=== PATIENT | male | born 1955 | race Caucasian/White ===

== ENCOUNTER → 2017-11-20 08:33 | Outpatient (CLI) | payer OTHER, SELFPAY ==
[2017-11-20 09:10] LABS: Absolute Lymphocyte Count 2.01 X10^3/ul (0.83-4.51); Absolute Neutrophil Count 4.9 X10^3/uL (2.0-7.7); Basophil# 0.02 X10^3/uL; Basophil% 0.3 % (0-1); Eosinophil# 0.19 X10^3/uL; Eosinophils% 2.5 % (0-5); Hematocrit 44.2 % (40-54); Hemoglobin 15.2 g/dl (13.0-16.5); Lymphocyte # 2.01 X10^3/ul (4.0); Lymphocyte % 26.2 % (19-41); Mean Corp Hgb Conc 34.4 g/gl (32-36); Mean Corpuscular Hgb 30.6 pg (27.0-32.0); Mean Corpuscular Volume 89.1 fL (80-94); Mean Platelet Vol. 9.8 fl (6.2-12.0); Monocyte# 0.56 X10^3/uL; Monocyte% 7.3 % (0-10); Neutrophil # 4.86 X10^3/uL (2.7-7.7); Neutrophil % 63.4 % (47-70); POSITIVE COUNT NO; POSITIVE DIFFERENTIAL NO; POSITIVE MORPHOLOGY NO; Platelet Count 179 K/mm3 (150-450); RBC Distribution Width CV 13.6 % (11.6-14.6); RBC Distribution Width SD 43.9 fl (35.1-43.9); Red Blood Count 4.96 M/mm3 (4.6-6.2); White Blood Count 7.7 K/mm3 (4.4-11.0)
[2017-11-20 09:25] LABS: ALB/GLOB Ratio 0.9 RATIO (0.9-2.4); AST(SGOT) 16 U/L (15-37); Alanine Aminotransfer ALT/SGPT 29 U/L (16-61); Albumin, Serum 3.5 g/dL (3.2-5.0); Alkaline Phosphatase 74 U/L (45-117); Anion Gap 8 (5-15); BUN 13 mg/dL (7-18); BUN/Creat Ratio 12.9 RATIO (10-20); Calcium,Total 8.5 mg/dL (8.5-10.1); Chloride 107 mmol/L (98-107); Creatinine, Serum 1.01 mg/dL (0.70-1.30); EST Glomerular Filtration Rate 80 mL/min (>60); Est Glom Filt Rate - Afr Amer 96 mL/min (>60); Globulin 3.8 g/dL (2.2-4.2); Glucose 99 mg/dL (74-106); Potassium 4.1 mmol/L (3.5-5.1); Protein, Total 7.3 g/dL (6.4-8.2); Sodium Level 141 mmol/L (136-145)
== END ==
PROVIDERS: Family Provider Family Medicine; PCP Family Medicine; Visit Provider Internal Medicine Rheumatology
DX: M06.4 Inflammatory polyarthropathy (principal); R76.8 Other specified abnormal immunological findings in serum; K21.0 Gastro-esophageal reflux disease with esophagitis; R51 Headache; G47.33 Obstructive sleep apnea (adult) (pediatric); E78.5 Hyperlipidemia, unspecified
CPT/HCPCS: 36415; 80053; 85025

== ENCOUNTER → 2017-11-22 08:49 | Outpatient (CLI) | payer OTHER, SELFPAY ==
--- NOTE | 2017-11-22 08:53 | RAD_ITS ---
STUDY: X-RAY CHEST REASON FOR EXAM: Male, 62 years old. Left shoulder pain following inhalation of cleaning agents. TECHNIQUE: PA and lateral views of the chest. COMPARISON: Comparison is made with prior study dated September 06, 2014. FINDINGS: Hyperinflation. No acute abnormality is seen. Scattered calcified granulomas. There is no demonstrated pleural abnormality. Normal size heart. There are calcified mediastinal lymph nodes. Normal visualized pulmonary arteries. Normal visualized aortic arch and descending thoracic aorta. Normal visualized thoracic spine. Normal visualized ribs, clavicles, and shoulders. There is no demonstrated abnormality of the visualized soft tissue structures of the upper abdomen. RAD/Chest PA and Lateral IMPRESSION: Hyperinflation. Electronically Signed: Taj Dhillon MD at 14:21 EST Tel [phone], Service support ,
== END ==
PROVIDERS: Family Provider Family Medicine; PCP Family Medicine; Visit Provider Family Medicine
DX: T59.891A Toxic effect of other specified gases, fumes and vapors, accidental (unintentional), initial encounter (principal)
CPT/HCPCS: 71046

== ENCOUNTER 2018-01-01 18:43 | Emergency (ER) | payer OTHER, SELFPAY ==
[2018-01-01 18:44] VITALS: BP 147/80; PULSE 73; RESP 18; TEMP 36.9; O2SAT 96; BMI 28.6
--- NOTE | 2018-01-01 19:14 | ED.DCSUM_ITS ---
- ER Visit Summary Date of Service: 01/01/18 Chief Complaint: Left eye redness History of Present Illness: The patient is a 62 M presenting with left eye redness. He states this is been ongoing since yesterday. He said a foreign body sensation in his left eye. He states when he moves his eye he can feel something moving under his eyelid. No visual changes. He wears glasses, no contacts. No trauma or chemical exposure. Denies fever or other complaints. Physical Examination: Vitals are stable. Patient is afebrile. Alert no acute distress. HEENT exam PERRL, EOMI, left conjunctivae injected. Neck is supple. Lungs are clear and equal bilaterally. Heart is regular rate and rhythm. Extremities are unremarkable. Skin is warm and dry. No focal neurologic deficit. Remainder of exam is unremarkable. Emergency Department Course and Treatment: Tetracaine was instilled into the left eye. Left eyelid was everted. There is no foreign body visualized. He has improvement of his symptoms after tetracaine was instilled. Visual acuity 20/30 OD, 20/30 OS, 20/30 OU. Intraocular pressure readings in the 20s. Corneal ulcer is seen at 11:00 with small amount of dye uptake. He is given Cipro ophthalmic drops. Discussed with Dr. Mejia. Patient will follow-up in the office. He has an appointment scheduled already on Wednesday for a routine eye visit. He is advised to return to the ED if he has any worsening vision or complaints. Disposition: Discharge home Impression: Left corneal ulcer This note was generated with [employer] dictation software. It may contain incorrect words, spelling, and punctuation that were not noted in review of the chart prior to signing ED Disposition - Plan for ED Patient: Chief Complaint: Eye Problem Referrals: Barron Kelley MD [Primary Care Provider] -
--- NOTE | 2018-01-01 20:20 | ED.DEP ---
ED Disposition - Plan for ED Patient: Chief Complaint: Eye Problem Instructions: ED Ulcer Cornea Referrals: Barron Kelley MD [Primary Care Provider] - Chad Ogden MD [STAFF PHYSICIAN] -
[2018-01-01] MEDS: Tetracaine 0.5% Ophthalmic Bottle 1 DRP LEFT EYE (20:37)
[2018-01-01] MEDS: Ciprofloxacin 0.3% 2.5ml Bottle 1 DRP LEFT EYE (20:37)
[2018-01-01 20:38] VITALS: RESP 18
== END 2018-01-01 20:38 | disposition home or self-care (01) ==
LOC: ED 19:09
PROVIDERS: Emergency Provider Emergency Medicine; Family Provider Family Medicine; PCP Family Medicine
DX: H16.002 Unspecified corneal ulcer, left eye (principal)
CPT/HCPCS: 99283

== ENCOUNTER → 2018-05-16 07:37 | Outpatient (CLI) | payer OTHER, SELFPAY ==
[2018-05-16 10:13] LABS: Absolute Lymphocyte Count 1.67 X10^3/ul (0.83-4.51); Absolute Neutrophil Count 3.7 X10^3/uL (2.0-7.7); Basophil# 0.01 X10^3/uL; Basophil% 0.2 % (0-1); Eosinophil# 0.13 X10^3/uL; Eosinophils% 2.2 % (0-5); Hematocrit 45.9 % (40-54); Hemoglobin 15.9 g/dl (13.0-16.5); Lymphocyte # 1.67 X10^3/ul (4.0); Lymphocyte % 27.7 % (19-41); Mean Corp Hgb Conc 34.6 g/gl (32-36); Mean Corpuscular Hgb 30.8 pg (27.0-32.0); Mean Platelet Vol. 10.6 fl (6.2-12.0); Monocyte# 0.53 X10^3/uL; Monocyte% 8.8 % (0-10); Neutrophil # 3.68 X10^3/uL (2.7-7.7); Neutrophil % 61.1 % (47-70); Platelet Count 174 K/mm3 (150-450); RBC Distribution Width CV 13.5 % (11.6-14.6); RBC Distribution Width SD 43.7 fl (35.1-43.9); Red Blood Count 5.16 M/mm3 (4.6-6.2)
[2018-05-16 10:20] LABS: POSITIVE COUNT NO; POSITIVE DIFFERENTIAL NO; POSITIVE MORPHOLOGY NO
[2018-05-16 10:44] LABS: AST(SGOT) 19 U/L (15-37); Alanine Aminotransfer ALT/SGPT 34 U/L (16-61); Albumin, Serum 3.8 g/dL (3.2-5.0); Alkaline Phosphatase 69 U/L (45-117); Anion Gap 9 (5-15); BUN 17 mg/dL (7-18); BUN/Creat Ratio 17.3 RATIO (10-20); Calcium,Total 8.9 mg/dL (8.5-10.1); Chloride 105 mmol/L (98-107); Creatinine, Serum 0.98 mg/dL (0.70-1.30); EST Glomerular Filtration Rate 82 mL/min (>60); Est Glom Filt Rate - Afr Amer 99 mL/min (>60); Globulin 3.7 g/dL (2.2-4.2); Glucose 99 mg/dL (74-106); Potassium 4.3 mmol/L (3.5-5.1); Protein, Total 7.5 g/dL (6.4-8.2); Sodium Level 142 mmol/L (136-145)
== END ==
PROVIDERS: Family Provider Family Medicine; PCP Family Medicine; Visit Provider Internal Medicine Rheumatology
DX: M06.4 Inflammatory polyarthropathy (principal); R76.8 Other specified abnormal immunological findings in serum; K21.0 Gastro-esophageal reflux disease with esophagitis; R51 Headache; G47.33 Obstructive sleep apnea (adult) (pediatric); E78.5 Hyperlipidemia, unspecified
CPT/HCPCS: 36415; 80053; 85025

== ENCOUNTER 2018-07-01 19:21 | Observation (INO) | payer OTHER, SELFPAY ==
[2018-07-01] VITALS (8 sets, daily range): BP systolic 109–184; BP diastolic 72–105; PULSE 61–83; RESP 14–17; TEMP 36.8; O2SAT 96–98; BMI 31.0; BMI 30.7
--- NOTE | 2018-07-01 19:22 | EKG12_ITS ---
Test Reason : CHEST PAIN Blood Pressure : / mmHG Vent. Rate : 079 BPM Atrial Rate : 079 BPM P-R Int : 186 ms QRS Dur : 096 ms QT Int : 376 ms P-R-T Axes : 039 -21 003 degrees QTc Int : 431 ms Normal sinus rhythm with sinus arrhythmia Normal ECG Confirmed by LOUIS QUINONES, ANABEL ([id number]), senior editor JIMENA MOHAMUD ([id number]) on 07/04/2018 3:22:39 PM Referred By: BRIAN Confirmed By:ANABEL MYERS MD
--- NOTE | 2018-07-01 19:35 | EKG12_ITS ---
Test Reason : REPEAT CP Blood Pressure : / mmHG Vent. Rate : 076 BPM Atrial Rate : 076 BPM P-R Int : 188 ms QRS Dur : 096 ms QT Int : 384 ms P-R-T Axes : 039 -11 -04 degrees QTc Int : 432 ms Normal sinus rhythm Normal ECG Confirmed by ANABEL MYERS MD ([id number]), editor index JIMENA MOHAMUD ([id number]) on 07/04/2018 3:18:02 PM Referred By: BRIAN Confirmed By:ANABEL MYERS MD
--- NOTE | 2018-07-01 19:46 | RAD_ITS ---
STUDY: X-RAY CHEST REASON FOR EXAM: Male, 62 years old. Chest pain. Hypertension. TECHNIQUE: Single AP portable view of the chest. COMPARISON: November 22, 2017. FINDINGS: Telemetry wires overlie the chest. The lungs are clear and mildly hyperexpanded. There is no demonstrated pleural abnormality. Normal size heart. Normal mediastinum and bruce. Normal visualized pulmonary arteries. Normal visualized aortic arch and descending thoracic aorta. Normal visualized thoracic spine. Normal visualized ribs, clavicles, and shoulders. There is no demonstrated abnormality of the visualized soft tissue structures of the upper abdomen. RAD/Chest 1 View (Portable) IMPRESSION: No acute cardiopulmonary disease or major interval change. Electronically Signed: Hodo Del Valle DO at 19:55 EDT Tel [phone], Service support ,
[2018-07-01] MEDS: Aspirin 81 MG TAB.CHEW 324 MG PO (19:51)
[2018-07-01 20:25] LABS: Absolute Lymphocyte Count 2.98 X10^3/ul (0.83-4.51); Absolute Neutrophil Count 4.1 X10^3/uL (2.0-7.7); Basophil# 0.02 X10^3/uL; Basophil% 0.3 % (0-1); Eosinophil# 0.05 X10^3/uL; Eosinophils% 0.7 % (0-5); Hematocrit 45.8 % (40-54); Hemoglobin 15.9 g/dl (13.0-16.5); Lymphocyte # 2.98 X10^3/ul (4.0); Lymphocyte % 38.9 % (19-41); Mean Corp Hgb Conc 34.7 g/gl (32-36); Mean Corpuscular Hgb 30.5 pg (27.0-32.0); Mean Corpuscular Volume 87.9 fL (80-94); Mean Platelet Vol. 10.7 fl (6.2-12.0); Monocyte# 0.55 X10^3/uL; Monocyte% 7.2 % (0-10); Neutrophil # 4.06 X10^3/uL (2.7-7.7); Neutrophil % 52.8 % (47-70); Platelet Count 177 K/mm3 (150-450); RBC Distribution Width CV 13.1 % (11.6-14.6); RBC Distribution Width SD 41.9 fl (35.1-43.9); Red Blood Count 5.21 M/mm3 (4.6-6.2); White Blood Count 7.7 K/mm3 (4.4-11.0)
[2018-07-01 20:26] LABS: POSITIVE COUNT NO; POSITIVE DIFFERENTIAL NO; POSITIVE MORPHOLOGY NO
[2018-07-01 20:37] LABS: Anion Gap 9 (5-15); BUN 15 mg/dL (7-18); BUN/Creat Ratio 15.1 RATIO (10-20); Chloride 103 mmol/L (98-107); EST Glomerular Filtration Rate 81 mL/min (>60); Est Glom Filt Rate - Afr Amer 98 mL/min (>60); Glucose 113 mg/dL (74-106); Potassium 3.9 mmol/L (3.5-5.1); Sodium Level 137 mmol/L (136-145)
--- NOTE | 2018-07-01 21:05 | HP.PCM_ITS ---
History of Present Illness The patient is a 62 year old M [] Past Medical History Allergies Sulfa (Sulfonamide Antibiotics) Adverse Reaction (Verified 11/11/16 13:05) Nausea Home Medications: Ambulatory Orders Medication Instructions Recorded Aspirin E.C. [Ecotrin] 81 mg PO DAILY@0800 11/11/16 Clonazepam [Klonopin] 0.5 mg PO BID 11/11/16 Hydroxychloroquine [Plaquenil] 200 mg PO BIDCM 11/11/16 Lovastatin [Mevacor] 40 mg PO DAILY 11/11/16 Multivitamin [Multiple Vitamins] 1 each PO DAILY 11/11/16 [place]-3S/Dha/Epa/Fish Oil/D3 [Fish 1 each PO DAILY 11/11/16 Oil + D3 Softgel] Omeprazole [Prilosec] 40 mg PO DAILY 11/11/16 Smoking Status: Former smoker - Physical Exam Vital Signs Temp Pulse Resp BP Pulse Ox 98.3 F 83 17 109/83 H 98 07/01/18 19:23 07/01/18 20:30 07/01/18 19:23 07/01/18 20:30 07/01/18 19:23 Oxygen Delivery Method Room Air Weight: 92.5 kg Body Mass Index (BMI) 31.0 Laboratory Tests Past 24 Hrs 07/01/18 07/01/18 19:26 19:26 WBC 7.7 RBC 5.21 Hgb 15.9 Hct 45.8 MCV 87.9 MCH 30.5 MCHC 34.7 RDW 13.1 RDW Differential 41.9 Plt Count 177 MPV 10.7 Immature Gran % (Auto) 0.100 Neut % (Auto) 52.8 Lymph % (Auto) 38.9 [place] % (Auto) 7.2 Eos % (Auto) 0.7 Baso % (Auto) 0.3 Absolute Neuts (auto) 4.1 Absolute Lymphs (auto) 2.98 Total Counted Not Reportable Sodium 137 Potassium 3.9 Chloride 103 Carbon Dioxide 25.0 Anion Gap 9 BUN 15 Creatinine 1.00 Estim Creat Clear Calc 74.10 Est GFR (MDRD) Af Amer 98 Est GFR (MDRD) Non-Af 81 BUN/Creatinine Ratio 15.1 Glucose 113 H Calcium 9.0 Troponin I < 0.015 Assessment/Plan All Active Problems Colitis (Acute) Rectal bleeding (Acute)
--- NOTE | 2018-07-01 21:07 | ED.DCSUM_ITS ---
- ER Visit Summary Date of Service: 07/01/18 Chief Complaint: Left sided chest pain History of Present Illness: The patient is a 62 M no prior cardiac history. History of hypertension and prior inoperable brain aneurysms. Eczema 11 years ago patient had a negative cardiac catheterization. He states about an hour prior to arrival he developed left-sided chest pressure. Denies nausea, diaphoresis or shortness of breath. No recent exertional symptoms. No leg pain or swelling. No history of DVT or PE. No hemoptysis. No recent travel, surgery or hospitalization. Patient states the pain is 4 out of 5. He describes it as a pressure. No significant radiation. Physical Examination: Well-appearing older male. Vital signs are stable his initial blood pressure is elevated 184/105. Pulse ox is 90% on room air no signs of hypoxia. H EENT exam unremarkable. Neck nontender no lymphadenopathy. Lungs clear to auscultation bilaterally. Heart regular rhythm no murmur rate about 75. Chest wall nontender. Abdomen soft nontender. He is moving all 4 extremities. They are neurovascularly intact. Calves are nontender without edema or cords. Radial pulses are equal and symmetrical. Back nontender. Neurologic exam normal no focal motor deficits. Test Results: First EKG shows sinus rhythm rate is 79 with anemia. Second EKG was performed and he had worsening chest pain again sinus rhythm rate is 76 with cardiac ischemia nor MA. CBC normal. Chemistries normal. Troponin normal. Chest x-ray normal cardiac silhouette and mediastinum. Read both by myself and the radiologist. Emergency Department Course and Treatment: Patient treated with p.o. aspirin. Sublingual nitroglycerin resolved his chest pain totally. He and I and his discussed all his test results. Treatment Plan: I have spoken to the hospitalist who is down in the ER to admit the patient. Disposition: Observation for chest pain of uncertain etiology. Impression: Chest pain of uncertain etiology History of hypertension This note was generated with [employer] dictation software. It may contain incorrect words, spelling, and punctuation that were not noted in review of the chart prior to signing ED Disposition - Plan for ED Patient: Chief Complaint: Chest Pain Referrals: Barron Kelley MD [Primary Care Provider] -
--- NOTE | 2018-07-01 21:41 | PCM.HP.STD ---
Problem List (1) Chest pain Status: Acute (2) HTN (hypertension) Status: Chronic (3) Brain aneurysm Status: Chronic History of Present Illness Date of Admission: 07/01/18 Chief Complaint: chest pain The patient is a 62 year old M with a significant history of hypertension, brain aneurysm who presents with progressively worsening episodic chest pain has began about 1 hour prior to presentation at emergency department. His pain was originally 5-6 on a scale of 1-10. At emergency department his pain increased to 7. Patient was given 3 tablets of nitroglycerin 5 minutes apart and he brought his pain to at school. Initially his blood pressure was severely elevated about with a nitroglycerin and his blood pressure decreased. His chest pain is located at the left side of his chest. He describes his pain predominantly as a pressure and with a little sharpness to it. About 11 years ago patient had an unremarkable evaluation for chest pain with stress test and a cardiac cath. He has strong family history of heart disease in both his maternal and his paternal lines. Past Medical History Past Medical History (Chronic Problems): Chronic Problems HTN (hypertension) (Chronic) Brain aneurysm (Chronic) Allergies Sulfa (Sulfonamide Antibiotics) Adverse Reaction (Verified 11/11/16 13:05) Nausea Home Medications: Ambulatory Orders Medication Instructions Recorded Aspirin E.C. [Ecotrin] 81 mg PO QHS 11/11/16 Clonazepam [Klonopin] 0.5 mg PO 1700 11/11/16 Hydroxychloroquine [Plaquenil] 200 mg PO BIDCM 11/11/16 Lovastatin [Mevacor] 40 mg PO QHS 11/11/16 Multivitamin [Multiple Vitamins] 1 each PO DAILY 11/11/16 [place]-3S/Dha/Epa/Fish Oil/D3 [Fish 1 each PO DAILY 11/11/16 Oil + D3 Softgel] Omeprazole [Prilosec] 40 mg PO DAILY 11/11/16 Clonazepam [Klonopin] 1 mg PO QHS 07/01/18 Vitamin D PO DAILY 07/01/18 Surgical History: no surgical history Lives: Spouse/ Significant Other Tobacco Use: Chew - licks some some type of tobacco Alcohol: Rare - *Family History Paternal History Items: No pertinent history Maternal History Items: No pertinent history Review of Systems Constitutional: Denies: Chills, Fever, Weight Change HEENT: Denies: Head Aches, Sinus Congestion, Sinus Drainage Cardiovascular: Reports: Chest Pain Respiratory: Denies: Cough, Shortness of breath at rest, Sputum production Gastrointestinal: Denies: Abdominal Pain, Nausea, Vomiting Genitourinary: Denies: Dysuria Musculoskeletal: Denies: Joint Pain, Joint Tenderness Skin: Denies: Rash, Wounds Neurological: Denies: Numbness, Tingling, Focal weakness Psychiatric: Denies: Anxiety, Depression, Homicidal Ideations, Suicidal Ideations Hematologic/ Lymphatic: Denies: Easy Bruising, Easy Bleeding VTE Information - Inpt Only VTE Present on Admission: No VTE Mechan Device Prophylaxis: None VTE Pharm Prophylaxis ordered?: Yes Patient Problems: Active and Suspected Problems Chest pain (Acute) - Physical Exam General: Alert, Oriented x3, Cooperative HEENT: Atraumatic, PERRLA, EOMI, Normocephalic Neck: Supple, No JVD, Negative Carotid Bruits Lungs: Clear to auscultation, Normal air movement Cardiovascular: Regular rate, No murmurs Abdomen: Bowel Sounds Present, Soft, Non Tender Extremities: No edema, Capillary Refill Less than 3 Seconds Skin: No rashes, No breakdown Musculoskeletal: No Tenderness to Palpation of Joints or Extremities Neurological: Cranial nerves II-XII grossly intact Psych/Mental Status: Normal Affect, Appropriate Vital Signs Temp Pulse Resp BP Pulse Ox 98.3 F 73 16 125/72 H 96 07/01/18 19:23 07/01/18 21:30 07/01/18 21:30 07/01/18 21:30 07/01/18 21:30 Assessment/Plan All Active Problems Chest pain (Acute) Colitis (Resolved) Rectal bleeding (Resolved) The patient is a 62 year old M with a significant history of hypertension, brain aneurysm who presents with progressively worsening episodic chest pain and a strong family history of heart disease in both his maternal and his paternal lines. Chest pain Admit to a monitored bed on PCU CXR independently reviewed was unremarkable EKG independently reveiwed showed sinus rhythm ASA 81 mg p.o. daily SL NTG 0.4 mg prn as needed for chest pain Lipitor 80 mg daily Fasting lipids CBC and BMP in a.m. Serial cardiac enzymes Stat EKG as needed for chest pain Treadmill stress test with nuclear imaging in the AM if the cardiac enzymes are negative Hypertension Uncontrolled at the time of admission Patient reports that the last 6 months he was started on some low-dose blood pressure medication. Hydralazine as needed ordered. Tobacco abuse Use some form of tobacco that he likes Counseled Inpatient consult smoking cessation. Anxiety Clonazepam continued. Obstructive sleep apnea CPAP ordered Rheumatoid arthritis Plaquenil continued. DVT prophylaxis Subcutaneous Lovenox ordered. Code Visit OBSV E&M: 71312 Initial observation care L3
--- NOTE | 2018-07-01 22:11 | EKG12_ITS ---
Test Reason : ADM EKG Blood Pressure : / mmHG Vent. Rate : 057 BPM Atrial Rate : 057 BPM P-R Int : 192 ms QRS Dur : 092 ms QT Int : 414 ms P-R-T Axes : 027 -15 -01 degrees QTc Int : 402 ms Sinus bradycardia Otherwise normal ECG When compared with ECG of 10-SEP-2010 12:06, No significant change was found Confirmed by LOUIS QUINONES, ANABEL ([id number]), film or videotape editor JIMENA MOHAMUD ([id number]) on 07/06/2018 3:31:18 PM Referred By: ARSALAN Confirmed By:ANABEL MYERS MD
[2018-07-01] MEDS: Atorvastatin Calcium 80 MG Tablet PO (22:50)
[2018-07-01] MEDS: clonazePAM 1 MG Tablet PO (22:52)
[2018-07-02] VITALS (7 sets, daily range): BP systolic 113–162; BP diastolic 65–86; PULSE 52–85; RESP 16–18; TEMP 36.9–37.4; O2SAT 92–94
--- NOTE | 2018-07-02 05:55 | EKG12_ITS ---
Test Reason : AM EKG Blood Pressure : / mmHG Vent. Rate : 058 BPM Atrial Rate : 058 BPM P-R Int : 182 ms QRS Dur : 098 ms QT Int : 442 ms P-R-T Axes : 044 -19 -12 degrees QTc Int : 433 ms Sinus bradycardia Otherwise normal ECG When compared with ECG of 01-JUL-2018 22:47, MANUAL COMPARISON REQUIRED, DATA IS UNCONFIRMED Confirmed by LOUIS QUINONES, ANABEL ([id number]), loan expeditor JIMENA MOHAMUD ([id number]) on 07/06/2018 3:29:49 PM Referred By: DR ZAPATA Confirmed By:ANABEL MYERS MD
[2018-07-02] MEDS: Aspirin E.C. 81 MG Tablet PO (06:31)
[2018-07-02 06:38] LABS: Absolute Lymphocyte Count 2.16 X10^3/ul (0.83-4.51); Absolute Neutrophil Count 3.8 X10^3/uL (2.0-7.7); Basophil# 0.02 X10^3/uL; Basophil% 0.3 % (0-1); Eosinophil# 0.11 X10^3/uL; Eosinophils% 1.6 % (0-5); Hematocrit 43.5 % (40-54); Hemoglobin 15.2 g/dl (13.0-16.5); Lymphocyte # 2.16 X10^3/ul (4.0); Lymphocyte % 32.1 % (19-41); Mean Corp Hgb Conc 34.9 g/gl (32-36); Mean Corpuscular Hgb 30.8 pg (27.0-32.0); Mean Corpuscular Volume 88.2 fL (80-94); Mean Platelet Vol. 10.1 fl (6.2-12.0); Monocyte# 0.61 X10^3/uL; Monocyte% 9.1 % (0-10); Neutrophil # 3.82 X10^3/uL (2.7-7.7); Neutrophil % 56.8 % (47-70); Platelet Count 164 K/mm3 (150-450); RBC Distribution Width CV 13.4 % (11.6-14.6); RBC Distribution Width SD 42.8 fl (35.1-43.9); Red Blood Count 4.93 M/mm3 (4.6-6.2); White Blood Count 6.7 K/mm3 (4.4-11.0)
[2018-07-02 06:44] LABS: International Normalized Ratio 1.1; Prothrombin Time (Protime)PT. 13.8 SECONDS (11.7-14.9)
[2018-07-02 06:47] LABS: POSITIVE COUNT NO; POSITIVE DIFFERENTIAL NO; POSITIVE MORPHOLOGY NO
[2018-07-02 07:08] LABS: BUN 15 mg/dL (7-18); EST Glomerular Filtration Rate 91 mL/min (>60); Glucose 96 mg/dL (74-106)
[2018-07-02 07:09] LABS: Anion Gap 11 (5-15); BUN/Creat Ratio 16.7 RATIO (10-20); Calcium,Total 8.5 mg/dL (8.5-10.1); Chloride 104 mmol/L (98-107); Cholesterol 156 mg/dL (200); Est Glom Filt Rate - Afr Amer 110 mL/min (>60); High Density Lipoprotein 48 mg/dL; Potassium 3.8 mmol/L (3.5-5.1); Sodium Level 140 mmol/L (136-145); Triglycerides 114 mg/dL; Very Low Density Lipoprotein 23 mg/dL (5-40)
[2018-07-02] MEDS: Pantoprazole Sodium 40 MG Tablet PO (10:11)
[2018-07-02] MEDS: Hydroxychloroquine 200 MG Tablet PO (10:11)
--- NOTE | 2018-07-02 11:32 | PCM.DC ---
- Discharge Diagnoses Current Active Problems: Current Active and Chronic Problems Chest pain Uncontrolled Hypertension Brain aneurysm (Chronic) Chronic Chew Tobacco use Rheumatoid Arthritis Anxiety HILARY Obesity You will use the following diet at home:: Cardiac Your food should be the consistency of: Regular Your liquids should be the consistency of: Regular/Thin Discharge Activity: Return to Normal Activity May resume sexual activity in: No Restrictions Weight Bearing Status: Weight bearing as tolerated Call your doctor if you observe: Fever of 101 or Higher, Inability to urinate, Inability to have a bowel movement, Shortness of breath, Dizziness, Fainting spells, Chest pain, Uncontrolled pain Instructions: ED Chest Pain NonCardiac, ED Chest Pain Atypical Unkn Cause, Taking ANNE Inhibitors, Controlling High Blood Pressure, Low-Salt Choices, Eating Heart-Healthy Food: Using the DASH Plan, Planning to Quit Smoking Additional Instructions: Please follow-up with your primary care physician as instructed to obtain repeat BP assessments and to have repeat basic metabolic panel in 1-2 weeks given usage of lisinopril. This regimen may need to be increased depending on your response. Please monitor your blood pressure and bring these results to your primary care follow-up. Allergies/Adverse Reactions: Allergies Sulfa (Sulfonamide Antibiotics) Adverse Reaction (Verified 11/11/16 13:05) Nausea Medications to take at Discharge Aspirin E.C. [Ecotrin] 81 mg PO QHS 11/11/16 Clonazepam [Klonopin] 0.5 mg PO 1700 11/11/16 Hydroxychloroquine [Plaquenil] 200 mg PO BIDCM 11/11/16 Lovastatin [Mevacor] 40 mg PO QHS 11/11/16 Multivitamin [Multiple Vitamins] 1 each PO DAILY 11/11/16 [place]-3S/Dha/Epa/Fish Oil/D3 [Fish Oil-Vit D3 Softgel] 1 each PO DAILY 11/11/16 Omeprazole [Prilosec] 40 mg PO DAILY 11/11/16 Clonazepam [Klonopin] 1 mg PO QHS 07/01/18 Vitamin D PO DAILY 07/01/18 Primary Care Physician: Barron Kelley MD [Primary Care Provider] - Please follow up with your Primary Care Physician in: Follow-up within 3-5 days. Test Results: Test results from this visit will be discussed in further detail at your follow-up appointment, if applicable. Proposed Discharge Date: 07/02/18
--- NOTE | 2018-07-02 11:37 | DCINST_ITS ---
- Discharge Diagnoses Current Active Problems: Current Active and Chronic Problems Chest pain Uncontrolled Hypertension Brain aneurysm (Chronic) Chronic Chew Tobacco use Rheumatoid Arthritis Anxiety HILARY Obesity You will use the following diet at home:: Cardiac Your food should be the consistency of: Regular Your liquids should be the consistency of: Regular/Thin Discharge Activity: Return to Normal Activity May resume sexual activity in: No Restrictions Weight Bearing Status: Weight bearing as tolerated Call your doctor if you observe: Fever of 101 or Higher, Inability to urinate, Inability to have a bowel movement, Shortness of breath, Dizziness, Fainting spells, Chest pain, Uncontrolled pain Instructions: ED Chest Pain NonCardiac, ED Chest Pain Atypical Unkn Cause, Taking ANNE Inhibitors, Controlling High Blood Pressure, Low-Salt Choices, Eating Heart-Healthy Food: Using the DASH Plan, Planning to Quit Smoking Additional Instructions: Please follow-up with your primary care physician as instructed to obtain repeat BP assessments and to have repeat basic metabolic panel in 1-2 weeks given usage of lisinopril. This regimen may need to be increased depending on your response. Please monitor your blood pressure and bring these results to your primary care follow-up. Allergies/Adverse Reactions: Allergies Sulfa (Sulfonamide Antibiotics) Adverse Reaction (Verified 11/11/16 13:05) Nausea Medications to take at Discharge Aspirin E.C. [Ecotrin] 81 mg PO QHS 11/11/16 Clonazepam [Klonopin] 0.5 mg PO 1700 11/11/16 Hydroxychloroquine [Plaquenil] 200 mg PO BIDCM 11/11/16 Lovastatin [Mevacor] 40 mg PO QHS 11/11/16 Multivitamin [Multiple Vitamins] 1 each PO DAILY 11/11/16 [place]-3S/Dha/Epa/Fish Oil/D3 [Fish Oil-Vit D3 Softgel] 1 each PO DAILY 11/11/16 Omeprazole [Prilosec] 40 mg PO DAILY 11/11/16 Clonazepam [Klonopin] 1 mg PO QHS 07/01/18 Vitamin D PO DAILY 07/01/18 Primary Care Physician: Barron Kelley MD [Primary Care Provider] - Please follow up with your Primary Care Physician in: Follow-up within 3-5 days. Test Results: Test results from this visit will be discussed in further detail at your follow- up appointment, if applicable. Proposed Discharge Date: 07/02/18
--- NOTE | 2018-07-02 12:29 | STRESSREP ---
Stress Test Report Exercise myocardial perfusion stress test. 62-year-old male with a history of chest pain. Stress protocol: Resting EKG demonstrates normal sinus rhythm with a rate of 61 beats minute normal intervals and noted resting blood pressure is 158/80 mmHg. The patient exercised according to regular James protocol for total duration of 8 minutes and 39 seconds. The maximum heart rate attained was 144 bpm which was 91% of maximum predicted heart rate. Patient completed 2 minutes and 40 seconds to stage III of the James protocol. At rest there were no ST or T-wave changes noted suggest ischemia peak exercise upsloping ST changes only were noted with no meet the criteria for ischemia no clinical angina was noted the resting blood pressure is 158/80 with a peak blood pressure of 206/80 mmHg. Myocardial perfusion protocol. 13.6 mCi of technetium 99m sestamibi was injected at rest. The patient exercised according to regular James protocol for 8 minutes and 40 seconds attaining 91% of maximum predicted heart rate and a workload of 10.1 metabolic equivalents. At peak exercise 41.0 mCi of technetium 99m sestamibi was injected stress images were obtained stress and rest images were reconstructed and compared in the short axis vertical long horizontal long axis. Gated images were also obtained Perfusion SPECT analysis: Review of the stress images demonstrate normal uptake of tracer noted in all areas of the myocardium. The resting images similarly demonstrate normal uptake of tracer noted in all areas of the myocardium. No reversibility is noted suggest ischemia. Gated SPECT analysis: The gated ejection fraction is noted to be 74%. Conclusion: Normal exercise myocardial perfusion stress test at a high workload. Preserved ejection fraction.
[2018-07-02] MEDS: Acetaminophen 325 MG Tablet 650 MG PO (12:45)
--- NOTE | 2018-07-02 16:12 | PCM.DC.SUM ---
Discharge Date and Diagnosis Date of Admission: 07/01/18 Date of Discharge: 07/02/18 - Primary Discharge Diagnosis Chest pain, Unclear specific etiology Uncontrolled Hypertension Chronic Brain aneurysm Chronic Chew Tobacco use Rheumatoid Arthritis Anxiety HILARY Obesity - Secondary Discharge Diagnosis Chronic Problems HTN (hypertension) (Chronic) Brain aneurysm (Chronic) Hospital Course and Treatment Operations: None Procedures: EKG, Stress test Summary of Care Provided: The patient is a 62 y/o M w/ PMHx: Stable chronic brain aneursym, Hypertension recently started on unclear low dose regimen, Obesity, Chew Tobacco use who presented to the [facility] ED on 07/01/18 with complaint of the onset of chest pain. In the ED work-up included EKG sinus rhythm without evidence of acute ischemia, CXR without acute process, unremarkable CBC and chemistry, cardiac enzyme set x 1 normal. The patient was admitted to PCU, maintained on cardiac telemetry, serial cardiac enzymes were obtained as well as serial EKGs which remained unremarkable. Patient underwent AM stress testing which was noted to be negative for inducible ischemia. FLP was obtained during admission and noted to be note marked appearing. Upon discharge given patient cannot recall his newly started blood pressure medication he was given prescription for low-dose lisinopril which had been initiated during admission as well. Encouraged avoidance of nicotine to tobacco. Additionally per patient admission with noted ongoing anxiety despite Klonopin usage which had been also used for other neurological nighttime issues per his neurologist recommended consideration of low-dose sertraline to assist with symptom improvement with titration as needed to achieve symptom control. Patient was discharged to home in stable condition with recommendation for follow-up with primary care physician within 3-5 days. Discharge Activity: Return to Normal Activity May resume sexual activity in: No Restrictions Weight Bearing Status: Weight bearing as tolerated Call your doctor if you observe: Fever of 101 or Higher, Inability to urinate, Inability to have a bowel movement, Shortness of breath, Dizziness, Fainting spells, Chest pain, Uncontrolled pain Home Medications: Medications to take at Discharge Aspirin E.C. [Ecotrin] 81 mg PO QHS 11/11/16 Clonazepam [Klonopin] 0.5 mg PO 1700 11/11/16 Hydroxychloroquine [Plaquenil] 200 mg PO BIDCM 11/11/16 Lovastatin [Mevacor] 40 mg PO QHS 11/11/16 Multivitamin [Multiple Vitamins] 1 each PO DAILY 11/11/16 [place]-3S/Dha/Epa/Fish Oil/D3 [Fish Oil-Vit D3 Softgel] 1 each PO DAILY 11/11/16 Omeprazole [Prilosec] 40 mg PO DAILY 11/11/16 Clonazepam [Klonopin] 1 mg PO QHS 07/01/18 Vitamin D PO DAILY 07/01/18 Lisinopril [Prinivil] 10 mg PO DAILY #30 tab 07/02/18 Following Prescrptions Were Given to Patient: Lisinopril [Prinivil] 10 mg PO DAILY #30 tab Primary Care Physician: Barron Kelley MD [Primary Care Provider] - Please follow up with your Primary Care Physician in: Follow-up within 3-5 days. Patient Instructions: Taking ANNE Inhibitors, Controlling High Blood Pressure, Low-Salt Choices, Eating Heart-Healthy Food: Using the DASH Plan, Planning to Quit Smoking, ED Chest Pain NonCardiac, ED Chest Pain Atypical Unkn Cause Disposition: Home Minutes spent on discharge:: 20 Patient Condition:: Fair Medical Necessity - Tobacco Use Smoking Status: Former smoker Tobacco Use: Chew - licks some some type of tobacco Meaningful Use Info Meaningful Use Diagnoses (Choose all that apply): None applicable Code Visit OBSV E&M: 75418 Observation care discharge
--- NOTE | 2018-07-02 16:16 | DS.PCM_ITS ---
Discharge Date and Diagnosis Date of Admission: 07/01/18 Date of Discharge: 07/02/18 - Primary Discharge Diagnosis Chest pain, Unclear specific etiology Uncontrolled Hypertension Chronic Brain aneurysm Chronic Chew Tobacco use Rheumatoid Arthritis Anxiety HILARY Obesity - Secondary Discharge Diagnosis Chronic Problems HTN (hypertension) (Chronic) Brain aneurysm (Chronic) Hospital Course and Treatment Operations: None Procedures: EKG, Stress test Summary of Care Provided: The patient is a 62 y/o M w/ PMHx: Stable chronic brain aneursym, Hypertension recently started on unclear low dose regimen, Obesity, Chew Tobacco use who presented to the [facility] ED on 07/01/18 with complaint of the onset of chest pain. In the ED work-up included EKG sinus rhythm without evidence of acute ischemia, CXR without acute process, unremarkable CBC and chemistry, cardiac enzyme set x 1 normal. The patient was admitted to PCU, maintained on cardiac telemetry, serial cardiac enzymes were obtained as well as serial EKGs which remained unremarkable. Patient underwent AM stress testing which was noted to be negative for inducible ischemia. FLP was obtained during admission and noted to be note marked appearing. Upon discharge given patient cannot recall his newly started blood pressure medication he was given prescription for low-dose lisinopril which had been initiated during admission as well. Encouraged avoidance of nicotine to tobacco. Additionally per patient admission with noted ongoing anxiety despite Klonopin usage which had been also used for other neurological nighttime issues per his neurologist recommended consideration of low-dose sertraline to assist with symptom improvement with titration as needed to achieve symptom control. Patient was discharged to home in stable condition with recommendation for follow-up with primary care physician within 3-5 days. Discharge Activity: Return to Normal Activity May resume sexual activity in: No Restrictions Weight Bearing Status: Weight bearing as tolerated Call your doctor if you observe: Fever of 101 or Higher, Inability to urinate, Inability to have a bowel movement, Shortness of breath, Dizziness, Fainting spells, Chest pain, Uncontrolled pain Home Medications: Medications to take at Discharge Aspirin E.C. [Ecotrin] 81 mg PO QHS 11/11/16 Clonazepam [Klonopin] 0.5 mg PO 1700 11/11/16 Hydroxychloroquine [Plaquenil] 200 mg PO BIDCM 11/11/16 Lovastatin [Mevacor] 40 mg PO QHS 11/11/16 Multivitamin [Multiple Vitamins] 1 each PO DAILY 11/11/16 [place]-3S/Dha/Epa/Fish Oil/D3 [Fish Oil-Vit D3 Softgel] 1 each PO DAILY 11/11/16 Omeprazole [Prilosec] 40 mg PO DAILY 11/11/16 Clonazepam [Klonopin] 1 mg PO QHS 07/01/18 Vitamin D PO DAILY 07/01/18 Lisinopril [Prinivil] 10 mg PO DAILY #30 tab 07/02/18 Following Prescrptions Were Given to Patient: Lisinopril [Prinivil] 10 mg PO DAILY #30 tab Primary Care Physician: Barron Kelley MD [Primary Care Provider] - Please follow up with your Primary Care Physician in: Follow-up within 3-5 days. Patient Instructions: Taking ANNE Inhibitors, Controlling High Blood Pressure, Low-Salt Choices, Eating Heart-Healthy Food: Using the DASH Plan, Planning to Quit Smoking, ED Chest Pain NonCardiac, ED Chest Pain Atypical Unkn Cause Disposition: Home Minutes spent on discharge:: 20 Patient Condition:: Fair Medical Necessity - Tobacco Use Smoking Status: Former smoker Tobacco Use: Chew - licks some some type of tobacco Meaningful Use Info Meaningful Use Diagnoses (Choose all that apply): None applicable Code Visit OBSV E&M: 49517 Observation care discharge
== END 2018-07-02 11:39 | disposition home or self-care (01) ==
LOC: ED 19:54 → PCU 21:20
PROVIDERS: Admitting Provider Hospitalist; Emergency Provider Emergency Medicine; Family Provider Family Medicine; PCP Family Medicine; Visit Provider Family Medicine
DX: R07.89 Other chest pain (principal); I10 Essential (primary) hypertension; Z79.899 Other long term (current) drug therapy; Z79.82 Long term (current) use of aspirin; I67.1 Cerebral aneurysm, nonruptured; F17.220 Nicotine dependence, chewing tobacco, uncomplicated; M06.9 Rheumatoid arthritis, unspecified; G47.33 Obstructive sleep apnea (adult) (pediatric); F41.9 Anxiety disorder, unspecified; E66.9 Obesity, unspecified; Z68.30 Body mass index [BMI] 30.0-30.9, adult; Z71.3 Dietary counseling and surveillance
CPT/HCPCS: 36415; 71045; 78452; 80048; 80061; 84484; 85025; 85610; 85730; 93005; 93017; 99218; 99283; A9500; A4216; G0378

== ENCOUNTER 2018-07-04 11:45 | Emergency (ER) | payer OTHER, SELFPAY ==
[2018-07-04 11:46] VITALS: BP 192/94; PULSE 68; RESP 15; TEMP 36.8; O2SAT 96; BMI 31.2
[2018-07-04] MEDS: LORazepam 2 MG/ML Syringe 0.5 MG IV (12:17)
[2018-07-04] MEDS: Lisinopril 10 MG Tablet PO (12:21)
[2018-07-04 12:46] VITALS: BP 159/105; PULSE 89; RESP 18; O2SAT 98
[2018-07-04 13:38] VITALS: BP 156/84; PULSE 63; RESP 22; O2SAT 97
--- NOTE | 2018-07-04 14:17 | ED.VISSUMM ---
- ER Visit Summary Date of Service: 07/04/18 Chief Complaint: Chest pain, elevated blood pressure History of Present Illness: The patient is a 62 M who was recently admitted to the hospital for chest pain. He was discharged with prescription for lisinopril 10 mg. He is also taking Klonopin 1.5 mg at bedtime. He has been on Klonopin since 2010. He states he has not taken any Klonopin in the past week because he cannot get his medication refilled. He denies headache, visual, ocular auditory symptoms. Denies trouble with speech or swallowing. He denies paresthesia, anesthesia or motor weakness. He denies dyspnea, dyspnea on exertion, orthopnea or PND. He denies hiatal hernia, reflux, hemoptysis, hematemesis, melena hematochezia. He denies leg pain, swelling or discoloration. Physical Examination: Blood pressure is elevated 192/94. He appears no distress. Head is atraumatic normocephalic. Pupils are equal round reactive. Extraocular muscles are intact. TMs are pearly white with landmarks noted. Nares patent with no drainage. Posterior pharynx without erythema or exudate. Uvula is midline. There is no dysphonia or dysphasia. Trachea is midline. There is no stridor with auscultation of the neck. Heart is regular without murmur, gallop or rub. S1 and S2 are normal. Lungs are clear to auscultation with good movement of air bilaterally. Patient is alert and oriented ?3. Motor is 5 over 5. Sensory is intact. DTRs are symmetric with no clonus or Babinski sign. Cranial 2 through 12 are intact. Cerebellar testing is normal. Test Results: None Emergency Department Course and Treatment: Patient was treated with 10 mg lisinopril and 0.5 mg of Ativan. Repeat blood pressure at 1246 159/105. Repeat blood pressure at 1338 156/84. Treatment Plan: Prescription for lisinopril 20 mg and prescription for Klonopin Disposition: Discharged home in stable and improved condition Impression: 1. Chest pain secondary to hypertension 2. Hypertension, accelerated 3. Benzodiazepine dependency now I understand why people are getting aerosols and This note was generated with Red Guruation software. It may contain incorrect words, spelling, and punctuation that were not noted in review of the chart prior to signing ED Disposition - Plan for ED Patient: Disposition: Home or Assisted Living Chief Complaint: Chest Pain Instructions: ED Hypertension Conf Out Of Control Prescriptions: Clonazepam [Klonopin] 0.5 mg PO QHS #30 tablet Clonazepam [Klonopin] 1 mg PO QHS #30 tablet Lisinopril 20 mg PO DAILY #30 tab Referrals: Barron Kelley MD [Primary Care Provider] - 1 Week
[2018-07-04 14:29] VITALS: BP 156/102; PULSE 67; RESP 18; O2SAT 96
== END 2018-07-04 14:54 | disposition home or self-care (01) ==
PROVIDERS: Emergency Provider Emergency Medicine; Family Provider Family Medicine; PCP Family Medicine
DX: I10 Essential (primary) hypertension (principal); F13.20 Sedative, hypnotic or anxiolytic dependence, uncomplicated; E66.9 Obesity, unspecified
CPT/HCPCS: 99285; A4216

== ENCOUNTER → 2018-09-23 16:16 | Outpatient (CLI) | payer OTHER, SELFPAY ==
--- NOTE | 2018-09-23 16:19 | RAD_ITS ---
STUDY: X-RAY CHEST REASON FOR EXAM: Male, 62 years old. Atypical chest pain TECHNIQUE: PA and lateral views of the chest. COMPARISON: Prior study of 07/01/2018 FINDINGS: The lungs are clear and expanded. There is no demonstrated pleural abnormality. Normal size heart. There are calcified right mediastinal nodes. Normal visualized pulmonary arteries. Normal visualized aortic arch and descending thoracic aorta. Normal visualized thoracic spine. Normal visualized ribs, clavicles, and shoulders. There is no demonstrated abnormality of the visualized soft tissue structures of the upper abdomen. RAD/Chest PA and Lateral IMPRESSION: Calcified right mediastinal nodes. No acute cardiopulmonary disease process is seen. Chest findings are stable in the interval. Electronically Signed: Raul Betancourt MD at 16:39 EST , Service support ,
== END ==
PROVIDERS: Family Provider Family Medicine; PCP Family Medicine; Referring Provider Family Medicine; Visit Provider Family Medicine
DX: R07.89 Other chest pain (principal)
CPT/HCPCS: 71046

== ENCOUNTER 2018-10-12 09:33 | Emergency (ER) | payer OTHER, SELFPAY ==
[2018-10-12 09:34] VITALS: BP 133/85; PULSE 75; RESP 18; TEMP 36.4; O2SAT 97; BMI 31.1
[2018-10-12 10:38] LABS: Squamous Epithelial Cells - UA 0 SEEN /hpf (0-5)
[2018-10-12 10:41] LABS: Color, Urine Yellow (Yellow); Glucose, Dipstick Normal (Normal); Ketone-Dipstick 5 mg/dl (Negative); Leukocyte Esterase-Dipstick 25 /ul (Negative); Nitrite-Dipstick Negative (Negative); Occult Blood-Urine 50 /ul (Negative); Protein-Dipstick 30 mg/dl (Negative); Specific Gravity, Urine 1.025 (1.002-1.030); Urine Bilirubin Dipstick Negative (Negative); Urine Clarity Clear (Clear); Urine Urobilinogen Normal (Normal)
[2018-10-12 10:53] LABS: Red Blood Cells-Urine 0-5 SEEN /hpf (0-5); White Blood Cells 5-10 SEEN /hpf (0-5)
[2018-10-12 10:54] LABS: Bacteria RARE /hpf (None Seen); Mucous, Urine 2+ /hpf (<or=2+)
--- NOTE | 2018-10-12 11:15 | ED.DCSUM_ITS ---
- ER Visit Summary Date of Service: 10/12/18 Chief Complaint: [Urinary frequency and dysuria] History of Present Illness: The patient is a 63 M [presents with symptoms that started last evening. Patient feels like he cannot completely empty his bladder. Patient complains of pain in his rectum when he sits. Patient has a history years ago of prostatitis. Patient also with history of hypertension, high cholesterol, and GERD. Patient denies any fever. He denies any abdominal pain. He denies any testicle pain.] Physical Examination: [HEENT-PERRLA, EOMI. Cranial nerves II through XII grossly intact. TMs clear. Mucous membranes moist. No adenopathy. Cardiovascular-regular rate and rhythm without murmur or ectopy Lungs-clear to auscultation, chest wall stable without crepitus or subcu emphysema Abdomen-normoactive bowel sounds, soft, nontender, no rebound or rigidity, no peritoneal signs. Rectal exam-patient does have tenderness over the prostate which seems slightly enlarged however it does not feel boggy. Palpating the prostate does reproduce patient's pain. Extremities-intact ?4, normal range of motion, normal pulses, atraumatic] Test Results: [Urinalysis obtained showed 25 leukocyte esterase, negative nitrites, 5-10 WBCs, 0-5 RBCs, rare bacteria.] Urine culture was sent Emergency Department Course and Treatment: [Patient was given ciprofloxacin 500 mg p.o.] Treatment Plan: [Patient will be started on Cipro and [place] for pain. Patient will be given referral to urology.] Disposition: [Discharged home stable condition] Impression: [Prostatitis] This note was generated with [employer] dictation software. It may contain incorrect words, spelling, and punctuation that were not noted in review of the chart prior to signing ED Disposition - Plan for ED Patient: Chief Complaint: Complaint Referrals: Barron Kelley MD [Primary Care Provider] -
--- NOTE | 2018-10-12 11:15 | ED.DEP ---
ED Disposition - Plan for ED Patient: Chief Complaint: Complaint Instructions: ED Prostatitis Prescriptions: Hydrocodone Bitart/Apap 5-325 [[place] 5MG-325MG] 1 tab PO Q4H PRN PRN 2 Days #10 tab PRN Reason: Pain Ciprofloxacin [Cipro] 500 mg PO BID #20 tab Referrals: Barron Kelley MD [Primary Care Provider] - Jimmie Mattson MD [STAFF PHYSICIAN] - 5-7 Days
[2018-10-12] MEDS: Ciprofloxacin 250 MG Tablet 500 MG PO (11:38)
[2018-10-12 11:39] VITALS: BP 142/82; PULSE 63; PULSE 64; RESP 16; O2SAT 97
== END 2018-10-12 11:41 | disposition home or self-care (01) ==
PROVIDERS: Emergency Provider Emergency Medicine; Family Provider Family Medicine; PCP Family Medicine
DX: N41.9 Inflammatory disease of prostate, unspecified (principal); I10 Essential (primary) hypertension; K21.9 Gastro-esophageal reflux disease without esophagitis; E78.00 Pure hypercholesterolemia, unspecified
CPT/HCPCS: 81001; 87077; 87086; 87088; 87186; 99283

== ENCOUNTER 2018-10-13 04:27 | Emergency (ER) | payer OTHER, SELFPAY ==
[2018-10-12 09:34] VITALS: BMI 31.1
[2018-10-13 04:29] VITALS: BP 134/86; PULSE 82; RESP 16; TEMP 36.8; O2SAT 96; BMI 32.2
--- NOTE | 2018-10-13 05:01 | ED.DEP ---
ED Disposition - Plan for ED Patient: Chief Complaint: Complaint Instructions: ED Retention Urinary Male Referrals: Barron Kelley MD [Primary Care Provider] -
--- NOTE | 2018-10-13 06:19 | ED.DCSUM_ITS ---
- ER Visit Summary Date of Service: 10/13/18 Chief Complaint: Urinary retention History of Present Illness: The patient is a 63 M who presents with urinary retention. He was seen yesterday for rectal pain and was diagnosed with prostatitis and/or UTI. He was discharged with Cipro and [place]. He states that he has not been able to void and when he was voiding was only voiding small amounts of about 40 cc. He complains of ongoing rectal pain and suprapubic pain. No fevers. No vomiting. No diarrhea. Physical Examination: Afebrile vitals unremarkable Patient appears uncomfortable Heart regular rate and rhythm Lungs clear Abdomen soft he does have some suprapubic abdominal tenderness Alert Test Results: Not indicated Emergency Department Course and Treatment: Rodriges was placed and he had 850 cc of light yellow urine out. He continued complaint of bladder spasms and pain was given a B and O suppository. He was advised to follow-up with urology. He understands to return for new or worsening symptoms. He was discharged with a leg bag. Treatment Plan: [] Disposition: Discharge Impression: Urinary retention This note was generated with Secure-24 dictation software. It may contain incorrect words, spelling, and punctuation that were not noted in review of the chart prior to signing ED Disposition - Plan for ED Patient: Chief Complaint: Complaint Instructions: ED Retention Urinary Male Referrals: Barron Kelley MD [Primary Care Provider] -
[2018-10-13 07:22] VITALS: BP 127/66; PULSE 72; RESP 15; O2SAT 98
== END 2018-10-13 07:24 | disposition home or self-care (01) ==
PROVIDERS: Emergency Provider Emergency Medicine; Family Provider Family Medicine; PCP Family Medicine
DX: R33.9 Retention of urine, unspecified (principal); R10.9 Unspecified abdominal pain; I10 Essential (primary) hypertension; E78.00 Pure hypercholesterolemia, unspecified
CPT/HCPCS: 99282

== ENCOUNTER → 2018-10-21 07:16 | Outpatient (CLI) | payer OTHER, SELFPAY ==
[2018-10-13 04:29] VITALS: BMI 32.2
--- NOTE | 2018-10-21 07:28 | MRI_ITS ---
STUDY: MRA OF THE HEAD WITHOUT CONTRAST REASON FOR EXAM: Male, 63 years old. Cerebral aneurysm recheck. TECHNIQUE: 3-D [id number] (TOF) imaging was performed with MIPs. The study was performed unenhanced. COMPARISON: MRA of the head 12/18/2016. FINDINGS: Normal bilateral petrous carotid arteries. Normal right cavernous carotid artery with a normal supraclinoid bifurcation. Normal left cavernous carotid artery with a normal supraclinoid bifurcation. Normal right A1 segment of the anterior cerebral artery. Normal left A1 segment of the anterior cerebral artery. Normal intact anterior communicating artery (ACOM). Normal bilateral A2 segments of the anterior cerebral arteries. Normal right M1 and M2 segments of the middle cerebral arteries, with a normal M1 bifurcation. Normal left M1 and M2 segments of the middle cerebral arteries, with a normal M1 bifurcation. Prominent infundibulum of the right posterior communicating artery (PCOM) rather than aneurysm in the lateral wall of the right supraclinoid internal carotid artery. This measures approximately 2 mm long with a 2.5 mm wide neck. Saccular aneurysm is doubtful. No visible left posterior communicating artery (PCOM). Normal bilateral vertebral arteries. Normal basilar artery with a normal basilar bifurcation. The visualized bilateral superior cerebellar (SCA) arteries are normal. Normal bilateral P1, P2 and visualized P3 segments of the posterior cerebral arteries. There is no demonstrated aneurysm of the tetlin of [place]. There is no major vessel occlusion or hemodynamically significant stenosis. There is no demonstrated abnormality of the visualized brain. OPINION: 1. The previously described 2 to 3 mm outpouching in the lateral wall of the right supraclinoid internal carotid artery is normal Infundibulum of the right posterior communicating artery rather than saccular aneurysm. Conventional cerebral arteriogram will help confirm if desired. 2. Normal infundibulum of the left ophthalmic artery. 3. No definite MRA evidence of intracranial aneurysm, saccular or fusiform type. 4. No interval change when compared to 12/18/2016. Electronically Signed: Xavier Williamson MD at 16:26 EST , Service support , MRI/MRA Head ONLY without Contrast
== END ==
PROVIDERS: Family Provider Family Medicine; PCP Family Medicine; Referring Provider Internal Medicine Hematology & Oncology; Visit Provider Internal Medicine Hematology & Oncology
DX: I67.1 Cerebral aneurysm, nonruptured (principal)
CPT/HCPCS: 70544

== ENCOUNTER → 2018-11-14 08:52 | Outpatient (CLI) | payer OTHER, SELFPAY | PROVIDERS: Family Provider Family Medicine; PCP Family Medicine; Referring Provider Nurse Practitioner Adult Health; Visit Provider Nurse Practitioner Adult Health | DX: N52.9 Male erectile dysfunction, unspecified (principal); R68.82 Decreased libido | CPT/HCPCS: 36415; 84403 ==

== ENCOUNTER → 2019-01-20 20:00 | Outpatient (CLI) | payer OTHER, SELFPAY | PROVIDERS: Family Provider Family Medicine; PCP Family Medicine | DX: F51.8 Other sleep disorders not due to a substance or known physiological condition (principal); G47.61 Periodic limb movement disorder | CPT/HCPCS: 95811 ==

== ENCOUNTER → 2019-02-10 15:04 | Outpatient (CLI) | payer OTHER, SELFPAY ==
[2019-02-10 17:54] LABS: Hematocrit 45.1 % (40-54); Hemoglobin 15.5 g/dl (13.0-16.5); Mean Corp Hgb Conc 34.4 g/gl (32-36); Mean Corpuscular Hgb 29.8 pg (27.0-32.0); Mean Corpuscular Volume 86.7 fL (80-94); Mean Platelet Vol. 10.3 fl (6.2-12.0); Platelet Count 205 K/mm3 (150-450); RBC Distribution Width CV 14.3 % (11.6-14.6); RBC Distribution Width SD 45.2 fl (35.1-43.9); White Blood Count 7.5 K/mm3 (4.4-11.0)
[2019-02-10 18:04] LABS: Scan Indicated on CBC? Y/N NO
[2019-02-10 18:19] LABS: Erythrocyte Sedimentation Rate 21 mm/hr (0-20)
== END ==
PROVIDERS: Family Provider Family Medicine; PCP Family Medicine; Referring Provider Internal Medicine Gastroenterology; Visit Provider Internal Medicine Gastroenterology
DX: K52.9 Noninfective gastroenteritis and colitis, unspecified (principal)
CPT/HCPCS: 36415; 85027; 85652; 86140

== ENCOUNTER → 2019-02-14 15:15 | Outpatient (CLI) | payer OTHER, SELFPAY ==
--- NOTE | 2019-02-14 08:18 | COLBX_PTH ---
PATIENT: LOREE CHARLES LOC: [facility] U#:[id number] AGE/SX: 69/M ROOM: RE02/14/[address]: Dr. Jamey Fisher MD : 1955 BED: DIS: SPEC #: [id number] RECD: 02/14/19 15:02 STATUS: ELIANA TRANG #: [id number] JONA: 02/14/19 08:[address]: Jamey Fisher DEPT: SURGICAL PATHOLOGY RECD BY: Zach Ruiz ENTERED: 02/16/19 11:09 SP TYPE: COLON BX OTHR DR: Dr. Barron Kelley MD [facility] Tissues: A - Right colon B - Left colon Procedures: Surgery Specimen Level IV HEADER OPERATION: Colonoscopy with biopsy PRE-OP DIAGNOSIS: History of ulcerative colitis TISSUE SUBMITTED: A - Biopsy right colon, rule out ulcerative colitis, B - Biopsy left colon, rule out ulcerative colitis MICROSCOPIC DIAGNOSIS A. Right colon, biopsy: Fragments of colonic mucosa, no pathologic diagnosis. B. Left colon, sigmoid, biopsy: Focal chronic active colitis. Negative for dysplasia. See microscopic description and comment. KHUSHBU:nakul 02/17/19 COMMENT B. Correlation with clinical, endoscopic findings and appropriate follow up are necessary. Please make reference to previous specimen ([id number]) colon at splenic flexure and distal descending colon, biopsies with diagnosis of acute colitis. MICROSCOPIC DESCRIPTION Slides are reviewed. B. Specimen shows fragments of colonic mucosa. One of the fragments show acute and chronic inflammatory cell infiltrates in the lamina propria, minimal granular distortion and cryptitis. Crypt abscess and granulomas are not seen. No evidence of dysplasia. GROSS DESCRIPTION A - Received in fixative is one container labeled with the patient's name and designated biopsy right colon. The specimen consists of several pink fragments of soft tissue measuring in aggregate 0.5 x 0.4 x 0.1 cm. The specimen is totally submitted in one cassette. B - Received in fixative is one container labeled with the patient's name and designated biopsy of left colon sigmoid. The specimen consists of multiple pink fragments of soft tissue that in aggregate measure 0.4 x 0.3 x 0.2 cm. The specimen is totally submitted in one cassette. / CE:nakul 02/16/19 TC:2 CPT: 77132 x2
== END ==
PROVIDERS: Family Provider Family Medicine; PCP Family Medicine; Referring Provider Internal Medicine Gastroenterology; Visit Provider Internal Medicine Gastroenterology
DX: Z87.19 Personal history of other diseases of the digestive system (principal)
CPT/HCPCS: 88305

== ENCOUNTER → 2019-05-05 15:58 | Outpatient (CLI) | payer OTHER, SELFPAY ==
--- NOTE | 2019-05-05 16:13 | MRI_ITS ---
HISTORY: Chronic headaches COMPARISON: 03/08/2015 TECHNIQUE: Multisequence multiplanar MR imaging of the brain per department protocol without intravenous gadolinium. # of images including paperwork: 296 FINDINGS: BRAIN: Diffusion-weighted imaging shows no acute infarct. No remote parenchymal infarct. No parenchymal hemorrhage, infarct, intra-axial mass, mass effect, or midline shift. No abnormal extra-axial fluid collections. VENTRICLES: Ventricles are normal in size and configuration. No hydrocephalus. PARANASAL SINUSES: Visualized paranasal sinuses are clear. MASTOIDS: Mastoid air cells are clear. ORBITS: Orbits are unremarkable. MRI/Brain without Contrast IMPRESSION: 1. No acute infarct or acute intracranial disease. 2. Negative noncontrast MR examination of brain. Stable exam. at 1925 Reported and signed by: Ian Toledo MD Electronically Signed: Ian Toledo MD at 19:24 EDT Tel , Service support ,
--- NOTE | 2019-05-05 16:14 | MRI_ITS ---
HISTORY: Cerebral aneurysm, follow-up COMPARISON: 10/21/2018, 12/18/2016, 12/20/2015, and 03/08/2015 TECHNIQUE: MR angiography of the brain was performed per department protocol without IV gadolinium. # of images incl. paperwork: 197 FINDINGS: Again seen is a 2-3 mm focal outpouching of the posterior margin of the right supraclinoid ICA likely representing small aneurysm as reported on prior exams. No flow signal of the right PCOM is seen to categorize this as an infundibulum. Again seen is a left ophthalmic artery through to mm saccular aneurysm versus infundibulum, unchanged. Remainder of bilateral cavernous and supraclinoid ICAs are otherwise unremarkable. Proximal branches of bilateral anterior and middle cerebral arteries have a normal appearance. Flow signal is seen within the anterior communicating artery. Basilar artery is normal in caliber without focal stenosis or basilar tip aneurysm. Bilateral posterior cerebral arteries are identified emanating from the basilar tip and are within normal limits within the visualized portions. Non-visualized right PCOM. Non-visualized left PCOM.The vertebrobasilar junction is intact. No acute branch occlusion, high-grade stenosis, or arteriovenous malformation. MRI/MRA Head ONLY without Contrast IMPRESSION: 1. 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 No flow signal of rightPCOM to suggest infundibulum. 2. Stable 2 mm aneurysm versus infundibulum of the left ophthalmic artery, also unchanged dating back to February 2015. 3. Consider further evaluation with CT angiography of the brain for better characterization of these abnormalities as deemed clinically warranted. 4. Remainder of this MRA brain is otherwise within normal limits. at 1915 Reported and signed by: Ian Toledo MD Electronically Signed: Ian Toledo MD at 19:14 EDT Tel , Service support ,
== END ==
PROVIDERS: Family Provider Family Medicine; PCP Family Medicine
DX: H02.402 Unspecified ptosis of left eyelid (principal)
CPT/HCPCS: 70544; 70551

== ENCOUNTER 2019-06-08 10:34 | Emergency (ER) | payer OTHER, SELFPAY ==
[2019-06-08 10:36] VITALS: BP 145/79; PULSE 95; RESP 18; TEMP 36.3; O2SAT 98; BMI 31.6
[2019-06-08 10:57] VITALS: BP 146/95; PULSE 90; RESP 18; O2SAT 97
--- NOTE | 2019-06-08 11:06 | RAD_ITS ---
STUDY: X-RAY CHEST REASON FOR EXAM: Male, 63 years old. Chest pain. High blood pressure. TECHNIQUE: PA and lateral views of the chest. COMPARISON: September 23, 2018. FINDINGS: Cardiac silhouette unremarkable. Pulmonary vascularity unremarkable. Aorta minimally calcified. No focal patchy airspace opacities. No pleural effusions. Calcified mediastinal lymph nodes. Mild hyperexpansion/COPD. Upper abdomen unremarkable. Osseous structures slightly demineralized. No pneumothorax. Degenerative changes at the shoulders and spine. RAD/Chest PA and Lateral IMPRESSION: No acute cardiopulmonary findings Electronically Signed: Marlon Graff DO at 12:02 EDT Tel , Service support ,
--- NOTE | 2019-06-08 11:06 | EKG12_ITS ---
Test Reason : DYSRHYTHMIA Blood Pressure : / mmHG Vent. Rate : 081 BPM Atrial Rate : 081 BPM P-R Int : 172 ms QRS Dur : 096 ms QT Int : 368 ms P-R-T Axes : 038 002 009 degrees QTc Int : 427 ms Normal sinus rhythm with sinus arrhythmia Normal ECG Confirmed by GABRIEL QUINONES, KATERINA ([id number]), subeditor GRETTA HARGROVE ([id number]) on 06/12/2019 11:22:55 A M Referred By: XUAN Confirmed By:LYNDON RIOS MD
--- NOTE | 2019-06-08 11:17 | ED.DCSUM_ITS ---
- ER Visit Summary Date of Service: 06/08/19 Chief Complaint: Headache and elevated blood pressure History of Present Illness: The patient is a 63 M who presents with headache that has been waxing and waning over the past 4 days. Patient states his blood pressure has also been up and down over the last 4 days. Patient describes his headache as a pressure. Patient states his headache is diffuse around his head. Patient was seen in 2 other emergency departments this week for similar symptoms. Patient states after the first ER visit he was told to increase his lisinopril to 20 mg twice a day. Patient was seen at [facility] 2 days ago and had a CT of his head with and without contrast because he has a history of cerebral aneurysms. CT scan were normal. There is no bleeding or change in his aneurysms. Patient still has intermittent symptoms. Patient states he has some back pain and neck pain. Patient admits to some nausea but denies any vomiting. Patient states his nausea comes on when his blood pressure is elevated. Patient admits to some pain in his chest when his blood pressure is elevated. Physical Examination: Vital signs are stable. Patient is afebrile. Patient is in no acute distress. Oral mucosa is pink and moist. Neck is supple. Trachea is midline. There is no JVD noted. Heart was regular rate and rhythm. Lungs are clear and equal bilateral. Abdomen is soft. Bowel sounds are normal. There is no tenderness. There is no guarding noted. Skin is warm dry. Cranial nerves II through XII are intact. There are no focal motor or sensory deficits noted. Test Results: EKG showed normal sinus rhythm with a rate of 81. There are no acute ST or T wave changes. PA and lateral chest x-ray was obtained. There is no acute cardiopulmonary process. CBC, basic metabolic profile, troponin, and urinalysis were obtained and were all normal. Emergency Department Course and Treatment: Patient was feeling somewhat better on reevaluation. Patient's blood pressure was slightly increased to 155/90. I discussed the patient's results with him. He will follow-up with his doctor tomorrow as scheduled. Patient was given a short prescription for Klonopin sinc e he has been on that in the past. Patient was instructed to return if worse in any way. Patient understood and was agreeable with the plan. All questions were answered. Disposition: Discharge home Impression: Hypertension This note was generated with Dragon dictation software. It may contain incorrect words, spelling, and punctuation that were not noted in review of the chart prior to signing ED Disposition - Plan for ED Patient: Disposition: Home or Assisted Living Diagnosis: HTN (hypertension) Instructions: HYPERTENSION, Established Prescriptions: Clonazepam 0.5 mg PO BID PRN PRN 3 Days #6 tab PRN Reason: Anxiety Prescription Printed Referrals: Barron Kelley MD [Primary Care Provider] - Keep Celeste appointment
[2019-06-08 11:40] LABS: Bacteria 0 SEEN /hpf (None Seen); Mucous, Urine 0 SEEN /hpf (<or=2+); Red Blood Cells-Urine 0 SEEN /hpf (0-5); White Blood Cells 0 SEEN /hpf (0-5)
[2019-06-08 11:44] LABS: Absolute Lymphocyte Count 1.56 X10^3/uL (0.83-4.51); Basophil# 0.02 X10^3/uL; Basophil% 0.3 % (0-1); Eosinophil# 0.07 X10^3/uL; Eosinophils% 1.1 % (0-5); Hematocrit 44.8 % (40-54); Hemoglobin 15.2 g/dL (13.0-16.5); Lymphocyte # 1.56 X10^3/ul (4.0); Lymphocyte % 25.3 % (19-41); Mean Corp Hgb Conc 33.9 g/dL (32-36); Mean Corpuscular Hgb 30.2 pg (27.0-32.0); Mean Corpuscular Volume 88.9 fL (80-94); Mean Platelet Vol. 9.8 fl (6.2-12.0); Monocyte# 0.49 X10^3/uL; Monocyte% 7.9 % (0-10); NRBC Flagged by Analyzer 0 % (0-5); Neutrophil # 4.01 X10^3/uL (2.7-7.7); Neutrophil % 65.1 % (47-70); Platelet Count 223 K/mm3 (150-450); RBC Distribution Width CV 14.3 % (11.6-14.6); RBC Distribution Width SD 45.8 fl (35.1-43.9); Red Blood Count 5.04 M/mm3 (4.6-6.2); White Blood Count 6.2 K/mm3 (4.4-11.0)
[2019-06-08 11:49] LABS: Color, Urine Yellow (Yellow); Glucose, Dipstick Normal (Normal); Ketone-Dipstick Negative (Negative); Leukocyte Esterase-Dipstick Negative /ul (Negative); Nitrite-Dipstick Negative (Negative); Occult Blood-Urine Negative /ul (Negative); Protein-Dipstick Negative (Negative); Urine Bilirubin Dipstick Negative (Negative); Urine Clarity Sl. Cloudy (Clear); Urine Urobilinogen Normal (Normal)
[2019-06-08 12:00] LABS: Squamous Epithelial Cells - UA 0-5 SEEN /hpf (0-5)
[2019-06-08 12:04] LABS: Anion Gap 7 (5-15); BUN 19 mg/dL (7-18); BUN/Creat Ratio 17.8 RATIO (10-20); Calcium,Total 8.8 mg/dL (8.5-10.1); Chloride 110 mmol/L (98-107); Creatinine, Serum 1.07 mg/dL (0.70-1.30); EST Glomerular Filtration Rate 74 mL/min (>60); Est Glom Filt Rate - Afr Amer 90 mL/min (>60); Estimated Creatinine Clearance 70.66 ml/min; Glucose 93 mg/dL (74-106); Potassium 4.6 mmol/L (3.5-5.1); Sodium Level 141 mmol/L (136-145)
[2019-06-08 12:57] VITALS: BP 141/96; PULSE 71; RESP 16; O2SAT 98
== END 2019-06-08 13:09 | disposition home or self-care (01) ==
PROVIDERS: Emergency Provider Emergency Medicine; Family Provider Family Medicine; PCP Family Medicine
DX: I10 Essential (primary) hypertension (principal); E78.00 Pure hypercholesterolemia, unspecified; K21.9 Gastro-esophageal reflux disease without esophagitis
CPT/HCPCS: 71046; 80048; 81001; 84484; 85025; 93005; 99284

== ENCOUNTER 2019-07-10 13:02 | Observation (INO) | payer OTHER, SELFPAY ==
[2019-07-10] VITALS (8 sets, daily range): BP systolic 150–163; BP diastolic 81–97; PULSE 56–67; RESP 16–18; TEMP 36.6–36.9; O2SAT 96–98; BMI 31.6; BMI 32.0; BMI 32.1
--- NOTE | 2019-07-10 13:07 | RAD_ITS ---
STUDY: X-RAY CHEST REASON FOR EXAM: Male, 63 years old. Chest pain. TECHNIQUE: Single AP portable view of the chest. COMPARISON: June 08, 2019. FINDINGS: Cardiac silhouette unremarkable. Pulmonary vascularity unremarkable. Aorta unremarkable. No focal patchy airspace opacities. No pleural effusions. Mild atelectasis/scar. COPD. Calcified mediastinal lymph nodes. Upper abdomen unremarkable. Osseous structures intact. No pneumothorax. Degenerative changes of the shoulders and spine. RAD/Chest 1 View (Portable) IMPRESSION: No acute cardiopulmonary findings Electronically Signed: Marlon Graff DO at 13:40 EDT Tel , Service support ,
--- NOTE | 2019-07-10 13:07 | EKG12_ITS ---
Test Reason : CP Blood Pressure : / mmHG Vent. Rate : 062 BPM Atrial Rate : 062 BPM P-R Int : 186 ms QRS Dur : 094 ms QT Int : 394 ms P-R-T Axes : 021 -03 011 degrees QTc Int : 399 ms Normal sinus rhythm Normal ECG Confirmed by MAHAD QUINONES, ROCHELLE ([id number]), features editor GRETTA HARGROVE ([id number]) on 07/12/2019 10:44:49 AM Referred By: LAZ/DEB Confirmed By:ROCHELLE TOBIN MD
[2019-07-10 13:27] LABS: Absolute Lymphocyte Count 2.03 X10^3/uL (0.83-4.51); Absolute Neutrophil Count 4.1 X10^3/uL (2.0-7.7); Basophil# 0.02 X10^3/uL; Basophil% 0.3 % (0-1); Eosinophil# 0.07 X10^3/uL; Hematocrit 43.6 % (40-54); Hemoglobin 14.8 g/dL (13.0-16.5); Lymphocyte # 2.03 X10^3/ul (4.0); Lymphocyte % 29.9 % (19-41); Mean Corp Hgb Conc 33.9 g/dL (32-36); Mean Corpuscular Hgb 29.8 pg (27.0-32.0); Mean Corpuscular Volume 87.7 fL (80-94); Mean Platelet Vol. 9.7 fl (6.2-12.0); Monocyte# 0.54 X10^3/uL; NRBC Flagged by Analyzer 0 % (0-5); Neutrophil % 60.5 % (47-70); Platelet Count 200 K/mm3 (150-450); RBC Distribution Width CV 13.7 % (11.6-14.6); RBC Distribution Width SD 43.7 fl (35.1-43.9); Red Blood Count 4.97 M/mm3 (4.6-6.2); White Blood Count 6.8 K/mm3 (4.4-11.0)
[2019-07-10 13:45] LABS: Anion Gap 5 (5-15); BUN 15 mg/dL (7-18); BUN/Creat Ratio 15.2 RATIO (10-20); Chloride 108 mmol/L (98-107); Creatinine, Serum 0.99 mg/dL (0.70-1.30); EST Glomerular Filtration Rate 81 mL/min (>60); Est Glom Filt Rate - Afr Amer 98 mL/min (>60); Estimated Creatinine Clearance 76.37 ml/min; Glucose 105 mg/dL (74-106); Potassium 4.2 mmol/L (3.5-5.1); Sodium Level 138 mmol/L (136-145)
--- NOTE | 2019-07-10 14:11 | ED.VISSUMM ---
- ER Visit Summary Date of Service: 07/10/19 Chief Complaint: Chest pain History of Present Illness: The patient is a 63 M presenting with chest pain. Started around 10 AM this morning. He states the pain resolved and then returned around 12:25 PM. He has pain in his left chest with no radiation. He denies shortness of breath or nausea. He travels frequently. He denies leg pain or leg cramping. Denies other PE/DVT risk factors. He has a history of hypertension and hypercholesterolemia. He is a previous smoker. Physical Examination: Vitals are stable. Patient is afebrile. Alert no acute distress. HEENT exam is unremarkable. Neck is supple. Lungs are clear and equal bilaterally. Heart is regular rate and rhythm. Abdomen is soft nontender nondistended. Extremities are unremarkable. Skin is warm and dry. No focal neurologic deficit. Remainder of exam is unremarkable. Emergency Department Course and Treatment: EKG is sinus rhythm rate of 62 with no acute ischemic changes. Patient was given aspirin on arrival. He was given morphine, Zofran IV. He has no hypoxia or tachycardia. Chest x-ray shows no acute process. CBC, chemistries unremarkable. Troponin is negative. Will discuss with the hospitalist for observation. Disposition: Observation Impression: Chest pain This note was generated with [employer] dictation software. It may contain incorrect words, spelling, and punctuation that were not noted in review of the chart prior to signing ED Disposition - Plan for ED Patient: Referrals: Barron Kelley MD [Primary Care Provider] -
[2019-07-10] MEDS: Morphine 4 MG/ML Syringe IV (14:35)
[2019-07-10] MEDS: Ondansetron 4 MG/2 ML Vial IV (14:35)
--- NOTE | 2019-07-10 14:35 | NURSING ---
DR CURTIS ABBASI [facility]
[2019-07-10] MEDS: Aspirin 325 MG Tablet PO (14:36)
--- NOTE | 2019-07-10 15:17 | HP.PCM_ITS ---
Problem List (1) Restless leg syndrome Status: Chronic (2) Obstructive sleep apnea Status: Chronic Comment: On CPAP. (3) Chest pain Status: Acute (4) HTN (hypertension) Status: Chronic (5) Brain aneurysm Status: Chronic History of Present Illness Date of Admission: 07/10/19 Chief Complaint: Chest pain. The patient is a 63 year old M with past medical history as mentioned above presented to the emergency room because of chest pain. His symptoms started thi s morning around 10:30 AM when he was driving, left-sided chest pain, described as ache, 7 out of 10 in severity, nonradiating, associated with headache, numbness and tingling of the whole face, eased up after few minutes and when he returned back home, pain started to get worse and he decided to come to the ER. He mentioned that he does have a history of hypertension and he was instructed to take propranolol as needed for high blood pressure. This morning he found that his blood pressure was elevated and he took a dose of propranolol. He checked his blood pressure later and it was 191/98 and he continued to have chest pain. He was started on lisinopril few months ago for hypertension and he was instructed to go to 20 mg p.o. twice a day instead of once a day and he mentioned that he got dizzy and lightheaded that the and he went back to 20 mg p.o. daily of lisinopril. In the emergency department, his blood pressure was slightly elevated, other vital signs were stable. Routine blood work was unremarkable. EKG revealed normal sinus rhythm, normal nontender, normal QRS, normal QTC, no acute ischemic changes. Troponin was negative. Chest x-ray showed no acute findings. He is being admitted for chest pain for evaluation and also for uncontrolled hypertension. Past Medical History Past Medical History (Chronic Problems): Chronic Problems Migraine headache (Chronic) Restless leg syndrome (Chronic) Obstructive sleep apnea (Chronic) On CPAP. HTN (hypertension) (Chronic) Brain aneurysm (Chronic) Allergies Sulfa (Sulfonamide Antibiotics) Adverse Reaction (Verified 07/10/19 13:03) Nausea Home Medications: Ambulatory Orders Medication Instructions Recorded Lovastatin [Mevacor] 40 mg PO QHS 11/11/16 Multivitamin [Multiple Vitamins] 1 each PO DAILY 11/11/16 Omeprazole [Prilosec] 40 mg PO DAILY 11/11/16 Lisinopril 20 mg PO DAILY 10/12/18 Melatonin 5 mg PO QHS 07/10/19 Ropinirole HCl [Requip] 1.5 mg PO QHS 07/10/19 Tamsulosin HCl 0.8 mg PO QHS 07/10/19 Topiramate 75 mg PO DAILY 07/10/19 Surgical History: no surgical history Psychiatric History: No pertinent psych hx Lives: Spouse/ Significant Other Smoking Status: Never smoker Tobacco Use: Chew Alcohol: Rare Drugs: None - *Family History Paternal History Items: Stroke Maternal History Items: Heart Disease - CABG. Review of Systems Constitutional: Denies: Anorexia, Chills, Fever, Weakness Eyes: Denies: Blurred vision, Double vision, Drainage, Redness HEENT: Reports: Head Aches. Denies: Difficulty Hearing, Eye Pain, Nasal Congestion, Sore Throat Cardiovascular: Reports: Chest Pain, Chest Tightness. Denies: Edema, Heaviness, Light Headedness, Orthopnea, Paroxysmal Noc. Dyspnea, Syncope Respiratory: Denies: Cough, Pleuritic Pain, Shortness of Breath, Sputum production, Wheezing Gastrointestinal: Denies: Abdominal Pain, Constipation, Diarrhea, Nausea, Melena, Vomiting Genitourinary: Denies: Dysuria, Frequency, Hematuria Musculoskeletal: Denies: Arm Pain, Back Pain, Foot Pain Skin: Denies: Dryness, Rash Neurological: Reports: Numbness, Tingling. Denies: Balance problems, Double vision, Change in Speech, Slurred speech, Confusion, Headaches, Incoordination Psychiatric: Denies: Anxiety, Depression Endocrine: Denies: Change in Body Habitus, Polydipsia, Polyuria VTE Information - Inpt Only VTE Present on Admission: No VTE Mechan Device Prophylaxis: None VTE Pharm Prophylaxis ordered?: Yes - Physical Exam General: Alert, Oriented x3, Cooperative, No apparent distress HEENT: Atraumatic, PERRLA, EOMI, Normocephalic Oral: Moist Mucosa, No Gingival or Mucosal Lesions/ Ulcerations Neck: Supple, No JVD, Negative Carotid Bruits, Trachea Midline, Thyroid Normal Size and Texture Lungs: Clear to auscultation, Normal air movement, No rhonchi, No wheeze, No rales Cardiovascular: Regular rate, Regular Rhythm, Normal S1, Normal S2, No murmurs Abdomen: Bowel Sounds Present, Soft, Non Tender, Non-Distended, No Hepato- splenomegaly Extremities: No clubbing, No cyanosis, No edema Skin: No rashes, No breakdown Lymphatic: No Cervical, Supraclavicular, or Inguinal Adenopathy Neurological: Cranial nerves II-XII grossly intact, Motor Exam 5/5 strength throughout Psych/Mental Status: Normal Affect, Appropriate, Alert and oriented to time, place, person, mood and affect Vital Signs Temp Pulse Resp BP Pulse Ox 98.4 F 56 L 16 151/97 H 98 07/10/19 13:03 07/10/19 14:41 07/10/19 14:41 07/10/19 14:41 07/10/19 13:32 Oxygen Delivery Method Room Air Weight: 214 lb Body Mass Index (BMI) 31.6 Laboratory Tests Past 24 Hrs 07/10/19 07/10/19 13:15 13:15 WBC 6.8 RBC 4.97 Hgb 14.8 Hct 43.6 MCV 87.7 MCH 29.8 MCHC 33.9 RDW Std Deviation 43.7 RDW Coeff of Rosa 13.7 Plt Count 200 MPV 9.7 Immature Gran % (Auto) 0.300 Neut % (Auto) 60.5 Lymph % (Auto) 29.9 [place] % (Auto) 8.0 Eos % (Auto) 1.0 Baso % (Auto) 0.3 Absolute Neuts (auto) 4.1 Absolute Lymphs (auto) 2.03 Nucleated RBC % 0 Sodium 138 Potassium 4.2 Chloride 108 H Carbon Dioxide 25.0 Anion Gap 5 BUN 15 Creatinine 0.99 Estim Creat Clear Calc 76.37 Est GFR (MDRD) Af Amer 98 Est GFR (MDRD) Non-Af 81 BUN/Creatinine Ratio 15.2 Glucose 105 Calcium 9.0 Troponin I < 0.015 Clinical Impression(s) from Imaging Studies Chest X-Ray 07/10/19 13:07 IMPRESSION: No acute cardiopulmonary findings Electronically Signed: Marlon Graff DO at 13:40 EDT Tel , Service support , Assessment/Plan All Active Problems Chest pain (Acute) This is a 63 years old male patient presented to the emergency room because of chest pain and he is being admitted for evaluation as well as for uncontrolled hypertension. #1 chest pain: It is atypical, initial EKG and troponin were negative. Chest x- ray showed no acute findings. Patient had stress test back on June, and that was normal. His risk factors are age, hypertension and hyperlipidemia. No family history of premature CAD. Plan: Admit to PCU for observation, cardiac monitoring, serial cardiac enzymes, repeat EKG tomorrow morning, nuclear stress test tomorrow morning if cardiac enzymes are negative, 2D echocardiogram for difficult to control hypertension, sublingual nitro is not PRN, IV fluids, start aspirin. #2 uncontrolled hypertension: Blood pressure has been fluctuating significantly according to the patient. He has been on lisinopril and propranolol as needed according to the patient. Recently, blood pressure was high and he was instructed to take lisinopril 20 mg p.o. twice a day and his blood pressure became low and he was dizzy. While I am in the room, blood pressure keeps fluctuating anywhere between 160s 170 systolic. He does have history of small brain aneurysm. Plan: Change lisinopril to 20 mg p.o. twice daily, IV hydralazine PRN, 2D echocardiogram, may need to add another antihypertensive medications if blood pressure remains high. 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 He has been followed up with Dr. Bender, the neurologist as outpatient. He had CTA of the head on May, at [facility] and the size of the aneurysm were stable according to the patient. He denied any alarming symptoms such as persistent headache, vision change or focal weakness. #5 obstructive sleep apnea: Continue CPAP at night. #6 restless leg syndrome: Stable, continue ropinirole. #7 migraine headache: Stable, continue to vomit. #8 DVT prophylaxis: Subcu Lovenox. This note was generated with [employer] dictation software. It may contain incorrect words, spelling, and punctuation that were not noted in checking the note before signing. Code Visit OBSV E&M: 70956 Initial observation care L3
[2019-07-10] MEDS: 0.9% Normal Saline 1,000 ML 75 ML IV (15:30)
--- NOTE | 2019-07-10 15:32 | ECHOD_ITS ---
Reason For Study: CHEST PAIN, uncontrolled HTN. Procedure This was a 2D Doppler, Color Flow transthoracic echocardiogram. The study was technically difficult. Exam performed in department. Left Ventricle Normal LV size. Left ventricular systolic function is normal. The estimated ejection fraction is 65 %. Diastolic function is indeterminate. No regional wall motion abnormalities noted. Right Ventricle Normal RV size. Normal systolic function. Atria Normal left atrium. Normal right atrium. No doppler evidence for ASD. Mitral Valve There is no mitral annular calcification. Normal mitral valve. Trivial mitral valve insufficiency. Tricuspid Valve Normal tricuspid valve. Trivial tricuspid valve insufficiency. Right ventricular systolic pressure estimated to be 30 mmHg. Aortic Valve Trisinus/trileaflet aortic valve. Mild focal aortic valve thickening. Pulmonic Valve The pulmonic valve is not well visualized. Trivial pulmonic valve insufficiency. Great Vessels Normal sized aortic root. Pericardium/Pleural No pericardial effusion. MMode/2D Measurements & Calculations LVIDd: 5.1 cm IVSd: 0.94 cm Ao root diam: 3.4 cm LVIDs: 3.5 cm LVPWd: 1.0 cm RVDd: 4.3 cm FS: 32.2 % LAV(MOD-bp): 48.1 ml LA A4 area: 17.5 cm2 LA dimension(2D): 4.4 cm LAV(MOD-bp) Indexed: 22.5 ml/m2 LAV(MOD-sp2): 46.9 ml LAV(MOD-sp4): 50.3 ml RA A4 area: 14.4 cm2 Time Measurements MV dec time: 0.19 sec Doppler Measurements & Calculations MV E max anselmo: 97.8 cm/sec Lat Peak E' Anselmo: 11.9 cm/sec Med Peak E' Anselmo: 6.3 cm/sec MV A max anselmo: 75.2 cm/sec E/E' lat: 8.2 E/E' med: 15.6 MV E/A: 1.3 Ao V2 max: 125.5 cm/sec LV V1 max: 113.6 cm/sec PA V2 max: 93.9 cm/sec Ao max P.3 mmHg LV V1 max P.2 mmHg TR max anselmo: 261.4 cm/sec TR max P.3 mmHg Interpretation Summary The study was technically difficult. Left ventricular systolic function is normal. The estimated ejection fraction is 65 %. Trivial mitral valve insufficiency. Trivial tricuspid valve insufficiency. Mild focal aortic valve thickening. Trivial pulmonic valve insufficiency. Right ventricular systolic pressure estimated to be 30 mmHg. Diastolic function is indeterminate. Ordering Physician: Sonido Shepard Referring Physician: Barron Kelley Performed By: Grace Claudio RDCS, RVT
--- NOTE | 2019-07-10 16:52 | EKG12_ITS ---
Test Reason : CP ADMISSION Blood Pressure : / mmHG Vent. Rate : 055 BPM Atrial Rate : 055 BPM P-R Int : 188 ms QRS Dur : 104 ms QT Int : 428 ms P-R-T Axes : 022 018 004 degrees QTc Int : 409 ms Sinus bradycardia Otherwise normal ECG When compared with ECG of 08-JUN-2019 11:19, No significant change was found Confirmed by GABRIEL QUINONES, KATERINA ([id number]), associate editor GRETTA HARGROVE ([id number]) on 07/14/2019 10:34:35 A M Referred By: ERASMO Confirmed By:LYNDON RIOS MD
[2019-07-10] MEDS: Atorvastatin Calcium 10 MG Tablet PO (22:18)
[2019-07-10] MEDS: Lisinopril 20 MG Tablet PO (22:18)
[2019-07-10] MEDS: Pramipexole Di-HCl 0.25 MG Tablet 0.75 MG PO (22:19)
[2019-07-10] MEDS: MELATONIN 10 MG TABLET 5 MG PO (22:20)
[2019-07-10] MEDS: Tamsulosin HCl 0.4 MG Capsule 0.8 MG PO (22:20)
[2019-07-11 03:00] VITALS: PULSE 63
[2019-07-11 03:30] VITALS: BP 92/51; PULSE 67; RESP 18; TEMP 36.9; O2SAT 100
--- NOTE | 2019-07-11 05:55 | EKG12_ITS ---
Test Reason : AM EKG Blood Pressure : / mmHG Vent. Rate : 058 BPM Atrial Rate : 058 BPM P-R Int : 190 ms QRS Dur : 096 ms QT Int : 424 ms P-R-T Axes : 024 007 023 degrees QTc Int : 416 ms Sinus bradycardia Otherwise normal ECG When compared with ECG of 10-JUL-2019 15:38, MANUAL COMPARISON REQUIRED, DATA IS UNCONFIRMED Confirmed by GABRIEL QUINONES, KATERINA ([id number]), purchase request editor GRETTA HARGROVE ([id number]) on 07/14/2019 10:35:38 A M Referred By: CURTIS Confirmed By:LYNDON RIOS MD
--- NOTE | 2019-07-11 07:18 | PCM.PROGNOTE ---
Subjective: The patient is a 63-year-old male with a past medical history of restless leg syndrome, HILARY, migraine cephalgia, obesity, hypertension and a brain aneurysm resented to the emergency department at [facility] on 07/10/2019 complaining of chest pain. The chest pain started while he was driving and it was located in the left chest and described as aching. Did not radiate. It was associated with a headache and numbness and tingling of his entire face. He takes as needed propanolol for high blood pressure. He was also prescribed Lisinopril 20 mg BID but, he only takes it once a day. Vital signs at presentation to the emergency room were temperature 98.4, pulse rate 67, blood pressure 151/97, respiratory rate 17 and he was 96% saturated on room air. CBC and BMP were unremarkable. Troponin was less than 0.015. Chest x-ray showed no pleural effusions, pulmonary vascular congestion or infiltrates. EKG showed normal sinus rhythm with no ST elevation and no suspicious ST or T wave changes. He was admitted to a monitored bed on PCU for chest pain and uncontrolled hypertension. He has been scheduled for a treadmill nuclear stress test on 07/11/2019. Blood pressure overnight has ranged from 92/51 at 3:30 AM to 163/91. Serial troponins are all normal. - Physical Exam Vital Signs Temp Pulse Resp BP Pulse Ox 98.5 F 67 18 92/51 L 100 07/11/19 03:30 07/11/19 03:30 07/11/19 03:30 07/11/19 03:30 07/11/19 03:30 Oxygen Delivery Method CPAP Weight: 217 lb 1.6 oz Body Mass Index (BMI) 32.0 Intake and Output for Last 24 Hours 07/09/19 07/10/19 07/11/19 23:59 23:59 23:59 Intake Total 240 / 600 1360 / 1360 Balance 240 / 600 1360 / 1360 Laboratory Tests Past 24 Hrs 07/10/19 07/10/19 07/10/19 13:15 13:15 16:23 WBC 6.8 RBC 4.97 Hgb 14.8 Hct 43.6 MCV 87.7 MCH 29.8 MCHC 33.9 RDW Std Deviation 43.7 RDW Coeff of Rosa 13.7 Plt Count 200 MPV 9.7 Immature Gran % (Auto) 0.300 Neut % (Auto) 60.5 Lymph % (Auto) 29.9 [place] % (Auto) 8.0 Eos % (Auto) 1.0 Baso % (Auto) 0.3 Absolute Neuts (auto) 4.1 Absolute Lymphs (auto) 2.03 Nucleated RBC % 0 Sodium 138 Potassium 4.2 Chloride 108 H Carbon Dioxide 25.0 Anion Gap 5 BUN 15 Creatinine 0.99 Estim Creat Clear Calc 76.37 Est GFR (MDRD) Af Amer 98 Est GFR (MDRD) Non-Af 81 BUN/Creatinine Ratio 15.2 Glucose 105 Calcium 9.0 Troponin I < 0.015 < 0.015 07/10/19 19:22 WBC RBC Hgb Hct MCV MCH MCHC RDW Std Deviation RDW Coeff of Rosa Plt Count MPV Immature Gran % (Auto) Neut % (Auto) Lymph % (Auto) [place] % (Auto) Eos % (Auto) Baso % (Auto) Absolute Neuts (auto) Absolute Lymphs (auto) Nucleated RBC % Sodium Potassium Chloride Carbon Dioxide Anion Gap BUN Creatinine Estim Creat Clear Calc Est GFR (MDRD) Af Amer Est GFR (MDRD) Non-Af BUN/Creatinine Ratio Glucose Calcium Troponin I < 0.015 Medical Necessity - Tobacco Use Smoking Status: Former smoker Tobacco Use: Chew Assessment/Plan All Active Problems Chest pain (Acute)
[2019-07-11 09:20] VITALS: BP 135/83; PULSE 61; RESP 16; TEMP 36.6; O2SAT 96
--- NOTE | 2019-07-11 09:25 | STRESSREP ---
Stress Test Report Date: 07-11-19 Procedure: Exercise tolerance test/imaging study Indications: Chest pain Consent: Per the patient Procedure: The patient exercised on a James protocol for 6 minutes and 37 seconds completing Stage II and 37 seconds of Stage III achieving a peak heart rate of 134 bpm (85 % predicted maximal heart rate) with a peak blood pressure 184/80 mmHg and a peak MET capacity of 7 METs. The baseline ECG demonstrated sinus bradycardia. The peak exercise ECG demonstrated somatic/motion artifact with no obvious ECG changes. There were no cardiac dysrhythmias pretest, during exercise, or recovery. The functional capacity was considered decreased. There was no complaint of chest discomfort during exercise or recovery. The examination was discontinued secondary to leg discomfort. Impression: 1. Technically adequate (percent predicted maximal heart rate greater than 85%) exercise tolerance test 2. Peak exercise ECG with somatic/motion artifact with no obvious ECG changes 3. There were no cardiac dysrhythmias pretest, during exercise, or recovery 4. Nuclear images pending Myocardial perfusion imaging study: Technique: The patient was injected with 14.3 mCi of technetium 99m Cardiolite and subsequently rest SPECT Cardiolite nuclear imaging was obtained in the horizontal long, vertical long, and short axis views. The patient exercised on a James protocol for 6 minutes and 37 seconds completing Stage II and 37 seconds of Stage III achieving a peak heart rate of 134 bpm (85 % predicted maximal heart rate) with a peak blood pressure 184/80 mmHg and a peak MET capacity of 7 METs. The patient was injected with 44.6 mCi of technetium 99m Cardiolite and subsequently stress SPECT Cardiolite nuclear imaging was obtained in the horizontal long, vertical long, and short axis views. A gated Cardiolite study at peak stress was obtained. Interpretation: Rest and stress SPECT Cardiolite nuclear imaging status post realignment, normalization, and attenuation correction, demonstrates the appearance of relative uniform tracer uptake and myocardial perfusion appearing within normal limits. There is end systolic thickening and brightening. The gated Cardiolite study demonstrates myocardial thickening and inward wall motion. The reported LVEF is 68 %. Impression: 1. Rest and stress SPECT Cardiolite nuclear imaging demonstrate relative uniform tracer uptake and myocardial perfusion appearing within normal limits. 2. The gated Cardiolite study reports an LVEF of 68 %. This note was generated with [employer] software. It may contain incorrect words, spelling, and punctuation that were not noted in checking the note before signing.
[2019-07-11] MEDS: Lisinopril 20 MG Tablet PO (09:30)
[2019-07-11] MEDS: Pantoprazole Sodium 40 MG Tablet PO (09:30)
[2019-07-11 09:36] VITALS: PULSE 69
[2019-07-11 10:35] LABS: Cholesterol 145 mg/dL (200); High Density Lipoprotein 44 mg/dL; Triglycerides 113 mg/dL; Very Low Density Lipoprotein 23 mg/dL (5-40)
--- NOTE | 2019-07-11 11:02 | PCM.DC ---
- Discharge Diagnoses Current Active Problems: Current Active and Chronic Problems Migraine headache (Chronic) Restless leg syndrome (Chronic) Obstructive sleep apnea (Chronic) On CPAP. You will use the following diet at home:: Other - Resume previous diet Your food should be the consistency of: Regular Your liquids should be the consistency of: Regular/Thin Discharge Activity: Return to Normal Activity Return to work on:: 07/12/19 May resume sexual activity in: No Restrictions Call your doctor if you observe: Fever of 101 or Higher, Dizziness, Fainting spells, Swelling in the ankles, Increased palpitations (irregular heartbeat) Instructions: Your Body's Response to Anxiety, Treating Anxiety Disorders with Therapy, Treating Anxiety Disorders with Medication Additional Instructions: I think that the headaches, racing heart, nausea and chest pain are due to unrelieved anxiety and sleep deprivation. Your problems all seemed to start when the Klonopin was discontinued. I talked with Dr. Burger and I am giving you a prescription for Klonopin 0.5mg #7 tabs. He will follow up with you within the next week. It is a low dose and it works. I also think that seeing a psychologist or a psychotherapist is a good idea so that you can gain some insight into what is making you anxious. The stress test was negative. The ECHO was normal. You had no abnormal rhythms on the heart monitor. Your cholesterol is good. Your heart is fine. The BP increases when you get anxious and in order to control the BP we need to treat the anxiety. Pending Tests on Discharge: none Allergies/Adverse Reactions: Allergies Sulfa (Sulfonamide Antibiotics) Adverse Reaction (Verified 07/10/19 13:03) Nausea Medications to take at Discharge Lovastatin [Mevacor] 40 mg PO QHS 11/11/16 Multivitamin [Multiple Vitamins] 1 each PO DAILY 11/11/16 Omeprazole [Prilosec] 40 mg PO DAILY 11/11/16 Lisinopril 20 mg PO DAILY 10/12/18 Melatonin 5 mg PO QHS 07/10/19 Ropinirole HCl [Requip] 1.5 mg PO QHS 07/10/19 Tamsulosin HCl 0.8 mg PO QHS 07/10/19 Topiramate 75 mg PO DAILY 07/10/19 Clonazepam [Klonopin] 0.5 mg PO QHS 7 Days #7 tab 07/11/19 The following prescriptions were given: Clonazepam [Klonopin] 0.5 mg PO QHS 7 Days #7 tab Transmission Status: Sent to [facility] Primary Care Physician: Barron Kelley MD [Primary Care Provider] - Test Results: Test results from this visit will be discussed in further detail at your follow-up appointment, if applicable. Please Follow Up With: Barron Burger MD When: the end of this week Proposed Discharge Date: 07/11/19
--- NOTE | 2019-07-11 11:10 | PCM.DC.SUM ---
Discharge Date and Diagnosis Date of Admission: 07/10/19 Date of Discharge: 07/11/19 - Primary Discharge Diagnosis Chest pain generalized anxiety with panic attacks - Secondary Discharge Diagnosis Chronic Problems Generalized anxiety disorder with panic attacks (Chronic) Migraine headache (Chronic) Restless leg syndrome (Chronic) Obstructive sleep apnea (Chronic) On CPAP. HTN (hypertension) (Chronic) Brain aneurysm (Chronic) BPH Obesity Hospital Course and Treatment Imaging Results: 07/11/19 05:55 Nuclear Stress Test - Treadmil [NM] Routine Clinical Impression(s) from Imaging Studies Chest X-Ray 07/10/19 13:07 IMPRESSION: No acute cardiopulmonary findings Electronically Signed: Marlon Graff DO at 13:40 EDT Tel , Service support , Laboratory Results - last 24 hr 07/11/19 09:30 Triglycerides 113 Cholesterol 145 LDL Cholesterol 78 VLDL Cholesterol 23 HDL Cholesterol 44 Impression: 1. Rest and stress SPECT Cardiolite nuclear imaging demonstrate relative uniform tracer uptake and myocardial perfusion appearing within normal limits. 2. The gated Cardiolite study reports an LVEF of 68 %. Interpretation Summary The study was technically difficult. Left ventricular systolic function is normal. The estimated ejection fraction is 65 %. Trivial mitral valve insufficiency. Trivial tricuspid valve insufficiency. Mild focal aortic valve thickening. Trivial pulmonic valve insufficiency. Right ventricular systolic pressure estimated to be 30 mmHg. Diastolic function is indeterminate. none Operations: None Procedures: 2-D Echocardiogram, Stress test Summary of Care Provided: The patient is a 63-year-old male with a past medical history of restless leg syndrome, HILARY, migraine cephalgia, obesity, hypertension and a brain aneurysm who presented to the emergency department at [facility] on 07/10/2019 complaining of chest pain. The chest pain started while he was driving and it was located in the left chest and described as aching. It did not radiate. It was associated with a headache and numbness and tingling of his entire face. He has had multiple episodes of this in the past few weeks and seems to have them most often when driving. When the sx occur he stops and takes his BP which is always high. He has had multiple ED visits....different hospitals. He is prescribed as needed Propanolol for high blood pressure, but has not been taking this recently. He was also prescribed Lisinopril 20 mg BID but, he only takes it once a day because he had 1 BP of 100/60 and he though this was too low. Vital signs at presentation to the emergency room were temperature 98.4, pulse rate 67, blood pressure 151/97, respiratory rate 17 and he was 96% saturated on room air. CBC and BMP were unremarkable. Troponin was less than 0.015. Chest x-ray showed no pleural effusions, pulmonary vascular congestion or infiltrates. EKG showed normal sinus rhythm with no ST elevation and no suspicious ST or T wave changes. He was admitted to a monitored bed on PCU for chest pain and uncontrolled hypertension. A treadmill nuclear stress test was done on 07/11/2019 and was negative for ischemia. The gated nuclear ejection fraction was 68%. He underwent an echocardiogram that showed normal left ventricular systolic function with an estimated EF of 65%. There was no significant valvular heart disease and the right ventricular systolic pressure was estimated at 30. Review of telemetry showed normal sinus rhythm with no ectopy. Lipid panel revealed an LDL of 78 and an HDL of 44 with triglycerides of 113. I had a long discussion with this gentleman prior to [place]. He told me that he has been having trouble sleeping wince he was taken off Klonopin which he had taken every night for 5 years. Since stopping Klonopin he has developed restless leg, episodic headaches, dizziness, chest pain and elevated BP's necessitating multiple visits to the ED for high BP and chest pain. Work ups have all been negative. He was given a RX for Klonopin in the ED at [facility] for 0.5 mg tabs of Klonopin on 06/08/19 and told to follow up with his PCP. He felt fine while taking the Klonopin. He initially told me that he was prescribed 2 different doses of Klonopin. 0.[address] Barron Kelley and 1 [address] nightly from Dr. Mariusz Bender. He stated he was taking 0.5 mg nightly. He is very anxious when talking to me but denies feeling anxious. He has had no psychotherapy. Psychotherapy was recommended by Dr. Bender. He has not followed up with this. I discussed the case with his new primary care physician, Dr. Barron Burger and he agreed to a prescription for Klonopin 0.5 mg nightly, number 7 tablets given. When I went back to tell the patient that he was being discharged on Klonopin 0.5 mg he told me that 1 mg works better and at one point he was taking 1.5 mg. His story seems to change the deeper you delve into his history. He is going to follow-up with Dr. Barron Burger within the next week. Strongly recommended follow-up with a psychotherapist to learn how to control his anxiety. PHYSICAL EXAM: GENERAL: alert, oriented X 3, Cooperative, NAD ORAL: moist mucosa, no mucosal lesions NECK: No JVD, supple, trachea midline LUNGS: CTA, symmetric chest expansion HEART: RRR, Normal S1 and S2, no rub, no gallop ABDOMEN: soft, NT, ND, BS present, no guarding with palpation EXTREMITIES: no edema, no cyanosis, no calf tenderness SKIN: No rashes, no breakdown NEUROLOGIC: no focal neurologic deficits PSYCH: appropriate, normal affect, pleasant This note was generated with [employer] dictation software. It may contain incorrect words, spelling, and punctuation that were not noted in checking the note before signing. - Physical Exam Vital Signs Temp Pulse Resp BP Pulse Ox 97.8 F 69 16 135/83 H 96 07/11/19 09:20 07/11/19 09:36 07/11/19 09:20 07/11/19 09:20 07/11/19 09:20 Oxygen Delivery Method Room Air Weight: 217 lb 1.6 oz Body Mass Index (BMI) 32.0 Intake and Output for Last 24 Hours 07/09/19 07/10/19 07/11/19 23:59 23:59 23:59 Intake Total 240 / 600 1360 / 1360 Balance 240 / 600 1360 / 1360 Laboratory Tests Past 24 Hrs 07/10/19 07/10/19 07/10/19 13:15 13:15 16:23 WBC 6.8 RBC 4.97 Hgb 14.8 Hct 43.6 MCV 87.7 MCH 29.8 MCHC 33.9 RDW Std Deviation 43.7 RDW Coeff of Rosa 13.7 Plt Count 200 MPV 9.7 Immature Gran % (Auto) 0.300 Neut % (Auto) 60.5 Lymph % (Auto) 29.9 [place] % (Auto) 8.0 Eos % (Auto) 1.0 Baso % (Auto) 0.3 Absolute Neuts (auto) 4.1 Absolute Lymphs (auto) 2.03 Nucleated RBC % 0 Sodium 138 Potassium 4.2 Chloride 108 H Carbon Dioxide 25.0 Anion Gap 5 BUN 15 Creatinine 0.99 Estim Creat Clear Calc 76.37 Est GFR (MDRD) Af Amer 98 Est GFR (MDRD) Non-Af 81 BUN/Creatinine Ratio 15.2 Glucose 105 Calcium 9.0 Troponin I < 0.015 < 0.015 Triglycerides Cholesterol LDL Cholesterol VLDL Cholesterol HDL Cholesterol 07/10/19 07/11/19 19:22 09:30 WBC RBC Hgb Hct MCV MCH MCHC RDW Std Deviation RDW Coeff of Rosa Plt Count MPV Immature Gran % (Auto) Neut % (Auto) Lymph % (Auto) [place] % (Auto) Eos % (Auto) Baso % (Auto) Absolute Neuts (auto) Absolute Lymphs (auto) Nucleated RBC % Sodium Potassium Chloride Carbon Dioxide Anion Gap BUN Creatinine Estim Creat Clear Calc Est GFR (MDRD) Af Amer Est GFR (MDRD) Non-Af BUN/Creatinine Ratio Glucose Calcium Troponin I < 0.015 Triglycerides 113 Cholesterol 145 LDL Cholesterol 78 VLDL Cholesterol 23 HDL Cholesterol 44 Discharge Activity: Return to Normal Activity Return to work on:: 07/12/19 May resume sexual activity in: No Restrictions Call your doctor if you observe: Fever of 101 or Higher, Dizziness, Fainting spells, Swelling in the ankles, Increased palpitations (irregular heartbeat) Home Medications: Medications to take at Discharge Lovastatin [Mevacor] 40 mg PO QHS 11/11/16 Multivitamin [Multiple Vitamins] 1 each PO DAILY 11/11/16 Omeprazole [Prilosec] 40 mg PO DAILY 11/11/16 Lisinopril 20 mg PO DAILY 10/12/18 Melatonin 5 mg PO QHS 07/10/19 Ropinirole HCl [Requip] 1.5 mg PO QHS 07/10/19 Tamsulosin HCl 0.8 mg PO QHS 07/10/19 Topiramate 75 mg PO DAILY 07/10/19 Clonazepam [Klonopin] 0.5 mg PO QHS 7 Days #7 tab 07/11/19 Following Prescrptions Were Given to Patient: Clonazepam [Klonopin] 0.5 mg PO QHS 7 Days #7 tab Transmission Status: Received by [facility] Primary Care Physician: Barron Kelley MD [Primary Care Provider] - Please Follow Up With: Barron Burger MD When: the end of this week Patient Instructions: Your Body's Response to Anxiety, Treating Anxiety Disorders with Therapy, Treating Anxiety Disorders with Medication Minutes spent on discharge:: 40 Patient Condition:: Good Medical Necessity - Tobacco Use Smoking Status: Former smoker Tobacco Use: Chew Meaningful Use Info Meaningful Use Diagnoses (Choose all that apply): None applicable Code Visit Inpatient E&M: 19654 Disch Hosp
[2019-07-11 11:30] VITALS: O2SAT 95
== END 2019-07-11 11:09 | disposition home or self-care (01) ==
LOC: ED 14:11 → PCU 14:44
PROVIDERS: Admitting Provider Hospitalist; Emergency Provider Emergency Medicine; Family Provider Family Medicine; PCP Family Medicine; Visit Provider Internal Medicine
DX: R07.89 Other chest pain (principal); G25.81 Restless legs syndrome; G47.33 Obstructive sleep apnea (adult) (pediatric); E66.9 Obesity, unspecified; G43.909 Migraine, unspecified, not intractable, without status migrainosus; E78.5 Hyperlipidemia, unspecified; N40.0 Benign prostatic hyperplasia without lower urinary tract symptoms; I08.1 Rheumatic disorders of both mitral and tricuspid valves; I10 Essential (primary) hypertension; Z87.891 Personal history of nicotine dependence; Z68.32 Body mass index [BMI] 32.0-32.9, adult; Z71.3 Dietary counseling and surveillance; Z79.899 Other long term (current) drug therapy
CPT/HCPCS: 36415; 71045; 78452; 80048; 80061; 84484; 85025; 93005; 93017; 93306; 96361; 96374; 96375; 99218; 99285; A9500; J7030; A4216; G0378; J2405

== ENCOUNTER → 2019-10-19 17:59 | Outpatient (CLI) | payer OTHER, SELFPAY ==
[2019-07-10 15:30] VITALS: BMI 32.0
== END ==
PROVIDERS: Family Provider Family Medicine; PCP Family Medicine; Referring Provider Family Medicine; Visit Provider Family Medicine
DX: J02.9 Acute pharyngitis, unspecified (principal)
CPT/HCPCS: 87070

== ENCOUNTER → 2019-10-20 07:13 | Outpatient (CLI) | payer OTHER, SELFPAY ==
[2019-07-10 15:30] VITALS: BMI 32.0
[2019-10-20 10:12] LABS: Cholesterol 152 mg/dL (200); High Density Lipoprotein 42 mg/dL; Triglycerides 130 mg/dL; Very Low Density Lipoprotein 26 mg/dL (5-40)
== END ==
PROVIDERS: Family Provider Family Medicine; PCP Family Medicine; Referring Provider Family Medicine; Visit Provider Family Medicine
DX: E78.00 Pure hypercholesterolemia, unspecified (principal)
CPT/HCPCS: 36415; 80061

== ENCOUNTER → 2020-01-01 08:41 | Outpatient (CLI) | payer OTHER, SELFPAY ==
[2019-07-10 15:30] VITALS: BMI 32.0
== END ==
PROVIDERS: Nurse Practitioner Adult Health; PCP Family Medicine
DX: Z12.5 Encounter for screening for malignant neoplasm of prostate (principal)
CPT/HCPCS: 36415; 84153; G0103

== ENCOUNTER → 2020-02-12 07:55 | Outpatient (CLI) | payer OTHER, SELFPAY ==
[2019-07-10 15:30] VITALS: BMI 32.0
--- NOTE | 2020-02-12 08:28 | MRI_ITS ---
STUDY: MRA OF THE HEAD WITHOUT CONTRAST REASON FOR EXAM: Male, 64 years old. intracerebral aneurysm -- recheck , no new symptoms TECHNIQUE: 3-D lksf-sv-lrwisb (TOF) imaging was performed with MIPs. The study was performed unenhanced. COMPARISON: 05/05/2019 FINDINGS: Normal bilateral petrous carotid arteries. Normal right cavernous carotid artery with a normal supraclinoid bifurcation. Nonvisualization of the previously described 2 mm aneurysm the posterior margin of the right supraclinoid internal carotid artery. Normal left cavernous carotid artery with a normal supraclinoid bifurcation. There is no change in the 2 mm round area of signal of the medial aspect of the origin of the left ophthalmic artery which may represent a tiny aneurysm. Normal right A1 segments of the anterior cerebral artery. Normal left A1 segments of the anterior cerebral artery. Normal intact anterior communicating artery (ACOM). Normal bilateral A2 segments of the anterior cerebral arteries. Normal right M1 and M2 segments of the middle cerebral arteries, with a normal M1 bifurcation. Normal left M1 and M2 segments of the middle cerebral arteries, with a normal M1 bifurcation. Normal right posterior communicating artery (PCOM). Normal left posterior communicating artery (PCOM). There is a small atretic right vertebral artery with a dominant left vertebral artery. Normal basilar artery with a normal basilar bifurcation. The visualized bilateral superior cerebellar (SCA) arteries are normal. Normal bilateral P1, P2 and visualized P3 segments of the posterior cerebral arteries. There is no demonstrated aneurysm of the [place] of [place]. There is no major vessel occlusion or hemodynamically significant stenosis. There is no demonstrated abnormality of the visualized brain. MRI/MRA Head ONLY without Contrast IMPRESSION: 1. Nonvisualization of the previously described 2 mm aneurysm the posterior margin of the supraclinoid right internal carotid artery. Diminutive right posterior communicating artery is noted. 2. No change in the suspected 2 mm aneurysm of the medial wall of the proximal left ophthalmic artery. 3. Dominant left vertebral artery. Otherwise normal MRA of the head. Electronically Signed: Raji Gee MD at 10:35 EDT Tel , Service support ,
--- NOTE | 2020-02-12 12:37 | PFTCOMP_ITS ---
COMPLETE PULMONARY FUNCTION TEST INTERPRETATION Brief HPI: Patient is a 64 year old male, currently under the care of Dr. Burger, who presents to [facility] for complete pulmonary function tests secondary to diagnosis of dyspnea. Respiratory therapist reports good effort and reproducible results. Interpretation: Forced expiration spirometry shows no large airways obstructive ventilatory defect with an FEV1 of 95% predicted. There is no significant bronchodilator response by strict ATS criteria. Spirograms are of good quality and plateau normally. The respiratory flow volume loop shows a normal pattern. Lung volumes by body plethysmography show an elevated total lung capacity at 7.68 L, 121% predicted. All other lung volumes are increased symmetrically. Diffusion capacity by carbon monoxide is normal at 106% predicted. The airway resistance is normal. No previous pulmonary function tests were available for review. Impression: These pulmonary function tests are grossly within normal limits except for some mild hyperinflation, which may be a physiologic variant.
== END ==
PROVIDERS: PCP Family Medicine; Referring Provider Family Medicine; Visit Provider Family Medicine
DX: I67.1 Cerebral aneurysm, nonruptured (principal); R06.02 Shortness of breath
CPT/HCPCS: 70544; 94060; 94726; 94729

== ENCOUNTER → 2020-07-26 08:13 | Outpatient (CLI) | payer OTHER, SELFPAY ==
[2019-07-10 15:30] VITALS: BMI 32.0
[2020-07-26 09:28] LABS: Anion Gap 2 (5-15); BUN 17 mg/dL (7-18); Chloride 110 mmol/L (98-107); Cholesterol 149 mg/dL (200); Creatinine, Serum 1.06 mg/dL (0.70-1.30); EST Glomerular Filtration Rate 75 mL/min (>60); Est Glom Filt Rate - Afr Amer 90 mL/min (>60); Glucose 99 mg/dL (74-106); High Density Lipoprotein 49 mg/dL; Potassium 4.2 mmol/L (3.5-5.1); Sodium Level 139 mmol/L (136-145); Triglycerides 112 mg/dL; Very Low Density Lipoprotein 22 mg/dL (5-40)
== END ==
PROVIDERS: PCP Family Medicine; Referring Provider Family Medicine; Visit Provider Family Medicine
DX: I10 Essential (primary) hypertension (principal)
CPT/HCPCS: 36415; 80048; 80061

== ENCOUNTER → 2020-08-26 16:14 | Outpatient (CLI) | payer OTHER, SELFPAY ==
[2019-07-10 15:30] VITALS: BMI 32.0
--- NOTE | 2020-08-26 16:22 | MRI_ITS ---
STUDY: MRA OF THE HEAD WITHOUT CONTRAST REASON FOR EXAM: Male, 64 years old. intracranial aneurysm -- recheck, chronic wilde''s with known aneurysm TECHNIQUE: 3-D xzzo-bi-silika (TOF) imaging was performed with MIPs. The study was performed unenhanced. COMPARISON: 02/12/2020 FINDINGS: Normal bilateral petrous carotid arteries. Normal right cavernous carotid artery with a normal supraclinoid bifurcation. Normal left cavernous carotid artery with a normal supraclinoid bifurcation. Normal right A1 segments of the anterior cerebral artery. Normal left A1 segments of the anterior cerebral artery. Normal intact anterior communicating artery (ACOM). Normal bilateral A2 segments of the anterior cerebral arteries. Stable 2 mm aneurysm arising from the proximal aspect of the left ophthalmic artery, best seen on image 56 of series 2. Normal right M1 and M2 segments of the middle cerebral arteries, with a normal M1 bifurcation. Normal left M1 and M2 segments of the middle cerebral arteries, with a normal M1 bifurcation. There is non-visualization of the right posterior communicating artery (PCOM). There is non-visualization of the left posterior communicating artery (PCOM). Normal bilateral vertebral arteries. Normal basilar artery with a normal basilar bifurcation. The visualized bilateral superior cerebellar (SCA) arteries are normal. Normal bilateral P1, P2 and visualized P3 segments of the posterior cerebral arteries. There is no demonstrated aneurysm of the [place] of [place]. There is no major vessel occlusion or hemodynamically significant stenosis. There is no demonstrated abnormality of the visualized brain. MRI/MRA Head ONLY without Contrast IMPRESSION: Stable 2 mm aneurysm arising from the proximal aspect of the left ophthalmic artery. Electronically Signed: Mariusz Costello MD at 21:56 EST Tel , Service support ,
== END ==
PROVIDERS: PCP Family Medicine; Referring Provider Family Medicine; Visit Provider Family Medicine
DX: I67.1 Cerebral aneurysm, nonruptured (principal)
CPT/HCPCS: 70544

== ENCOUNTER → 2020-12-19 08:30 | Outpatient (CLI) | payer OTHER, SELFPAY ==
[2019-07-10 15:30] VITALS: BMI 32.0
[2020-12-19 10:19] LABS: ALB/GLOB Ratio 0.9 RATIO (0.9-2.4); AST(SGOT) 17 U/L (15-37); Alanine Aminotransfer ALT/SGPT 30 U/L (16-61); Albumin, Serum 3.5 g/dL (3.2-5.0); Alkaline Phosphatase 76 U/L (45-117); Anion Gap 7 (5-15); BUN 16 mg/dL (7-18); BUN/Creat Ratio 17.8 RATIO (10-20); Calcium,Total 8.7 mg/dL (8.5-10.1); Chloride 108 mmol/L (98-107); Cholesterol 151 mg/dL (200); EST Glomerular Filtration Rate 90 mL/min (>60); Est Glom Filt Rate - Afr Amer 109 mL/min (>60); Globulin 3.9 g/dL (2.2-4.2); Glucose 86 mg/dL (74-106); High Density Lipoprotein 49 mg/dL; Potassium 3.9 mmol/L (3.5-5.1); Protein, Total 7.4 g/dL (6.4-8.2); Sodium Level 137 mmol/L (136-145); Triglycerides 88 mg/dL; Very Low Density Lipoprotein 18 mg/dL (5-40)
== END ==
PROVIDERS: PCP Family Medicine; Referring Provider Family Medicine; Visit Provider Family Medicine
DX: I10 Essential (primary) hypertension (principal)
CPT/HCPCS: 36415; 80053; 80061

== ENCOUNTER → 2021-02-10 06:38 | Outpatient (CLI) | payer OTHER, SELFPAY ==
[2019-07-10 15:30] VITALS: BMI 32.0
--- NOTE | 2021-02-10 06:43 | MRI_ITS ---
STUDY: MRA NECK WITH AND WITHOUT CONTRAST REASON FOR EXAM: Male, 65 years old. INTRACEREBRAL ANEURYSM TECHNIQUE: 3-D wzvl-gb-ogddvm (TOF) imaging was performed in an 1.5 T MRI scanner. IV DOTAREM 20CC was administered for the contrast enhanced images. COMPARISON: 03/08/2015 FINDINGS: RIGHT CAROTID ARTERIES: Antegrade flow within the right common carotid artery (CCA). Antegrade flow within the right carotid bulb. Antegrade flow within the right internal carotid (ICA) artery. Antegrade flow within the visualized cervical portion of the right internal carotid artery. There is a stable 2 mm outpouching at the proximal aspect of the left ophthalmic artery. LEFT CAROTID ARTERIES: Antegrade flow within the left common carotid artery (CCA). Antegrade flow within the left common carotid bulb. Antegrade flow within the origin of the left internal carotid (ICA) artery. Antegrade flow within the visualized cervical portion of the left internal carotid artery. VERTEBRAL ARTERIES: Antegrade flow within the bilateral vertebral artery. MRI/MRA Neck WITH and W/O Contrast IMPRESSION: No demonstrated occlusion or significant stenosis. 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 Electronically Signed: Sawyer Felix MD at 15:58 EDT Tel , Service support ,
--- NOTE | 2021-02-10 06:43 | MRI_ITS ---
STUDY: MRI BRAIN WITH AND WITHOUT CONTRAST REASON FOR EXAM: Male, 65 years old. INTRACEREBRAL ANEURYSM TECHNIQUE: Standardized multiplanar fat and water weighted pulse sequences were obtained. IV Yes YES was administered for the contrast portion of the examination. COMPARISON: None. FINDINGS: Normal size of the ventricles and extra-axial spaces for the patient''s age. Normal white matter tracts of the supratentorial brain. Normal bilateral basal ganglia. Normal thalami. There is no extra-axial fluid accumulation. Normal venous enhancement. There is no enhancing intra-axial or extra-axial abnormality. Normal sella turcica, pituitary gland, infundibular stalk, optic chiasm and hypothalamus. Normal tectal plate and pineal gland. Normal midbrain, eddy and medulla. Normal cerebellum. Normal basal cisterns. MRI/Brain W/WO Contrast IMPRESSION: Unremarkable unenhanced and enhanced MRI of the brain. Electronically Signed: Sawyer Felix MD at 15:56 EDT Tel , Service support ,
[2021-02-10 07:00] LABS: EGFR FINGERSTICK > 60.0000 mL/min (>60)
== END ==
PROVIDERS: PCP Family Medicine; Referring Provider Family Medicine; Visit Provider Family Medicine
DX: I67.1 Cerebral aneurysm, nonruptured (principal)
CPT/HCPCS: 70549; 70553; A9575

== ENCOUNTER 2021-05-05 18:29 | Emergency (ER) | payer OTHER, SELFPAY ==
[2019-07-10 15:30] VITALS: BMI 32.0
[2021-05-05 18:30] VITALS: BP 162/83; PULSE 61; RESP 18; TEMP 36.5; O2SAT 95; BMI 31.4
--- NOTE | 2021-05-05 18:33 | RAD_ITS ---
STUDY: X-RAY - LEFT HAND REASON FOR EXAM: Male, 65 years old. left 2nd finger injury TECHNIQUE: 3 view(s) of the hand. COMPARISON: None. FINDINGS: Normal radiocarpal articulation. Normal distal radioulnar joint. Normal visualized carpal bones. Normal carpal articulations Normal carpometacarpal articulation of the thumb. Normal second through fifth carpometacarpal joints. Normal metacarpi. Normal metacarpophalangeal joint of the thumb. Normal interphalangeal joint of the thumb. Normal proximal and distal phalanges of the thumb. Normal metacarpophalangeal joints of the second through fifth fingers. Normal proximal and distal interphalangeal joints of the second through fifth fingers. Normal phalanges of the second through fifth fingers. Laceration of the tip of the distal index finger. No radiopaque foreign bodies in the soft tissues. RAD/Hand Min 3 Views IMPRESSION: Laceration of the distal index finger without associated fracture Electronically Signed: Graeme Cuello MD at 19:43 EDT , Service support ,
[2021-05-05] MEDS: Lidocaine 1% (20 ml mdv) 20 ML Vial INFILT (19:57)
[2021-05-05] MEDS: Diphth,Pertuss(Acell),Tet Vac 0.5 ML Vial IM (20:04)
--- NOTE | 2021-05-05 21:59 | EDS_ITS ---
HPI History of Present Illness Chief Complaint: Wound Informant: patient Occured/Mechanism Comment: Patient left index finger due to table saw Onset/Context/Timing Onset: Hours Maximum Severity: Moderate Worsened by: Injury Relieved by: Nothing Associated Symptoms Associated Symptoms: Negative for Parasthesia, Weakness and Loss of Funtion Narrative Narrative: Patient is a byfyq-tfze-ueqtvykm male who has past history of hypertension. He has no antibiotic allergies. He is not on any immunosuppressive meds. [place] paresthesia, anesthesia motor weakness. He is able to move his finger. He has no other complaints. He is not on an anticoagulant. Tetanus is unknown. Tetanus Immunization: Unknown Prior similar symptoms: No Recent Illness/Hospitalization: No [facility], [facility] Medical History Anxiety Hypertension Tremor Home Medications Lovastatin [Mevacor] 40 mg PO QHS 11/11/16 [History Last Taken 07/09/19] Omeprazole [Prilosec] 40 mg PO DAILY 11/11/16 [History Last Taken 07/10/19] multivitamin [Multiple Vitamins] 1 ea PO DAILY 11/11/16 [History Last Taken 07/10/19] lisinopril 20 mg PO DAILY 10/12/18 [History Last Taken 07/10/19] melatonin 5 mg PO QHS 07/10/19 [History Last Taken 07/09/19] ropinirole 1.5 mg PO QHS 07/10/19 [History Last Taken 07/09/19] tamsulosin 0.8 mg PO QHS 07/10/19 [History Last Taken 07/09/19] hydrocodone-acetaminophen 1 tab PO Q6H PRN PRN 3 Days #10 tablet 05/05/21 [Rx Last Taken Unknown] Allergy/AdvReac Type Severity Reaction Status Date / Time Sulfa (Sulfonamide AdvReac Nausea Verified 05/05/21 18:30 Antibiotics) Social History (Updated 05/05/21 @ 22:[address] Ziggy Medel MD) household members: spouse Smoking Status: Former smoker alcohol intake: current alcohol intake frequency: holidays/special occasions only substance use type: does not use ROS ROS ED Constitutional Constitutional ED: Denies chills, subjective or sweats Musculoskeletal Musculoskeletal: Denies back pain or neck pain Integumentary Reports other Details: Amputation distal ulnar side of left index finger without involvement of the nailbed ; Denies abscess, Abrasions or rash Neurologic Neurologic: Denies headache(s) Psychiatric Psychiatric: Denies anxiety or suicidal thoughts Hematologic/Lymphatic Hematologic/Lymphatic: Denies easy bleeding or easy bruising Allergic/Immunologic Allergic/Immunologic ED: Denies mouth swelling, tongue swelling or urticaria EXAM Physical Exam Const Vital Signs: 05/05/21 18:30 Temperature 97.7 F L Temperature Source Temporal Pulse Rate 61 Respiratory Rate 18 Blood Pressure 162/83 H Blood Pressure Mean 109 Pulse Ox 95 Positive well nourished, well developed and obese General Appearance ED: well developed Nutritional Appearance: obese HEENT normocephalic Eyes PERRL and EOMs intact bilaterally Resp normal respiratory effort Cardio regular rate and regular rhythm Extremity full ROM; Negative for normal to inspection Extremity Narrative: The extensor Insight tendon is intact. The flexor digitorum superficialis and flexor digitorum profundus are intact. There is amputation of the distal ulnar side of the left index finger. There is no subungual hematoma noted. There is no injury to the nailbed. Sensation is normal. Capillary refill is normal. Median, radial and ulnar function intact. Neuro oriented x3, CN's II-XII intact bilaterally and no sensory deficits noted Sensorium / Orientation: alert Motor Exam: strength 5/5 throughout Psych mental status grossly normal Skin Lesions: No no lesions Rashes: no rashes Trauma: Negative for no lacerations or abrasions MDM MDM MDM Narrative Medical decision making narrative: Tray was obtained per protocol. X-ray of the soft tissue loss with no evidence of injury to the distal phalanx. The distal phalanx is not exposed. Procedure note: Patient had a digital nerve block using 1% lidocaine. A total of 3 cc was instilled. Once appropriate anesthesia was achieved. The devitalized tissue was debrided. There is no active bleeding. Dressing was applied. He was given appropriate home-going instructions. Radiography Diagnostic Testing: Radiology Impression Hand X-Ray 05/05/21 18:33 IMPRESSION: Laceration of the distal index finger without associated fracture Electronically Signed: Graeme Cuello MD at 19:43 EDT , Service support , Discharge Plan Triage Chief Complaint: Wound ED Provider: Ziggy Medel Dx/Rx/DC Orders Clinical Impression: Fingertip amputation Prescriptions: New hydrocodone-acetaminophen [hydrocodone-acetaminophen] 1 TABLET tablet 1 tab PO Q6H PRN PRN (Reason: Pain) 3 Days Qty: 10 RF: 0 No Action multivitamin [Multiple Vitamins] 1 EACH tablet 1 ea PO DAILY RF: 0 Lovastatin [Mevacor] 40 MG tablet 40 mg PO QHS RF: 0 Omeprazole [Prilosec] 40 MG capsule 40 mg PO DAILY RF: 0 lisinopril 20 MG tablet 20 mg PO DAILY RF: 0 ropinirole 1 MG tablet 1.5 mg PO QHS RF: 0 tamsulosin 0.4 MG capsule 0.8 mg PO QHS RF: 0 melatonin 5 MG tablet 5 mg PO QHS RF: 0 Primary Care Provider: Barron Burger Referrals: Barron Burger MD [Primary Care Provider] - 2 Days for wound check Disposition Disposition: Home, Self Care
== END 2021-05-05 22:55 | disposition home or self-care (01) ==
PROVIDERS: Emergency Provider Emergency Medicine; PCP Family Medicine
DX: S68.111A Complete traumatic metacarpophalangeal amputation of left index finger, initial encounter (principal); W31.2XXA Contact with powered woodworking and forming machines, initial encounter; Y93.9 Activity, unspecified; Y92.89 Other specified places as the place of occurrence of the external cause; Y99.8 Other external cause status; Z23 Encounter for immunization; E66.9 Obesity, unspecified; Z87.891 Personal history of nicotine dependence; I10 Essential (primary) hypertension; F41.9 Anxiety disorder, unspecified
CPT/HCPCS: 73130; 90715; 99283

== ENCOUNTER → 2021-06-09 15:55 | Outpatient (CLI) | payer OTHER, SELFPAY ==
--- NOTE | 2021-06-09 13:30 | PAPI_PTH ---
PATIENT: LOREE CHARLES LOC: [facility] U#:[id number] AGE/SX: 69/M ROOM: RE06/09/[address]: Dr. Marlon Hendrickson MD : 1955 BED: DIS: SPEC #: [id number] RECD: 06/09/21 14:59 STATUS: ELIANA COSTELLO #: [id number] JONA: 06/09/21 13:[address]: Marlon Hendrickson DEPT: SURGICAL PATHOLOGY RECD BY: Angelita Pedroza ENTERED: 06/10/21 07:53 SP TYPE: PAPILLOMA OTHR DR: Dr. Barron Burger MD Tissues: PAPILLOMA (except papilloma of bladder - [id number]) Procedures: Surgery Specimen Level IV HEADER OPERATION: Excision PRE-OP DIAGNOSIS: Oral papilloma TISSUE SUBMITTED: Oral papilloma MICROSCOPIC DIAGNOSIS Oral papilloma, excision: Squamous papilloma. KHUSHBU:nakul 06/11/2021 MICROSCOPIC DESCRIPTION Slides are reviewed. GROSS DESCRIPTION Received in fixative is one container labeled with the patient's name and designated papilloma. The specimen consists of a piece of nava-white mucosal tissue measuring 0.5 x 0.5 x 0.3 cm. The entire specimen is submitted in one cassette. / SJ:rg 06/10/21 TC:1 CPT: 48004
== END ==
PROVIDERS: PCP Family Medicine; Referring Provider Otolaryngology; Visit Provider Otolaryngology
DX: D10.30 Benign neoplasm of unspecified part of mouth (principal)
CPT/HCPCS: 88305

== ENCOUNTER → 2021-06-12 11:09 | Outpatient (CLI) | payer OTHER, SELFPAY ==
[2021-06-12 11:54] LABS: PSA,Total - Annual Screen 1.75 ng/mL (0.00-4.00)
== END ==
PROVIDERS: PCP Family Medicine; Referring Provider Nurse Practitioner Adult Health; Visit Provider Nurse Practitioner Adult Health
DX: Z12.5 Encounter for screening for malignant neoplasm of prostate (principal)
CPT/HCPCS: 36415; 84153; G0103

== ENCOUNTER → 2021-06-19 11:02 | Outpatient (CLI) | payer OTHER, SELFPAY ==
[2021-06-19 11:34] LABS: Hematocrit 47.3 % (40-54); Hemoglobin 15.6 g/dL (13.0-16.5); Mean Platelet Vol. 9.4 fl (6.2-12.0); Platelet Count 201 K/mm3 (150-450); RBC Distribution Width CV 13.9 % (11.6-14.6); RBC Distribution Width SD 46.6 fl (35.1-43.9)
[2021-06-19 11:52] LABS: ALB/GLOB Ratio 0.9 RATIO (0.9-2.4); AST(SGOT) 18 U/L (15-37); Alanine Aminotransfer ALT/SGPT 33 U/L (16-61); Albumin, Serum 3.7 g/dL (3.2-5.0); Alkaline Phosphatase 80 U/L (45-117); Anion Gap 1 (5-15); BUN 12 mg/dL (7-18); BUN/Creat Ratio 13.2 RATIO (10-20); Calcium,Total 9.1 mg/dL (8.5-10.1); Chloride 104 mmol/L (98-107); Creatinine, Serum 0.91 mg/dL (0.70-1.30); EST Glomerular Filtration Rate 89 mL/min (>60); Est Glom Filt Rate - Afr Amer 107 mL/min (>60); Globulin 4.3 g/dL (2.2-4.2); Glucose 81 mg/dL (74-106); Potassium 4.6 mmol/L (3.5-5.1); Sodium Level 138 mmol/L (136-145)
== END ==
PROVIDERS: PCP Family Medicine; Visit Provider Urology
DX: Z01.812 Encounter for preprocedural laboratory examination (principal)
CPT/HCPCS: 36415; 80053; 85027

== ENCOUNTER → 2021-06-25 10:33 | Outpatient (CLI) | payer OTHER, SELFPAY ==
--- NOTE | 2021-06-25 10:38 | EKG12_ITS ---
Test Reason : PRE OP Blood Pressure : / mmHG Vent. Rate : 062 BPM Atrial Rate : 062 BPM P-R Int : 190 ms QRS Dur : 094 ms QT Int : 412 ms P-R-T Axes : 042 010 030 degrees QTc Int : 418 ms Normal sinus rhythm Normal ECG Confirmed by MAHAD QUINONES, ROCHELLE ([id number]), telegraph editor GRETTA HARGROVE ([id number]) on 06/26/2021 9:05:31 AM Referred By: Jimmie Mattson Confirmed By:ROCHELLE TOBIN MD
== END ==
PROVIDERS: PCP Family Medicine; Referring Provider Urology; Visit Provider Urology
DX: Z01.810 Encounter for preprocedural cardiovascular examination (principal); I10 Essential (primary) hypertension
CPT/HCPCS: 93005

== ENCOUNTER → 2021-06-30 06:45 | Outpatient (CLI) | payer OTHER, SELFPAY ==
--- NOTE | 2021-06-30 06:48 | CT_ITS ---
STUDY: CT ABDOMEN AND PELVIS WITH CONTRAST REASON FOR EXAM: Male, [address] DUARTE RADIATION DOSAGE (If Supplied By Facility): CTDIvol = ( 17.80 ) mGy, DLP = ( 1140.82 ) mGycm TECHNIQUE: Transaxial images were obtained from the dome of the diaphragm to the symphysis pubis with oral contrast. Oral and amp; IV Readi-CAT and amp; 100mL Isovue-300 was administered. Sagittal and coronal images were reconstructed. Individualized dose optimization techniques were used for this CT. COMPARISON: None. FINDINGS: The visualized lung bases are unremarkable. The visualized portions of the heart are within normal limits. Normal liver. Normal gallbladder and extrahepatic biliary system. Normal spleen. Normal pancreas. Normal bilateral adrenal glands. Normal right kidney. Normal left kidney. There is a small hiatal hernia. Normal small intestine. Enteric contrast reaches the ascending colon. There are multiple colonic diverticula consistent with diverticulosis. The appendix is visualized and appears normal. Normal abdominal aorta. Normal inferior vena cava. Normal retroperitoneum. Normal urinary bladder. Normal visualized prostate gland. Normal abdominal wall. Normal osseous structures. CT/Abdomen/Pelvis WITH Contrast IMPRESSION: Sigmoid diverticulosis without finding to suggest diverticulitis. No finding to suggest chronic ulcerative colitis. No acute abnormal finding in the abdomen or pelvis. Electronically Signed: Jerald Aburto MD at 7:58 EDT Tel , Service support ,
== END ==
PROVIDERS: PCP Family Medicine; Referring Provider Family Medicine; Visit Provider Family Medicine
DX: K92.1 Melena (principal)
CPT/HCPCS: 74177; Q9967

== ENCOUNTER → 2021-07-04 16:50 | Outpatient (CLI) | payer OTHER, SELFPAY ==
--- NOTE | 2021-07-04 08:00 | PROS_PTH ---
PATIENT: LOREE CHARLES LOC: [facility] U#:[id number] AGE/SX: 69/M ROOM: RE07/04/[address]: Dr. Jimmie Mattson MD : 1955 BED: DIS: SPEC #: [id number] RECD: 07/04/21 14:58 STATUS: ELIANA COSTELLO #: [id number] JONA: 07/04/21 08:[address]: Jimmie Mattson DEPT: SURGICAL PATHOLOGY RECD BY: Olman Toledo ENTERED: 07/05/21 16:42 SP TYPE: TURP VIKI DR: Dr. Barron Burger MD [facility] Tissues: Prostate, NOS Procedures: Surgery Specimen Level IV HEADER OPERATION: Transurethral resection of prostate PRE-OP DIAGNOSIS: BPH TISSUE SUBMITTED: Prostate chips MICROSCOPIC DIAGNOSIS Prostate chips, TUR: Benign prostatic hyperplasia, glandular and stromal type. Focal mild chronic inflammation. SJ:nakul 07/08/2021 MICROSCOPIC DESCRIPTION Slides are reviewed. GROSS DESCRIPTION Received is one container labeled with the patient's name and designated prostate chips. The specimen consists of multiple irregular fragments of pink-nava, rubbery, soft tissue that in aggregate weigh 3.4 gm and measure in aggregate 6 x 3 x 0.2 cm. The entire specimen is submitted in three cassettes. / AM:nakul 07/07/21 TC:5 CPT: 54469
== END ==
PROVIDERS: PCP Family Medicine; Visit Provider Urology
DX: N40.1 Benign prostatic hyperplasia with lower urinary tract symptoms (principal); N41.9 Inflammatory disease of prostate, unspecified
CPT/HCPCS: 88305

== ENCOUNTER 2021-10-03 14:13 | Emergency (ER) | payer OTHER, MEDICARE, SELFPAY ==
[2021-10-03] VITALS (11 sets, daily range): BP systolic 124–191; BP diastolic 72–101; PULSE 64–97; RESP 15–19; TEMP 36.6–36.7; O2SAT 94–99; BMI 27.6
[2021-10-03 14:26] LABS: Bedside Glucose 112 mg/dL (70-110)
--- NOTE | 2021-10-03 14:33 | CT_ITS ---
STUDY: CTA HEAD AND NECK WITH CONTRAST REASON FOR EXAM: Male, 66 years old. Mental status change RADIATION DOSAGE (If Supplied By Facility): CTDIvol = ( 27.97 ) mGy, DLP = ( 1574.21 ) mGycm TECHNIQUE: CT angiography was performed with a multi-detector CT scanner. Data acquisition was obtained from the skull base through the vertex following intravenous administration of IV 100mL Isovue-370. MIP images were reconstructed from the axial data set. Post-processing of the angiographic images was performed, with multiplanar reformation and 3D reconstruction. Individualized dose optimization techniques were used for this CT. COMPARISON: No relevant priors. FINDINGS: Normal bilateral petrous carotid arteries. Normal right cavernous carotid artery with a normal supraclinoid bifurcation. Normal left cavernous carotid artery with a normal supraclinoid bifurcation. Normal right A1 segments of the anterior cerebral artery. Normal left A1 segments of the anterior cerebral artery. Normal intact anterior communicating artery (ACOM). Normal bilateral A2 segments of the anterior cerebral arteries. Normal right M1 and M2 segments of the middle cerebral arteries, with a normal M1 bifurcation. Normal left M1 and M2 segments of the middle cerebral arteries, with a normal M1 bifurcation. Normal right posterior communicating artery (PCOM). Normal left posterior communicating artery (PCOM). Normal bilateral vertebral arteries. Normal basilar artery with a normal basilar bifurcation. The visualized bilateral superior cerebellar (SCA) arteries are normal. Normal bilateral P1, P2 and visualized P3 segments of the posterior cerebral arteries. There is no demonstrated aneurysm of the [place]. Mild degree of cerebral atrophy. AORTIC ARCH: Normal visualized aortic arch. Normal origins of the brachiocephalic, left common carotid, and left subclavian arteries. RIGHT CAROTID ARTERIES: Normal right common carotid artery (CCA). Normal right common carotid bulb. Normal origin of the right internal carotid (ICA) artery without a hemodynamically significant stenosis. Normal visualized cervical portion of the right internal carotid artery. Normal origin of the right external carotid artery (ECA). LEFT CAROTID ARTERIES: Normal left common carotid artery (CCA). Normal left common carotid bulb. Normal origin of the left internal carotid (ICA) artery without a hemodynamically significant stenosis. Normal visualized cervical portion of the left internal carotid artery. Normal origin of the left external carotid artery (ECA). VERTEBRAL ARTERIES: There is enhancement within the bilateral vertebral arteries with a small right vertebral artery, and a dominant left vertebral artery. CT/CTA Head AND Neck W/ Contrast IMPRESSION: Normal CTA Head and neck with contrast. Electronically Signed: Taj Dhillon MD at 15:35 EST , Service support ,
--- NOTE | 2021-10-03 14:34 | EKG12_ITS ---
Test Reason : HR Blood Pressure : / mmHG Vent. Rate : 067 BPM Atrial Rate : 067 BPM P-R Int : 178 ms QRS Dur : 100 ms QT Int : 420 ms P-R-T Axes : 026 -03 016 degrees QTc Int : 443 ms Normal sinus rhythm Normal ECG Confirmed by MAHAD QUINONES, ROCHELLE ([id number]), marketing editor GRTETA HARGROVE ([id number]) on 10/06/2021 10:48:48 AM Referred By: RU Confirmed By:ROCHELLE TOBIN MD
--- NOTE | 2021-10-03 14:36 | EX.ED.DYSGE1 ---
HPI History of Present Illness Chief Complaint: Neuro S/Sx Detail of Chief Complaint: Confusion and mental status change since last evening Informant: patient and spouse/S.O. Narrative Narrative: Patient presents to the emergency department with his for increased confusion since last night. states that he was last well last evening around 2100 hrs. They were driving and he became confused and disoriented even though he is lived in [place] he could not figure out how to get places and the was concerned he might get into an accident. Since he retired this summer he has had episodes of insomnia intermittently where he will not sleep for 48 hours because he gets so focused on performing certain tasks. Patient drinks about 1 alcoholic drink per day but typically not to excess. Patient also uses medical marijuana. He is not had any falls or head injuries. Patient has known history of small brain aneurysms that have not required any type of intervention. He denies any headache currently. states that he is now unable to finish thoughts and has flight of ideas. Prior similar symptoms: No PFSH PFSH Medical History Anxiety Hypertension Tremor Home Medications Lovastatin [Mevacor] 40 mg PO QHS 11/11/16 [History Last Taken 07/09/19] Omeprazole [Prilosec] 40 mg PO DAILY 11/11/16 [History Last Taken 07/10/19] multivitamin [Multiple Vitamins] 1 ea PO DAILY 11/11/16 [History Last Taken 07/10/19] lisinopril 20 mg PO DAILY 10/12/18 [History Last Taken 07/10/19] melatonin 5 mg PO QHS 07/10/19 [History Last Taken 07/09/19] ropinirole 1.5 mg PO QHS 07/10/19 [History Last Taken 07/09/19] tamsulosin 0.8 mg PO QHS 07/10/19 [History Last Taken 07/09/19] hydrocodone-acetaminophen 1 tab PO Q6H PRN PRN 3 Days #10 tablet 05/05/21 [Rx Last Taken Unknown] Allergy/AdvReac Type Severity Reaction Status Date / Time Sulfa (Sulfonamide AdvReac Nausea Verified 10/03/21 14:20 Antibiotics) Social History (Updated 05/05/21 @ 22:[address] Ziggy Medel MD) household members: spouse Smoking Status: Former smoker alcohol intake: current alcohol intake frequency: holidays/special occasions only substance use type: does not use ROS ROS ED ROS Narrative Confusion Constitutional Constitutional ED: Reports systems reviewed and no addt'l complaints, except as documented; Denies body ache(s), change in weight or chills Eyes Eyes: Denies acute decrease in peripheral vision, change in vision, double vision or loss of vision ENT ENT ED: Reports none; Denies ear pain, lip swelling, loss taste/smell, neck pain, otalgia or sore throat Cardiovascular Cardiovascular: Reports none; Denies abdominal pain, chest pain with activity, leg edema, lightheadedness, palpitations, rapid heart rate or syncope Respiratory/Chest Respiratory/Chest: Reports none; Denies change in mental status, dry cough, dyspnea, hemoptysis, shortness of breath at rest or shortness of breath with exertion Gastrointestinal Gastrointestinal: Reports none; Denies abdominal pain, change in stool character, diarrhea, hematemesis, hematochezia, melena, rectal bleeding or vomiting Genitourinary Genitourinary ED: Reports none; Denies abdominal discomfort, anuria, dysuria, genital pain or polyuria Musculoskeletal Musculoskeletal: Reports none; Denies arthralgias, back pain, difficulty walking, extremity pain, muscle weakness or myalgias Integumentary Reports none; Denies abscess or rash Neurologic Neurologic: Reports none and other Details: Confusion and disjointed thinking ; Denies abnormal gait, confusion, focal weakness, frequent falls, headache(s), loss of vision, numbness, paresthesias, radicular pain, vertigo or weakness Psychiatric Psychiatric: Reports systems reviewed and no addt'l complaints, except as documented and none; Denies behavioral changes, confusion, difficulty concentrating, hallucinations, suicidal ideation, tactile hallucinations or visual hallucinations Endocrine Endocrinology: Denies none, cold intolerance, excessive sweating, fatigue or heat intolerance Hematologic/Lymphatic Hematologic/Lymphatic: Reports none; Denies anemia, easy bleeding or easy bruising Allergic/Immunologic Allergic/Immunologic ED: Denies as per HPI, none, lip swelling, mouth swelling, throat swelling, tongue swelling or hives EXAM Physical Exam Const Vital Signs: 10/03/21 14:16 10/03/21 14:21 10/03/21 15:14 Temperature 98.1 F Temperature Source Temporal Pulse Rate 90 87 72 Respiratory Rate 16 16 15 Blood Pressure 191/101 H 191/101 H 169/89 H Blood Pressure Mean 131 131 115 Pulse Ox 98 97 99 Oxygen Delivery Method Room Air Room Air Room Air Positive well nourished and well developed General Appearance ED: well developed and NAD HEENT Reports TM's clear and moist mucous membranes normocephalic and atraumatic; Negative for trauma or tenderness Tympanic Membrane ED: Yes TM's clear Eyes PERRL and EOMs intact bilaterally General Eye ED: Negative for pale conjunctiva or scleral icterus Neck no lymphadenopathy, supple and no JVD General: Negative for tenderness Chest Wall inspection of chest normal and palpation of chest normal Chest: Negative for tenderness Resp normal respiratory effort and clear to auscultation bilaterally Effort and Inspection: Negative for respiratory distress or pain with movement Auscultation: Negative for rhonchi, wheezes or diminished lung sounds Cardio regular rate, regular rhythm, S1 normal heart sound, S2 normal heart sound and no murmurs Peripheral Pulses: pulses 2+ throughout GI normal to inspection, nondistended, normoactive bowel sounds, soft to palpation, non-tender, non-distended and no masses Back/Spine no CVA tenderness and no thoracic nor lumbar tenderness Extremity normal to inspection General Extremety ED: Negative for edema General Extremity: Negative for edema Neuro oriented x3, CN's II-XII intact bilaterally, no sensory deficits noted and gait normal Neuro Narrative: No focal neurologic deficits. Patient does have some loss of fluency of speech and some mild expressive aphasia. Sensorium / Orientation: awake, alert, oriented to person, oriented to place and oriented to time Motor Exam: strength 5/5 throughout and strength abnormal Psych mental status grossly normal Skin no rashes or lesions noted and no wounds MDM MDM MDM Narrative Medical decision making narrative: IV line established. Patient placed on a director of cardiac cath lab. Lab work-up and alcohol were unremarkable. CTA of the brain was normal. This point etiology of patient's confusion and mental status changes unclear. Case will be discussed with hospitalist evaluate for admission. In the differential would be stroke versus medication related versus insomnia or psychosis. Lab Data Attestation: I reviewed the patient's lab results. Labs: Laboratory Results - last 24 hr 10/03/21 10/03/21 10/03/21 14:19 14:20 14:20 WBC 8.1 RBC 4.97 Hgb 15.3 Hct 45.4 MCV 91.3 MCH 30.8 MCHC 33.7 RDW Std Deviation 46.7 H RDW Coeff of Rosa 13.8 Plt Count 203 MPV 9.0 Immature Gran % (Auto) 0.400 Neut % (Auto) 51.5 Lymph % (Auto) 39.3 [place] % (Auto) 7.7 Eos % (Auto) 0.7 Baso % (Auto) 0.4 Absolute Neuts (auto) 4.2 Absolute Lymphs (auto) 3.20 Nucleated RBC % 0 Sodium 136 Potassium 3.7 Chloride 101 Carbon Dioxide 30.0 Anion Gap 5 BUN 12 Creatinine 0.90 Estim Creat Clear Calc 88.62 Est GFR (MDRD) Af Amer 108 Est GFR (MDRD) Non-Af 89 BUN/Creatinine Ratio 13.3 Glucose 117 H Calcium 9.3 Total Bilirubin 0.60 AST 19 ALT 34 Alkaline Phosphatase 89 Troponin I High Sens 4 Total Protein 8.1 Albumin 3.7 Globulin 4.4 H Albumin/Globulin Ratio 0.8 L Ethyl Alcohol POC Glucose 112 H 10/03/21 14:20 WBC RBC Hgb Hct MCV MCH MCHC RDW Std Deviation RDW Coeff of Rosa Plt Count MPV Immature Gran % (Auto) Neut % (Auto) Lymph % (Auto) [place] % (Auto) Eos % (Auto) Baso % (Auto) Absolute Neuts (auto) Absolute Lymphs (auto) Nucleated RBC % Sodium Potassium Chloride Carbon Dioxide Anion Gap BUN Creatinine Estim Creat Clear Calc Est GFR (MDRD) Af Amer Est GFR (MDRD) Non-Af BUN/Creatinine Ratio Glucose Calcium Total Bilirubin AST ALT Alkaline Phosphatase Troponin I High Sens Total Protein Albumin Globulin Albumin/Globulin Ratio Ethyl Alcohol < 3.0 POC Glucose Radiography Diagnostic Testing: Clinical Impression(s) from Imaging Studies Head/Neck CTA 10/03/21 14:33 IMPRESSION: Normal CTA Head and neck with contrast. Electronically Signed: Taj Dhillon MD at 15:35 EST , Service support , EKG Initial EKG: Attestation: I personally reviewed and interpreted this EKG as follows: Comments: Sinus rhythm with a ventricular rate of 67 bpm with no acute ST segment changes Discharge Plan Dx/Rx/DC Orders Clinical Impression: Acute alteration in mental status, Acute confusion, Expressive aphasia Disposition Disposition: Acute Care Hospital [facility]
[2021-10-03 14:46] LABS: Absolute Neutrophil Count 4.2 X10^3/uL (2.0-7.7); Basophil# 0.03 X10^3/uL; Basophil% 0.4 % (0-1); Eosinophil# 0.06 X10^3/uL; Eosinophils% 0.7 % (0-5); Hematocrit 45.4 % (40-54); Hemoglobin 15.3 g/dL (13.0-16.5); Lymphocyte % 39.3 % (19-41); Mean Corp Hgb Conc 33.7 g/dL (32-36); Mean Corpuscular Hgb 30.8 pg (27.0-32.0); Mean Corpuscular Volume 91.3 fL (80-94); Monocyte# 0.63 X10^3/uL; Monocyte% 7.7 % (0-10); NRBC Flagged by Analyzer 0 % (0-5); Neutrophil # 4.19 X10^3/uL (2.7-7.7); Neutrophil % 51.5 % (47-70); Platelet Count 203 K/mm3 (150-450); RBC Distribution Width CV 13.8 % (11.6-14.6); RBC Distribution Width SD 46.7 fl (35.1-43.9); Red Blood Count 4.97 M/mm3 (4.6-6.2); White Blood Count 8.1 K/mm3 (4.4-11.0)
[2021-10-03 15:00] LABS: ALB/GLOB Ratio 0.8 RATIO (0.9-2.4); AST(SGOT) 19 U/L (15-37); Alanine Aminotransfer ALT/SGPT 34 U/L (16-61); Albumin, Serum 3.7 g/dL (3.2-5.0); Alkaline Phosphatase 89 U/L (45-117); Anion Gap 5 (5-15); BUN 12 mg/dL (7-18); BUN/Creat Ratio 13.3 RATIO (10-20); Calcium,Total 9.3 mg/dL (8.5-10.1); Chloride 101 mmol/L (98-107); EST Glomerular Filtration Rate 89 mL/min (>60); Est Glom Filt Rate - Afr Amer 108 mL/min (>60); Estimated Creatinine Clearance 88.62 ml/min; Globulin 4.4 g/dL (2.2-4.2); Glucose 117 mg/dL (74-106); Potassium 3.7 mmol/L (3.5-5.1); Protein, Total 8.1 g/dL (6.4-8.2); Sodium Level 136 mmol/L (136-145); Troponin-I HS 4 pg/mL (3.0-78.0)
[2021-10-03 15:06] LABS: Alcohol, Blood (Medical)-Serum < 3.0 mg/dL
[2021-10-03 16:53] LABS: Amphetamine Urine VISTA NEGATIVE (<1000 ng/mL); Barbiturate Urine VISTA NEGATIVE (< 200 ng/mL); Benzodiazepine Urine VISTA NEGATIVE (< 200 ng/mL); Cocaine Urine VISTA NEGATIVE (< 300 ng/mL); Ecstacy Urine VISTA NEGATIVE (< 500 ng/mL); Methadone Urine VISTA NEGATIVE (< 300 ng/mL); PCP Urine VISTA NEGATIVE (< 25 ng/mL); THC Urine VISTA POSITIVE (< 50 ng/mL); Vista UDS pH Range 6
--- NOTE | 2021-10-03 17:07 | PCM.HOSP.N ---
Hospitalist Note ER physician Dr. Irizarry called me for admission for altered mental status. Patient was seen and examined w separately with TAMIKO Tam Patient was a started on medical marijuana by pain management Dr. Shaffer in July 2021. Patient had few occasions when he could not sleep for 24 hours but this time he is awake for 48 hours, confused disoriented, disorganized thoughts, repetitive speech, agitation, restless, echolalia like 123,123, and disorganized behavior. There is no focal weakness or change in sensory system. In appropriate clinical situation,his symptoms and signs are more consistent with psychosis mostly due to medical marijuana. Discussed with the ER physician Dr. Cabrera and advised psych eval. His examination does not point pattern of his stroke. EKG is normal sinus rhythm, QTC 443 ms CTA reported normal Clinical Impression(s) from Imaging Studies Head/Neck CTA 10/03/21 14:33 IMPRESSION: Normal CTA Head and neck with contrast.
[2021-10-03 17:44] LABS: Magnesium 2.2 mg/dL (1.6-2.6); Troponin-I HS 3 pg/mL (3.0-78.0)
--- NOTE | 2021-10-03 18:34 | CM.ED ---
SOCIAL WORK ASSESSMENT Referral Source: Dr. Starr Reason for Consult: Mental Health Evaluation Chief Compliant: Patient presented with altered mental status. Work up was completed. Patient started on medical marijuana by pain management Dr. Shaffer in July 2021. Patient unable to sleep off and on and will be up for 24-48 hours. Patient reports ?afraid to go to sleep.? Patient having ?brain farts?, disorganized thoughts, flight of ideas, repetitive speech, agitation, resistlessness. Patient requiring hospitalization for stabilization. Marital/Social History: Living Situation: Home with and son Support/Resources: Family History: None Education and Employment History: 12th grade, retired in February 2021. Mental Health Treatment/History: Anxiety, not treated. Triggers/Stressors: ?None? Coping Skills: ?None? Abuse Issues: Denies history of emotional, physical, or sexual abuse. Substance Abuse History: alcohol, patient recently prescribed medical marijuana. states patient drinks ?1 drink a night.? Risk to Self/Others: Suicidal- Patient denies suicidal ideation. Homicidal- When asked about homicidal ideation patient states, ?Yes? then began laughing. Violence- None reported Mental Status Exam: Orientation- A&Ox3 Memory: impaired Appearance/General Behavior: disheveled Mood/Affect: bizarre Communication Pattern: rapid and repetitive speech Thought Process: flight of ideas, disorganized thoughts General Intellectual Functioning: Average Judgement: poor Insight: poor Assessment: Met with patient and patient?s in room. states patient with bizarre behaviors off/on since started on medical marijuana. reports patient drinks 1 alcoholic drink a night. Attempted to ask patient questions. Patient manic, disorganized thoughts, and repetitive speech. states patient has not slept in over 24 hours and is ?afraid to go to sleep.? Work up has been completed. Collaboration with Dr. Starr, plan for inpatient psych. This worker to facilitate placement. Plan: Referral to inpatient psych Orestes Thompson HEAVY MOBILE EQUIPMENT REPAIRER, AFTER SCHOOL PROGRAM ASSISTANT
[2021-10-03] MEDS: Ziprasidone IM 20 MG/ML VIAL 10 MG IM (18:47)
--- NOTE | 2021-10-03 18:48 | CM.ED ---
Patient has been [facility]. Referral faxed and called to [facility]. Pending review at this time. Orestes Thompson, EXTERIOR WORK HELPER, PHARMACEUTICAL OPERATOR
--- NOTE | 2021-10-03 19:23 | CM.ED ---
SOCIAL WORK Patient declined at [facility]. Orestes Thompson, EMERGENCY MEDICAL DISPATCHER, LIFE SCIENCE TECHNICIAN
[2021-10-03] MEDS: Pramipexole Di-HCl 0.25 MG Tablet PO (19:38)
--- NOTE | 2021-10-03 19:49 | CM.ED ---
Referral called and faxed to [facility]. Pending review at this time. Orestes Thompson, TEXTBOOK ASSOCIATE, HEAT TREATING OPERATOR
--- NOTE | 2021-10-03 20:30 | CM.ED ---
SOCIAL WORK Patient accepted to [facility] by Dr. Sierra. Nurse to call report to [phone]. Screen Door Maker to set up transport. Staff updated. updated and provided with contact information for Mikki Ellerta. Orestes Thompson, GORE CUTTER, WOOD LAST MAKER
--- NOTE | 2021-10-03 22:33 | ED.RN ---
PHYSICIANS CALLED AND SAID THEY HAD TO PULL THE CREW FOR A CRITICAL CALL THEY WILL BE ANOTHER 90 MINUTES
[2021-10-04] VITALS: RESP 15; O2SAT 99
[2021-10-04 01:00] VITALS: RESP 14
[2021-10-04 02:00] VITALS: BP 156/90; PULSE 89; RESP 15; O2SAT 99
== END 2021-10-04 02:38 ==
LOC: ED 16:04 → PCU 16:46 → ED 20:39
PROVIDERS: Internal Medicine; Emergency Provider Emergency Medicine
DX: R41.82 Altered mental status, unspecified (principal); R47.01 Aphasia; F41.9 Anxiety disorder, unspecified; F12.90 Cannabis use, unspecified, uncomplicated; I10 Essential (primary) hypertension; Z87.891 Personal history of nicotine dependence
CPT/HCPCS: 70496; 70498; 80053; 80307; 82077; 82962; 83735; 84484; 85025; 87426; 93005; 96360; 96361; 96372; 99285; J7030; Q9967; A4216; J3486

== ENCOUNTER 2022-01-28 09:57 | Outpatient (CLI) | payer OTHER, SELFPAY ==
[2022-01-28 12:30] LABS: Erythrocyte Sedimentation Rate 19 mm/hr (0-20)
[2022-01-28 12:33] LABS: Hematocrit 45.1 % (40-54); Hemoglobin 15.5 g/dL (13.0-16.5); Mean Corp Hgb Conc 34.4 g/dL (32-36); Mean Corpuscular Hgb 31.5 pg (27.0-32.0); Mean Corpuscular Volume 91.7 fL (80-94); Platelet Count 185 K/mm3 (150-450); RBC Distribution Width CV 13.8 % (11.6-14.6); RBC Distribution Width SD 46.6 fl (35.1-43.9); Red Blood Count 4.92 M/mm3 (4.6-6.2); White Blood Count 8.9 K/mm3 (4.4-11.0)
[2022-01-28 12:57] LABS: ALB/GLOB Ratio 0.8 RATIO (0.9-2.4); AST(SGOT) 13 U/L (15-37); Alanine Aminotransfer ALT/SGPT 28 U/L (16-61); Albumin, Serum 3.3 g/dL (3.2-5.0); Alkaline Phosphatase 53 U/L (45-117); Anion Gap 6 (5-15); BUN 17 mg/dL (7-18); BUN/Creat Ratio 18.7 RATIO (10-20); CRP < 2.90 mg/L (0.0-3.0); Calcium,Total 8.9 mg/dL (8.5-10.1); Chloride 105 mmol/L (98-107); Cholesterol 177 mg/dL (200); Creatinine, Serum 0.91 mg/dL (0.70-1.30); EST Glomerular Filtration Rate 89 mL/min (>60); Est Glom Filt Rate - Afr Amer 107 mL/min (>60); Globulin 3.9 g/dL (2.2-4.2); Glucose 101 mg/dL (74-106); High Density Lipoprotein 70 mg/dL; Potassium 3.7 mmol/L (3.5-5.1); Protein, Total 7.2 g/dL (6.4-8.2); Sodium Level 138 mmol/L (136-145); Triglycerides 92 mg/dL; Very Low Density Lipoprotein 18 mg/dL (5-40)
== END 2022-01-28 23:59 | disposition home or self-care (01) ==
LOC: MTLAB 10:00
PROVIDERS: PCP Family Medicine; Referring Provider Internal Medicine Gastroenterology; Visit Provider Internal Medicine Gastroenterology
DX: K51.90 Ulcerative colitis, unspecified, without complications (principal)
CPT/HCPCS: 36415; 80053; 80061; 85027; 85652; 86140

== ENCOUNTER → 2022-02-26 | Outpatient (CLI) | payer OTHER, SELFPAY ==
--- NOTE | 2022-02-26 08:04 | MRI_ITS ---
STUDY: MRA NECK WITH AND WITHOUT CONTRAST REASON FOR EXAM: Male, 66 years old. Aneurysm follow up TECHNIQUE: 3-D [id number] (TOF) imaging was performed in an 1.5 T MRI scanner. 19ml iv Dotarem was administered for the contrast enhanced images. COMPARISON: MRA of the neck dated FEBRUARY 10, 2021. 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 This is unchanged from the prior studies. No new or additional aneurysms are present. RIGHT CAROTID ARTERIES: Normal right common carotid artery (CCA). Normal right common carotid bulb. Normal origin of the right internal carotid (ICA) artery without a hemodynamically significant stenosis. Normal visualized cervical portion of the right internal carotid artery. Normal origin of the right external carotid artery (ECA). LEFT CAROTID ARTERIES: Normal left common carotid artery (CCA). Normal left common carotid bulb. Normal origin of the left internal carotid (ICA) artery without a hemodynamically significant stenosis. Normal visualized cervical portion of the left internal carotid artery. Normal origin of the left external carotid artery (ECA). VERTEBRAL ARTERIES: Normal antegrade flow within the bilateral vertebral artery without a hemodynamically significant stenosis. MRI/MRA Neck WITH and W/O Contrast IMPRESSION: 1. 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 This is unchanged from the prior studies. No new or additional aneurysms are present. 2. Normal bilateral cervical carotid and vertebral arteries. Electronically Signed: Zane Carrington MD at 15:20 EDT ,
== END | disposition home or self-care (01) ==
LOC: MRI 07:54
PROVIDERS: PCP Family Medicine; Referring Provider Family Medicine; Visit Provider Family Medicine
DX: I67.1 Cerebral aneurysm, nonruptured (principal)
CPT/HCPCS: 70549; A9575

== ENCOUNTER 2022-04-26 23:01 | Emergency (ER) | payer OTHER, SELFPAY ==
[2022-04-26 23:03] VITALS: BP 190/113; PULSE 74; RESP 16; TEMP 35.6; O2SAT 98; BMI 31.8
--- NOTE | 2022-04-26 23:22 | RAD_ITS ---
STUDY: X-RAY CHEST REASON FOR EXAM: Male, 66 years old. chest pain TECHNIQUE: Single AP portable view of the chest. COMPARISON: 07/10/2019 FINDINGS: The lungs are clear and expanded. There is no demonstrated pleural abnormality. Normal size heart. Normal mediastinum and bruce. Normal visualized pulmonary arteries. Normal visualized aortic arch and descending thoracic aorta. Normal visualized thoracic spine. Normal visualized ribs, clavicles, and shoulders. There is no demonstrated abnormality of the visualized soft tissue structures of the upper abdomen. RAD/Chest 1 View (Portable) IMPRESSION: Normal x-ray examination of the chest. Electronically Signed: Mariano Simons DO at 23:40 EDT ,
--- NOTE | 2022-04-26 23:22 | EKG12_ITS ---
Test Reason : cp Blood Pressure : / mmHG Vent. Rate : 073 BPM Atrial Rate : 073 BPM P-R Int : 190 ms QRS Dur : 098 ms QT Int : 404 ms P-R-T Axes : 040 -32 -04 degrees QTc Int : 445 ms Normal sinus rhythm Left axis deviation Abnormal ECG Confirmed by LOUIS QUINONES, ANABEL ([id number]), dictionary editor GRETTA HARGROVE ([id number]) on 04/28/2022 8:41:16 AM Referred By: Tl Confirmed By:ANABEL MYERS MD
--- NOTE | 2022-04-26 23:23 | EX.ED.DYSGE1 ---
HPI History of Present Illness Chief Complaint: Hypertension Informant: patient and spouse/S.O. Narrative Narrative: Presents for evaluation not feeling well elevated blood pressure at home and noted mild left-sided chest pressure. States when he is not feeling well due to blood pressure. He checked his systolic 190/105. He only takes lisinopril 10 mg currently. Typically systolic pressure around 145. Intermittent head pressure. None currently. Vague chest pain earlier subsiding. No cough. No vomiting or diarrhea. Currently on medical marijuana for history of restless leg syndrome failing medications. He states he noted symptoms this past Wednesday did not check his blood pressure however did take Clonazepam which helped his symptoms. Denies cough. Denies any decongestants use or any new medications. Prior similar symptoms: Yes PFSH PFSH Medical History Anxiety CPAP (continuous positive airway pressure) dependence Former smoker GERD (gastroesophageal reflux disease) Hypertension Tremor Home Medications Lovastatin [Mevacor] 40 mg PO QHS CHOLESTEROL 11/11/16 [History Last Taken 07/09/19] Omeprazole [Prilosec] 40 mg PO DAILY STOMACH ACID 11/11/16 [History Last Taken 07/10/19] multivitamin (Multiple Vitamins) 1 ea PO DAILY vitamin 11/11/16 [History Last Taken 07/10/19] lisinopril 20 mg tablet 20 mg PO DAILY blood pressure 10/12/18 [History Last Taken 07/10/19] melatonin 5 mg tablet 5 mg PO QHS sleep 07/10/19 [History Last Taken 07/09/19] ropinirole 1 mg tablet 1.5 mg PO QHS restless legs 07/10/19 [History Last Taken 07/09/19] tamsulosin 0.4 mg capsule 0.8 mg PO QHS prostate 07/10/19 [History Last Taken 07/09/19] hydrocodone-acetaminophen 5-325mg 5mg-325mg 1 tab PO Q6H PRN PRN Pain 3 days #10 TABLETS 05/05/21 [Rx Last Taken Unknown] psyllium 1 packet PO DAILY 10/03/21 [History Last Taken Unknown] Allergy/AdvReac Type Severity Reaction Status Date / Time Sulfa (Sulfonamide AdvReac Nausea Verified 10/03/21 14:20 Antibiotics) Surgical History H/O transurethral resection of prostate Social History household members: spouse Smoking Status: Former smoker alcohol intake: current alcohol intake frequency: holidays/special occasions only substance use type: does not use ROS ROS ED Constitutional Constitutional ED: Denies chills, fever(s) or sweats Eyes Eyes: Denies change in vision ENT ENT ED: Denies dysphagia or sore throat Cardiovascular Cardiovascular: Reports chest pain; Denies leg edema, palpitations or racing heartbeat Respiratory/Chest Respiratory/Chest: Denies cough, dyspnea or dyspnea on exertion Gastrointestinal Gastrointestinal: Denies abdominal pain, diarrhea, nausea or vomiting Genitourinary Genitourinary ED: Denies dysuria, hematuria or urinary frequency Musculoskeletal Musculoskeletal: Denies back pain, extremity pain or neck pain Integumentary Denies rash or wounds Neurologic Neurologic: Denies headache(s), paresthesias or weakness EXAM Physical Exam Const Vital Signs: 04/26/22 23:03 04/26/22 23:07 04/26/22 23:35 Temperature 96.0 F L Temperature Source Temporal Pulse Rate 74 70 Respiratory Rate 16 18 Respiratory Pattern Normal Blood Pressure 190/113 H 164/92 H Blood Pressure Mean 138 116 Pulse Ox 98 96 Oxygen Delivery Method Room Air Room Air 04/26/22 23:35 04/27/22 00:07 04/27/22 00:58 Temperature Temperature Source Pulse Rate Respiratory Rate Respiratory Pattern Blood Pressure 180/97 H 143/81 H Blood Pressure Mean 124 101 Pulse Ox 96 Oxygen Delivery Method Room Air Positive well nourished and well developed General Appearance ED: well developed and NAD HEENT Reports moist mucous membranes normocephalic and atraumatic Eyes PERRL, EOMs intact bilaterally and conjunctivae normal General Eye ED: Yes normal appearance of both eyes Neck no lymphadenopathy and supple General: Negative for tenderness Chest Wall Chest: Negative for tenderness Resp normal respiratory effort and normal air movement Effort and Inspection: symmetric chest movement; Negative for respiratory distress Cardio regular rate, regular rhythm and no murmurs Peripheral Pulses: pulses 2+ throughout GI normal to inspection, nondistended, normoactive bowel sounds and non-tender Palpation: Negative for guarding or rebound tenderness present Back/Spine no CVA tenderness and no thoracic nor lumbar tenderness Extremity normal to inspection General Extremety ED: Negative for edema or tenderness General Extremity: Negative for edema Neuro oriented x3 and no sensory deficits noted Sensorium / Orientation: awake and alert Skin no rashes or lesions noted and no wounds MDM MDM MDM Narrative Medical decision making narrative: Patient elevated blood pressure with chest pains. Cardiac work-up negative troponin x2. Heart score is a 3. Monitoring blood pressure decreased without any intervention back to his baseline levels. Symptom-free on reevaluation. 1 view chest x-ray reviewed by myself and read by radiology shows no acute process. Patient will follow-up with his PCP with return precautions. All questions were answered. Lab Data Attestation: I reviewed the patient's lab results. Labs: Laboratory Results - last 24 hr 04/26/22 04/26/22 04/27/22 23:30 23:30 01:35 WBC 6.2 RBC 4.82 Hgb 15.1 Hct 44.1 MCV 91.5 MCH 31.3 MCHC 34.2 RDW Std Deviation 43.0 RDW Coeff of Rosa 12.8 Plt Count 225 MPV 10.0 Immature Gran % (Auto) 0.300 Neut % (Auto) 52.6 Lymph % (Auto) 36.8 Vance % (Auto) 8.4 Eos % (Auto) 1.4 Baso % (Auto) 0.5 Absolute Neuts (auto) 3.3 Absolute Lymphs (auto) 2.29 Nucleated RBC % 0 Sodium 138 Potassium 3.7 Chloride 106 Carbon Dioxide 27.0 Anion Gap 5 BUN 12 Creatinine 0.91 Estim Creat Clear Calc 79.85 Est GFR (MDRD) Af Amer 107 Est GFR (MDRD) Non-Af 88 BUN/Creatinine Ratio 13.1 Glucose 143 H Calcium 8.6 Troponin I High Sens 4 4 Radiography Diagnostic Testing: Clinical Impression(s) from Imaging Studies Chest X-Ray 04/26/22 23:22 IMPRESSION: Normal x-ray examination of the chest. Electronically Signed: Mariano Simons DO at 23:40 EDT , EKG Initial EKG: Attestation: I personally reviewed and interpreted this EKG as follows: Comments: Sinus rate of 73, no ST or T wave changes. Discharge Plan Triage Chief Complaint: Hypertension ED Provider: Francisco Armstrong Dx/Rx/DC Orders Clinical Impression: Chest pain, HTN (hypertension) Instructions: ED Chest Pain, Uncertain Cause, ED High Blood Pressure Hypertension Prescriptions: No Action multivitamin [Multiple Vitamins] 1 EACH tablet 1 ea PO DAILY Lovastatin [Mevacor] 40 MG tablet 40 mg PO QHS Omeprazole [Prilosec] 40 MG capsule 40 mg PO DAILY lisinopril 20 MG tablet 20 mg PO DAILY ropinirole 1 MG tablet 1.5 mg PO QHS tamsulosin 0.4 MG capsule 0.8 mg PO QHS Label Comments: TAKE 1 CAPSULE BY MOUTH EVERY NIGHT AT BEDTIME melatonin 5 MG tablet 5 mg PO QHS hydrocodone-acetaminophen [hydrocodone-acetaminophen] 1 TABLET tablet 1 tab PO Q6H PRN PRN (Reason: Pain) 3 Days Qty: 10 0RF Metamucil Packet 1 packet PO DAILY Primary Care Provider: Dorita Morocho Referrals: Dorita Morocho MD [Primary Care Provider] - 3-5 Days Activity Restrictions/Additional Instructions: Cardiac work-up negative. Blood pressure improved without treatment. Follow-up with your doctor for reevaluation and further testing with your chest pain symptoms. Disposition Disposition: Home, Self Care
[2022-04-26] MEDS: Aspirin 81 MG TAB.CHEW 324 MG PO (23:33)
[2022-04-26 23:35] VITALS: BP 164/92; PULSE 70; RESP 18; O2SAT 96
[2022-04-27] LABS: Absolute Lymphocyte Count 2.29 X10^3/uL (0.83-4.51); Absolute Neutrophil Count 3.3 X10^3/uL (2.0-7.7); Basophil# 0.03 X10^3/uL; Basophil% 0.5 % (0-1); Eosinophil# 0.09 X10^3/uL; Eosinophils% 1.4 % (0-5); Hematocrit 44.1 % (40-54); Hemoglobin 15.1 g/dL (13.0-16.5); Lymphocyte # 2.29 X10^3/ul (0.83-4.51); Lymphocyte % 36.8 % (19-41); Mean Corp Hgb Conc 34.2 g/dL (32-36); Mean Corpuscular Hgb 31.3 pg (27.0-32.0); Mean Corpuscular Volume 91.5 fL (80-94); Monocyte# 0.52 X10^3/uL; Monocyte% 8.4 % (0-10); NRBC Flagged by Analyzer 0 % (0-5); Neutrophil # 3.27 X10^3/uL (2.7-7.7); Neutrophil % 52.6 % (47-70); Platelet Count 225 K/mm3 (150-450); RBC Distribution Width CV 12.8 % (11.6-14.6); Red Blood Count 4.82 M/mm3 (4.6-6.2); White Blood Count 6.2 K/mm3 (4.4-11.0)
[2022-04-27 00:03] LABS: Anion Gap 5 (5-15); BUN 12 mg/dL (7-18); BUN/Creat Ratio 13.1 RATIO (10-20); Calcium,Total 8.6 mg/dL (8.5-10.1); Chloride 106 mmol/L (98-107); Creatinine, Serum 0.91 mg/dL (0.70-1.30); EST Glomerular Filtration Rate 88 mL/min (>60); Est Glom Filt Rate - Afr Amer 107 mL/min (>60); Estimated Creatinine Clearance 79.85 ml/min; Glucose 143 mg/dL (74-106); Potassium 3.7 mmol/L (3.5-5.1); Sodium Level 138 mmol/L (136-145); Troponin-I HS (w/2H Reflex) 4 pg/mL (3.0-78.0)
[2022-04-27 00:07] VITALS: BP 180/97
[2022-04-27 00:58] VITALS: BP 143/81
[2022-04-27 01:39] LABS: Reflex Troponin-HS? (from REC) Y
[2022-04-27 01:59] LABS: Troponin-I HS 4 pg/mL (3.0-78.0)
== END 2022-04-27 02:22 | disposition home or self-care (01) ==
PROVIDERS: Emergency Provider Emergency Medicine; PCP Family Medicine; Visit Provider Emergency Medicine
DX: R07.9 Chest pain, unspecified (principal); I10 Essential (primary) hypertension; K21.9 Gastro-esophageal reflux disease without esophagitis; G25.81 Restless legs syndrome; F41.9 Anxiety disorder, unspecified; Z79.899 Other long term (current) drug therapy; Z87.891 Personal history of nicotine dependence
CPT/HCPCS: 71045; 80048; 84484; 85025; 93005; 99284; A4216

== ENCOUNTER 2022-05-10 20:21 | Observation (INO) | payer OTHER, MEDICARE, SELFPAY ==
[2022-05-10 20:22] VITALS: BP 168/86; PULSE 104; RESP 15; TEMP 37.1; O2SAT 98; BMI 31.9
--- NOTE | 2022-05-10 20:52 | EKG12_ITS ---
Test Reason : confusion Blood Pressure : / mmHG Vent. Rate : 094 BPM Atrial Rate : 094 BPM P-R Int : 188 ms QRS Dur : 090 ms QT Int : 362 ms P-R-T Axes : 030 -32 004 degrees QTc Int : 452 ms Normal sinus rhythm Left axis deviation Abnormal ECG Confirmed by MAHAD QUINONES, ROCHELLE ([id number]), business editor GRETTA HARGROVE ([id number]) on 05/12/2022 11:31:10 AM Referred By: Confirmed By:ROCHELLE TOBIN MD
--- NOTE | 2022-05-10 20:52 | CT_ITS ---
EXAM: CT HEAD WITHOUT INTRAVENOUS CONTRAST CLINICAL INDICATION: Neuro deficit, acute, stroke suspected TECHNIQUE: Multiple axial images were obtained of the head without intravenous contrast. This CT exam was performed using one or more of the following dose reduction techniques: automated exposure control, adjustment of the mA and/or kV according to patient size, and/or use of iterative reconstruction technique. This report was created using [employer] report generation technology. COMPARISON: Previous CT of 10/03/2021. FINDINGS: BRAIN AND EXTRA-AXIAL SPACES: Minimal age-related atrophy. No intra- or extra-axial hemorrhage. No evidence of acute infarct. No intracranial mass or mass effect. There is preservation of the vidal/white matter interface. Posterior fossa structures are unremarkable. Ventricles are appropriate for age. No hydrocephalus. Basal cisterns are patent. Aspects score of 10. BONES/JOINTS: Unremarkable. No discrete lytic or blastic abnormalities. SINUSES: Incidental retention cyst in the right sphenoid sinus. No paranasal sinus air-fluid levels. MASTOID AIR CELLS: Unremarkable. Clear. ORBITS: Visualized globes, extraocular muscles, optic nerves and retrobulbar fat appear unremarkable. OTHER FINDINGS: Dosage: Total DLP: 1765.57 mGy-cm. Middle cerebral arteries are not hyperdense. Atherosclerotic calcification noted within the cavernous carotid arteries. CT/STROKE Brain/Head without Cont IMPRESSION: No acute findings in the head/brain. No significant interval change. Nonstandard communication protocol initiated and completed. N.B. : The above Results were Read Back by Wilner Maciel MD to Gab Sheth MD, and understanding confirmed on 05/10/2022 22:07:49 (ET). Electronically Signed: Wilner Maciel MD at 22:09 EDT ,
--- NOTE | 2022-05-10 20:52 | CT_ITS ---
STUDY: CTA HEAD AND NECK WITH CONTRAST REASON FOR EXAM: Male, 66 years old. Neuro deficit, acute, stroke suspected RADIATION DOSAGE (If Supplied By Facility): CTDIvol = ( 20.04 ) mGy, DLP = ( 868.22 ) mGycm TECHNIQUE: CT angiography was performed with a multi-detector CT scanner. Data acquisition was obtained from the skull base through the vertex following intravenous administration of ISOVUE 370-100ml. MIP images were reconstructed from the axial data set. Post-processing of the angiographic images was performed, with multiplanar reformation and 3D reconstruction. Individualized dose optimization techniques were used for this CT. COMPARISON: CTA head and neck of 10/03/2021. Preceding cranial CT of this date. FINDINGS: Normal bilateral petrous carotid arteries. Minimal nonstenotic calcified plaque noted within the right supracavernous carotid artery. Normal left cavernous carotid artery with a normal supraclinoid bifurcation. Normal right A1 segments of the anterior cerebral artery. Normal left A1 segments of the anterior cerebral artery. Normal bilateral A2 segments of the anterior cerebral arteries. Normal right M1 and M2 segments of the middle cerebral arteries, with a normal M1 bifurcation. Normal left M1 and M2 segments of the middle cerebral arteries, with a normal M1 bifurcation. No evidence of filling defect/thrombus. Anterior and posterior communicating arteries are not visualized. Dominant left vertebral artery. Normal basilar artery with a normal basilar bifurcation. The visualized bilateral superior cerebellar (SCA) arteries are normal. Normal bilateral P1, P2 and visualized P3 segments of the posterior cerebral arteries. There is no demonstrated aneurysm of the [place]. There is no demonstrated abnormality of the visualized brain. Visualized dural venous sinuses enhance normally. AORTIC ARCH: Normal visualized aortic arch. No intimal flap. Normal origins of the brachiocephalic, left common carotid, and left subclavian arteries. RIGHT CAROTID ARTERIES: Normal right common carotid artery (CCA). Normal right common carotid bulb. Normal origin of the right internal carotid (ICA) artery without a hemodynamically significant stenosis. Normal visualized cervical portion of the right internal carotid artery. Normal origin of the right external carotid artery (ECA). LEFT CAROTID ARTERIES: Normal left common carotid artery (CCA). Normal left common carotid bulb. Normal origin of the left internal carotid (ICA) artery without a hemodynamically significant stenosis. Minimal nonstenotic calcified noted within the proximal left ICA, unchanged. Normal origin of the left external carotid artery (ECA). VERTEBRAL ARTERIES: Dominant left vertebral artery. Calcified plaque within the first segment causes less than 50% stenosis and is unchanged. Minimal nonstenotic calcified plaque noted within the fourth segment of the left vertebral artery. No vertebral artery dissection. OTHER: The visualized upper lungs are clear. A 10 mm nodule previously seen within the right thyroid lobe on the prior study has decreased in size and now measures 8 mm, and requires no follow-up. CT/STROKE CTA Head AND Neck W/Con IMPRESSION: No hemodynamically significant stenosis or dissection identified within the carotid or vertebral arteries. No aneurysm, intraluminal thrombus or hemodynamically significant stenosis of the intracranial vessels. Nonstandard communication protocol initiated and completed. N.B. : The above Results were Read Back by Wilner Maciel MD to Gab Sheth MD, and understanding confirmed on 05/10/2022 22:21:41 (ET). Electronically Signed: Wilner Maciel MD at 22:27 EDT ,
--- NOTE | 2022-05-10 20:53 | EDS_ITS ---
HPI History of Present Illness Chief Complaint: Confusion Informant: patient, spouse/S.O. and family Onset/Context/Timing Onset: Today Timing: Continuous Quality and Location: Positive for - (trouble remembering facts/dates) Current Severity: Gone Maximum Severity: Moderate Associated Symptoms Associated Symptoms: Negative for Headache, Nausea, Vomiting or Chest Pain Narrative Narrative: Family brings this patient in because he was disoriented earlier, having trouble remembering things. Patient states he can remember things fine now. They were asking questions because he seemed off, and he was answering them wrong. He states now that he has been redirected he knows the answers to those questions and he has no symptoms. He states today off-and-on he has felt a little off but he cannot describe it further. About 3 weeks ago his blood pressure was elevated, he followed up with his doctor and for the past 4 days he has increased his lisinopril dose which is the only medication he is on for blood pressure. He has never had this happen before. Family states during this trouble with his memory today, he did not have any trouble speaking and did not seem to be word finding. Son states he was answering long-term memory questions okay it was more short-term memory. Patient denies having any physical symptoms, vision changes, tingling or weakness, or headache at all today other than above feeling funny. He states his doctor told him to check his blood pressure twice a day, so we did that this evening and it was in the high 160s which he is concerned about. He does not take any antiplatelet or anticoagulant medications for any reason. He and family are unable to pinpoint a last known well; he states that this morning he took his granddaughter to [place] and seemed fine then, but none of the times are known because it was not known that he was having memory issues until they started asking him questions. [facility] Medical History Anxiety CPAP (continuous positive airway pressure) dependence Former smoker GERD (gastroesophageal reflux disease) Hypertension Tremor Home Medications Lovastatin [Mevacor] 40 mg PO QHS CHOLESTEROL 11/11/16 [History Last Taken 07/09/19] Omeprazole [Prilosec] 40 mg PO DAILY STOMACH ACID 11/11/16 [History Last Taken 07/10/19] multivitamin (Multiple Vitamins tablet) 1 ea PO DAILY vitamin 11/11/16 [History Last Taken 07/10/19] lisinopril 20 mg tablet 20 mg PO DAILY blood pressure 10/12/18 [History Last Taken 07/10/19] melatonin 5 mg tablet 5 mg PO QHS sleep 07/10/19 [History Last Taken 07/09/19] Allergy/AdvReac Type Severity Reaction Status Date / Time Sulfa (Sulfonamide AdvReac Nausea Verified 05/10/22 20:22 Antibiotics) Surgical History H/O transurethral resection of prostate Social History household members: spouse Smoking Status: Former smoker alcohol intake: current alcohol intake frequency: holidays/special occasions only substance use type: does not use ROS ROS ED Constitutional Constitutional ED: Denies chills or fever(s) Eyes Eyes: Denies change in vision or diplopia ENT ENT ED: Denies rhinorrhea or sore throat Cardiovascular Cardiovascular: Denies chest pain or palpitations Respiratory/Chest Respiratory/Chest: Denies cough or dyspnea Gastrointestinal Gastrointestinal: Denies abdominal pain, diarrhea, nausea or vomiting Genitourinary Genitourinary ED: Denies dysuria or hematuria Musculoskeletal Musculoskeletal: Denies back pain or neck pain Integumentary Denies abscess or rash Neurologic Neurologic: Denies headache(s), paresthesias or weakness Psychiatric Psychiatric: Denies anxiety or suicidal thoughts EXAM Physical Exam Const Vital Signs: 05/10/22 20:22 05/10/22 20:52 Temperature 98.7 F Temperature Source Temporal Pulse Rate 104 H Respiratory Rate 15 Blood Pressure 168/86 H Blood Pressure Mean 113 Pulse Ox 98 Oxygen Delivery Method Room Air Room Air Positive well nourished and well developed General Appearance ED: well developed and NAD HEENT Reports moist mucous membranes normocephalic and atraumatic Eyes PERRL and EOMs intact bilaterally Neck full ROM and supple Resp normal respiratory effort and clear to auscultation bilaterally Cardio regular rate, regular rhythm and no murmurs GI non-tender and non-distended Auscultation: normoactive bowel sounds Palpation: soft Back/Spine no CVA tenderness General Back: other FROM Extremity normal to inspection General Extremety ED: Negative for edema, pulses abnormal or tenderness General Extremity: Negative for edema or pulses abnormal Neuro oriented x3, CN's II-XII intact bilaterally and no sensory deficits noted Sensorium / Orientation: awake and alert Motor Exam: strength 5/5 throughout Skin no rashes or lesions noted and no wounds STROKE Vital Signs/Narrative: Vital Signs Temp Pulse Resp BP Pulse Ox O2 Del Method 05/10/22 20:52 Room Air 05/10/22 20:22 98.7 F 104 H 15 168/86 H 98 Room Air NIHSS Initial: 1a Level of Consciousness: 0 1b LOC Questions (Score 2 if aphasic/stupor): 0 1c LOC Commands (Only score 1st attempt): 0 2 Best Gaze (If aphasic, use reflexive mvmts.): 0 3 Visual: 0 4 Facial Palsy: 0 5 Motor Arm Right (UN = amputation/fusion): 0 5 Motor Arm Left: 0 6 Motor Leg Right: 0 6 Motor Leg Left: 0 7 Limb ataxia (Only + if out of proportion): 0 8 Sensory (Aphasia/stupor=0 or 1, coma=2): 0 9 Best Language: 0 10 Dysarthria (mute, coma=2, intubated=UN): 0 11 Extinction and Inattention (only scored if +): 0 Total Score: 0 MDM MDM MDM Narrative Medical decision making narrative: Other than feeling a little anxious patient was asymptomatic during his ED stay. His labs are unremarkable, EKG normal, chest x-ray 1 view on my interpretation normal, and CT Noncon, CTA head and neck were both negative/unremarkable. Patient states after this that he had an MRA that showed 2 small aneurysms, radiology did not note this on the CTA. He does not have symptoms of a subarachnoid hemorrhage so I do not think he needs an LP right now. My concern is that his memory symptoms may have actually been transient aphasia. His blood pressure was very elevated, with observation here in the ED, it has come down to the 140s. His ABCD 2 score is 4, I think it would be reasonable to be conservative and admit him to observation for an MRI and further treatment/observation. ABCD? Score for TIA from [email or web address] on 05/10/2022 All calculations should be rechecked by clinician prior to use RESULT SUMMARY: 4 points Per the validation study, 4-5 points: Moderate Risk 2-Day Stroke Risk: 4.1% 7-Day Stroke Risk: 5.9% 90-Day Stroke Risk: 9.8% INPUTS: Age >=60 years ?> 1 = Yes BP >=140/90 mmHg ?> 1 = Yes Clinical features of the TIA ?> 0 = Other symptoms Duration of symptoms ?> 2 = >=60 minutes History of diabetes ?> 0 = No Lab Data Attestation: I reviewed the patient's lab results. Labs: Laboratory Results - last 24 hr 05/10/22 05/10/22 05/10/22 21:10 21:10 21:10 WBC 6.3 RBC 4.71 Hgb 14.5 Hct 43.0 MCV 91.3 MCH 30.8 MCHC 33.7 RDW Std Deviation 43.1 RDW Coeff of Rosa 13.0 Plt Count 174 MPV 9.4 Immature Gran % (Auto) 0.200 Neut % (Auto) 59.0 Lymph % (Auto) 31.6 Saline % (Auto) 8.3 Eos % (Auto) 0.6 Baso % (Auto) 0.3 Absolute Neuts (auto) 3.7 Absolute Lymphs (auto) 1.98 Nucleated RBC % 0 PT 13.2 INR 1.0 APTT 27.8 Sodium 142 Potassium 3.8 Chloride 108 H Carbon Dioxide 25.0 Anion Gap 9 BUN 16 Creatinine 0.97 Estim Creat Clear Calc 74.91 Est GFR (MDRD) Af Amer 99 Est GFR (MDRD) Non-Af 82 BUN/Creatinine Ratio 16.5 Glucose 109 H Calcium 8.6 Troponin I High Sens 3 Radiography Diagnostic Testing: Clinical Impression(s) from Imaging Studies Brain CT 05/10/22 20:52 IMPRESSION: No acute findings in the head/brain. No significant interval change. Nonstandard communication protocol initiated and completed. N.B. : The above Results were Read Back by Wilner Maciel MD to Gab Sheth MD, and understanding confirmed on 05/10/2022 22:07:49 (ET). Electronically Signed: Wilner Maciel MD at 22:09 EDT , ADDENDUM: 05/10/22 2216 IMPRESSION: No acute findings in the head/brain. No significant interval change. Nonstandard communication protocol initiated and completed. N.B. : The above Results were Read Back by Wilner Maciel MD to Gab Sheth MD, and understanding confirmed on 05/10/2022 22:07:49 (ET). Electronically Signed: Wilner Maciel MD at 22:09 EDT , Head/Neck CTA 05/10/22 20:52 IMPRESSION: No hemodynamically significant stenosis or dissection identified within the carotid or vertebral arteries. No aneurysm, intraluminal thrombus or hemodynamically significant stenosis of the intracranial vessels. Nonstandard communication protocol initiated and completed. N.B. : The above Results were Read Back by Wilner Maciel MD to Gab Sheth MD, and understanding confirmed on 05/10/2022 22:21:41 (ET). Electronically Signed: Wilner Maciel MD at 22:27 EDT , ADDENDUM: 05/10/22 2234 IMPRESSION: No hemodynamically significant stenosis or dissection identified within the carotid or vertebral arteries. No aneurysm, intraluminal thrombus or hemodynamically significant stenosis of the intracranial vessels. Nonstandard communication protocol initiated and completed. N.B. : The above Results were Read Back by Wilner Maciel MD to Gab Sheth MD, and understanding confirmed on 05/10/2022 22:21:41 (ET). Electronically Signed: Wilner Maciel MD at 22:27 EDT , Chest X-Ray 05/10/22 21:53 IMPRESSION: No significant interval change. No acute cardio-pulmonary disease process identified. Electronically Signed: Wilner Maciel MD at 22:29 EDT , Rhythm Strip Rhythm Strip: Sinus Rhythm Rate: 70 Ectopy: None EKG Initial EKG: Attestation: I personally reviewed and interpreted this EKG as follows: Interpretation: Sinus Rhythm and No Acute Injury Pattern Stroke Documentation Questions Stroke Team Activated: No (resolved sx, NIHSS 0) Discharge Plan Triage Chief Complaint: Confusion ED Provider: Gab Sheth Dx/Rx/DC Orders Clinical Impression: Brain TIA, Accelerated hypertension Prescriptions: No Action multivitamin [Multiple Vitamins] 1 EACH tablet 1 ea PO DAILY Lovastatin [Mevacor] 40 MG tablet 40 mg PO QHS Omeprazole [Prilosec] 40 MG capsule 40 mg PO DAILY lisinopril 20 MG tablet 20 mg PO DAILY melatonin 5 MG tablet 5 mg PO QHS Primary Care Provider: Dorita Morocho Referrals: Dorita Morocho MD [Primary Care Provider] - Disposition Disposition: Acute Care Hospital [facility]
[2022-05-10 21:22] LABS: Absolute Lymphocyte Count 1.98 X10^3/uL (0.83-4.51); Absolute Neutrophil Count 3.7 X10^3/uL (2.0-7.7); Basophil# 0.02 X10^3/uL; Basophil% 0.3 % (0-1); Eosinophil# 0.04 X10^3/uL; Eosinophils% 0.6 % (0-5); Hemoglobin 14.5 g/dL (13.0-16.5); Lymphocyte # 1.98 X10^3/ul (0.83-4.51); Lymphocyte % 31.6 % (19-41); Mean Corp Hgb Conc 33.7 g/dL (32-36); Mean Corpuscular Hgb 30.8 pg (27.0-32.0); Mean Corpuscular Volume 91.3 fL (80-94); Mean Platelet Vol. 9.4 fl (6.2-12.0); Monocyte# 0.52 X10^3/uL; Monocyte% 8.3 % (0-10); NRBC Flagged by Analyzer 0 % (0-5); Neutrophil # 3.69 X10^3/uL (2.7-7.7); Platelet Count 174 K/mm3 (150-450); RBC Distribution Width SD 43.1 fl (35.1-43.9); Red Blood Count 4.71 M/mm3 (4.6-6.2); White Blood Count 6.3 K/mm3 (4.4-11.0)
[2022-05-10 21:32] LABS: Partial Thromboplast Time 27.8 Seconds (24.1-36.2); Prothrombin Time (Protime)PT. 13.2 SECONDS (11.7-14.9)
[2022-05-10 21:39] LABS: Anion Gap 9 (5-15); BUN 16 mg/dL (7-18); BUN/Creat Ratio 16.5 RATIO (10-20); Calcium,Total 8.6 mg/dL (8.5-10.1); Chloride 108 mmol/L (98-107); Creatinine, Serum 0.97 mg/dL (0.70-1.30); EST Glomerular Filtration Rate 82 mL/min (>60); Est Glom Filt Rate - Afr Amer 99 mL/min (>60); Estimated Creatinine Clearance 74.91 ml/min; Glucose 109 mg/dL (74-106); Potassium 3.8 mmol/L (3.5-5.1); Sodium Level 142 mmol/L (136-145); Troponin-I HS 3 pg/mL (3.0-78.0)
--- NOTE | 2022-05-10 21:53 | RAD_ITS ---
STUDY: X-RAY CHEST REASON FOR EXAM: Male, 66 years old. Neuro deficit, acute, stroke suspected TECHNIQUE: Single AP portable upright view of the chest. 9:51 PM. COMPARISON: Recent chest radiographs of 04/26/2022 and 07/10/2019.. FINDINGS: The lungs are clear and expanded. There is no demonstrated pleural abnormality. Borderline enlarged heart. Calcified mediastinal lymph nodes again noted. No hilar enlargement. Normal visualized pulmonary arteries. Stable mild-moderate elongation of the thoracic aorta. No acute osseous abnormality. Findings of calcific tendinitis/bursitis of the right shoulder again noted. There is no demonstrated abnormality of the visualized soft tissue structures of the upper abdomen. RAD/Chest 1 View IMPRESSION: No significant interval change. No acute cardio-pulmonary disease process identified. Electronically Signed: Wilner Maciel MD at 22:29 EDT ,
[2022-05-10 22:22] VITALS: BP 131/85; PULSE 89; RESP 21; O2SAT 93
--- NOTE | 2022-05-10 23:00 | HP.PCM.HOS_ITS ---
HPI - General General Date of Admission: 05/10/22 Date of Service: 05/10/22 Chief Complaint: Disorientation HPI Narrative LOREE CHARLES, is a 66 M with a significant history of hypertension; tobacco abuse; hyperlipidemia on statin; anxiety disorder; obstructive sleep apnea on CPAP who presents to the emergency department with disorientation on the same day of presentation. He described his disorientation as short term memory loss. Also patient report that per his he was not acting right. His symptoms lasted for about 30 minutes to 1 hour. He had taken double short of [place] before his symptoms started but that is his usual daily habit. He reports being fatigue. Also reported that while at the emergency department he is anxious. He denies any focal weakness or speech changes. He denies any sensation changes. Of note for the past 3 weeks patient blood pressure has been elevated above usual. Four days prior to presentation his lisinopril was increased from 10 mg to 20 mg daily. His PCP, Dr. Soliz, has ordered an outpatient stress test for May 19, 2022. Because his initial blood pressure at emergency department was elevated Emergency Department doctor was concerned that maybe patient had a TIA and made recommendation for patient to stay at the hospital. Of note patient's blood pressure improved by itself without any further interventions. [facility] Medical History Anxiety CPAP (continuous positive airway pressure) dependence Former smoker GERD (gastroesophageal reflux disease) Hypertension Tremor Home Medications Lovastatin [Mevacor] 40 mg PO QHS CHOLESTEROL 11/11/16 [History Last Taken 07/09/19] Omeprazole [Prilosec] 40 mg PO DAILY STOMACH ACID 11/11/16 [History Last Taken 07/10/19] multivitamin (Multiple Vitamins tablet) 1 ea PO DAILY vitamin 11/11/16 [History Last Taken 07/10/19] lisinopril 20 mg tablet 20 mg PO DAILY blood pressure 10/12/18 [History Last Taken 07/10/19] melatonin 5 mg tablet 5 mg PO QHS sleep 07/10/19 [History Last Taken 07/09/19] Allergy/AdvReac Type Severity Reaction Status Date / Time Sulfa (Sulfonamide AdvReac Nausea Verified 05/10/22 20:22 Antibiotics) Family History Other CVA (cerebral vascular accident) Diabetes Heart disease Surgical History H/O transurethral resection of prostate Social History household members: spouse Smoking Status: Former smoker Electronic Cigarette Use: with nicotine alcohol intake: current alcohol intake frequency: holidays/special occasions only substance use type: does not use ROS ROS Narrative Pertinent positives and pertinent negatives as noted in HPI. All other systems were reviewed and are negative. Vital Signs Vital Signs Vital Signs: 05/10/22 20:22 05/10/22 20:52 Temperature 98.7 F Temperature Source Temporal Pulse Rate 104 H Respiratory Rate 15 Blood Pressure 168/86 H Blood Pressure Mean 113 Pulse Ox 98 Oxygen Delivery Method Room Air Room Air Weight Weight: 98.2 kg Body Mass Index (BMI) 31.9 Physical Exam Narrative Physical exam: General: Well-nourished, well-developed. Head: Normocephalic, atraumatic, no tenderness Eyes: Vision is grossly intact. EOMI ENT, no trauma, moist mucous membranes, no rhinorrhea Neck: Nontender, full range of motion, no spinal tenderness, deformities, step- off CVS: Regular rate and rhythm. S1-S2 present. No murmur, gallop or rub. Respiratory : clear to auscultation bilaterally, chest wall nontender, no wheezi ng Abdomen: Soft, nontender, nondistended, normal bowel sounds, no masses : Deferred Back: Nontender, no CVA tenderness, no midline spinal tenderness, deformities, step-offs Extremities: Nontender full range of motion, no trauma Skin: Normal color, no trauma, abrasions Neuro: Alert, oriented, cranial nerves II through XII grossly intact. Deep tendon reflexes not hyperreflexia at elbow and knee. Strength 5 out of 5 throughout. No sensation changes. No dysmetria from [id number] test or s hin to heel test. Psychiatry: Anxious. Results Medical Records Data Attestation: I reviewed the patient's medical records Lab / Micro Data Attestation: I reviewed the patient's lab results. Result Diagrams: 05/10/22 21:10 05/10/22 21:10 Labs: Laboratory Results - last 24 hr 05/10/22 21:10: WBC 6.3, RBC 4.71, Hgb 14.5, Hct 43.0, MCV 91.3, MCH 30.8, MCHC 33.7, RDW Std Deviation 43.1, RDW Coeff of Rosa 13.0, Plt Count 174, MPV 9.4, Immature Gran % (Auto) 0.200, Neut % (Auto) 59.0, Lymph % (Auto) 31.6, Gray % (Auto) 8.3, Eos % (Auto) 0.6, Baso % (Auto) 0.3, Absolute Neuts (auto) 3.7, Absolute Lymphs (auto) 1.98, Nucleated RBC % 0 05/10/22 21:10: PT 13.2, INR 1.0, APTT 27.8 05/10/22 21:10: Sodium 142, Potassium 3.8, Chloride 108 H, Carbon Dioxide 25.0, Anion Gap 9, BUN 16, Creatinine 0.97, Estim Creat Clear Calc 74.91, Est GFR (MDRD) Af Amer 99, Est GFR (MDRD) Non-Af 82, BUN/Creatinine Ratio 16.5, Glucose 109 H, Calcium 8.6, Troponin I High Sens 3 Rhythm Strip Rhythm Strip: Sinus Rhythm Rate: 70 Ectopy: None Radiology Impression Brain CT 05/10/22 20:52 IMPRESSION: No acute findings in the head/brain. No significant interval change. Nonstandard communication protocol initiated and completed. N.B. : The above Results were Read Back by Wilner Maciel MD to Gab Sheth MD, and understanding confirmed on 05/10/2022 22:07:49 (ET). Electronically Signed: Wilner Maciel MD at 22:09 EDT , ADDENDUM: 05/10/222215 IMPRESSION: No acute findings in the head/brain. No significant interval change. Nonstandard communication protocol initiated and completed. N.B. : The above Results were Read Back by Wilner Maciel MD to Gab Sheth MD, and understanding confirmed on 05/10/2022 22:07:49 (ET). Electronically Signed: Wilner Maciel MD at 22:09 EDT , Head/Neck CTA 05/10/22 20:52 IMPRESSION: No hemodynamically significant stenosis or dissection identified within the carotid or vertebral arteries. No aneurysm, intraluminal thrombus or hemodynamically significant stenosis of the intracranial vessels. Nonstandard communication protocol initiated and completed. N.B. : The above Results were Read Back by Wilner Maciel MD to Gab Sheth MD, and understanding confirmed on 05/10/2022 22:21:41 (ET). Electronically Signed: Wilner Maciel MD at 22:27 EDT , ADDENDUM: 05/10/22 2234 IMPRESSION: No hemodynamically significant stenosis or dissection identified within the carotid or vertebral arteries. No aneurysm, intraluminal thrombus or hemodynamically significant stenosis of the intracranial vessels. Nonstandard communication protocol initiated and completed. N.B. : The above Results were Read Back by Wilner Maciel MD to Gab Sheth MD, and understanding confirmed on 05/10/2022 22:21:41 (ET). Electronically Signed: Wilner Maciel MD at 22:27 EDT , Chest X-Ray 05/10/22 21:53 IMPRESSION: No significant interval change. No acute cardio-pulmonary disease process identified. Electronically Signed: Wilner Maciel MD at 22:29 EDT , Assessment & Plan Assessment/Plan (1) Transient amnesia: PLAN: Plan Transient amnesia Could be secondary to anxiety disorder; TIA or other. Brain CT and head and neck CTA was visualized and independently interpreted. I agree with their interpretation of no acute pathology or hemodynamically significant stenosis. Check lipid panel. Check A1c. Daily aspirin ordered. MRI brain ordered. Observe on telemetry. Permissive hypertension. Blood pressure control. Blood pressure more than 220 ordered today blood pressure less than 110 with. Hydralazine and labetalol. Hold home blood pressure medications. Serial NIH's ordered. Hypertension Blood pressure is not within goal However because of permissive hypertension would hold off home blood pressure medications. Blood pressure control as above. Trend blood pressure and adjust blood pressure medications. DVT prophylaxis: SCDs ordered. Charges/Coding Visit Charges OBSV E&M: 27639 Initial observation care L2
[2022-05-10 23:18] VITALS: BP 131/85; PULSE 86; RESP 20; TEMP 36.9; O2SAT 95
[2022-05-10 23:29] VITALS: PULSE 83; BMI 31.6
[2022-05-10 23:30] VITALS: BP 178/98; PULSE 80; RESP 16; TEMP 36.6; O2SAT 98
[2022-05-11] VITALS (8 sets, daily range): BP systolic 128–136; BP diastolic 73–83; PULSE 61–68; RESP 16–18; TEMP 36.4–36.7; O2SAT 94–96; BMI 31.6
[2022-05-11] MEDS: MELATONIN 10 MG TABLET 5 MG PO (00:37)
[2022-05-11] MEDS: 0.9% Saline Lock 10 ML Syringe IV (02:19)
[2022-05-11 06:53] LABS: Absolute Lymphocyte Count 2.08 X10^3/uL (0.83-4.51); Absolute Neutrophil Count 4.4 X10^3/uL (2.0-7.7); Basophil# 0.02 X10^3/uL; Basophil% 0.3 % (0-1); Eosinophil# 0.08 X10^3/uL; Eosinophils% 1.1 % (0-5); Hematocrit 41.3 % (40-54); Hemoglobin 14.3 g/dL (13.0-16.5); Lymphocyte # 2.08 X10^3/ul (0.83-4.51); Lymphocyte % 28.8 % (19-41); Mean Corp Hgb Conc 34.6 g/dL (32-36); Mean Corpuscular Volume 92.4 fL (80-94); Mean Platelet Vol. 9.8 fl (6.2-12.0); Monocyte# 0.58 X10^3/uL; NRBC Flagged by Analyzer 0 % (0-5); Neutrophil # 4.44 X10^3/uL (2.7-7.7); Neutrophil % 61.4 % (47-70); Platelet Count 168 K/mm3 (150-450); RBC Distribution Width CV 13.2 % (11.6-14.6); RBC Distribution Width SD 44.6 fl (35.1-43.9); Red Blood Count 4.47 M/mm3 (4.6-6.2); White Blood Count 7.2 K/mm3 (4.4-11.0)
[2022-05-11 07:20] LABS: Anion Gap 7 (5-15); BUN 15 mg/dL (7-18); BUN/Creat Ratio 16.6 RATIO (10-20); Calcium,Total 8.6 mg/dL (8.5-10.1); Chloride 106 mmol/L (98-107); Cholesterol 168 mg/dL (200); EST Glomerular Filtration Rate 89 mL/min (>60); Est Glom Filt Rate - Afr Amer 108 mL/min (>60); Estimated Creatinine Clearance 80.74 ml/min; Glucose 101 mg/dL (74-106); High Density Lipoprotein 45 mg/dL; Potassium 4.1 mmol/L (3.5-5.1); Sodium Level 139 mmol/L (136-145); Triglycerides 115 mg/dL; Very Low Density Lipoprotein 23 mg/dL (5-40)
--- NOTE | 2022-05-11 07:22 | NURSING ---
Documentation by La DURON reviewed. This nurse agrees with information as documented
[2022-05-11] MEDS: Aspirin 81 MG TAB.CHEW PO (08:33)
[2022-05-11] MEDS: Pantoprazole Sodium 40 MG Tablet PO (08:33)
[2022-05-11] MEDS: Multivitamins,Therapeutic Tablet 1 TABLET PO (08:33)
--- NOTE | 2022-05-11 08:44 | PCM.PN.HOSP ---
Subjective Subjective Patient is a 66-year-old gentleman who was brought to the emergency department with confusion Objective Data Objective Data Vital Signs: Vital Signs Temp Pulse Resp BP Pulse Ox O2 Del Method 97.8 F 64 16 136/83 H 94 Room Air 05/11/22 07:08 05/11/22 07:08 05/11/22 07:08 05/11/22 07:08 05/11/22 07:08 05/11/22 08:36 Oxygen Delivery Method Room Air Weight: 97 kg Body Mass Index (BMI) 31.6 Intake & Output: Intake and Output for Last 24 Hours 05/09/22 05/10/22 05/11/22 23:59 23:59 23:59 Intake Total 500 / 500 Balance 500 / 500 Lab / Micro Data Result Diagrams: 05/11/22 06:16 05/11/22 06:16 Labs: Laboratory Results - last 24 hr 05/10/22 21:10: WBC 6.3, RBC 4.71, Hgb 14.5, Hct 43.0, MCV 91.3, MCH 30.8, MCHC 33.7, RDW Std Deviation 43.1, RDW Coeff of Rosa 13.0, Plt Count 174, MPV 9.4, Immature Gran % (Auto) 0.200, Neut % (Auto) 59.0, Lymph % (Auto) 31.6, [place] % (Auto) 8.3, Eos % (Auto) 0.6, Baso % (Auto) 0.3, Absolute Neuts (auto) 3.7, Absolute Lymphs (auto) 1.98, Nucleated RBC % 0 05/10/22 21:10: PT 13.2, INR 1.0, APTT 27.8 05/10/22 21:10: Sodium 142, Potassium 3.8, Chloride 108 H, Carbon Dioxide 25.0, Anion Gap 9, BUN 16, Creatinine 0.97, Estim Creat Clear Calc 74.91, Est GFR (MDRD) Af Amer 99, Est GFR (MDRD) Non-Af 82, BUN/Creatinine Ratio 16.5, Glucose 109 H, Calcium 8.6, Troponin I High Sens 3 05/11/22 06:16: WBC 7.2, RBC 4.47 L, Hgb 14.3, Hct 41.3, MCV 92.4, MCH 32.0, MCHC 34.6, RDW Std Deviation 44.6 H, RDW Coeff of Rosa 13.2, Plt Count 168, MPV 9.8, Immature Gran % (Auto) 0.400, Neut % (Auto) 61.4, Lymph % (Auto) 28.8, [place] % (Auto) 8.0, Eos % (Auto) 1.1, Baso % (Auto) 0.3, Absolute Neuts (auto) 4.4, Absolute Lymphs (auto) 2.08, Nucleated RBC % 0 05/11/22 06:16: Sodium 139, Potassium 4.1, Chloride 106, Carbon Dioxide 26.0, Anion Gap 7, BUN 15, Creatinine 0.90, Estim Creat Clear Calc 80.74, Est GFR (MDRD) Af Amer 108, Est GFR (MDRD) Non-Af 89, BUN/Creatinine Ratio 16.6, Glucose 101, Calcium 8.6, Triglycerides 115, Cholesterol 168, LDL Cholesterol 100, VLDL Cholesterol 23, HDL Cholesterol 45 Radiography Diagnostic Testing: Radiology Impression Brain CT 05/10/22 20:52 IMPRESSION: No acute findings in the head/brain. No significant interval change. Nonstandard communication protocol initiated and completed. N.B. : The above Results were Read Back by Wilner Maciel MD to Gab Sheth MD, and understanding confirmed on 05/10/2022 22:07:49 (ET). Electronically Signed: Wilner Maciel MD at 22:09 EDT Reading Location ID and State: [facility] / [place] Tel , Service support , ADDENDUM: 05/10/226 IMPRESSION: No acute findings in the head/brain. No significant interval change. Nonstandard communication protocol initiated and completed. N.B. : The above Results were Read Back by Wilner Maciel MD to Gab Sheth MD, and understanding confirmed on 05/10/2022 22:07:49 (ET). Electronically Signed: Wilner Maciel MD at 22:09 EDT , Head/Neck CTA 05/10/22 20:52 IMPRESSION: No hemodynamically significant stenosis or dissection identified within the carotid or vertebral arteries. No aneurysm, intraluminal thrombus or hemodynamically significant stenosis of the intracranial vessels. Nonstandard communication protocol initiated and completed. N.B. : The above Results were Read Back by Wilner Maciel MD to Gab Sheth MD, and understanding confirmed on 05/10/2022 22:21:41 (ET). Electronically Signed: Wilner Maciel MD at 22:27 EDT , ADDENDUM: 05/10/224 IMPRESSION: No hemodynamically significant stenosis or dissection identified within the carotid or vertebral arteries. No aneurysm, intraluminal thrombus or hemodynamically significant stenosis of the intracranial vessels. Nonstandard communication protocol initiated and completed. N.B. : The above Results were Read Back by Wilner Maciel MD to Gab Sheth MD, and understanding confirmed on 05/10/2022 22:21:41 (ET). Electronically Signed: Wilner Maciel MD at 22:27 EDT , Chest X-Ray 05/10/22 21:53 IMPRESSION: No significant interval change. No acute cardio-pulmonary disease process identified. Electronically Signed: Wilner Maciel MD at 22:29 EDT , Rhythm Strip Rhythm Strip: Sinus Rhythm Rate: 70 Ectopy: None Physical Exam Narrative GENERAL: cooperative HEENT: Atraumatic; EYES; Anicteric, Normal Conjunctiva NECK; supple, normal thyroid, RESPIRATORY: Diminished to auscultation CARDIOVASCULAR: Regular S1 S2, GI: soft, normoactive bowel sounds, : No Renal angle tenderness; EXTREMITIES: No edema, no clubbing, MUSCULOSKELETAL: no muscle wasting NEURO: Awake; no lateralizing signs. SKIN: No Rash PSYCH; Flat affect Assessment & Plan Assessment/Plan (1) Transient amnesia: PLAN: Plan Patient is a 66-year-old gentleman who was brought to the emergency department with confusion 1. Transient global amnesia ? Patient has been admitted to a monitored bed currently undergoing subsequent work-up. MRI of the brain ordered in addition to continuous telemetry monitoring. CTA of the head and neck obtained on admission unremarkable 2. Hypertension - Blood pressure controlled, home medications continued with dose adjustment as needed 3. Dyslipidemia -Patient is on statin therapy, continued at home dose 4. GERD ? On PPI 5. DVT prophylaxis ? Lovenox Charges/Coding Visit Charges OBSV E&M: 20236 Subsequent observation care L2
--- NOTE | 2022-05-11 13:31 | MRI_ITS ---
STUDY: MRI BRAIN WITHOUT CONTRAST REASON FOR EXAM: Male, 66 years old. Transient global amnesia TECHNIQUE: Standardized multiplanar fat and water weighted pulse sequences were obtained. COMPARISON: 02/10/2021 report only FINDINGS: Normal size of the ventricles and extra-axial spaces for the patient''s age. Normal white matter tracts of the supratentorial brain. Normal bilateral basal ganglia. Normal thalami. There is no extra-axial fluid accumulation. Normal flow voids within the major intracranial circulation suggesting patency by spin echo criteria. Normal sella turcica, pituitary gland, infundibular stalk, optic chiasm and hypothalamus. Normal tectal plate and pineal gland. Normal midbrain, eddy and medulla. On diffusion-weighted imaging sequence there are tiny high signal densities noted on the diffusion-weighted imaging sequence in left cerebellar hemisphere however these remain high signal on the ADC images and may represent T2 shine through effect if not artifact as they''re not present on the other imaging sequences. There is no definitive evidence for restricted diffusion. Normal basal cisterns. Normal bilateral temporal bones. Normal bilateral internal auditory canals. No demonstrated orbital abnormality, within the constraints of a routine brain study. Normal visualized paranasal sinuses. Normal calvarium and skull base. Normal visualized soft tissue structures. Normal visualized upper cervical spine. MRI/Brain without Contrast IMPRESSION: No evidence for acute infarct or other significant abnormality Electronically Signed: Graeme Cuello MD at 16:50 EDT ,
--- NOTE | 2022-05-11 15:01 | PCM.DC.SUM ---
Providers Date of Admission: 05/10/22 Primary Care Physician: Dr. Dorita Morocho MD Reason For Visit: TRANSIENT ANTEROGRADE AMNESIA Diagnosis Discharge Diagnosis (1) Transient amnesia: Status: Acute Code(s): R41.3 - Other amnesia Plan Patient is a 66-year-old gentleman who was brought to the emergency department with confusion 1. Transient global amnesia ? Patient has been admitted to a monitored bed currently undergoing subsequent work-up. MRI of the brain ordered in addition to continuous telemetry monitoring. CTA of the head and neck obtained on admission unremarkable - MRI of the brain was negative for CVA. Aspirin added to patients therapy on discharge 2. Hypertension - Blood pressure controlled, home medications continued with dose adjustment as needed 3. Dyslipidemia -Patient is on statin therapy, continued at home dose 4. GERD ? On PPI 5. DVT prophylaxis ? Lovenox Medications at Discharge Home Medications Lovastatin [Mevacor] 40 mg PO QHS CHOLESTEROL 11/11/16 Omeprazole [Prilosec] 20 mg PO DAILY STOMACH ACID 11/11/16 multivitamin (Multiple Vitamins tablet) 1 ea PO DAILY vitamin 11/11/16 lisinopril 20 mg tablet 20 mg PO DAILY blood pressure 10/12/18 melatonin 5 mg tablet 5 mg PO QHS sleep 07/10/19 aspirin 81 mg capsule 81 mg PO DAILY #90 caps 05/11/22 Physical Exam Narrative GENERAL: cooperative HEENT: Atraumatic; EYES; Anicteric, Normal Conjunctiva NECK; supple, normal thyroid, RESPIRATORY: Diminished to auscultation CARDIOVASCULAR: Regular S1 S2, GI: soft, normoactive bowel sounds, : No Renal angle tenderness; EXTREMITIES: No edema, no clubbing, MUSCULOSKELETAL: no muscle wasting NEURO: Awake; no lateralizing signs. SKIN: No Rash PSYCH; Flat affect Weight / BMI Weight Weight: 97 kg Body Mass Index (BMI) 31.6 ABG / Lab / Microbiology Data Result Diagrams: 05/11/22 06:16 05/11/22 06:16 Laboratory: Laboratory Results - last 24 hr 05/10/22 21:10: WBC 6.3, RBC 4.71, Hgb 14.5, Hct 43.0, MCV 91.3, MCH 30.8, MCHC 33.7, RDW Std Deviation 43.1, RDW Coeff of Rosa 13.0, Plt Count 174, MPV 9.4, Immature Gran % (Auto) 0.200, Neut % (Auto) 59.0, Lymph % (Auto) 31.6, [place] % (Auto) 8.3, Eos % (Auto) 0.6, Baso % (Auto) 0.3, Absolute Neuts (auto) 3.7, Absolute Lymphs (auto) 1.98, Nucleated RBC % 0 05/10/22 21:10: PT 13.2, INR 1.0, APTT 27.8 05/10/22 21:10: Sodium 142, Potassium 3.8, Chloride 108 H, Carbon Dioxide 25.0, Anion Gap 9, BUN 16, Creatinine 0.97, Estim Creat Clear Calc 74.91, Est GFR (MDRD) Af Amer 99, Est GFR (MDRD) Non-Af 82, BUN/Creatinine Ratio 16.5, Glucose 109 H, Calcium 8.6, Troponin I High Sens 3 05/11/22 06:16: WBC 7.2, RBC 4.47 L, Hgb 14.3, Hct 41.3, MCV 92.4, MCH 32.0, MCHC 34.6, RDW Std Deviation 44.6 H, RDW Coeff of Rosa 13.2, Plt Count 168, MPV 9.8, Immature Gran % (Auto) 0.400, Neut % (Auto) 61.4, Lymph % (Auto) 28.8, [place] % (Auto) 8.0, Eos % (Auto) 1.1, Baso % (Auto) 0.3, Absolute Neuts (auto) 4.4, Absolute Lymphs (auto) 2.08, Nucleated RBC % 0 05/11/22 06:16: Sodium 139, Potassium 4.1, Chloride 106, Carbon Dioxide 26.0, Anion Gap 7, BUN 15, Creatinine 0.90, Estim Creat Clear Calc 80.74, Est GFR (MDRD) Af Amer 108, Est GFR (MDRD) Non-Af 89, BUN/Creatinine Ratio 16.6, Glucose 101, Calcium 8.6, Triglycerides 115, Cholesterol 168, LDL Cholesterol 100, VLDL Cholesterol 23, HDL Cholesterol 45 Radiography Diagnostic Testing: Radiology Impression Brain CT 05/10/22 20:52 IMPRESSION: No acute findings in the head/brain. No significant interval change. Nonstandard communication protocol initiated and completed. N.B. : The above Results were Read Back by Wilner Maciel MD to Gab Sheth MD, and understanding confirmed on 05/10/2022 22:07:49 (ET). Electronically Signed: Wilner Maciel MD at 22:09 EDT , ADDENDUM: 05/10/22 2216 IMPRESSION: No acute findings in the head/brain. No significant interval change. Nonstandard communication protocol initiated and completed. N.B. : The above Results were Read Back by Wilner Maciel MD to Gab Sheth MD, and understanding confirmed on 05/10/2022 22:07:49 (ET). Electronically Signed: Wilner Maciel MD at 22:09 EDT , Head/Neck CTA 05/10/22 20:52 IMPRESSION: No hemodynamically significant stenosis or dissection identified within the carotid or vertebral arteries. No aneurysm, intraluminal thrombus or hemodynamically significant stenosis of the intracranial vessels. Nonstandard communication protocol initiated and completed. N.B. : The above Results were Read Back by Wilner Maciel MD to Gab Sheth MD, and understanding confirmed on 05/10/2022 22:21:41 (ET). Electronically Signed: Wilner Maciel MD at 22:27 EDT , ADDENDUM: 05/10/22 2234 IMPRESSION: No hemodynamically significant stenosis or dissection identified within the carotid or vertebral arteries. No aneurysm, intraluminal thrombus or hemodynamically significant stenosis of the intracranial vessels. Nonstandard communication protocol initiated and completed. N.B. : The above Results were Read Back by Wilner Maciel MD to Gab Sheth MD, and understanding confirmed on 05/10/2022 22:21:41 (ET). Electronically Signed: Wilner Maciel MD at 22:27 EDT , Chest X-Ray 05/10/22 21:53 IMPRESSION: No significant interval change. No acute cardio-pulmonary disease process identified. Electronically Signed: Wilner Maciel MD at 22:29 EDT , D/C Instructions Discharge Diet: No restrictions Discharge Activity: Return to Normal Activity Call your doctor if you observe: Fever of 101 or Higher, Shortness of breath, Fainting spells and Chest pain Meaningful Use Info Meaningful Use Diagnoses (Choose all that apply): None applicable Discharge Plan Admission Admit Date/Time: 05/10/22 22:54 Attending Provider: Freddie Packer Primary Care Provider: Dorita Morocho Consulting Providers: Wilfredo Lawrence Discharge Orders/Prescriptions Prescriptions: New aspirin 81 mg capsule 81 mg PO DAILY Qty: 90 0RF Continued multivitamin [Multiple Vitamins] 1 EACH tablet 1 ea PO DAILY Lovastatin [Mevacor] 40 MG tablet 40 mg PO QHS Omeprazole [Prilosec] 20 MG capsule 20 mg PO DAILY lisinopril 20 MG tablet 20 mg PO DAILY melatonin 5 MG tablet 5 mg PO QHS Referrals / Follow Up: Dorita Morocho MD [Primary Care Provider] - In 1 Week Disposition Disposition (needs filled in before D/C Order can be placed): Home, Self Care Charges/Coding Visit Charges OBSV E&M: 99776 Observation care discharge
--- NOTE | 2022-05-11 15:33 | CASEMGMT ---
RN CM attempted to complete BARNETT Form at this time. Patient is currently out of room. RN CM will attempt to complete BARNETT at later time.
--- NOTE | 2022-05-11 16:10 | CASEMGMT ---
DOMI CM in to complete BARNETT form with patient. DOMI LEACH explained BARNETT form, patient voiced understanding. Patient signed BARNETT form and filed in chart. Patient provided with copy of signed BARNETT form. Patient had no further questions or concerns at this time.
== END 2022-05-11 17:12 | disposition home or self-care (01) ==
LOC: ED 22:53 → PCU 23:20
PROVIDERS: Admitting Provider Hospitalist; Emergency Provider Emergency Medicine; PCP Family Medicine; Visit Provider Internal Medicine
DX: G45.4 Transient global amnesia (principal); E11.9 Type 2 diabetes mellitus without complications; Z87.891 Personal history of nicotine dependence; I10 Essential (primary) hypertension; E78.5 Hyperlipidemia, unspecified; K21.9 Gastro-esophageal reflux disease without esophagitis; Z79.899 Other long term (current) drug therapy; Z79.82 Long term (current) use of aspirin; R25.1 Tremor, unspecified; R29.700 NIHSS score 0; G47.33 Obstructive sleep apnea (adult) (pediatric)
CPT/HCPCS: 36415; 70450; 70496; 70498; 70551; 71045; 80048; 80061; 84484; 85025; 85610; 85730; 93005; 94762; 96360; 99218; 99285; J7030; Q9967; A4216; G0378

== ENCOUNTER → 2022-05-19 | Outpatient (CLI) | payer OTHER, SELFPAY ==
--- NOTE | 2022-05-19 09:14 | STRESSREP ---
Stress Test Report Date: 05-19-2022 Procedure: Exercise tolerance test/imaging study Indications: Chest pain Consent: Per the patient Procedure: The patient exercised on a James protocol for 5 minutes completing Stage II and 2 minutes of Stage III achieving a peak heart rate of 134 bpm (87% predicted maximal heart rate) with a peak blood pressure 218/80 mmHg and a peak MET capacity of 7 METs. The baseline ECG demonstrated normal sinus rhythm. The peak exercise ECG demonstrated somatic/motion artifact with no obvious ECG changes. There were no cardiac dysrhythmias pretest, during exercise, or recovery. The functional capacity was considered good. There was no complaint of chest discomfort during exercise or recovery. The examination was discontinued secondary to dyspnea and leg fatigue. Impression: 1. Technically adequate (percent predicted maximal heart rate greater than 85%) exercise tolerance test 2. Peak exercise ECG with somatic/motion artifact with no obvious ECG changes 3. There were no cardiac dysrhythmias pretest, during exercise, or recovery 4. Resting blood pressure: Elevated-exercise response: Exaggerated 5. Nuclear images pending Myocardial perfusion imaging study: Technique: The patient was injected with 14.5 mCi of technetium 99m Cardiolite and subsequently rest SPECT Cardiolite nuclear imaging was obtained in the horizontal long, vertical long, and short axis views. The patient exercised on a James protocol for 5 minutes completing Stage II and 2 minutes of Stage III achieving a peak heart rate of 134 bpm (87% predicted maximal heart rate) with a peak blood pressure 218/80 mmHg and a peak MET capacity of 7 METs. The patient was injected with 44.6 mCi of technetium 99m Cardiolite and subsequently stress SPECT Cardiolite nuclear imaging was obtained in the horizontal long, vertical long, and short axis views. A gated Cardiolite study at peak stress was obtained. Interpretation: Rest and stress SPECT Cardiolite nuclear imaging status post realignment, normalization, and attenuation correction, demonstrates relative uniform tracer uptake and myocardial perfusion appearing within normal limits. There is end systolic thickening and brightening. The gated Cardiolite study demonstrates myocardial thickening and inward wall motion. The reported LVEF is 67%. Impression: 1. Rest and stress SPECT Cardiolite nuclear imaging demonstrate relative uniform tracer uptake and myocardial perfusion appearing within normal limits. 2. The gated Cardiolite study reports an LVEF of 67%. This note was generated with [employer] software. It may contain incorrect words, spelling, and punctuation that were not noted in checking the note before signing.
== END | disposition home or self-care (01) ==
LOC: CVS 06:13
PROVIDERS: PCP Family Medicine; Referring Provider Family Medicine; Visit Provider Family Medicine
DX: R07.89 Other chest pain (principal)
CPT/HCPCS: 78452; 93017; A9500; A4216

== ENCOUNTER 2022-05-21 08:35 | Emergency (ER) | payer OTHER, SELFPAY ==
[2022-05-21 08:36] VITALS: BP 180/92; PULSE 61; RESP 14; TEMP 36.2; O2SAT 97; BMI 32.1
--- NOTE | 2022-05-21 09:13 | EKG12_ITS ---
Test Reason : high bloodpressure Blood Pressure : / mmHG Vent. Rate : 060 BPM Atrial Rate : 060 BPM P-R Int : 188 ms QRS Dur : 094 ms QT Int : 416 ms P-R-T Axes : 022 004 -10 degrees QTc Int : 416 ms Normal sinus rhythm Nonspecific T wave abnormality Confirmed by MAHAD QUINONES, ROCHELLE ([id number]), website/blog editor GRETTA HARGROVE ([id number]) on 05/22/2022 10:21:00 AM Referred By: Jermaine Confirmed By:ROCHELLE TOBIN MD
--- NOTE | 2022-05-21 09:19 | EDS_ITS ---
HPI History of Present Illness Chief Complaint: Hypertension Informant: patient and spouse/S.O. Narrative Narrative: Patient presents concerns for elevated blood pressure this morning. He states been having blood pressure issues previously PCP increase his lisinopril to 20 mg. He follow-up yesterday states a beta-sheryl was added once a day. This morning blood pressure read systolic 190s over 102, he states he took his lisinopril and his beta-sheryl. He had transient headache. States has mild left-sided chest pain. He states had a stress test 2 days ago that was normal. He states he is concerned with his known blood pressure treatment and came here. Denies nausea or vomiting. From records admitted little over a week ago for concerns for amnesia for stroke work-up. This was negative. Reported was started on a baby aspirin. Prior similar symptoms: Yes PFSH [facility] Medical History Anxiety CPAP (continuous positive airway pressure) dependence Former smoker GERD (gastroesophageal reflux disease) Hypertension Tremor Home Medications Lovastatin [Mevacor] 40 mg PO QHS CHOLESTEROL 11/11/16 [History Last Taken 07/09/19] Omeprazole [Prilosec] 20 mg PO DAILY STOMACH ACID 11/11/16 [History Last Taken 07/10/19] multivitamin (Multiple Vitamins tablet) 1 ea PO DAILY vitamin 11/11/16 [History Last Taken 07/10/19] lisinopril 20 mg tablet 20 mg PO DAILY blood pressure 10/12/18 [History Last Taken 07/10/19] melatonin 5 mg tablet 5 mg PO QHS sleep 07/10/19 [History Last Taken 07/09/19] aspirin 81 mg capsule 81 mg PO DAILY #90 caps 05/11/22 [Rx Last Taken Unknown] atenolol 50 mg tablet 1 tab PO DAILY 05/21/22 [History Last Taken Unknown] citalopram 20 mg tablet 1 tab PO DAILY 05/21/22 [History Last Taken Unknown] finasteride 5 mg tablet 1 tab PO DAILY 05/21/22 [History Last Taken Unknown] mesalamine 1.2 gram tablet,delayed release 1 tab PO 05/21/22 [History Last Taken Unknown] Allergy/AdvReac Type Severity Reaction Status Date / Time Sulfa (Sulfonamide AdvReac Nausea Verified 05/21/22 08:36 Antibiotics) Family History Other CVA (cerebral vascular accident) Diabetes Heart disease Surgical History H/O transurethral resection of prostate Social History household members: spouse Smoking Status: Former smoker Electronic Cigarette Use: with nicotine alcohol intake: current alcohol intake frequency: holidays/special occasions only substance use type: does not use ROS ROS ED Constitutional Constitutional ED: Denies chills, fever(s) or sweats Eyes Eyes: Denies change in vision ENT ENT ED: Denies dysphagia or sore throat Cardiovascular Cardiovascular: Reports chest pain; Denies leg edema, palpitations or racing heartbeat Respiratory/Chest Respiratory/Chest: Denies cough, dyspnea or dyspnea on exertion Gastrointestinal Gastrointestinal: Denies abdominal pain, diarrhea, nausea or vomiting Genitourinary Genitourinary ED: Denies dysuria, hematuria or urinary frequency Musculoskeletal Musculoskeletal: Denies back pain, extremity pain or neck pain Integumentary Denies rash or wounds Neurologic Neurologic: Reports headache(s); Denies paresthesias or weakness EXAM Physical Exam Const Vital Signs: 05/21/22 08:36 05/21/22 09:00 05/21/22 09:51 Temperature 97.1 F L Temperature Source Temporal Pulse Rate 61 59 L Respiratory Rate 14 18 Respiratory Effort Normal Non-Labored Respiratory Pattern Normal Blood Pressure 180/92 H 137/85 H Blood Pressure Mean 121 102 Pulse Ox 97 97 Oxygen Delivery Method Room Air Room Air 05/21/22 11:18 05/21/22 12:27 Temperature Temperature Source Pulse Rate 61 54 L Respiratory Rate 16 12 Respiratory Effort Respiratory Pattern Blood Pressure 152/89 H 160/91 H Blood Pressure Mean 110 Pulse Ox 98 98 Oxygen Delivery Method Room Air Positive well nourished and well developed General Appearance ED: well developed and NAD HEENT Reports moist mucous membranes normocephalic and atraumatic Eyes PERRL, EOMs intact bilaterally and conjunctivae normal General Eye ED: Yes normal appearance of both eyes Neck no lymphadenopathy and supple Neck Narrative: No meningismus. General: Negative for tenderness Chest Wall Chest: Negative for tenderness Resp normal respiratory effort and normal air movement Effort and Inspection: symmetric chest movement; Negative for respiratory distress Cardio regular rate, regular rhythm and no murmurs Peripheral Pulses: pulses 2+ throughout GI normal to inspection, nondistended, normoactive bowel sounds and non-tender Palpation: Negative for guarding or rebound tenderness present Back/Spine no CVA tenderness and no thoracic nor lumbar tenderness Extremity normal to inspection General Extremety ED: Negative for edema or tenderness General Extremity: Negative for edema Neuro oriented x3, CN's II-XII intact bilaterally and no sensory deficits noted Sensorium / Orientation: awake and alert Skin no rashes or lesions noted and no wounds MDM MDM MDM Narrative Medical decision making narrative: Patient elevated blood pressure presenting with chest pains. He has no focal neurologic deficits. EKG with chronic findings. Recent stress test 2 days ago was normal. Cardiac work-up negative with 2 troponins negative. Chest x-ray 2 views reviewed by myself and read by radiology shows no acute process. Patient was symptom-free on reevaluation. Blood pressure improved without intervention. Discussed with patient monitoring blood pressure continue his current medications by his PCP. He will keep his follow-up as an outpatient. All questions were answered. Lab Data Attestation: I reviewed the patient's lab results. Labs: Laboratory Results - last 24 hr 05/21/22 05/21/22 05/21/22 09:23 09:23 11:50 WBC 6.8 RBC 4.66 Hgb 14.2 Hct 42.3 MCV 90.8 MCH 30.5 MCHC 33.6 RDW Std Deviation 43.4 RDW Coeff of Rosa 13.2 Plt Count 198 MPV 9.5 Immature Gran % (Auto) 0.300 Neut % (Auto) 73.9 H Lymph % (Auto) 19.2 [place] % (Auto) 5.9 Eos % (Auto) 0.4 Baso % (Auto) 0.3 Absolute Neuts (auto) 5.0 Absolute Lymphs (auto) 1.30 Nucleated RBC % 0 Sodium 135 L Potassium 4.7 Chloride 107 Carbon Dioxide 24.0 Anion Gap 4 L BUN 14 Creatinine 0.89 Estim Creat Clear Calc 81.64 Est GFR (MDRD) Af Amer 109 Est GFR (MDRD) Non-Af 90 BUN/Creatinine Ratio 15.7 Glucose 120 H Calcium 8.6 Troponin I High Sens 4 5 Radiography Diagnostic Testing: Clinical Impression(s) from Imaging Studies Chest X-Ray 05/21/22 09:31 IMPRESSION: No acute cardiopulmonary abnormality. No interval change Electronically Signed: Wyatt Hess MD at 10:07 EDT , EKG Initial EKG: Attestation: I personally reviewed and interpreted this EKG as follows: Comments: Sinus rate of 60, no ST changes. There is T wave inversion leads III flattening in aVF similar from May 10, 2022. Prior EKG tracings: available for review Prior: Unchanged Discharge Plan Triage Chief Complaint: Hypertension ED Provider: Francisco Armstrong Dx/Rx/DC Orders Clinical Impression: Chest pain, Obstructive sleep apnea, Elevated blood pressure reading with diagnosis of hypertension Instructions: ED Chest Pain, Uncertain Cause, ED Hypertension, Established Prescriptions: No Action multivitamin [Multiple Vitamins] 1 EACH tablet 1 ea PO DAILY Lovastatin [Mevacor] 40 MG tablet 40 mg PO QHS Omeprazole [Prilosec] 20 MG capsule 20 mg PO DAILY lisinopril 20 MG tablet 20 mg PO DAILY melatonin 5 MG tablet 5 mg PO QHS aspirin 81 mg capsule 81 mg PO DAILY Qty: 90 0RF citalopram 20 mg tablet 1 tab PO DAILY Label Comments: TAKE 1 TABLET BY MOUTHCONCE DAILY atenolol 50 mg tablet 1 tab PO DAILY Label Comments: TAKE 1 TABLET BY MOUTHEONCE DAILYP finasteride 5 mg tablet 1 tab PO DAILY mesalamine 1.2 gram tablet,delayed release (DR/EC) 1 tab PO Label Comments: take 1 tablet by mouth twice a day Primary Care Provider: Dorita Morocho Referrals: Dorita Morocho MD [Primary Care Provider] - Keep Celeste appointment Activity Restrictions/Additional Instructions: Cardiac work-up negative. Your stress test 2 days was normal. Blood pressure improving with no intervention. Continue your medications as written by your PCP. Continue log of your blood pressure and follow-up with your PCP as scheduled. Disposition Disposition: Home, Self Care Discharge Date/Time: 05/21/22 12:34
--- NOTE | 2022-05-21 09:31 | RAD_ITS ---
EXAM: XR CHEST, 2 VIEWS CLINICAL INDICATION: chest pain TECHNIQUE: Frontal and lateral views of the chest. This report was created using [employer] report generation technology. COMPARISON: XR Chest dated may 10 2022 FINDINGS: LUNGS AND PLEURAL SPACES: Normal. No consolidation or edema. No pneumothorax. No effusion. HEART: Normal. Normal heart size. MEDIASTINUM: Calcified mediastinal and hilar lymph nodes again noted. BONES/JOINTS: Normal. SOFT TISSUES: Normal. RAD/Chest PA and Lateral IMPRESSION: No acute cardiopulmonary abnormality. No interval change Electronically Signed: Wyatt Hess MD at 10:07 EDT ,
[2022-05-21 09:33] LABS: Basophil# 0.02 X10^3/uL; Basophil% 0.3 % (0-1); Eosinophil# 0.03 X10^3/uL; Eosinophils% 0.4 % (0-5); Hematocrit 42.3 % (40-54); Hemoglobin 14.2 g/dL (13.0-16.5); Lymphocyte % 19.2 % (19-41); Mean Corp Hgb Conc 33.6 g/dL (32-36); Mean Corpuscular Hgb 30.5 pg (27.0-32.0); Mean Corpuscular Volume 90.8 fL (80-94); Mean Platelet Vol. 9.5 fl (6.2-12.0); Monocyte% 5.9 % (0-10); NRBC Flagged by Analyzer 0 % (0-5); Neutrophil # 4.99 X10^3/uL (2.7-7.7); Neutrophil % 73.9 % (47-70); Platelet Count 198 K/mm3 (150-450); RBC Distribution Width CV 13.2 % (11.6-14.6); RBC Distribution Width SD 43.4 fl (35.1-43.9); Red Blood Count 4.66 M/mm3 (4.6-6.2); White Blood Count 6.8 K/mm3 (4.4-11.0)
[2022-05-21 09:48] LABS: Anion Gap 4 (5-15); BUN 14 mg/dL (7-18); BUN/Creat Ratio 15.7 RATIO (10-20); Calcium,Total 8.6 mg/dL (8.5-10.1); Chloride 107 mmol/L (98-107); Creatinine, Serum 0.89 mg/dL (0.70-1.30); EST Glomerular Filtration Rate 90 mL/min (>60); Est Glom Filt Rate - Afr Amer 109 mL/min (>60); Estimated Creatinine Clearance 81.64 ml/min; Glucose 120 mg/dL (74-106); Potassium 4.7 mmol/L (3.5-5.1); Sodium Level 135 mmol/L (136-145); Troponin-I HS (w/2H Reflex) 4 pg/mL (3.0-78.0)
[2022-05-21 09:51] VITALS: BP 137/85; PULSE 59; RESP 18; O2SAT 97
[2022-05-21 11:18] VITALS: BP 152/89; PULSE 61; RESP 16; O2SAT 98
[2022-05-21 11:29] LABS: Reflex Troponin-HS? (from REC) Y
[2022-05-21 12:14] LABS: Troponin-I HS 5 pg/mL (3.0-78.0)
[2022-05-21 12:27] VITALS: BP 160/91; PULSE 54; RESP 12; O2SAT 98
== END 2022-05-21 12:34 | disposition home or self-care (01) ==
PROVIDERS: Emergency Provider Emergency Medicine; PCP Family Medicine; Visit Provider Emergency Medicine
DX: R07.9 Chest pain, unspecified (principal); R51.9 Headache, unspecified; G47.33 Obstructive sleep apnea (adult) (pediatric); I10 Essential (primary) hypertension; Z87.891 Personal history of nicotine dependence; Z99.89 Dependence on other enabling machines and devices
CPT/HCPCS: 71046; 80048; 84484; 85025; 93005; 99284; A4216

== ENCOUNTER 2022-05-24 14:09 | Emergency (ER) | payer OTHER, SELFPAY ==
[2022-05-24 14:10] VITALS: BP 160/102; PULSE 60; RESP 22; TEMP 36.5; O2SAT 95; BMI 31.7
--- NOTE | 2022-05-24 14:30 | EKG12_ITS ---
Test Reason : CP Blood Pressure : / mmHG Vent. Rate : 057 BPM Atrial Rate : 057 BPM P-R Int : 178 ms QRS Dur : 098 ms QT Int : 436 ms P-R-T Axes : 021 017 000 degrees QTc Int : 424 ms Sinus bradycardia Cannot rule out Anterior infarct , age undetermined Abnormal ECG Confirmed by LOUIS QUINONES, ANABEL ([id number]), editor magazine EDA LISA ([id number]) on 05/26/2022 9:12:27 AM Referred By: SHARON/AMMY Confirmed By:ANABEL MYERS MD
--- NOTE | 2022-05-24 14:30 | RAD_ITS ---
STUDY: X-RAY CHEST REASON FOR EXAM: Male, 66 years old. CHEST PAIN chest pain TECHNIQUE: XR Chest 1 View COMPARISON: 3 days ago. FINDINGS: There is no demonstrated pleural abnormality. Normal size heart. Normal mediastinum and bruce. Normal visualized pulmonary arteries. Normal visualized aortic arch and descending thoracic aorta. Normal visualized thoracic spine. Normal visualized ribs, clavicles, and shoulders. There is no demonstrated abnormality of the visualized soft tissue structures of the upper abdomen. RAD/Chest 1 View (Portable) IMPRESSION: There are no acute findings. Electronically Signed: Gurvinder Wren MD at 15:06 EDT ,
--- NOTE | 2022-05-24 14:31 | EX.ED.DYSGE1 ---
HPI History of Present Illness Chief Complaint: Chest Pain Detail of Chief Complaint: Chest pain and high blood pressure Informant: patient Narrative Narrative: Patient presents with chest pain and high blood pressure that he noticed today. Patient states that he has been to the ER at least 4 times now in last several weeks. Patient was recently admitted and had a stress test which was normal. Patient has a history of anxiety and had been on citalopram and Klonopin. Patient at one point was taken off the Klonopin and then it was restarted and he was taken off again. His primary care physician would like to try to keep him off of benzos. He recently restarted the citalopram but he knows he can be up to 8 weeks before he can really get into your system and help with anxiety. Patient's had increased stress related to his son. Today he noticed his blood pressure was elevated so he called primary care physician and was told to double up on his blood pressure medications lisinopril and the beta-sheryl he is taken. Patient did that and the blood pressure did not improve. He started having chest discomfort pressure and a burning left side of his chest. No radiation of the pain. No shortness of breath. Patient comes in for evaluation. Patient also has medical marijuana card. Prior similar symptoms: Yes [facility] Medical History Anxiety CPAP (continuous positive airway pressure) dependence Former smoker GERD (gastroesophageal reflux disease) Hypertension Tremor Home Medications Lovastatin [Mevacor] 40 mg PO QHS CHOLESTEROL 11/11/16 [History Last Taken 07/09/19] Omeprazole [Prilosec] 20 mg PO DAILY STOMACH ACID 11/11/16 [History Last Taken 07/10/19] multivitamin (Multiple Vitamins tablet) 1 ea PO DAILY vitamin 11/11/16 [History Last Taken 07/10/19] lisinopril 20 mg tablet 20 mg PO DAILY blood pressure 10/12/18 [History Last Taken 07/10/19] melatonin 5 mg tablet 5 mg PO QHS sleep 07/10/19 [History Last Taken 07/09/19] aspirin 81 mg capsule 81 mg PO DAILY #90 caps 05/11/22 [Rx Last Taken Unknown] atenolol 50 mg tablet 1 tab PO DAILY 05/21/22 [History Last Taken Unknown] citalopram 20 mg tablet 1 tab PO DAILY 05/21/22 [History Last Taken Unknown] finasteride 5 mg tablet 1 tab PO DAILY 05/21/22 [History Last Taken Unknown] mesalamine 1.2 gram tablet,delayed release 1 tab PO 05/21/22 [History Last Taken Unknown] lorazepam 1 mg tablet (Ativan) 1 mg PO TID PRN anxiety #10 tabs 05/24/22 [Rx Last Taken Unknown] Allergy/AdvReac Type Severity Reaction Status Date / Time Sulfa (Sulfonamide AdvReac Nausea Verified 05/24/22 14:09 Antibiotics) Family History Other CVA (cerebral vascular accident) Diabetes Heart disease Surgical History H/O transurethral resection of prostate Social History household members: spouse Smoking Status: Former smoker Electronic Cigarette Use: with nicotine alcohol intake: current alcohol intake frequency: holidays/special occasions only substance use type: does not use ROS ROS ED ROS Narrative Diaphoresis Review of Systems ROS Unobtainable: other Constitutional Constitutional ED: Reports lethargy; Denies chills, fever(s), sweats or weight loss Eyes Eyes: Denies blurry vision, change in vision or diplopia ENT ENT ED: Denies rhinorrhea or sore throat Cardiovascular Cardiovascular: Reports chest pain; Denies orthopnea or racing heartbeat Respiratory/Chest Respiratory/Chest: Reports dyspnea and dyspnea on exertion; Denies cough, orthopnea or sputum Gastrointestinal Gastrointestinal: Denies abdominal pain, diarrhea, nausea or vomiting Genitourinary Genitourinary ED: Denies dysuria, hematuria or urinary frequency Musculoskeletal Musculoskeletal: Denies arthralgias, back pain, myalgias or neck pain Integumentary Denies abscess, Abrasions or rash Neurologic Neurologic: Denies headache(s) or weakness Psychiatric Psychiatric: Denies anxiety, depression or suicidal thoughts Endocrine Endocrinology: Denies polydipsia, polyphagia or polyuria Hematologic/Lymphatic Hematologic/Lymphatic: Denies easy bleeding, easy bruising or lymphadenopathy Allergic/Immunologic Allergic/Immunologic ED: Denies mouth swelling, tongue swelling or urticaria EXAM Physical Exam Const Vital Signs: 05/24/22 14:10 05/24/22 14:16 05/24/22 14:36 Temperature 97.7 F L Temperature Source Temporal Pulse Rate 60 Respiratory Rate 22 H Respiratory Effort Normal Blood Pressure 160/102 H Blood Pressure Mean 121 Pulse Ox 95 Oxygen Delivery Method Room Air Room Air 05/24/22 14:57 05/24/22 15:41 05/24/22 16:28 Temperature Temperature Source Pulse Rate 54 L 53 L 52 L Respiratory Rate 13 19 H 11 L Respiratory Effort Blood Pressure 194/99 H 161/90 H 143/84 H Blood Pressure Mean 130 113 103 Pulse Ox 95 94 Oxygen Delivery Method Room Air Positive well nourished and well developed General Appearance ED: well developed and NAD HEENT Reports TM's clear and moist mucous membranes normocephalic and atraumatic; Negative for trauma or tenderness Tympanic Membrane ED: Yes TM's clear Eyes PERRL and EOMs intact bilaterally General Eye ED: Negative for pale conjunctiva or scleral icterus Neck no lymphadenopathy, supple and no JVD General: Negative for tenderness Chest Wall inspection of chest normal and palpation of chest normal Chest: Negative for tenderness Resp normal respiratory effort and clear to auscultation bilaterally Effort and Inspection: Negative for respiratory distress or pain with movement Auscultation: Negative for rhonchi, wheezes or diminished lung sounds Cardio regular rate, regular rhythm, S1 normal heart sound, S2 normal heart sound and no murmurs Peripheral Pulses: pulses 2+ throughout GI normal to inspection, nondistended, normoactive bowel sounds, soft to palpation, non-tender, non-distended and no masses Back/Spine no CVA tenderness and no thoracic nor lumbar tenderness Extremity normal to inspection General Extremety ED: Negative for edema General Extremity: Negative for edema Neuro oriented x3, CN's II-XII intact bilaterally, no sensory deficits noted and gait normal Sensorium / Orientation: awake, alert, oriented to person, oriented to place and oriented to time Motor Exam: strength 5/5 throughout and strength abnormal Psych mental status grossly normal Skin no rashes or lesions noted and no wounds MDM MDM MDM Narrative Medical decision making narrative: Patient had an IV line established arrival. Patient received aspirin p.o. and also a milligram of Ativan IV. Lab work-up was unremarkable. EKG showed a sinus rhythm with a rate of 57 bpm with some nonspecific ST changes. Patient had an elevated D-dimer therefore CTA was obtained to rule out PE and this was negative for PE or dissection. After the Ativan his blood pressure normalized significantly and now is in the 140 systolic. His symptoms essentially have completely resolved and if he patient states that he feels great. Clinically I suspect patient likely having anxiety attacks. He had a stress test recently that was unremarkable therefore I clinically do not feel he is having acute coronary syndrome. His heart score was a 4. Patient will be given a prescription for as needed Ativan. He is advised to follow-up with primary care physician. He is to continue with the citalopram. Patient advised to seek counseling as well as it may help with his stress and anxiety. Lab Data Attestation: I reviewed the patient's lab results. Labs: Laboratory Results - last 24 hr 05/24/22 05/24/22 05/24/22 14:20 14:20 14:20 WBC 9.5 RBC 4.95 Hgb 15.2 Hct 44.3 MCV 89.5 MCH 30.7 MCHC 34.3 RDW Std Deviation 41.9 RDW Coeff of Rosa 12.9 Plt Count 250 MPV 9.2 Immature Gran % (Auto) 0.200 Neut % (Auto) 75.6 H Lymph % (Auto) 18.2 [place] % (Auto) 5.7 Eos % (Auto) 0.1 Baso % (Auto) 0.2 Absolute Neuts (auto) 7.2 Absolute Lymphs (auto) 1.73 Nucleated RBC % 0 D-Dimer Quant (PE/DVT) 0.81 H* Sodium 134 L Potassium 4.1 Chloride 104 Carbon Dioxide 24.0 Anion Gap 6 BUN 16 Creatinine 0.80 Estim Creat Clear Calc 90.83 Est GFR (MDRD) Af Amer 123 Est GFR (MDRD) Non-Af 102 BUN/Creatinine Ratio 19.9 Glucose 113 H Calcium 9.2 Troponin I High Sens 4 Radiography Chest X-Ray - ED: 1 View Diagnostic Testing: Clinical Impression(s) from Imaging Studies Chest X-Ray 05/24/22 14:30 IMPRESSION: There are no acute findings. Electronically Signed: Gurvinder Wren MD at 15:06 EDT , Chest CTA 05/24/22 15:43 IMPRESSION: No demonstrated pulmonary embolism or arterial dissection. Electronically Signed: Gurvinder Wren MD at 16:22 EDT , 1 view chest x-ray obtained interpreted by myself no acute disease process. Radiology in agreement. EKG Initial EKG: Attestation: I personally reviewed and interpreted this EKG as follows: Comments: Sinus bradycardia with a ventricular rate of 57 bpm with old septal infarct Discharge Plan Triage Chief Complaint: Chest Pain Other Complaint: Hypertension ED Provider: Kaylynn Kendall Dx/Rx/DC Orders Clinical Impression: Chest pain, Anxiety reaction Instructions: ED Anxiety Reaction, ED Chest Pain, Uncertain Cause Prescriptions: New lorazepam [Ativan] 1 mg tablet 1 mg PO TID PRN (Reason: anxiety) Qty: 10 0RF No Action multivitamin [Multiple Vitamins] 1 EACH tablet 1 ea PO DAILY Lovastatin [Mevacor] 40 MG tablet 40 mg PO QHS Omeprazole [Prilosec] 20 MG capsule 20 mg PO DAILY lisinopril 20 MG tablet 20 mg PO DAILY melatonin 5 MG tablet 5 mg PO QHS aspirin 81 mg capsule 81 mg PO DAILY Qty: 90 0RF citalopram 20 mg tablet 1 tab PO DAILY Label Comments: TAKE 1 TABLET BY MOUTHCONCE DAILY atenolol 50 mg tablet 1 tab PO DAILY Label Comments: TAKE 1 TABLET BY MOUTHEONCE DAILYP finasteride 5 mg tablet 1 tab PO DAILY mesalamine 1.2 gram tablet,delayed release (DR/EC) 1 tab PO Label Comments: take 1 tablet by mouth twice a day Primary Care Provider: Dorita Morocho Referrals: Dorita Morocho MD [Primary Care Provider] - 3-5 Days Disposition Disposition: Home, Self Care
[2022-05-24 14:42] LABS: Absolute Lymphocyte Count 1.73 X10^3/uL (0.83-4.51); Absolute Neutrophil Count 7.2 X10^3/uL (2.0-7.7); Basophil# 0.02 X10^3/uL; Basophil% 0.2 % (0-1); Eosinophil# 0.01 X10^3/uL; Eosinophils% 0.1 % (0-5); Hematocrit 44.3 % (40-54); Hemoglobin 15.2 g/dL (13.0-16.5); Lymphocyte # 1.73 X10^3/ul (0.83-4.51); Lymphocyte % 18.2 % (19-41); Mean Corp Hgb Conc 34.3 g/dL (32-36); Mean Corpuscular Hgb 30.7 pg (27.0-32.0); Mean Corpuscular Volume 89.5 fL (80-94); Mean Platelet Vol. 9.2 fl (6.2-12.0); Monocyte# 0.54 X10^3/uL; Monocyte% 5.7 % (0-10); NRBC Flagged by Analyzer 0 % (0-5); Neutrophil # 7.16 X10^3/uL (2.7-7.7); Neutrophil % 75.6 % (47-70); Platelet Count 250 K/mm3 (150-450); RBC Distribution Width CV 12.9 % (11.6-14.6); RBC Distribution Width SD 41.9 fl (35.1-43.9); Red Blood Count 4.95 M/mm3 (4.6-6.2); White Blood Count 9.5 K/mm3 (4.4-11.0)
[2022-05-24] MEDS: 0.9% Normal Saline 1,000 ML 150 ML IV (14:50)
[2022-05-24] MEDS: Aspirin 81 MG TAB.CHEW 324 MG PO (14:51)
[2022-05-24] MEDS: LORazepam 2 MG/ML Syringe 1 MG IV (14:51)
[2022-05-24 14:57] VITALS: BP 194/99; PULSE 54; RESP 13; O2SAT 95
[2022-05-24 14:59] LABS: Anion Gap 6 (5-15); BUN 16 mg/dL (7-18); BUN/Creat Ratio 19.9 RATIO (10-20); Calcium,Total 9.2 mg/dL (8.5-10.1); Chloride 104 mmol/L (98-107); EST Glomerular Filtration Rate 102 mL/min (>60); Est Glom Filt Rate - Afr Amer 123 mL/min (>60); Estimated Creatinine Clearance 90.83 ml/min; Glucose 113 mg/dL (74-106); Potassium 4.1 mmol/L (3.5-5.1); Sodium Level 134 mmol/L (136-145); Troponin-I HS (w/2H Reflex) 4 pg/mL (3.0-78.0)
[2022-05-24 15:33] LABS: D-Dimer Quantitative (DVT/PE) 0.81 FEU/ug/m (0.27-0.49)
[2022-05-24 15:41] VITALS: BP 161/90; PULSE 53; RESP 19
--- NOTE | 2022-05-24 15:43 | CT_ITS ---
EXAM: CT ANGIOGRAPHY CHEST WITHOUT AND WITH INTRAVENOUS CONTRAST CLINICAL INDICATION: chest pain, elevated d-dimer TECHNIQUE: Helically acquired angiography images were obtained of the chest without and with intravenous contrast. This CT exam was performed using one or more of the following dose reduction techniques: automated exposure control, adjustment of the mA and/or kV according to patient size, and/or use of iterative reconstruction technique. This report was created using [employer] report generation technology. MIP reconstructed images were created and reviewed. CONTRAST: IV 100mL Isovue-370 RADIATION DOSE: CTDIvol = 13.77 mGy, DLP = 479.78 mGy-cm COMPARISON: None. FINDINGS: PULMONARY ARTERIES: No demonstrated pulmonary embolism or arterial dissection. AORTA: There is atherosclerotic calcification of the aortic arch with tortuosity and elongation of the aortic arch and descending thoracic aorta. Normal in caliber. No evidence of dissection. GREAT VESSELS OF AORTIC ARCH: Unremarkable. Normal in caliber. No evidence of dissection. LUNGS AND PLEURAL SPACES: Unremarkable. No mass. No consolidation or edema. No pleural effusion or thickening. No pneumothorax. HEART: There are calcifications of the coronary arteries. No pericardial effusion. No signs of right heart strain, ratio of right ventricle to left ventricle measures less than 1. MEDIASTINUM: Unremarkable. No mediastinal or hilar adenopathy. Esophagus is unremarkable. No hiatal hernia. THYROID: Unremarkable. No thyroid lesions. BONES/JOINTS: There are degenerative changes of the shoulders. There are multi-level degenerative changes of the thoracic spine. No suspicious lytic or blastic abnormality. CT/CTA Chest W/WO Contrast IMPRESSION: No demonstrated pulmonary embolism or arterial dissection. Electronically Signed: Gurvinder Wren MD at 16:22 EDT ,
[2022-05-24 16:28] VITALS: BP 143/84; PULSE 52; RESP 11; O2SAT 94
[2022-05-24 16:39] LABS: Reflex Troponin-HS? (from REC) Y
[2022-05-24 16:44] VITALS: BP 145/84; PULSE 54; O2SAT 99
== END 2022-05-24 16:48 | disposition home or self-care (01) ==
PROVIDERS: Emergency Provider Emergency Medicine; PCP Family Medicine; Visit Provider Emergency Medicine
DX: R07.9 Chest pain, unspecified (principal); Z87.891 Personal history of nicotine dependence; F41.1 Generalized anxiety disorder; I10 Essential (primary) hypertension
CPT/HCPCS: 71045; 71275; 80048; 84484; 85025; 85379; 93005; 96361; 96374; 99284; J7030; Q9967; A4216

== ENCOUNTER 2022-08-28 09:42 | Observation (INO) | payer OTHER, SELFPAY ==
[2022-08-28] VITALS (12 sets, daily range): BP systolic 110–170; BP diastolic 68–94; PULSE 48–74; RESP 16–18; TEMP 36–37.1; O2SAT 91–96; BMI 33.0
--- NOTE | 2022-08-28 | PROS_PTH ---
PATIENT: LOREE CHARLES LOC: MS3 U#:[id number] AGE/SX: 66/M [place] [facility] [place]: Dr. Jimmie Mattson MD : 1955 BED: 1 DIS: 08/29/2022 SPEC #: [id number] RECD: 08/28/22 12:02 STATUS: ELIANA COSTELLO #: [id number] JONA: 08/28/22 00:[address]: Jimmie Mattson DEPT: SURGICAL PATHOLOGY RECD BY: Jonatan Barnard ENTERED: 08/28/22 12:03 SP TYPE: TURP OTHR DR: Dr. Dorita Morocho MD Tissues: Prostate, NOS Procedures: Surgery Specimen Level IV HEADER OPERATION: Transurethral incision, bladder neck contracture with Olympus PRE-OP DIAGNOSIS: Urinary outlet obstruction TISSUE SUBMITTED: Prostate pieces MICROSCOPIC DIAGNOSIS Prostate tissue, transurethral resection: Benign prostatic hyperplasia, glandular and stromal type. Focal mild chronic inflammation. /SJ 08/31/22 MICROSCOPIC DESCRIPTION Slides are reviewed. GROSS DESCRIPTION Received is one container labeled with the patient's name and designated prostate pieces. The specimen consists of multiple irregular fragments of pink-nava, rubbery, soft tissue that in aggregate weigh 3.1 gm and measure in aggregate 2 x 2 x 1 cm. The entire specimen is submitted in two cassettes. / KHUSHBU:nakul 08/28/2022 TC:5 CPT: 11886
[2022-08-28] MEDS: Lactated Ringers 1,000 ML 15 ML IV (07:55)
[2022-08-28 08:15] LABS: Hemoglobin 15.1 g/dL (13.0-16.5); Mean Corp Hgb Conc 33.6 g/dL (32-36); Mean Corpuscular Hgb 30.1 pg (27.0-32.0); Mean Corpuscular Volume 89.8 fL (80-94); Mean Platelet Vol. 9.1 fl (6.2-12.0); Platelet Count 191 K/mm3 (150-450); RBC Distribution Width CV 13.3 % (11.6-14.6); RBC Distribution Width SD 43.8 fl (35.1-43.9); Red Blood Count 5.01 M/mm3 (4.6-6.2); White Blood Count 5.2 K/mm3 (4.4-11.0)
--- NOTE | 2022-08-28 09:43 | DCINST_ITS ---
Discharge Instructions Diet Discharge Diet: No restrictions, Light diet - advance as tolerated and Soft diet Activity Discharge Activity: Return to Normal Activity Follow Up Care Please Follow Up With: Jimmie Mattson MD When: call for appt 2 weeks Test Results: Test results from this visit will be discussed in further detail at your follow- up appointment, if applicable. Discharge Plan Admission Primary Reason for Your Visit: TURP Attending Provider: Jimmie Mattson Primary Care Provider: Dorita Morocho Instructions Patient Instructions: TURP, TURP Home Recovery, TURP Hospital Recovery Discharge Orders/Prescriptions Prescriptions: New ciprofloxacin HCl [Cipro] 500 mg tablet 500 mg PO BID Qty: 10 0RF Continued multivitamin [Multiple Vitamins] 1 EACH tablet 1 ea PO DAILY Lovastatin [Mevacor] 40 MG tablet 40 mg PO QHS Omeprazole [Prilosec] 20 MG capsule 20 mg PO DAILY lisinopril 20 MG tablet 40 mg PO DAILY melatonin 5 MG tablet 5 mg PO PRN PRN (Reason: Sleep) citalopram 20 mg tablet 1 tab PO DAILY Label Comments: TAKE 1 TABLET BY MOUTHCONCE DAILY atenolol 50 mg tablet 100 mg PO DAILY Label Comments: TAKE 1 TABLET BY MOUTHEONCE DAILYP mesalamine 1.2 gram tablet,delayed release (DR/EC) 2 tab PO DAILY Label Comments: take 1 tablet by mouth twice a day clonazepam 1 mg Tablet 1 mg PO DAILY terbinafine HCl 250 mg Tablet 250 mg PO DAILY Held aspirin 81 mg capsule 81 mg PO DAILY Qty: 90 0RF Hold Instructions: Resume on 09/11/22. Discontinued finasteride 5 mg tablet 1 tab PO DAILY Referrals / Follow Up: Dorita Morocho MD [Primary Care Provider] - Disposition Disposition (needs filled in before D/C Order can be placed): Home, Self Care
[2022-08-28] MEDS: Cefazolin 2 GM in 0.9% Normal Saline 100 ML IV (10:01)
--- NOTE | 2022-08-28 10:30 | PCM.OPRPT ---
Report of Operation Date of Procedure: 08/28/22 Pre-Operative Diagnosis: BPH with obstructive tissue Post-Operative Diagnosis: The same Surgery/Procedure Performed:: Transurethral section of prostate Description of Surgical Findings:: This is a 66-year-old male who underwent a TURP about a year and a half ago and on cystoscopy was found to have some residual tissue that is causing obstruction especially in the bladder neck. We talked about options would be observation but he has frequency urgency slow flow so today we can do a TURP to open up the channel some more. Talked about the risk of surgery the risk of bleeding and incontinence. Patient was taken back to the operating room at a smooth induction of general anesthesia he was placed in dorsolithotomy position. Penis and testicles were prepped and draped in usual sterile fashion went into the bladder with a 24 [place] noncontinuous flow Olympus resectoscope once inside the prostatic channel he had some obstructive tissue that has grown back in the mid channel and also could have a bladder neck contracture so then switched over the resectoscope and resected the channel open from the verumontanum all the way to the bladder neck at the end we did a flow test had a nice open flow the chips were removed cauterized the prostate extensively to obtain hemostasis and placed a three-way catheter in the bladder for hemostasis and the patient's anesthetic was reversed taken back to PACU in good condition. Surgeon: Jimmie Mattson Type of Anesthesia: General Drains: [address] Admit VTE Documentation VTE Present on Admission: No VTE Mechan Device Prophylaxis: SCD's
[2022-08-28] MEDS: 0.9% Normal Saline 1,000 ML 125 ML IV ×2 (11:34→21:44)
[2022-08-28] MEDS: Docusate Sodium 100 MG Capsule 200 MG PO (16:35)
[2022-08-28] MEDS: Ciprofloxacin 400 MG/200 ML BAG 200 MG IV (17:55)
[2022-08-28] MEDS: HYDROcodone Bitartrate/Apap 5/325 Tablet PO (21:43)
[2022-08-28] MEDS: Atorvastatin Calcium 10 MG Tablet PO (21:43)
[2022-08-28] MEDS: MELATONIN 10 MG TABLET 5 MG PO (21:43)
[2022-08-28] MEDS: DiphenhydrAMINE 50 MG/ML Syringe IV (21:44)
[2022-08-29] VITALS: BP 150/80; PULSE 74; RESP 18; TEMP 36.7; O2SAT 95
[2022-08-29 03:26] VITALS: BP 154/81; PULSE 67; RESP 18; TEMP 36.4; O2SAT 94
[2022-08-29 03:32] VITALS: BP 154/81; PULSE 67; RESP 18; TEMP 36.4; O2SAT 94
[2022-08-29] MEDS: Ciprofloxacin 400 MG/200 ML BAG 200 MG IV (05:18)
[2022-08-29] MEDS: 0.9% Normal Saline 1,000 ML 125 ML IV (05:19)
--- NOTE | 2022-08-29 08:44 | CASEMGMT ---
Social Work As per the PAT nurse, pt indicated he has both LW and POA however is unable to bring in the documents. Pt indicated his is POA. NAHUM Jain
[2022-08-29 10:03] VITALS: BP 170/97; PULSE 69; RESP 20; TEMP 36.7; O2SAT 95
[2022-08-29] MEDS: Docusate Sodium 100 MG Capsule 200 MG PO (10:09)
[2022-08-29] MEDS: Citalopram 20 MG Tablet PO (10:09)
[2022-08-29] MEDS: Mesalamine 1.2 GM Tablet 2.4 GM PO (10:11)
[2022-08-29] MEDS: Lisinopril 40 MG Tablet PO (10:11)
[2022-08-29] MEDS: terbinafine HCL 250 MG TABLET PO (10:12)
[2022-08-29] MEDS: Multivitamins,Therapeutic Tablet 1 TABLET PO (10:12)
[2022-08-29] MEDS: Atenolol 100 MG Tablet PO (10:13)
[2022-08-29] MEDS: Pantoprazole Sodium 20 MG Tablet PO (10:14)
[2022-08-29] MEDS: clonazePAM 1 MG Tablet PO (10:18)
== END 2022-08-29 11:37 | disposition home or self-care (01) ==
LOC: SDC 10:54 → MS3 10:54
PROVIDERS: Anesthesiology; Admitting Provider Urology; PCP Family Medicine; Referring Provider Urology; Visit Provider Urology
PROC: 0T7D8ZZ Dilation of Urethra, Via Natural or Artificial Opening Endoscopic (ICD-10-PCS; CPT 52276; principal; 2022-08-28 09:40)
DX: N40.1 Benign prostatic hyperplasia with lower urinary tract symptoms (principal); N32.0 Bladder-neck obstruction; Z79.899 Other long term (current) drug therapy; Z79.82 Long term (current) use of aspirin; I10 Essential (primary) hypertension; K21.9 Gastro-esophageal reflux disease without esophagitis; F32.A Depression, unspecified; F41.9 Anxiety disorder, unspecified; F17.220 Nicotine dependence, chewing tobacco, uncomplicated
CPT/HCPCS: 52630; 85027; 88305; 96361; 96365; 96366; 96375; 99218; 99251; J7030; J7120; G0378; G0463; J0744; J2405

== ENCOUNTER → 2023-04-21 | Outpatient (CLI) | payer MEDICARE, SELFPAY ==
[2023-04-21 15:27] LABS: Absolute Lymphocyte Count 2.09 X10^3/uL (0.83-4.51); Absolute Neutrophil Count 4.8 X10^3/uL (2.0-7.7); Basophil# 0.04 X10^3/uL; Basophil% 0.5 % (0-1); Eosinophil# 0.06 X10^3/uL; Eosinophils% 0.8 % (0-5); Hemoglobin 15.4 g/dL (13.0-16.5); Lymphocyte # 2.09 X10^3/ul (0.83-4.51); Lymphocyte % 27.4 % (19-41); Mean Corp Hgb Conc 32.8 g/dL (32-36); Mean Corpuscular Hgb 30.1 pg (27.0-32.0); Mean Platelet Vol. 9.8 fl (6.2-12.0); Monocyte# 0.68 X10^3/uL; Monocyte% 8.9 % (0-10); NRBC Flagged by Analyzer 0 % (0-5); Neutrophil # 4.75 X10^3/uL (2.7-7.7); Neutrophil % 62.1 % (47-70); Platelet Count 231 K/mm3 (150-450); RBC Distribution Width CV 13.3 % (11.6-14.6); Red Blood Count 5.11 M/mm3 (4.6-6.2); White Blood Count 7.6 K/mm3 (4.4-11.0)
[2023-04-21 15:46] LABS: Vitamin B12 487 pg/mL (211-911); Vitamin D,25 Hydroxy 33.5 ng/mL
[2023-04-21 15:52] LABS: Hemoglobin A1c 5.6 % (3.8-5.6)
[2023-04-21 16:26] LABS: ALB/GLOB Ratio 0.9 RATIO (0.9-2.4); AST(SGOT) 18 U/L (15-37); Alanine Aminotransfer ALT/SGPT 30 U/L (16-61); Albumin, Serum 3.5 g/dL (3.2-5.0); Alkaline Phosphatase 63 U/L (45-117); Anion Gap 5 (5-15); BUN 15 mg/dL (7-18); Calcium,Total 8.8 mg/dL (8.5-10.1); Chloride 109 mmol/L (98-107); Cholesterol 182 mg/dL (200); EST Glomerular Filtration Rate 79 mL/min (>60); Est Glom Filt Rate - Afr Amer 96 mL/min (>60); Ferritin 83 ng/mL (26-388); Globulin 4.1 g/dL (2.2-4.2); Glucose 99 mg/dL (74-106); High Density Lipoprotein 42 mg/dL; PSA,Total - Annual Screen 3.04 ng/mL (0.00-4.00); Potassium 4.6 mmol/L (3.5-5.1); Protein, Total 7.6 g/dL (6.4-8.2); Sodium Level 138 mmol/L (136-145); Thyroid Stim Hormone (TSH) 1.89 uIU/mL (0.358-3.74); Triglycerides 272 mg/dL; Very Low Density Lipoprotein 54 mg/dL (5-40)
== END | disposition home or self-care (01) ==
PROVIDERS: PCP Family Medicine; Referring Provider Family Medicine; Visit Provider Family Medicine
DX: R53.83 Other fatigue (principal); Z13.220 Encounter for screening for lipoid disorders; Z12.5 Encounter for screening for malignant neoplasm of prostate
CPT/HCPCS: 36415; 80053; 80061; 82306; 82607; 82728; 83036; 84153; 84443; 85025; G0103

== ENCOUNTER → 2023-12-20 | Outpatient (CLI) | payer MEDICARE, SELFPAY ==
[2023-12-20 18:29] LABS: Anion Gap 7 (5-15); BUN 18 mg/dL (7-18); BUN/Creat Ratio 19.4 RATIO (10-20); Calcium,Total 9.1 mg/dL (8.5-10.1); Chloride 94 mmol/L (98-107); Creatinine, Serum 0.93 mg/dL (0.70-1.30); EST Glomerular Filtration Rate 86 mL/min (>60); Est Glom Filt Rate - Afr Amer 104 mL/min (>60); Glucose 101 mg/dL (74-106); Sodium Level 128 mmol/L (136-145)
== END | disposition home or self-care (01) ==
PROVIDERS: PCP Family Medicine; Referring Provider Family Medicine; Visit Provider Family Medicine
DX: I10 Essential (primary) hypertension (principal)
CPT/HCPCS: 36415; 80048

== ENCOUNTER → 2024-01-17 | Outpatient (CLI) | payer MEDICARE, SELFPAY ==
[2024-01-17 15:39] LABS: Absolute Lymphocyte Count 1.53 X10^3/uL (0.83-4.51); Absolute Neutrophil Count 3.8 X10^3/uL (2.0-7.7); Basophil# 0.02 X10^3/uL; Basophil% 0.3 % (0-1); Eosinophil# 0.09 X10^3/uL; Eosinophils% 1.5 % (0-5); Hematocrit 40.5 % (40-54); Hemoglobin 13.9 g/dL (13.0-16.5); Lymphocyte # 1.53 X10^3/ul (0.83-4.51); Lymphocyte % 26.2 % (19-41); Mean Corp Hgb Conc 34.3 g/dL (32-36); Mean Corpuscular Hgb 30.8 pg (27.0-32.0); Mean Corpuscular Volume 89.6 fL (80-94); Mean Platelet Vol. 10.4 fl (6.2-12.0); Monocyte# 0.41 X10^3/uL; NRBC Flagged by Analyzer 0 % (0-5); Neutrophil # 3.77 X10^3/uL (2.7-7.7); Neutrophil % 64.8 % (47-70); Platelet Count 189 K/mm3 (150-450); RBC Distribution Width CV 13.3 % (11.6-14.6); RBC Distribution Width SD 43.5 fl (35.1-43.9); Red Blood Count 4.52 M/mm3 (4.6-6.2); White Blood Count 5.8 K/mm3 (4.4-11.0)
[2024-01-17 15:49] LABS: Urine Sodium 57 mmol/L (Not Establ.)
[2024-01-17 15:52] LABS: Hemoglobin A1c 5.5 % (3.8-5.6)
[2024-01-17 16:02] LABS: Vitamin B12 555 pg/mL (211-911); Vitamin D,25 Hydroxy 38.8 ng/mL
[2024-01-17 16:09] LABS: ALB/GLOB Ratio 0.8 RATIO (0.9-2.4); AST(SGOT) 14 U/L (15-37); Alanine Aminotransfer ALT/SGPT 24 U/L (16-61); Albumin, Serum 3.4 g/dL (3.2-5.0); Alkaline Phosphatase 70 U/L (45-117); Anion Gap 8 (5-15); BUN 15 mg/dL (7-18); BUN/Creat Ratio 16.1 RATIO (10-20); Calcium,Total 8.9 mg/dL (8.5-10.1); Chloride 104 mmol/L (98-107); Creatinine, Serum 0.93 mg/dL (0.70-1.30); EST Glomerular Filtration Rate 86 mL/min (>60); Est Glom Filt Rate - Afr Amer 104 mL/min (>60); Ferritin 39 ng/mL (26-388); Glucose 103 mg/dL (74-106); Magnesium 2.3 mg/dL (1.6-2.6); Protein, Total 7.4 g/dL (6.4-8.2); Sodium Level 137 mmol/L (136-145); Thyroid Stim Hormone (TSH) 1.85 uIU/mL (0.358-3.74)
[2024-01-17 21:45] LABS: Osmolality, Urine 1144 mOsm/KG
[2024-01-17 21:46] LABS: Osmolality, Serum 294 mOsm/KG (280-301)
[2024-01-18 19:44] LABS: Erythrocyte Sedimentation Rate 32 mm/hr (0-20)
[2024-01-19 11:09] LABS: ANTINUCLEAR ANTIBODIES DIRECT Positive (Negative)
== END | disposition home or self-care (01) ==
PROVIDERS: PCP Family Medicine; Referring Provider Family Medicine; Visit Provider Family Medicine
DX: E87.1 Hypo-osmolality and hyponatremia (principal); R53.83 Other fatigue
CPT/HCPCS: 36415; 80053; 82306; 82533; 82607; 82728; 83036; 83735; 83930; 83935; 84300; 84443; 85025; 85652; 86038; 86140

== ENCOUNTER → 2024-02-28 | Outpatient (CLI) | payer MEDICARE, SELFPAY ==
[2024-02-28 13:05] LABS: PSA,Total - Annual Screen 0.43 ng/mL (0.00-4.00)
== END | disposition home or self-care (01) ==
LOC: LAB 11:54
PROVIDERS: PCP Family Medicine; Referring Provider Nurse Practitioner; Visit Provider Nurse Practitioner
DX: Z12.5 Encounter for screening for malignant neoplasm of prostate (principal)
CPT/HCPCS: 36415; 84153; G0103

== ENCOUNTER → 2024-03-28 | Outpatient (CLI) | payer MEDICARE, SELFPAY ==
[2024-03-28 16:09] LABS: AST(SGOT) 16 U/L (15-37); Alanine Aminotransfer ALT/SGPT 27 U/L (16-61); Albumin, Serum 3.9 g/dL (3.2-5.0); Alkaline Phosphatase 74 U/L (45-117); Anion Gap 4 (5-15); BUN 10 mg/dL (7-18); Chloride 102 mmol/L (98-107); Creatinine, Serum 0.91 mg/dL (0.70-1.30); EST Glomerular Filtration Rate 88 mL/min (>60); Est Glom Filt Rate - Afr Amer 107 mL/min (>60); Follicle Stimulating Hormone 4.2 mIU/mL; Glucose 92 mg/dL (74-106); Luteinizing Hormone 2.9 mIU/mL; Potassium 4.3 mmol/L (3.5-5.1); Prolactin 9.8 ng/mL; Protein, Total 7.9 g/dL (6.4-8.2); Sodium Level 133 mmol/L (136-145)
[2024-04-02 14:07] LABS: Testosterone, % Free 3.39 % (1.50-4.20); Testosterone, Free 8.41 ng/dL (5.00-21.00); Testosterone, Total 248 ng/dL (264-916)
== END | disposition home or self-care (01) ==
LOC: MTLAB 13:11
PROVIDERS: PCP Family Medicine; Referring Provider Internal Medicine Endocrinology, Diabetes & Metabolism; Visit Provider Internal Medicine Endocrinology, Diabetes & Metabolism
DX: E29.1 Testicular hypofunction (principal); R53.83 Other fatigue
CPT/HCPCS: 36415; 80053; 83001; 83002; 84146; 84402; 84403

== ENCOUNTER 2024-05-02 17:21 | Emergency (ER) | payer MEDICARE, SELFPAY ==
[2024-05-02] VITALS (7 sets, daily range): BP systolic 122–202; BP diastolic 77–112; PULSE 49–65; RESP 13–23; TEMP 36.6–37; O2SAT 96–99; BMI 30.9
--- NOTE | 2024-05-02 18:31 | EDS_ITS ---
HPI History of Present Illness Chief Complaint: Hypertension Narrative Narrative: 68-year-old male presenting with mental health concern. He is with his . She states that he has been manic has been up for days. The symptoms are intermittent and she stated he was fairly normal and he saw Dr. Licea. He is on citalopram with history of anxiety. He also has clonazepam. Patient's is concerned with his mental status as he keeps saying the same things over and over again. He is checking his blood pressure repeatedly throughout the day. He states his blood pressure has been all over the place. Patient denies severe headache. He denies chest pain or shortness of breath. [facility] Medical History Wears hearing aid Wears glasses Depression Alcohol use Restless legs Migraine headache Injury of head and neck History of IBS Smokeless tobacco use Marijuana use History of echocardiogram History of stress test GERD (gastroesophageal reflux disease) CPAP (continuous positive airway pressure) dependence Anxiety Tremor Hypertension Home Medications ?Medication ?Instructions ?Recorded ?Last Taken ?Type multivitamin (Multiple Vitamins 1 ea PO DAILY vitamin 11/11/16 07/10/19 History tablet) lisinopril 20 mg tablet 40 mg PO DAILY blood pressure 10/12/18 08/28/22 History atenolol 50 mg tablet 100 mg PO DAILY 05/21/22 08/28/22 History citalopram 20 mg tablet 40 mg PO DAILY 05/21/22 Unknown History clonazepam 1 mg tablet 1 mg PO DAILY 08/21/22 08/28/22 History finasteride 5 mg tablet 5 mg PO DAILY 05/02/24 Unknown History lovastatin 40 mg tablet 40 mg PO QHS 05/02/24 Unknown History omeprazole 20 mg capsule,delayed 20 mg PO DAILY 05/02/24 Unknown History release ropinirole 1 mg tablet 0.5 mg PO QHS 05/02/24 Unknown History tamsulosin 0.4 mg capsule 0.4 mg PO DAILY 05/02/24 Unknown History trazodone 50 mg tablet 50 mg PO QHS 05/02/24 Unknown History Allergy/AdvReac Type Severity Reaction Status Date / Time Sulfa (Sulfonamide AdvReac Nausea Verified 05/02/24 17:26 Antibiotics) Family History Other CVA (cerebral vascular accident) Diabetes Heart disease Surgical History Hx of excision of mass H/O transurethral resection of prostate Social History household members: spouse Smoking Status: Current every day smoker tobacco type: smokeless tobacco Electronic Cigarette Use: with nicotine alcohol intake: current alcohol intake frequency: holidays/special occasions only substance use type: does not use ROS ROS ED Constitutional Constitutional ED: Denies chills, fever(s) or sweats Eyes Eyes: Denies blurry vision or change in vision ENT ENT ED: Denies ear pain or sore throat Cardiovascular Cardiovascular: Denies chest pain, palpitations or racing heartbeat Respiratory/Chest Respiratory/Chest: Denies cough, dyspnea or sputum Gastrointestinal Gastrointestinal: Denies abdominal pain, constipation, diarrhea, nausea or vomiting Genitourinary Genitourinary ED: Denies dysuria, hematuria or urinary frequency Musculoskeletal Musculoskeletal: Denies arthralgias, myalgias or neck pain Integumentary Denies abscess, Abrasions or rash Neurologic Neurologic: Denies headache(s), paresthesias or weakness Psychiatric Psychiatric: Reports anxiety; Denies depression, suicidal ideation or suicidal thoughts Endocrine Endocrinology: Denies polydipsia or polyuria EXAM Physical Exam Const Vital Signs: 05/02/24 17:22 05/02/24 17:22 05/02/24 17:23 Temperature 98 F Temperature Source Temporal Pulse Rate 49 L 50 L Respiratory Rate 16 18 Respiratory Pattern Normal Blood Pressure 202/94 H 202/92 H Blood Pressure Mean 130 128 Pulse Ox 98 96 Oxygen Delivery Method Room Air Room Air 05/02/24 18:22 05/02/24 19:00 05/02/24 20:00 Temperature Temperature Source Pulse Rate 51 L 55 L 54 L Respiratory Rate 21 H 23 H 16 Respiratory Pattern Blood Pressure 192/108 H 122/104 H 168/77 H Blood Pressure Mean 136 110 107 Pulse Ox 98 98 97 Oxygen Delivery Method Room Air Room Air 05/02/24 21:00 05/02/24 21:57 Temperature 98.6 F Temperature Source Pulse Rate 54 L 65 Respiratory Rate 13 18 Respiratory Pattern Blood Pressure 153/112 H 156/92 H Blood Pressure Mean 125 113 Pulse Ox 96 99 Oxygen Delivery Method Room Air MDM MDM MDM Narrative Medical decision making narrative: Patient was seen and evaluated his initial complaint was high blood pressure. His blood pressure has been all over the place but his is telling me that he is manic and is not sleeping well. He is not suicidal or homicidal but he is acting strangely for her. After discussing this with them both they want a mental health evaluation. They do have a home psychiatrist that are supposed to see this next week. Medical screening was obtained and his CBC and BMP are unremarkable. I did add a high-sensitivity troponin and EKG as part of hypertension workup and his troponin is 5 EKG is sinus bradycardia with a first- degree AV block at a rate of 49 bpm. Urine drug screen negative. EtOH negative. CT brain was negative for anything acute. Patient is medically cleared. I do have a crisis consult pending. 9:40 PM I was asked to come back to the room. His states now that she feels comfortable going home with him. She states he is not a threat to himself or others. He has not been hostile or aggressive. She just wanted him evaluated but she no longer wants to be in the emergency room. They want to follow-up with her psychiatrist as an outpatient. I feel like this is reasonable. I do not think he is a harm to himself or others. His feels like she can take care of him. I spoke with Dr. Licea regarding the patient as he saw him on . He states that if the patient goes home he can reach out to them tomorrow for a visit. Patient and amenable to this. Impression: 1. Roshni 2. Psychosis Lab Data Attestation: I reviewed the patient's lab results. Labs: Laboratory Results - last 24 hr 05/02/24 05/02/24 18:47 18:50 WBC 8.6 RBC 5.04 Hgb 15.5 Hct 45.2 MCV 89.7 MCH 30.8 MCHC 34.3 RDW Std Deviation 43.1 RDW Coeff of Rosa 13.2 Plt Count 192 MPV 9.4 Immature Gran % (Auto) 0.300 Neut % (Auto) 61.0 Lymph % (Auto) 31.6 [place] % (Auto) 6.0 Eos % (Auto) 0.8 Baso % (Auto) 0.3 Absolute Neuts (auto) 5.2 Absolute Lymphs (auto) 2.72 Nucleated RBC % 0 Sodium 135 L Potassium 4.0 Chloride 100 Carbon Dioxide 27.0 Anion Gap 8 BUN 15 Creatinine 0.86 Estim Creat Clear Calc 93.50 Est GFR (MDRD) Af Amer 113 Est GFR (MDRD) Non-Af 94 BUN/Creatinine Ratio 17.4 Glucose 99 Calcium 9.4 Troponin I High Sens 5 Urine Opiates Screen NEGATIVE Urine Methadone Screen NEGATIVE Ur Barbiturates Screen NEGATIVE Ur Phencyclidine Scrn NEGATIVE Ur Amphetamines Screen NEGATIVE MDMA (Ecstasy) Screen NEGATIVE U Benzodiazepines Scrn NEGATIVE Urine Cocaine Screen NEGATIVE U Cannabinoids Screen NEGATIVE Ur Drug Screen Comment Ethyl Alcohol < 3.0 Radiography Diagnostic Testing: Clinical Impression(s) from Imaging Studies Brain CT 05/02/24 18:34 IMPRESSION: 1. No acute intracranial abnormality. 2. Senescent change with small vessel ischemia. Electronically Signed: Antoine Ambriz MD at 19:51 EDT , Discharge Plan Triage Chief Complaint: Hypertension ED Provider: Dwight Howard Dx/Rx/DC Orders Clinical Impression: Roshni Instructions: ED Psychosis Prescriptions: No Action multivitamin [Multiple Vitamins] 1 EACH tablet 1 ea PO DAILY lisinopril 20 MG tablet 40 mg PO DAILY citalopram 20 mg tablet 40 mg PO DAILY Patient Comments: TAKE 1 TABLET BY MOUTHCONCE DAILY atenolol 50 mg tablet 100 mg PO DAILY Patient Comments: TAKE 1 TABLET BY MOUTHEONCE DAILYP clonazepam 1 mg Tablet 1 mg PO DAILY ropinirole 1 mg tablet 0.5 mg PO QHS trazodone 50 mg tablet 50 mg PO QHS lovastatin 40 mg tablet 40 mg PO QHS tamsulosin 0.4 mg capsule 0.4 mg PO DAILY omeprazole 20 mg capsule,delayed release(DR/EC) 20 mg PO DAILY finasteride 5 mg tablet 5 mg PO DAILY Primary Care Provider: Rakel Lieca Referrals: Rakel Licea MD [Primary Care Provider] - Print Language: Mongolian Disposition Disposition: Home, Self Care
--- NOTE | 2024-05-02 18:34 | EKG12_ITS ---
Test Reason : CP Blood Pressure : / mmHG Vent. Rate : 049 BPM Atrial Rate : 049 BPM P-R Int : 212 ms QRS Dur : 100 ms QT Int : 460 ms P-R-T Axes : 026 -26 -04 degrees QTc Int : 415 ms Sinus bradycardia with 1st degree A-V block Minimal voltage criteria for LVH, may be normal variant ( R in aVL ) Borderline ECG Confirmed by GABRIEL QUINONES, KATERINA ([id number]), editor managing newspaper GRETTA HARGROVE ([id number]) on 05/04/2024 10:37:09 A M Referred By: MILES/WIN Confirmed By:LYNDON RIOS MD
--- NOTE | 2024-05-02 18:34 | CT_ITS ---
EXAM: CT HEAD WITHOUT INTRAVENOUS CONTRAST CLINICAL INDICATION: altered mental status TECHNIQUE: Multiple axial images were obtained of the head without intravenous contrast. This CT exam was performed using one or more of the following dose reduction techniques: automated exposure control, adjustment of the mA and/or kV according to patient size, and/or use of iterative reconstruction technique. COMPARISON: No relevant prior studies available. FINDINGS: BRAIN AND EXTRA-AXIAL SPACES: The ventricular system and cortical sulci are at the upper limits of normal in size. There is hypoattenuation in the periventricular white matter. No intra- or extra-axial hemorrhage. No evidence of acute infarct. No intracranial mass or mass effect. There is preservation of the vidal/white matter interface. Posterior fossa structures are unremarkable. Basal cisterns are patent. BONES/JOINTS: Unremarkable. No discrete lytic or blastic abnormalities. SINUSES: Unremarkable as visualized. Clear. MASTOID AIR CELLS: Unremarkable. Clear. ORBITS: Visualized globes, extraocular muscles, optic nerves and retrobulbar fat appear unremarkable. CT/Brain/Head without Contrast IMPRESSION: 1. No acute intracranial abnormality. 2. Senescent change with small vessel ischemia. Electronically Signed: Antoine Ambriz MD at 19:51 EDT ,
[2024-05-02 19:00] LABS: Absolute Lymphocyte Count 2.72 X10^3/uL (0.83-4.51); Absolute Neutrophil Count 5.2 X10^3/uL (2.0-7.7); Basophil# 0.03 X10^3/uL; Basophil% 0.3 % (0-1); Eosinophil# 0.07 X10^3/uL; Eosinophils% 0.8 % (0-5); Hematocrit 45.2 % (40-54); Hemoglobin 15.5 g/dL (13.0-16.5); Lymphocyte # 2.72 X10^3/ul (0.83-4.51); Lymphocyte % 31.6 % (19-41); Mean Corp Hgb Conc 34.3 g/dL (32-36); Mean Corpuscular Hgb 30.8 pg (27.0-32.0); Mean Corpuscular Volume 89.7 fL (80-94); Mean Platelet Vol. 9.4 fl (6.2-12.0); Monocyte# 0.52 X10^3/uL; NRBC Flagged by Analyzer 0 % (0-5); Neutrophil # 5.24 X10^3/uL (2.7-7.7); Platelet Count 192 K/mm3 (150-450); RBC Distribution Width CV 13.2 % (11.6-14.6); RBC Distribution Width SD 43.1 fl (35.1-43.9); Red Blood Count 5.04 M/mm3 (4.6-6.2); White Blood Count 8.6 K/mm3 (4.4-11.0)
[2024-05-02 19:20] LABS: Amphetamine Urine VISTA NEGATIVE (<1000 ng/mL); Barbiturate Urine VISTA NEGATIVE (< 200 ng/mL); Benzodiazepine Urine VISTA NEGATIVE (< 200 ng/mL); Cocaine Urine VISTA NEGATIVE (< 300 ng/mL); Ecstacy Urine VISTA NEGATIVE (< 500 ng/mL); Methadone Urine VISTA NEGATIVE (< 300 ng/mL); PCP Urine VISTA NEGATIVE (< 25 ng/mL); THC Urine VISTA NEGATIVE (< 50 ng/mL); Vista UDS pH Range 7
[2024-05-02 19:28] LABS: Alcohol, Blood (Medical)-Serum < 3.0 mg/dL
[2024-05-02 19:34] LABS: Anion Gap 8 (5-15); BUN 15 mg/dL (7-18); BUN/Creat Ratio 17.4 RATIO (10-20); Calcium,Total 9.4 mg/dL (8.5-10.1); Chloride 100 mmol/L (98-107); Creatinine, Serum 0.86 mg/dL (0.70-1.30); EST Glomerular Filtration Rate 94 mL/min (>60); Est Glom Filt Rate - Afr Amer 113 mL/min (>60); Glucose 99 mg/dL (74-106); Sodium Level 135 mmol/L (136-145); Troponin-I HS 5 pg/mL (3.0-78.0)
[2024-05-02] MEDS: LORazepam 2 MG/ML Syringe 1 MG IV (19:39)
--- NOTE | 2024-05-02 22:01 | ED.RN ---
Pt and informed this RN that they would like to leave and followup with their own personal psychiatrist. states she feels comfortable being at home with him, Pt denies SI and HI. Not currently pink slipped. RN informed Dr. Howard about pt wishes, no new order at this time.
== END 2024-05-02 22:24 | disposition home or self-care (01) ==
PROVIDERS: Emergency Provider Student in an Organized Health Care Education/Training Program; PCP Family Medicine; Visit Provider Student in an Organized Health Care Education/Training Program
DX: F30.9 Manic episode, unspecified (principal); F29 Unspecified psychosis not due to a substance or known physiological condition; F17.210 Nicotine dependence, cigarettes, uncomplicated; F41.9 Anxiety disorder, unspecified; I44.0 Atrioventricular block, first degree; I10 Essential (primary) hypertension; F17.220 Nicotine dependence, chewing tobacco, uncomplicated
CPT/HCPCS: 70450; 80048; 80307; 82077; 84484; 85025; 93005; 96374; 99282; A4216

== ENCOUNTER 2024-05-10 18:09 | Emergency (ER) | payer MEDICARE, SELFPAY ==
[2024-05-10 18:10] VITALS: BP 141/97; PULSE 60; RESP 18; TEMP 36.6; O2SAT 98; BMI 30.5
--- NOTE | 2024-05-10 18:39 | EX.ED.VIS.PS ---
HPI HPI - Psych History of Present Illness Chief Complaint: Mental Health Narrative Narrative: 68-year-old male with history of anxiety presenting with bertin. He has been manic for about 2 weeks now. Patient has been acting bizarrely. He is not able to sleep. He is fixated on his blood pressure readings. states he is acting erratically. I saw them previously in the ER for similar symptoms on 05/02/2024 and we had medical clearance and we are waiting for crisis to come see the patient when the decided she wanted to take him home. I made arrangements to follow-up with Dr. Licea the next day which is his PCP. They state that they did follow-up and he put the patient on trazodone. He has a psychiatric referral for next month. His also states that he is going to get a sleep study as an outpatient. She feels like he has been manic for too long now and she wants him to be placed. He is not suicidal or homicidal. [facility] Medical History Wears hearing aid Wears glasses Depression Alcohol use Restless legs Migraine headache Injury of head and neck History of IBS Smokeless tobacco use Marijuana use History of echocardiogram History of stress test GERD (gastroesophageal reflux disease) CPAP (continuous positive airway pressure) dependence Anxiety Tremor Hypertension Home Medications ?Medication ?Instructions ?Recorded ?Last Taken ?Type multivitamin (Multiple Vitamins 1 ea PO DAILY vitamin 11/11/16 07/10/19 History tablet) atenolol 50 mg tablet 100 mg PO DAILY 05/21/22 08/28/22 History citalopram 20 mg tablet 40 mg PO DAILY 05/21/22 Unknown History finasteride 5 mg tablet 5 mg PO DAILY 05/02/24 Unknown History lovastatin 40 mg tablet 40 mg PO QHS 05/02/24 Unknown History omeprazole 20 mg capsule,delayed 20 mg PO DAILY 05/02/24 Unknown History release tamsulosin 0.4 mg capsule 0.4 mg PO DAILY 05/02/24 Unknown History trazodone 50 mg tablet 50 mg PO QHS 05/02/24 Unknown History clonazepam 0.5 mg tablet 0.5 mg PO BID PRN PRN agitation 05/10/24 Unknown History lisinopril 40 mg tablet 40 mg PO DAILY 05/10/24 Unknown History Allergy/AdvReac Type Severity Reaction Status Date / Time Sulfa (Sulfonamide AdvReac Nausea Verified 05/10/24 18:11 Antibiotics) Family History Other CVA (cerebral vascular accident) Diabetes Heart disease Surgical History Hx of excision of mass H/O transurethral resection of prostate Social History household members: spouse Smoking Status: Current every day smoker tobacco type: smokeless tobacco Electronic Cigarette Use: with nicotine alcohol intake: current alcohol intake frequency: holidays/special occasions only substance use type: does not use ROS ROS ED Constitutional Constitutional ED: Denies chills, fever(s) or sweats Eyes Eyes: Denies blurry vision or change in vision ENT ENT ED: Denies ear pain or sore throat Cardiovascular Cardiovascular: Denies chest pain, palpitations or racing heartbeat Respiratory/Chest Respiratory/Chest: Denies cough, dyspnea or sputum Gastrointestinal Gastrointestinal: Denies abdominal pain, constipation, diarrhea, nausea or vomiting Genitourinary Genitourinary ED: Denies dysuria, hematuria or urinary frequency Musculoskeletal Musculoskeletal: Denies arthralgias, myalgias or neck pain Integumentary Denies abscess, Abrasions or rash Neurologic Neurologic: Denies headache(s), paresthesias or weakness Psychiatric Psychiatric: Reports anxiety; Denies depression, suicidal ideation or suicidal thoughts Endocrine Endocrinology: Denies polydipsia or polyuria EXAM Physical Exam Const Vital Signs: 05/10/24 18:10 05/10/24 19:10 Temperature 98 F Temperature Source Temporal Pulse Rate 60 57 L Respiratory Rate 18 18 Blood Pressure 141/97 H 117/83 H Blood Pressure Mean 111 94 Pulse Ox 98 98 Oxygen Delivery Method Room Air Room Air Positive well nourished General Appearance ED: NAD; Negative for pallor HEENT Reports moist mucous membranes normocephalic and atraumatic Eyes PERRL and EOMs intact bilaterally Neck no lymphadenopathy Resp normal respiratory effort and clear to auscultation bilaterally Cardio Rate: regular rate Rhythm: regular rhythm Extremity normal to inspection General Extremety ED: Yes edema General Extremity: edema Neuro oriented x3, CN's II-XII intact bilaterally and no sensory deficits noted Sensorium / Orientation: alert Motor Exam: strength 5/5 throughout Psych denies homicidal ideation and denies suicidal ideation Appearance: disheveled and bizarre Attitude: bizarre and uncooperative Activity / Motor Behavior: appropriate eye contact, hyperactive and disorganized Speech: normal speech Thought Process: circumstantial, disorganized, flight of ideas, illogical and tangential Thought Content: No suicidality and No homicidality Attention / Concentration: attention grossly impaired and concentration grossly impaired Memory / Cognition: cognition impaired Insight: poor Judgement: poor Skin General Skin Exam: Negative for jaundice or pallor MDM MDM MDM Narrative Medical decision making narrative: Patient presenting with bertin, bizarre behavior, erratic behavior. He has been like this for 2 weeks. He is not getting better on his home medication regimen. Patient's states that she strongly believes need to be placed and I do agree. Appropriate screening lab work was obtained. CBC shows normal white blood cell count at 6.2. Hemoglobin 14.2. Platelets are normal at 192. Renal function and electrolytes unremarkable. Urine drug screen positive for cannabinoids. EtOH negative. I do not believe the patient needs a head CT as he had one a week ago when he was here. Will consult crisis for placement. Patient was pink slipped. Patient is medically cleared. 10:52 PM the patient has been evaluated by crisis currently. He has not required any medication to keep him calm. After speaking with crisis we will admit the patient for psychiatric care. Impression: 1. Bertin 2. Acute psychosis Lab Data Attestation: I reviewed the patient's lab results. Labs: Laboratory Results - last 24 hr 05/10/24 05/10/24 18:47 19:04 WBC 6.2 RBC 4.63 Hgb 14.2 Hct 41.3 MCV 89.2 MCH 30.7 MCHC 34.4 RDW Std Deviation 42.3 RDW Coeff of Rosa 13.0 Plt Count 192 MPV 9.6 Immature Gran % (Auto) 0.300 Neut % (Auto) 55.3 Lymph % (Auto) 36.2 [place] % (Auto) 7.1 Eos % (Auto) 0.6 Baso % (Auto) 0.5 Absolute Neuts (auto) 3.4 Absolute Lymphs (auto) 2.23 Nucleated RBC % 0 Sodium 134 L Potassium 3.7 Chloride 101 Carbon Dioxide 25.0 Anion Gap 8 BUN 11 Creatinine 0.88 Estim Creat Clear Calc 90.88 Est GFR (MDRD) Af Amer 110 Est GFR (MDRD) Non-Af 91 BUN/Creatinine Ratio 12.4 Glucose 113 H Calcium 8.9 Urine Opiates Screen NEGATIVE Urine Methadone Screen NEGATIVE Ur Barbiturates Screen NEGATIVE Ur Phencyclidine Scrn NEGATIVE Ur Amphetamines Screen NEGATIVE MDMA (Ecstasy) Screen NEGATIVE U Benzodiazepines Scrn NEGATIVE Urine Cocaine Screen NEGATIVE U Cannabinoids Screen POSITIVE H Ur Drug Screen Comment Ethyl Alcohol < 3.0 Discharge Plan Triage Chief Complaint: Mental Health ED Provider: Dwight Howard Dx/Rx/DC Orders Prescriptions: No Action multivitamin [Multiple Vitamins] 1 EACH tablet 1 ea PO DAILY citalopram 20 mg tablet 40 mg PO DAILY Patient Comments: TAKE 1 TABLET BY MOUTHCONCE DAILY atenolol 50 mg tablet 100 mg PO DAILY Patient Comments: TAKE 1 TABLET BY MOUTHEONCE DAILYP clonazepam 0.5 mg tablet 0.5 mg PO BID PRN PRN (Reason: agitation) lisinopril 40 mg tablet 40 mg PO DAILY trazodone 50 mg tablet 50 mg PO QHS lovastatin 40 mg tablet 40 mg PO QHS tamsulosin 0.4 mg capsule 0.4 mg PO DAILY omeprazole 20 mg capsule,delayed release(DR/EC) 20 mg PO DAILY finasteride 5 mg tablet 5 mg PO DAILY Primary Care Provider: Rakel Licea Referrals: Rakel Licea MD [Primary Care Provider] - Print Language: Romansh
[2024-05-10 18:56] LABS: Absolute Lymphocyte Count 2.23 X10^3/uL (0.83-4.51); Absolute Neutrophil Count 3.4 X10^3/uL (2.0-7.7); Basophil# 0.03 X10^3/uL; Basophil% 0.5 % (0-1); Eosinophil# 0.04 X10^3/uL; Eosinophils% 0.6 % (0-5); Hematocrit 41.3 % (40-54); Hemoglobin 14.2 g/dL (13.0-16.5); Lymphocyte # 2.23 X10^3/ul (0.83-4.51); Lymphocyte % 36.2 % (19-41); Mean Corp Hgb Conc 34.4 g/dL (32-36); Mean Corpuscular Hgb 30.7 pg (27.0-32.0); Mean Corpuscular Volume 89.2 fL (80-94); Mean Platelet Vol. 9.6 fl (6.2-12.0); Monocyte# 0.44 X10^3/uL; Monocyte% 7.1 % (0-10); NRBC Flagged by Analyzer 0 % (0-5); Neutrophil % 55.3 % (47-70); Platelet Count 192 K/mm3 (150-450); RBC Distribution Width SD 42.3 fl (35.1-43.9); Red Blood Count 4.63 M/mm3 (4.6-6.2); White Blood Count 6.2 K/mm3 (4.4-11.0)
[2024-05-10 19:10] VITALS: BP 117/83; PULSE 57; RESP 18; O2SAT 98
[2024-05-10 19:15] LABS: Anion Gap 8 (5-15); BUN 11 mg/dL (7-18); BUN/Creat Ratio 12.4 RATIO (10-20); Calcium,Total 8.9 mg/dL (8.5-10.1); Chloride 101 mmol/L (98-107); Creatinine, Serum 0.88 mg/dL (0.70-1.30); EST Glomerular Filtration Rate 91 mL/min (>60); Est Glom Filt Rate - Afr Amer 110 mL/min (>60); Estimated Creatinine Clearance 90.88 ml/min; Glucose 113 mg/dL (74-106); Potassium 3.7 mmol/L (3.5-5.1); Sodium Level 134 mmol/L (136-145)
[2024-05-10 19:17] LABS: Alcohol, Blood (Medical)-Serum < 3.0 mg/dL
--- NOTE | 2024-05-10 19:51 | NURSING ---
CALLED CRISIS AND FAXED CHART AT 1950
[2024-05-10 20:06] LABS: Amphetamine Urine VISTA NEGATIVE (<1000 ng/mL); Barbiturate Urine VISTA NEGATIVE (< 200 ng/mL); Benzodiazepine Urine VISTA NEGATIVE (< 200 ng/mL); Cocaine Urine VISTA NEGATIVE (< 300 ng/mL); Ecstacy Urine VISTA NEGATIVE (< 500 ng/mL); Methadone Urine VISTA NEGATIVE (< 300 ng/mL); PCP Urine VISTA NEGATIVE (< 25 ng/mL); THC Urine VISTA POSITIVE (< 50 ng/mL); Vista UDS pH Range 6
[2024-05-10] MEDS: traZODone 50 MG Tablet PO (21:18)
[2024-05-10] MEDS: Atorvastatin Calcium 10 MG Tablet PO (21:18)
[2024-05-10] MEDS: Ziprasidone IM 20 MG/ML VIAL IM (21:18)
[2024-05-11 03:15] VITALS: BP 134/85; PULSE 47; RESP 14; O2SAT 95
[2024-05-11 03:30] VITALS: BP 134/85; PULSE 49; RESP 15; TEMP 35.8; O2SAT 95
[2024-05-11] MEDS: Ziprasidone IM 20 MG/ML VIAL IM (06:15)
[2024-05-11 08:19] VITALS: BP 128/78; PULSE 51; RESP 14; O2SAT 96
[2024-05-11] MEDS: Atenolol 100 MG Tablet PO (09:51)
[2024-05-11] MEDS: Lisinopril 40 MG Tablet PO (09:51)
--- NOTE | 2024-05-11 09:54 | ED.RN ---
PT DISCHARGED/BP ELEVATED/HOME MEDS ORDERED AND GIVEN
== END 2024-05-11 09:55 ==
PROVIDERS: Emergency Provider Student in an Organized Health Care Education/Training Program; PCP Family Medicine; Visit Provider Student in an Organized Health Care Education/Training Program
DX: F23 Brief psychotic disorder (principal); F30.9 Manic episode, unspecified; F41.9 Anxiety disorder, unspecified; F17.220 Nicotine dependence, chewing tobacco, uncomplicated; I10 Essential (primary) hypertension; F17.210 Nicotine dependence, cigarettes, uncomplicated; Z79.899 Other long term (current) drug therapy
CPT/HCPCS: 80048; 80307; 82077; 85025; 96372; 99285; J3486

== ENCOUNTER → 2024-08-18 | Outpatient (CLI) | payer MEDICARE, SELFPAY ==
[2024-08-18 18:11] LABS: ALB/GLOB Ratio 0.9 RATIO (0.9-2.4); AST(SGOT) 11 U/L (15-37); Alanine Aminotransfer ALT/SGPT 20 U/L (16-61); Albumin, Serum 3.5 g/dL (3.2-5.0); Alkaline Phosphatase 60 U/L (45-117); Anion Gap 5 (5-15); BUN 16 mg/dL (7-18); BUN/Creat Ratio 15.7 RATIO (10-20); Chloride 105 mmol/L (98-107); Creatinine, Serum 1.02 mg/dL (0.70-1.30); EST Glomerular Filtration Rate 77 mL/min (>60); Est Glom Filt Rate - Afr Amer 93 mL/min (>60); Globulin 3.8 g/dL (2.2-4.2); Glucose 93 mg/dL (74-106); Potassium 4.2 mmol/L (3.5-5.1); Protein, Total 7.3 g/dL (6.4-8.2); Sodium Level 135 mmol/L (136-145)
== END | disposition home or self-care (01) ==
PROVIDERS: PCP Family Medicine; Referring Provider Internal Medicine Endocrinology, Diabetes & Metabolism; Visit Provider Internal Medicine Endocrinology, Diabetes & Metabolism
DX: E29.1 Testicular hypofunction (principal)
CPT/HCPCS: 36415; 80053

== ENCOUNTER → 2024-11-24 | Outpatient (CLI) | payer MEDICARE, SELFPAY ==
--- NOTE | 2024-11-24 07:40 | CT_ITS ---
EXAM: BRAIN/HEAD W/WO CONTRAST CLINICAL HISTORY: Three-month history of dizziness. Hypertension. COMPARISON: Comparison is made with prior examination dated May 02, 2024. TECHNIQUE: Multiple axial tomographic images were obtained with and without intravenous contrast administration. Coronal and sagittal reconstruction was obtained as well. 100 cc of Isovue-300 was injected intravenously. FINDINGS: Mild degree of cerebral atrophy. Stable hypoattenuation in the periventricular white matter suggestive of chronic small-vessel disease. Stable examination. Atherosclerotic calcification of the cavernous portions of the internal carotid arteries as well as the vertebral arteries. CT/Brain/Head W/WO Contrast IMPRESSION: Stable examination. Reading Location: [facility]
== END | disposition home or self-care (01) ==
LOC: CT 07:32
PROVIDERS: PCP Family Medicine; Referring Provider Family Medicine; Visit Provider Family Medicine
DX: R41.3 Other amnesia (principal)
CPT/HCPCS: 70470; Q9967

== ENCOUNTER → 2025-01-04 | Outpatient (CLI) | payer MEDICARE, SELFPAY ==
--- NOTE | 2025-01-04 14:19 | CT_ITS ---
PROCEDURE: CTA HEAD AND NECK W/ CONTRAST 01/04/2025 REASON FOR EXAM: ANEURYSMS X 2 TECHNIQUE: CTA imaging of the head and neck from the aortic arch to the skull vertex with intravenous contrast. 3D reconstructions. Coronal and Sagittal reconstruction series were provided. CONTRAST: Isovue 370 VOLUME: 100mL One or more dose reduction techniques were used (e.g., Automated exposure control, adjustment of the mA and/or kV according to patient size, use of iterative reconstruction technique). RADIATION DOSE SUMMARY: CTDlvol: 29 mGy DLP: 1642.23 mGycm COMPARISON: Comparison is made with prior CT scan of the head dated November 24, 2024. comparison is also made with prior CT of the head and neck dated October 03, 2021. FINDINGS: Aortic Arch: Normal size and branching pattern. No significant atherosclerotic plaque. Brachiocephalic and Subclavians: Unremarkable RIGHT Carotid: Right CCA: Unremarkable. Right ICA: Unremarkable. Right ECA: Unremarkable. LEFT Carotid: Left CCA: Unremarkable. Left ICA: Unremarkable. Left ECA: Unremarkable. Vertebrals: Codominant. Arise from the subclavians. Both vertebrals form the basilar. RIGHT Vertebral: Unremarkable. LEFT Vertebral: Unremarkable. Aneurysm or avm: No intracranial aneurysms or large vascular malformations are identified. Anterior cerebral arteries: Unremarkable: Middle cerebral arteries: Unremarkable. Basilar artery: Unremarkable. Posterior cerebral arteries: Unremarkable. Other major branches of the posterior circulation: Unremarkable. Major venous structures: Unremarkable. CT/CTA Head AND Neck W/ Contrast IMPRESSION: Unremarkable examination. Reading Location: [place] [id number]
== END | disposition home or self-care (01) ==
LOC: CT 13:49
PROVIDERS: PCP Family Medicine; Referring Provider Psychiatry & Neurology Neurology; Visit Provider Psychiatry & Neurology Neurology
DX: I67.1 Cerebral aneurysm, nonruptured (principal); R41.3 Other amnesia
CPT/HCPCS: 70496; 70498; Q9967; A4216

== ENCOUNTER → 2025-02-17 | Outpatient (CLI) | payer MEDICARE, SELFPAY ==
--- NOTE | 2025-02-17 08:08 | MRI_ITS ---
PROCEDURE: BRAIN WITHOUT CONTRAST 02/17/2025 REASON FOR EXAM: MEMORY CHANGE TECHNIQUE: Noncontrast brain MRI. Multiplanar and multisequence images were obtained. COMPARISON: CT brain 11/24/2024 and CTA head and neck 01/04/2025 FINDINGS: TECHNIQUE: Multiplanar, multi-sequence MRI of brain was performed without and with IV contrast. FINDINGS: BRAIN/PARENCHYMA: No evidence of acute infarction or acute intracranial hemorrhage. There are subcortical and periventricular white matter FLAIR hyperintensities, likely related to chronic microvascular ischemic disease. EXTRA-AXIAL SPACES: No abnormal extra-axial fluid collections. Patent basal cisterns and foramen magnum. MIDLINE SHIFT: None. VENTRICLES: No hydrocephalus. SCALP SOFT TISSUES & CALVARIUM: No significant abnormality. VISUALIZED SINUSES & MASTOIDS: No air-fluid levels in the paranasal sinuses. The mastoid air cells are clear. ARTERIAL FLOW VOIDS: Preserved major arterial flow voids indicating gross patency. . MRI/Brain without Contrast IMPRESSION: CEREBRAL ATROPHY WITH CHRONIC SMALL VESSEL ISCHEMIC DISEASE. OTHERWISE UNREMAR KABLE BRAIN MRI WITHOUT CONTRAST. Reading Location: [facility]
== END | disposition home or self-care (01) ==
PROVIDERS: PCP Family Medicine; Referring Provider Psychiatry & Neurology Neurology; Visit Provider Psychiatry & Neurology Neurology
DX: I67.1 Cerebral aneurysm, nonruptured (principal); R41.3 Other amnesia
CPT/HCPCS: 70551

== ENCOUNTER → 2025-03-19 | Outpatient (CLI) | payer MEDICARE, SELFPAY | END | disposition home or self-care (01) | LOC: PSN 14:23 | PROVIDERS: PCP Family Medicine; Referring Provider Psychiatry & Neurology Neurology; Visit Provider Psychiatry & Neurology Neurology | DX: I67.1 Cerebral aneurysm, nonruptured (principal); R41.3 Other amnesia | CPT/HCPCS: 95819 ==

== ENCOUNTER 2025-04-09 12:07 | Outpatient (CLI) | payer MEDICARE, SELFPAY ==
[2025-04-09 13:57] LABS: Vitamin B12 581 pg/mL (180-914)
== END 2025-04-09 23:59 | disposition home or self-care (01) ==
LOC: LAB 12:11
PROVIDERS: PCP Family Medicine
DX: F10.21 Alcohol dependence, in remission (principal); F33.3 Major depressive disorder, recurrent, severe with psychotic symptoms; R41.3 Other amnesia; F41.1 Generalized anxiety disorder; F41.0 Panic disorder [episodic paroxysmal anxiety]; G25.81 Restless legs syndrome
CPT/HCPCS: 36415; 82306; 82607; 84425

== ENCOUNTER 2025-04-20 12:25 | Inpatient (IN) | payer MEDICARE, SELFPAY ==
[2025-04-20] VITALS (9 sets, daily range): BP systolic 117–178; BP diastolic 71–92; PULSE 51–100; RESP 14–17; TEMP 36.2–36.9; O2SAT 96–98; BMI 29.2; BMI 28.8
[2025-04-20 13:17] LABS: Hematocrit 41.2 % (40-54); Hemoglobin 14.4 g/dL (13.0-16.5); Immature Granulocytes Count 0.010 X10^3/uL (0.0-0.0); Mean Corp Hgb Conc 35.0 g/dL (32-36); Mean Corpuscular Volume 89.8 fL (80-94); Mean Platelet Vol. 9.3 fl (6.2-12.0); NRBC Flagged by Analyzer 0 % (0-5); Platelet Count 176 K/mm3 (150-450); RBC Distribution Width CV 13.3 % (11.6-14.6); RBC Distribution Width SD 43.5 fl (35.1-43.9); Red Blood Count 4.59 M/mm3 (4.6-6.2); White Blood Count 7.9 K/mm3 (4.4-11.0)
[2025-04-20] MEDS: hydrOXYzine PAM 25 MG Capsule PO (13:49)
[2025-04-20 13:58] LABS: AST(SGOT) 16 U/L (<=37); Alanine Aminotransfer ALT/SGPT 17 U/L (<=46); Albumin, Serum 4.1 g/dL (3.4-4.8); Alcohol, Blood (Medical)-Serum < 10.1 mg/dL (<=10.0); Alkaline Phosphatase 68 U/L (40-129); Anion Gap 10 (5-15); BUN 17 mg/dL (4-19); BUN/Creat Ratio 15.0 RATIO (10-20); Calcium,Total 9.2 mg/dL (7.6-11.0); Carbon Dioxide 24.6 mmol/L (21.0-32.0); Chloride 101 mmol/L (98-108); Estimated Creatinine Clearance 69.01 ml/min (50-250); Globulin 3.4 g/dL (2.2-4.2); Glucose 116 mg/dL (70-99); Potassium 4.8 mmol/L (3.3-5.1)
[2025-04-20 13:58] LABS: Barbiturate Urine NEGATIVE (< 200 ng/mL); Benzodiazepine Urine PRESUMPTIVE POSITIVE (< 200 ng/mL); PCP Urine NEGATIVE (< 25 ng/mL); THC Urine PRESUMPTIVE POSITIVE (< 50 ng/mL)
[2025-04-20 14:13] LABS: Lipase 55 U/L (13-75)
[2025-04-20 15:17] LABS: Magnesium 2.1 mg/dL (1.5-2.2)
[2025-04-20] MEDS: hydrOXYzine PAM 25 MG Capsule 50 MG PO (16:25)
[2025-04-20] MEDS: 0.9% Saline Lock 10 ML Syringe IV (20:52)
[2025-04-21 01:27] VITALS: BP 101/57; PULSE 51; RESP 14; TEMP 36.9; O2SAT 95
[2025-04-21 01:37] VITALS: BP 109/67; PULSE 53; RESP 14; TEMP 36.6; O2SAT 95
[2025-04-21 04:40] VITALS: BP 121/69; PULSE 53; RESP 16; TEMP 36.6; O2SAT 95
[2025-04-21] MEDS: hydrOXYzine PAM 25 MG Capsule 50 MG PO (05:10)
[2025-04-21 05:23] LABS: Hematocrit 38.2 % (40-54); Hemoglobin 13.3 g/dL (13.0-16.5); Mean Corp Hgb Conc 34.8 g/dL (32-36); Mean Corpuscular Volume 90.1 fL (80-94); Mean Platelet Vol. 9.5 fl (6.2-12.0); Platelet Count 164 K/mm3 (150-450); RBC Distribution Width CV 13.2 % (11.6-14.6); RBC Distribution Width SD 42.8 fl (35.1-43.9); Red Blood Count 4.24 M/mm3 (4.6-6.2); White Blood Count 7.0 K/mm3 (4.4-11.0)
[2025-04-21 05:57] LABS: Anion Gap 11 (5-15); BUN 19 mg/dL (4-19); BUN/Creat Ratio 18.3 RATIO (10-20); Calcium,Total 8.8 mg/dL (7.6-11.0); Carbon Dioxide 23.4 mmol/L (21.0-32.0); Chloride 101 mmol/L (98-108); Estimated Creatinine Clearance 73.10 ml/min (50-250); Glucose 128 mg/dL (70-99); Potassium 4.4 mmol/L (3.3-5.1)
[2025-04-21 07:42] VITALS: BP 105/62; PULSE 52; RESP 16; TEMP 36.6; O2SAT 96
[2025-04-21] MEDS: Thiamine Hydrochloride 100 MG Tablet PO (07:54)
== END 2025-04-21 16:21 | disposition home or self-care (01) | DRG 897 ==
LOC: ED 14:43 → MS3 15:14
PROVIDERS: Admitting Provider Hospitalist; Emergency Provider Emergency Medicine; PCP Family Medicine; Visit Provider Internal Medicine
DX: F10.239 Alcohol dependence with withdrawal, unspecified (principal); N13.8 Other obstructive and reflux uropathy; I10 Essential (primary) hypertension; G25.81 Restless legs syndrome; E78.5 Hyperlipidemia, unspecified; G47.33 Obstructive sleep apnea (adult) (pediatric); F12.90 Cannabis use, unspecified, uncomplicated; K21.9 Gastro-esophageal reflux disease without esophagitis; F17.290 Nicotine dependence, other tobacco product, uncomplicated; F41.0 Panic disorder [episodic paroxysmal anxiety]; N40.1 Benign prostatic hyperplasia with lower urinary tract symptoms; Y90.0 Blood alcohol level of less than 20 mg/100 ml; Z79.899 Other long term (current) drug therapy
CPT/HCPCS: 36415; 80048; 80053; 80307; 82077; 83690; 83735; 84100; 85025; 85027; 99284; A4216

== ENCOUNTER → 2025-06-14 | Outpatient (CLI) | payer MEDICARE, SELFPAY ==
[2025-06-14 16:21] LABS: PSA,Total - Annual Screen 0.24 ng/mL (0.02-4.00)
--- OUTSIDE RECORDS SUMMARY | 2025-06-14 19:47 | XMS RPT_ITS | CCD ---
Author Organization [facility] Care Team Providers Care Coding Advisor Name Role Phone MARIUSZ BENDER JR Unavailable Unavailable AYLEEN MOHAMUD Unavailable Unavailable MARIUSZ BENDER JR Unavailable Unavailable MARIUSZ BENDER JR Unavailable Unavailable AYLEEN MOHAMUD Unavailable Unavailable MARIUSZ BENDER JR Unavailable Unavailable NICOLE GOLDBERG (TUGBOAT MATE) Unavailable Unavaila ble MARIUSZ BENDER JR Unavailable Unavailable Dr. Dorita Morocho Primary Care Provider Dr. Gab Sheth Emergency Provider Dr. Wilfredo Lawrenceit Provider Dr. Wilfredo Lawrence Attending Provider Dr. Wilfredo Lawrence Other Provider [phone] Freddie Packer Attending Provider Unavailable Dr. Freddie Packer Other Provider Unavailable Dr. Dorita Morocho Referring Provider Dr. Dorita Morocho Other Provider Dr. Jerald Orosco Attending Provider Dr. Dorita Morocho Primary Care Provider Dr. Gab Sheth Emergency Provider Dr. Wilfredo Lawrenceit Provider [phone] Wilfredo Lawrence Attending Provider Dr. Wilfredo Lawrence Other Provider Dr. Freddie Packer Attending Provider Unavailable Dr. Freddie Packer Other Provider Unavailable Dr. Dorita Morocho Referring Provider [phone] Dr. Dorita Morocho Other Provider Dr. Jerald Orosco Attending Provider GILMAR MORSE DO Attending Unavailable EFREM LINO Consulting Unavailable TERRENCE RENEE Attending Unavailable TERRENCE RENEE Admitting Unavailable HEIDI, CHALON AYLEEN Primary Care Unavailable [facility] Consulting UnavaWilfredo Monroy Attending Unavailable Heidi, Chalon Primary Care Unavailable Heidi, Chalon Referring Unavailable Heidi, Chalon Primary Care Unavailable Duyen Hayward Attending Unavailable Wilfredo Martínez Referring Unavailable Wilfredo Martínez Attending Unavailable Heidi, Chalon Primary Care Unavailable Heidi, Chalon Primary Care Unavailable Zeb Jha Attending Unavailable Zeb Jha Consulting Unavailable Zeb Jha Admitting Unavailable Heidi, Chalon Primary Care Unavailable HaywardDuyen Attending Unavailable Heidi, Chalon Referring Unavailable Heidi, Chalon Attending Unavailable Heidi, Chalon Primary Care Unavailable Heidi, Chalon Primary Care Unavailable Matilda Manning Referring Unavailable Matilda Manning Attending Unavailable Mulu Francsi Referring Unavailable Mulu Francis Attending Unavailable Heidi, Chalon Primary Care Unavailable Wilfredo Martínez Referring Unavailable Wilfredo Martínez Attending Unavailable Heidi, Chalon Primary Care Unavailable Freddie Packer Attending Unavailable Heidi, Chalon Primary Care Unavailable Zeb Jha Consulting Unavailable Zeb Jha Admitting Unavailable Tanya, Wilfredo Referring Unavailable Wilfredo Martínez Attending Unavailable Heidi, Chalon Primary Care Unavailable HaywardYolaon Attending Unavailable Heidi, Chalon Primary Care Unavailable DarianerMulu Attending Unavailable Heidi, Chalon Primary Care Unavailable Heidi, Chalon Referring Unavailable Heidi, Chalon Primary Care Unavailable Hayward, Duyen Attending Unavailable Heidi, Chalon Primary Care Unavailable Hayward, Duyen Attending Unavailable Heidi, Chalon Primary Care Unavailable Hayward, Duyen Attending Unavailable Heidi, Chalon Primary Care Unavailable Hayward, Duyen Attending Unavailable Heidi, Chalon Referring Unavailable Heidi, Chalon Primary Care Unavailable ShayednerMulu Attending Unavailable Heidi, Chalon Primary Care Unavailable Hayward, Duyen Attending Unavailable DarianerMulu Attending Unavailable Heidi, Chalon Primary Care Unavailable Freddie Packer Attending Unavailable Freddie Packer Consulting Unavailable Heidi, Chalon Primary Care Unavailable Hayward, Duyen Attending Unavailable Allergies Allergy Classification Reported Allergen(s) Allergy Type Date of Onset Reaction(s) Facility (13 sources) Sulfonamides (Antibiotic); Translations: [SULFA (SULFONAMIDE ANTIBIOTICS)] Propensity to adverse reactions Nausea [facility] Medications Current Medications Medication Drug Class(es) Dates Sig (Normalized) Sig (Original) acetaminophen 325 mg / HYDROcodone bitartrate 5 mg oral tablet (13 sources) Opioid Agonist Start: 05-05-2021 take 1 tablet by mouth every six hours as needed Hydrocodone-Aceta minophen Active 1 TABLET PO EVERY 6 HOURS NEEDED 10 May 05, 2021 10:03pm Start: 10-12-2018 End: 10-14-2018 take 1 tablet by mouth every four hours as needed Hydrocodone-Acetaminophen Discontinued 1 TABLET PO EVERY 4 HOURS NEEDED 10 October 12, 2018 1:00am October 14, 2018 1:08am aspirin 81 mg oral tablet (8 sources) Platelet Aggregation Inhibitor, Nonsteroidal Anti-inflammatory Drug Start: 05-11-2022 take 81 mg by mouth once daily Aspirin Active 81 MG PO DAILY May 11, 2022 12:00am atenolol 50 mg oral tablet (7 sources) beta-Adrenergic Kenny Start: 05-21-2022 take 100 mg by mouth once daily Atenolol Active 100 MG PO DAILY May 21, 2022 12:00am ciprofloxacin 500 mg oral tablet (4 sources) Quinolone Antimicrobial Start: 08-28-2022 take 1 tablet by mouth twice daily Ciprofloxacin Hcl (Cipro) 500 mg tablet Active 500 MG PO TWICE A DAY August 28, 2022 1:00am citalopram 20 mg oral tablet (7 sources) Serotonin Reuptake Inhibitor Start: 05-21-2022 take 1 tablet by mouth once daily Citalopram Active 1 TABLET PO DAILY May 21, 2022 12:00am clonazePAM 1 mg oral tablet (20 sources) Benzodiazepine Start: 08-21-2022 take 1 mg by mouth once daily Clonazepam Active 1 MG PO DAILY August 21, 2022 12:00am Start: 07-11-2019 End: 07-26-2019 take 0.5 mg by mouth at bedtime Clonazepam Discontinue d 0.5 MG PO AT BEDTIME 7 July 11, 2019 12:00am July 26, 2019 12:07am Start: 06-08-2019 End: 06-12-2019 take 0.5 mg by mouth twice daily as needed Clonazepam Discontinued 0.5 MG PO TWICE DAILY NEEDED 6 June 08, 2019 12:55pm June 12, 2019 12:07am lisinopril 20 mg oral tablet (20 sources) Angiotensin Converting Enzyme Inhibitor Start: 10-12-2018 take 40 mg by mouth once daily Lisinopril Active 40 MG PO DAILY October 12, 2018 11:07am Start: 07-04-2018 End: 10-12-2018 take 20 mg by mouth once daily Lisinopril Discontinued 20 MG PO DAILY July 04, 2018 12:00am October 12, 2018 11:07am LORazepam 1 mg oral tablet (1 source) Benzodiazepine Start: 05-24-2022 take 1 tablet by mouth three times daily Lorazepam (Ativan) 1 mg tablet Active 1 MG PO THREE TIMES A DAY May 24, 2022 12:00am lovastatin 40 mg oral tablet (11 sources) HMG-CoA Reductase Inhibitor Start: 11-11-2016 take 1 tablet by mouth at bedtime Lovastatin (Mevacor) 40 MG tablet Active 40 MG PO AT BEDTIME November 11, 2016 1:00am melatonin 5 mg oral tablet (11 sources) Start: 07-10-2019 Melatonin Acti ve 5 MG PO NEEDED July 10, 2019 12:00am mesalamine 1200 mg delayed release oral tablet (7 sources) Aminosalicylate Start: 05-21-2022 take 2 tablets by mouth once daily Mesalamine Active 2 TABLET PO DAILY May 21, 2022 12:00am Start: 05-21-2022 Mesalamine Act ann marie 1 TABLET PO May 21, 2022 12:00am Multivitamin (Multiple Vitamins) 1 EACH tablet (11 sources) Start: 11-11-2016 take 1 tablet by mouth once daily Multivitamin (Multiple Vitamins) 1 EACH tablet Active 1 EACH PO DAILY November 11, 2016 2:05pm Start: 11-11-2016 take 1 tablet by carley th once daily Multivitamin (Multiple Vitamins) 1 EACH tablet Active 1 EACH PO DAILY November 11, 2016 12:00am Start: 11-11-2016 take 1 tablet by carley th once daily Multivitamin (Multiple Vitamins) 1 EACH tablet Active 1 EACH PO DAILY November 11, 2016 1:00am omeprazole 40 mg delayed release oral capsule (11 sources) Proton Pump Inhibitor Start: 11-11-2016 take 1 capsule by mouth once daily Omeprazole (Prilosec) 20 MG capsule Active 20 MG PO DAILY November 11, 2016 1:00am Start: 11-11-2016 take 1 capsule by mo ut once daily Omeprazole (Prilosec) 40 MG capsule Active 40 MG PO DAILY November 11, 2016 1:00am Psyllium (Metamucil) Packet (2 sources) Start: 10-03-2021 Psyllium ([place] mucil) Packet Active 1 PACKET PO DAILY October 03, 2021 7:23pm Start: 10-03-2021 Psyllium ([place] mucil) Packet Active 1 PACKET PO DAILY October 03, 2021 1:00am rOPINIRole 1 mg oral tablet (2 sources) Nonergot Dopamine Agonist Start: 07-10-2019 take 1.5 mg by mouth at bedtime Ropinirole Active 1.5 MG PO AT BEDTIME July 10, 2019 1:42pm tamsulosin hydrochloride 0.4 mg oral capsule (2 sources) alpha-Adrenergic Kenny Start: 07-10-2019 take 0.8 mg by mouth at bedtime Tamsulosin Active 0.8 MG PO AT BEDTIME July 10, 2019 2:22pm terbinafine 250 mg oral tablet (4 sources) Allylamine Antifungal Start: 08-21-2022 take 250 mg by mouth once daily Terbinafine Hcl Active 250 MG PO DAILY August 21, 2022 12:00am Completed/Discontinued Medications Medication Drug Class(es) Dates Sig (Normalized) Sig (Original) finasteride 5 mg oral tablet (7 sources) 5-alpha Reductase Inhibitor Start: 05-21-2022 End: 08-28-2022 take 1 tablet by mouth once daily Finasteride Discontinued 1 TABLET PO DAILY May 21, 2022 12:00am August 28, 2022 10:38am topiramate (11 sources) Start: 07-10-2019 End: 05-05-2021 take 75 mg by mouth once daily Topiramate Discontinued 75 MG PO DAILY July 10, 2019 2:28pm May 05, 2021 7:45pm Start: 07-10-2019 End: 05-05-2021 take 75 mg by mouth once daily Topiramate Discontinued 75 MG PO DAILY July 09, 2019 11:00pm May 05, 2021 6:45pm Start: 07-10-2019 End: 05-05-2021 take 75 mg by mouth once daily Topiramate Discontinued 75 MG PO DAILY July 10, 2019 12:00am May 05, 2021 7:45pm Problems Problem Classification Problem Date Documented Date Episodic/Chronic Alcohol-related disorders (2 sources) Alcohol dependence with withdrawal, unspecified; Translations: [Alcohol dependence, in remission] Onset: 5 Chronic Anxiety disorders (18 sources) Generalized anxiety disorder; Translations: [Generalized anxiety disorder] Onset: 5 07-11-2019 Chronic Essential hypertension (20 sources) Hypertensive disorder; Translations: [Essential (primary) hypertension] Chronic Fluid and electrolyte disorders (2 sources) Hypo-osmolality and hyponatremia; Translations: [Hypo-osmolality and hyponatremia] Onset: 4 Episodic Headache; including migraine (11 sources) Migraine; Translations: [Migraine, unspecified, not intractable, without status migrainosus] 07-10-2019 Chronic Malaise and fatigue (2 sources) Other fatigue; Translations: [Other fatigue] Onset: 4 Episodic Mood disorders (6 sources) Major depressive disorder, recurrent severe without psychotic features; Translations: [Major depressive disorder, single episode, severe with psychotic features] Onset: 4 Chronic Nonspecific chest pain (11 sources) Chest pain; Translations: [Chest pain, unspecified] 05-24-2022 Episodic Open wounds of extremities (11 sources) Absent fingertips; Translations: [Complete traumatic metacarpophalangeal amputation of unspecified finger, initial encounter] 05-05-2021 Chronic Other and ill-defined cerebrovascular disease (2 sources) Cerebral aneurysm, nonruptured; Translations: [Cerebral aneurysm, nonruptured] Onset: 8 Chronic Other and ill-defined cerebrovascular disease (11 sources) Intracranial aneurysm; Translations: [Cerebral aneurysm, nonruptured] 07-10-2019 Chronic Other endocrine disorders (1 source) Testicular hypofunction; Translations: [Testicular hypofunction] Onset: 4 Chronic Other hereditary and degenerative nervous system conditions (11 sources) Restless legs; Translations: [Restless legs syndrome] 07-10-2019 Chronic Other hereditary and degenerative nervous system conditions (1 source) Restless legs syndrome; Translations: [Restless legs syndrome] Onset: 5 Chronic Other nervous system disorders (1 source) Tremor, unspecified; Translations: [Tremor, unspecified] Onset: 8 Episodic Residual codes; unclassified (11 sources) Obstructive sleep apnea syndrome; Translations: [Obstructive sleep apnea (adult) (pediatric)] 05-21-2022 Chronic Residual codes; unclassified (11 sources) Altered mental status; Translations: [Altered mental status, unspecified] 10-12-2021 Episodic Residual codes; unclassified (9 sources) Temporary loss of memory; Translations: [Other amnesia] 05-19-2022 Episodic Residual codes; unclassified (7 sources) Other amnesia; Translations: [Memory loss] Onset: 5 Episodic Schizophrenia and other psychotic disorders (11 sources) Psychotic disorder; Translations: [Unspecified psychosis not due to a substance or known physiological condition] 10-12-2021 Chronic Spondylosis; intervertebral disc disorders; other back problems (1 source) Spinal stenosis, cervical region; Translations: [Spinal stenosis, cervical region] Onset: 8 Episodic Transient cerebral ischemia (15 sources) Transient cerebral ischemia; Translations: [Transient cerebral ischemic attack, unspecified] Chronic Unclassified (1 source) Other sleep disorders not due to a substance or known physiological condition; Translations: [Other sleep disorders not due to a substance or known physiological condition] Onset: 8 Chronic Unclassified (1 source) Alcohol use, unspecified with withdrawal, unspecified; Translations: [Alcohol use, unspecified with withdrawal, unspecified] Onset: 5 Results Test Name Value Interpretation Reference Range Facility MR/BMS.BPon 06-07-2025 MR/BMS.BP [address], [place] [address] OFFICE VISIT Date of Service: 06/07/25 MR#: [id number] Acct: [id number] Name: LOREE FRANCIS Rep #: [id number] : 1955 Provider: KELECHI gonzalez Age/Sex: 69/M Location: [facility].BP Status: Signed Intake Vital Signs 05/03/25 11:26 05/24/25 10:04 06/07/25 11:38 Height 5 ft 9 in 5 ft 8 in 5 ft 8 in Weight: 202 lb 206 lb 205 lb BMI 29.8 31.3 31.1 BP 115/69 138/78 H 174/61 H Blood Pressure Location Lt brachial Lt brachial Lt brachial Position Sitting Sitting Sitting Respiration 16 16 16 Pulse 56 L 58 L 50 L Pulse Source Monitor Monitor Monitor Temp 98.0 F Pulse Oximetry (%) 99 Oxygen Delivery Method room air BP Intake Visit Reasons: follow up Allergies Sulfa (Sulfonamide Antibiotics) Adverse Reaction (Verified 05/24/25 10:06) Nausea Have you fallen in the past year?: No PFSH Medical History Wears hearing aid in both ears Alcohol abuse Former smoker Sleep apnea Alcohol withdrawal Wears hearing aid Wears glasses Depression Alcohol use Restless legs Migraine headache Injury of head and neck History of IBS Smokeless tobacco use Marijuana use History of echocardiogram History of stress test GERD (gastroesophageal reflux disease) CPAP (continuous positive airway pressure) dependence Anxiety Tremor Hypertension Surgical History History of esophagogastroduodenoscopy (EGD) Hx of excision of mass H/O transurethral resection of prostate Family History Mother , 88 Heart disease Dementia Father , 77 CVA (cerebral vascular accident) Other Diabetes Social History household members: spouse current occupational status: employed current occupation: apartment maintenance manager - delivers paint for [employer] Smoking Status: Former smoker Electronic Cigarette Use: with nicotine alcohol intake: current alcohol intake frequency: holidays/special occasions only details: On avg 2 shots of bourban once - twice a wk substance use type: marijuana caffeine: Yes Type: coffee do you feel safe at home: Yes HPI History of Present Illness History provided by: patient Chief complaint: Lack of motivation HPI: Loree Francis is a 69 year old male patient presenting today for a follow up evaluation. Has been continuing in [facility] and seeing someone who specializes in substance abuse. Reports he will be 60 days sober on 06/19. Does continue to struggle with memory and being more forgetful than before. Mood has been good overall. Is leaving for [place] on 06/22 and is excited for this. Denies SI/HI. Admits to continuing to be frustrated with a lack of motivation. Denies recent feelings of heightened anxiety. Denies panic attacks. Sleep has been good. Appetite has been good. Previous similar episode: Yes Age of first onset of symptoms: 61-70 years Review of Systems Constitutional Denies: fever(s), chills, change in weight or fatigue Eyes Denies: change in vision or blurry vision Ears, Nose, Mouth, Throat Reports: neck pain Cardiovascular Reports: chest pain, palpitations and dyspnea Respiratory Reports: dyspnea; Denies: wheezing Gastrointestinal Reports: constipation; Denies: abdominal pain, nausea, vomiting or diarrhea Genitourinary Denies: dysuria, urinary frequency or urinary urgency Musculoskeletal Reports: back pain and neck pain Integumentary/Breast Denies: rash, pruritus or erythema Neurological Denies: headache(s) Psychiatric Reports: memory loss and difficulty concentrating; Denies: anxiety, mood swings, panic attacks, change in sleep pattern, hopelessness, loss of interest, irritability, paranoia, visual hallucinations, auditory hallucinations, suicidal ideation or homicidal ideation Endocrine Denies: fatigue Hematologic/Lymphatic Denies: easy bruising Allergic/Immunologic Denies: wheezing Exam Mental Status Exam - Psych Appearance casually dressed, adequately groomed and no apparent distress Attitude cooperative and calm Activity/Motor Behavior MSE activity/motor behavior finding no adventitious movements and appropriate eye contact Speech regular rate, regular volume and regular prosody Mood euythmic Affect full range Thought Process linear, logical and coherent Thought Content no delusions and no hallucinations Suicidal Ideation none Homicidal Ideation none Attention impaired (per patient self report) Concentration impaired (per patient self report) Sensorium/Orientation awake, alert and oriented x3 Memory/Cognition impaired Insight good Judgement good Exam Constitut (more content not included)... Normal [facility] Neurology Visit Reporton Neurology Visit Report [facility] [address], [address] [place] [address] OFFICE VISIT Date of Service: 05/24/25 MR#: [id number] Acct: [id number] Name: LOREE FRANCIS Rep #: [id number] : 1955 Provider: KELECHI garcia Age/Sex: 69/M Location: [facility].BN Status: Signed HPI HPI Chief Complaint: 2-month follow-up Details: History of Present Illness: Mr. Francis is a 69-year-old right handed male who originally established care with neurologist Dr. Martínez on 12/08/24. He was referred 10/26/[address] Rakle Licea with [facility] for memory change. Patient noted recent episodes of apparent memory lapse. He states that these episodes may occur 3 or 4 times a day when they do occur. There may be 8 days/month when these episodes occur. Date of onset is not clear. It has been over the past few months. He notes that these are very momentary perhaps 10 seconds in duration. His indicates that she has seen these episodes and he appears to be absent and just staring. Patient does not appear to be deep in thought when these episodes occur. He has no prior history of TIAs, seizures, or strokes. Given this report, a routine EEG was conducted on 03/19/2025 and interpreted as normal. There were no asymmetries or focal abnormalities. More recently, there were no further reported episodes of memory lapse as initially described; however, his states that his memory has been progressively worse. He often forgets about appointments or what medications he should take. He does have a prior history of having angiographically demonstrated intracranial aneurysms x 2. CTA head/neck (01/04/2025) was unremarkable, there was no evidence of stenosis or presence of aneurysms per radiologist interpretation. There is a familial history of tremor. His sister has tremor in his son has tremor. 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 An MRI brain was also conducted on 02/17/2025 and was consistent with generalized age-related atrophy with chronic small vessel ischemic disease. Otherwise, imaging was unremarkable. He has an extensive psychiatric history requiring at least 2 hospitalizations per 's report. Patient reported being awake for days at a time. Per the , the question of bipolar with manic episodes was raised while he was hospitalized. He follows with psychiatry. He is on multiple antidepressant medications. He has also been on clonazepam for years (1mg PO daily). Additionally, he has a history of alcohol use and marijuana use. His has expressed concerns for his ongoing alcohol abuse and marijuana use. He smokes marijuana daily and consumes approximately 1 pint of alcohol daily. This is likely the primary etiology for his memory changes given his grossly normal neuroimaging. I believe absence seizure's can be ruled out at this time. There is a family history of Alzheimer's dementia. This is difficult to screen for in the setting of his chronic alcohol use. Chronic alcoholic encephalopathy is more likely at this time. Interim History: Mr. Francis presents to neurology today 05/24/2025 for a 2-month follow-up visit. He was last evaluated by myself on 04/09/25. He is accompanied by his today. Patient has been sober for >30 days. Patient started an AA based program once weekly at his [facility]. He follows with psychiatry. He began services with [facility] and individual counseling. Patient was admitted to the hospital on 04/20/2025 because he was concerned for alcohol withdrawal. He was asymptomatic and was ultimately discharged the following day. Patient's cognition, although still forgetful at times, is reported to be much improved. His mood and overall mental status is improved on today's exam. He is in good spirits. Alcohol cessation appears to have a significant positive impact on his memory. Patient still smokes marijuana nightly and is prescribed clonazepam and other psychiatric drugs that could potentially influence cognition. Reduction or cessation of any psychoactive substances is recommended if the patient tolerates. ROS: Per HPI PHYSICAL EXAM: Constitutional: Well-developed, well-nourished right-handed male in no acute distress. Respiratory: Normal effort. Symmetric chest movement. Clear to auscultation bilaterally. Cardio: Regular rate and rhythm. No auscultated murmurs. Neurological exam: Mental status: Alert, awake, oriented x 4. He can spell world backwards. Immediate recall is 3/3; delayed 5-minute recall is 1/3. He can spell world backwards. Speech is fluent and more organized compared to prior exams. His overall mood is much improved with mi (more content not included)... Normal [facility] MR/BMS.BPon 05-03-2025 MR/BMS.BP [address], [address] [place] [address] OFFICE VISIT Date of Service: 05/03/25 MR#: [id number] Acct: [id number] Name: LOREE FRANCIS Rep #: [id number] : 1955 Provider: KELECHI gonzalez Age/Sex: 69/M Location: [facility].BP Status: Signed Intake Vital Signs 04/20/25 15:18 05/03/25 11:26 Height 5 ft 9 in 5 ft 9 in Weight: 202 lb BMI 29.8 BP 115/69 Blood Pressure Location Lt brachial Position Sitting Respiration 16 Pulse 56 L Pulse Source Monitor BP Intake Visit Reasons: Follow up Accompanied by: Allergies Sulfa (Sulfonamide Antibiotics) Adverse Reaction (Verified 05/03/25 11:30) Nausea Medications ???Medication ???Instructions ???Recorded ???Confirmed ???Type multivitamin (Multiple Vitamins 1 ea PO DAILY vitamin 11/11/16 History tablet) finasteride 5 mg tablet 5 mg PO DAILY urine flow 05/02/24 05/03/25 History lovastatin 40 mg tablet 40 mg PO QHS blood pressure 05/03/25 History omeprazole 20 mg capsule,delayed 20 mg PO DAILY acid reflux 4 05/03/25 History release tamsulosin 0.4 mg capsule 0.4 mg PO DAILY urine flow 07/03/1205/03/25 History lisinopril 40 mg tablet 40 mg PO DAILY blood pressure 04/1805/03/25 History trazodone 50 mg tablet See Rx Instructions PO QHS #180 05/03/25 Rx tabs clonazepam 1 mg tablet 1 mg PO BID depression/anxiety 05/03/25 History atenolol 100 mg tablet 100 mg PO DAILY blood pressure 02/0905/03/25 History citalopram 40 mg tablet 40 mg PO DAILY depression 04/20/25 05/03/25 History ropinirole 1 mg tablet 1 mg PO DAILY restless legs 05/03/25 History spironolactone 50 mg tablet 50 mg PO DAILY blood pressure 02/0905/03/25 History (water pill) hydroxyzine HCl 10 mg tablet 10 mg PO TID PRN anxiety #270 tabs 05/02/25 05/03/25 Rx Have you fallen in the past year?: No PFS Medical History (Updated 04/29/25 @ 00:01 by Monique Langston) Wears hearing aid in both ears Alcohol abuse Former smoker Sleep apnea Alcohol withdrawal Wears hearing aid Wears glasses Depression Alcohol use Restless legs Migraine headache Injury of head and neck History of IBS Smokeless tobacco use Marijuana use History of echocardiogram History of stress test GERD (gastroesophageal reflux disease) CPAP (continuous positive airway pressure) dependence Anxiety Tremor Hypertension Surgical History History of esophagogastroduodenoscopy (EGD) Hx of excision of mass H/O transurethral resection of prostate Family History Mother , 88 Heart disease Dementia Father , 77 CVA (cerebral vascular accident) Other Diabetes Social History household members: spouse current occupational status: employed current occupation: apartment maintenance manager - delivers paint for [employer] Smoking Status: Former smoker Electronic Cigarette Use: with nicotine alcohol intake: current alcohol intake frequency: holidays/special occasions only details: On avg 2 shots of bourban once - twice a wk substance use type: marijuana caffeine: Yes Type: coffee do you feel safe at home: Yes HPI History of Present Illness History provided by: patient HPI: Loree Francis is a 69 year old male patient presenting today for a follow up evaluation. Reports he has not had alcohol in 2 weeks. Reports he has taken the hydroxyzine infrequently and feels it has made him feel more fatigue. Has gone to the hospital to withdraw from alcohol under supervision as he was concerned for withdrawal symptoms arising and was only there for 1 night. Is planning to start in treatment at 180 on May 11. Has started seeing a counselor and is planning to continue every 2 weeks. Admits to frequent feelings of depression. Denies SI/HI. Does feel depression is worsened due to relationship with his grandchildren. Admits to a large lack fo motivation. Admits to sometimes feelings of anxiety. Admits to being forgetful and misplacing things. Is sleeping well. Previous similar episode: Yes Age of first onset of symptoms: 61-70 years Review of Systems Constitutional Denies: fever(s), chills, change in weight or fatigue Eyes Denies: change in vision or blurry vision Ears, Nose, Mouth, Throat Reports: neck pain Cardiovascular Reports: chest pain, palpitations and dyspnea Respiratory Reports: dyspnea; Denies: wheezing Gastrointestinal Reports: constipation; Denies: abdominal pain, nausea, vomiting or diarrhea Genitourinary Denies: dysuria, urinary frequency or urinary urgency Musculoskeletal Reports: back pain and neck (more content not included)... Normal [facility] Basic Metabolic Profile (BMP )on 04-21-2025 BUN/CRE 18.3 RATIO Normal 10-20 [facility] Comment on above: Performed By: #### L 500.2500, L100.0500 #### [facility] [address] [place], [address] Calcium [Mass/Vol] 8.8 mg/dL Normal 7.6-11.0 [facility] Comment on above: Performed By: #### L 500.2500, L100.0500 #### [facility] [address] [place], [address] Chloride [Moles/Vol] 101 mmol/L Normal 98-108 [facility] Comment on above: Performed By: #### L 500.2500, L100.0500 #### [facility] [address] [place], [address] CO2 [Moles/Vol] 23.4 mmol/L Normal 21.0-32.0 [facility] Comment on above: Performed By: #### L 500.2500, L100.0500 #### [facility] [address] [place], [address] Creatinine [Mass/Vol] 1.05 mg/dL Normal 0.70-1.20 [facility] Comment on above: Performed By: #### L 500.2500, L100.0500 #### [facility] [address] [place], [address] ECRCL 73.10 ml/min Normal 50-250 [facility] Comment on above: Performed By: #### L 500.2500, L100.0500 #### [facility] [address] [place], [address] GAP 11 Normal 5-15 [facility] Comment on above: Performed By: #### L 500.2500, L100.0500 #### [facility] [address] [place], [address] GFR/1.73 sq M.predicted among non-blacks MDRD (S/P/Bld) [Vol rate/Area] 77 mL/min/{1.73_m2} Normal >60 [facility] Comment on above: Result Comment: mL/m in/1.73m2 CKD-EPI Creatinine Equation (2020) Performed By: #### L 500.2500, L100.0500 #### [facility] [address] [place], [address] Glucose [Mass/Vol] 128 mg/dL High 70-99 [facility] Comment on above: Performed By: #### L 500.2500, L100.0500 #### [facility] [address] [place], [address] Potassium [Moles/Vol] 4.4 mmol/L Normal 3.3-5.1 [facility] Comment on above: Performed By: #### L 500.2500, L100.0500 #### [facility] [address] [place], [address] Sodium [Moles/Vol] 136 mmol/L Normal 133-145 [facility] Comment on above: Performed By: #### L 500.2500, L100.0500 #### [facility] [address] [place], [address] Urea nitrogen [Mass/Vol] 19 mg/dL Normal 4-19 [facility] Comment on above: Performed By: #### L 500.2500, L100.0500 #### [facility] [address] [place], [address] CBC-Complete Blood Cnt No Di ffon 04-21-2025 Erythrocyte distribution width (RBC) [Ratio] 13.2 % Normal 11.6-14.6 [facility] Comment on above: Performed By: #### L 500.2500, L100.0500 #### [facility] [address] [place], [address] Hematocrit (Bld) [Volume fraction] 38.2 % Low 40-54 [facility] Comment on above: Performed By: #### L 500.2500, L100.0500 #### [facility] [address] [place], [address] Hemoglobin (Bld) [Mass/Vol] 13.3 g/dL Normal 13.0-16.5 [facility] Comment on above: Performed By: #### L 500.2500, L100.0500 #### [facility] [address] [place], [address] MCH (RBC) [Entitic mass] 31.4 pg Normal 27.0-32.0 [facility] Comment on above: Performed By: #### L 500.2500, L100.0500 #### [facility] [address] [place], [address] MCHC (RBC) [Mass/Vol] 34.8 g/dL Normal 32-36 [facility] Comment on above: Performed By: #### L 500.2500, L100.0500 #### [facility] [address] [place], [address] MCV (RBC) [Entitic vol] 90.1 fL Normal 80-94 [facility] Comment on above: Performed By: #### L 500.2500, L100.0500 #### [facility] [address] [place], [address] Platelet mean volume (Bld) [Entitic vol] 9.5 fL Normal 6.2-12.0 [facility] Comment on above: Performed By: #### L 500.2500, L100.0500 #### [facility] [address] [place], [address] Platelets (Bld) [#/Vol] 164 10*3/uL Normal 150-450 [facility] Comment on above: Performed By: #### L 500.2500, L100.0500 #### [facility] [address] [place], [address] RBC (Bld) [#/Vol] 4.24 10*6/uL Low 4.6-6.2 [facility] Comment on above: Performed By: #### L 500.2500, L100.0500 #### [facility] [address] [place], [address] RDW SD 42.8 fl Normal 35.1-43.9 [facility] Comment on above: Performed By: #### L 500.2500, L100.0500 #### [facility] [address] [place], [address] WBC (Bld) [#/Vol] 7.0 10*3/uL Normal 4.4-11.0 [facility] Comment on above: Performed By: #### L 500.2500, L100.0500 #### [facility] [address] [place], [address] Alcohol, Blood (Medical)-Ser umon 04-20-2025 SERUM ETOH < 10.1 Normal <=10.0 [facility] Comment on above: Result Comment: This test is for medical purposes only. The legal definition of intoxication varies according to local law. Performed By: #### L 100.0100, L505.5000, L501.9100, L500.4050 ####[facility] [address] [place], [address] CBC W/Diff, Automatedon Absolute Lymph 2.62 X10 3/uL Normal 0.83-4.51 [facility] Comment on above: Performed By: #### L 100.0100, L505.5000, L501.9100, L500.4050 ####[facility] [address] [place], [address] Absolute Neut 4.6 X10 3/uL Normal 2.0-7.7 [facility] Comment on above: Performed By: #### L 100.0100, L505.5000, L501.9100, L500.4050 ####[facility] [address] [place], [address] Basophils/100 WBC (Bld) 0.5 % Normal 0-1 [facility] Comment on above: Performed By: #### L 100.0100, L505.5000, L501.9100, L500.4050 ####[facility] [address] [place], [address] Eosinophils/100 WBC (Bld) 1.3 % Normal 0-5 [facility] Comment on above: Performed By: #### L 100.0100, L505.5000, L501.9100, L500.4050 ####[facility] [address] [place], [address] Erythrocyte distribution width (RBC) [Ratio] 13.3 % Normal 11.6-14.6 [facility] Comment on above: Performed By: #### L 100.0100, L505.5000, L501.9100, L500.4050 ####[facility] [address] [place], [address] Hematocrit (Bld) [Volume fraction] 41.2 % Normal 40-54 [facility] Comment on above: Performed By: #### L 100.0100, L505.5000, L501.9100, L500.4050 ####[facility] [address] [place], [address] Hemoglobin (Bld) [Mass/Vol] 14.4 g/dL Normal 13.0-16.5 [facility] Comment on above: Performed By: #### L 100.0100, L505.5000, L501.9100, L500.4050 ####[facility] [address] [place], [address] IG% 0.100 Normal 0.0-0.9 [facility] Comment on above: Result Comment: IG% - Immature Granulocytes (promyelocytes, myelocytes and metamyelocytes) > 1% indicates that a LEFT SHIFT is Present. Performed By: #### L 100.0100, L505.5000, L501.9100, L500.4050 ####[facility] [address] [place], [address] Lymphocytes/100 WBC (Bld) 33.2 % Normal 19-41 [facility] Comment on above: Performed By: #### L 100.0100, L505.5000, L501.9100, L500.4050 ####[facility] [address] [place], [address] MCH (RBC) [Entitic mass] 31.4 pg Normal 27.0-32.0 [facility] Comment on above: Performed By: #### L 100.0100, L505.5000, L501.9100, L500.4050 ####[facility] [address] [place], [address] MCHC (RBC) [Mass/Vol] 35.0 g/dL Normal 32-36 [facility] Comment on above: Performed By: #### L 100.0100, L505.5000, L501.9100, L500.4050 ####[facility] [address] [place], [address] MCV (RBC) [Entitic vol] 89.8 fL Normal 80-94 [facility] Comment on above: Performed By: #### L 100.0100, L505.5000, L501.9100, L500.4050 ####[facility] [address] [place], [address] Monocytes/100 WBC (Bld) 7.1 % Normal 0-10 [facility] Comment on above: Performed By: #### L 100.0100, L505.5000, L501.9100, L500.4050 ####[facility] [address] [place], [address] Neutrophils/100 WBC (Bld) 57.8 % Normal 47-70 [facility] Comment on above: Performed By: #### L 100.0100, L505.5000, L501.9100, L500.4050 ####[facility] [address] [place], [address] Nucleated RBC (Bld) [#/Vol] 0 10*3/uL Normal 0-5 [facility] Comment on above: Performed By: #### L 100.0100, L505.5000, L501.9100, L500.4050 ####[facility] [address] [place], [address] Platelet mean volume (Bld) [Entitic vol] 9.3 fL Normal 6.2-12.0 [facility] Comment on above: Performed By: #### L 100.0100, L505.5000, L501.9100, L500.4050 ####[facility] [address] [place], [address] Platelets (Bld) [#/Vol] 176 10*3/uL Normal 150-450 [facility] Comment on above: Performed By: #### L 100.0100, L505.5000, L501.9100, L500.4050 ####[facility] [address] [place], [address] RBC (Bld) [#/Vol] 4.59 10*6/uL Low 4.6-6.2 [facility] Comment on above: Performed By: #### L 100.0100, L505.5000, L501.9100, L500.4050 ####[facility] [address] [place], [address] RDW SD 43.5 fl Normal 35.1-43.9 [facility] Comment on above: Performed By: #### L 100.0100, L505.5000, L501.9100, L500.4050 ####[facility] [address] [place], [address] WBC (Bld) [#/Vol] 7.9 10*3/uL Normal 4.4-11.0 [facility] Comment on above: Performed By: #### L 100.0100, L505.5000, L501.9100, L500.4050 ####[facility] [address] [place], [address] Comprehensive Metabolic Prof ilon 04-20-2025 Albumin [Mass/Vol] 4.1 g/dL Normal 3.4-4.8 [facility] Comment on above: Performed By: #### L 100.0100, L505.5000, L501.9100, L500.4050 ####[facility] [address] [place], [address] Albumin/Globulin [Mass ratio] 1.2 {ratio} Normal 0.9-2.4 [facility] Comment on above: Performed By: #### L 100.0100, L505.5000, L501.9100, L500.4050 ####[facility] [address] [place], [address] ALK PHOS 68 U/L Normal 40-129 [facility] Comment on above: Performed By: #### L 100.0100, L505.5000, L501.9100, L500.4050 ####[facility] [address] [place], [address] ALT [Catalytic activity/Vol] 17 U/L Normal <=46 [facility] Comment on above: Performed By: #### L 100.0100, L505.5000, L501.9100, L500.4050 ####[facility] [address] [place], [address] AST [Catalytic activity/Vol] 16 U/L Normal <=37 [facility] Comment on above: Performed By: #### L 100.0100, L505.5000, L501.9100, L500.4050 ####[facility] [address] [place], [address] Bilirubin [Mass/Vol] 0.44 mg/dL Normal 0.00-1.30 [facility] Comment on above: Performed By: #### L 100.0100, L505.5000, L501.9100, L500.4050 ####[facility] [address] [place], [address] BUN/CRE 15.0 RATIO Normal 10-20 [facility] Comment on above: Performed By: #### L 100.0100, L505.5000, L501.9100, L500.4050 ####[facility] [address] [place], [address] Calcium [Mass/Vol] 9.2 mg/dL Normal 7.6-11.0 [facility] Comment on above: Performed By: #### L 100.0100, L505.5000, L501.9100, L500.4050 ####[facility] [address] [place], [address] Chloride [Moles/Vol] 101 mmol/L Normal 98-108 [facility] Comment on above: Performed By: #### L 100.0100, L505.5000, L501.9100, L500.4050 ####[facility] [address] [place], [address] CO2 [Moles/Vol] 24.6 mmol/L Normal 21.0-32.0 [facility] Comment on above: Performed By: #### L 100.0100, L505.5000, L501.9100, L500.4050 ####[facility] [address] [place], [address] Creatinine [Mass/Vol] 1.12 mg/dL Normal 0.70-1.20 [facility] Comment on above: Performed By: #### L 100.0100, L505.5000, L501.9100, L500.4050 ####[facility] [address] [place], [address] ECRCL 69.01 ml/min Normal 50-250 [facility] Comment on above: Performed By: #### L 100.0100, L505.5000, L501.9100, L500.4050 ####[facility] [address] [place], [address] GAP 10 Normal 5-15 [facility] Comment on above: Performed By: #### L 100.0100, L505.5000, L501.9100, L500.4050 ####[facility] [address] [place], [address] GFR/1.73 sq M.predicted among non-blacks MDRD (S/P/Bld) [Vol rate/Area] 71 mL/min/{1.73_m2} Normal >60 [facility] Comment on above: Result Comment: mL/m in/1.73m2 CKD-EPI Creatinine Equation (2020) Performed By: #### L 100.0100, L505.5000, L501.9100, L500.4050 ####[facility] [address] [place], [address] Globulin (S) [Mass/Vol] 3.4 g/dL Normal 2.2-4.2 [facility] Comment on above: Performed By: #### L 100.0100, L505.5000, L501.9100, L500.4050 ####[facility] [address] [place], [address] Glucose [Mass/Vol] 116 mg/dL High 70-99 [facility] Comment on above: Performed By: #### L 100.0100, L505.5000, L501.9100, L500.4050 ####[facility] [address] [place], [address] Potassium [Moles/Vol] 4.8 mmol/L Normal 3.3-5.1 [facility] Comment on above: Performed By: #### L 100.0100, L505.5000, L501.9100, L500.4050 ####[facility] [address] [place], [address] Sodium [Moles/Vol] 136 mmol/L Normal 133-145 [facility] Comment on above: Performed By: #### L 100.0100, L505.5000, L501.9100, L500.4050 ####[facility] [address] [place], [address] T PROT 7.5 g/dL Normal 5.9-8.4 [facility] Comment on above: Performed By: #### L 100.0100, L505.5000, L501.9100, L500.4050 ####[facility] [address] [place], [address] Urea nitrogen [Mass/Vol] 17 mg/dL Normal 4-19 [facility] Comment on above: Performed By: #### L 100.0100, L505.5000, L501.9100, L500.4050 ####[facility] [address] [place], [address] Emergency Department Summary on 04-20-2025 Emergency Department Summary [facility] Medical Records Department [address] [place] [address] Emergency Department Summary 04/20/25 MR#: [id number] Acct: [id number] Name: LOREE FRANCIS Rep #: [id number] : 1955 69 From: Marlon Pulliam DO PCP: Dr. Rakel Licea MD Status:ADM IN Location: [place] [address] HPI History of Present Illness Chief Complaint: ETOH Intox Informant: patient Onset/Context/Timing Onset: Days Context: Gradual Onset Timing: Continuous Worsened by: Nothing Relieved by: Nothing Associated Symptoms Associated Symptoms: Negative for vomiting*, diarrhea*, fever*, rash*, seizure, tremor, palpatations, suicidal ideation or homicidal ideation Narrative Narrative: Patient presents requesting alcohol detox. Patient states he has about 4-5 drinks of bourbon per day. Patient states his last drink was 2 days ago. Patient denies any nausea or vomiting. Patient denies any seizures or tremors. Patient denies any suicidal or homicidal ideations. Patient states he has never been to detox before. Patient admits to a history of undiagnosed depression. Patient states this is what started his drinking. [facility] Medical History Wears hearing aid Wears glasses Depression Alcohol use Restless legs Migraine headache Injury of head and neck History of IBS Smokeless tobacco use Marijuana use History of echocardiogram History of stress test GERD (gastroesophageal reflux disease) CPAP (continuous positive airway pressure) dependence Anxiety Tremor Hypertension Home Medications ???Medication ???Instructions ???Recorded ???Last Taken ???Type multivitamin (Multiple Vitamins 1 ea PO DAILY vitamin 11/11/16 History tablet) finasteride 5 mg tablet 5 mg PO DAILY 05/02/24 Unknown His tory lovastatin 40 mg tablet 40 mg PO QHS 05/02/24 Unknown Hist ory omeprazole 20 mg capsule,delayed 20 mg PO DAILY 05/02/24 Unknown Hi story release tamsulosin 0.4 mg capsule 0.4 mg PO DAILY 05/02/24 Unknown H istory lisinopril 40 mg tablet 40 mg PO DAILY 05/10/24 Unknown Hi story trazodone 50 mg tablet See Rx Instructions PO QHS #180 Unknown Rx tabs clonazepam 1 mg tablet 1 mg PO BID 04/06/25 Unknown Histo ry hydroxyzine HCl 10 mg tablet 10 mg PO TID PRN itching #90 tabs 04/06/25 Unknown Rx atenolol 100 mg tablet 100 mg PO DAILY 04/20/25 Unknown H istory citalopram 40 mg tablet 40 mg PO DAILY 04/20/25 Unknown Hi story ropinirole 1 mg tablet 1 mg PO DAILY 04/20/25 Unknown His tory spironolactone 50 mg tablet 50 mg PO DAILY 04/20/25 Unknown Hi story Allergy/AdvReac Type Severity Reaction Status Date / Time Sulfa (Sulfonamide AdvReac Nausea Verified 04/20/25 12:27 Antibiotics) Family History Mother , 88 Heart disease Dementia Father , 77 CVA (cerebral vascular accident) Other Diabetes Surgical History History of esophagogastroduodenoscopy (EGD) Hx of excision of mass H/O transurethral resection of prostate Social History household members: spouse current occupational status: employed current occupation: apartment maintenance manager - delivers paint for [employer] Smoking Status: Current every day smoker tobacco type: pipe Electronic Cigarette Use: with nicotine alcohol intake: current alcohol intake frequency: holidays/special occasions only details: On avg 2 shots of bourban once - twice a wk substance use type: marijuana caffeine: Yes Type: coffee do you feel safe at home: Yes ROS ROS ED Constitutional Constitutional ED: Denies chills or fever(s) Eyes Eyes: Denies blurry vision or change in vision ENT ENT ED: Denies rhinorrhea or sore throat Cardiovascular Cardiovascular: Denies chest pain or palpitations Respiratory/Chest Respiratory/Chest: Denies cough or dyspnea Gastrointestinal Gastrointestinal: Denies nausea or vomiting Genitourinary Genitourinary ED: Denies dysuria or hematuria Musculoskeletal Musculoskeletal: Reports neck pain; Denies back pain Integumentary Denies abscess or rash Neurologic Neurologic: Denies headache(s) or weakness Allergic/Immunologic Allergic/Immunologic ED: Denies mouth swelling or urticaria EXAM Physical Exam Const Vital Signs: 04/20/25 12:26 Temperature 97.2 F L Temperature Source Temporal Pulse Rate 51 L Respiratory Rate 14 Blood Pressure 136/80 H Blood Pressure Mean 98 Pulse Ox 98 Oxygen Delivery Method Room Air Positive well nourished and well developed General Appearance ED: well developed and NAD HEENT Reports moist mucous membranes Neck suppl (more content not included)... Normal [facility] H AND P Exam - [facility] 04-20-2025 H&P Exam - Hospitalist [facility] Medical Records Department [address] [place] [address] H P Exam - Hospitalist 04/20/25 1439 MR#: [id number] Acct: [id number] Name: LOREE FRANCIS Rep #: [id number] : 1955 69 From: Zeb Jha DO PCP: Dr. Rakel Licea MD Status:ADM IN Location: [facility] [place] [facility] HPI - General General Date of Admission: 04/20/25 Date of Service: 04/20/25 Chief Complaint: Alcohol abuse and desire for detox HPI Narrative LOREE FRANCIS, is a 69 M who presented to [facility] ED on 04/20/2025 with alcohol abuse and desire for detox. Patient follows with both psychiatry and neurology and has seen both recently in the office. He saw psychiatry on 04/06, is seeing them for major depressive disorder and for alcohol abuse. Patient retired about 3 years ago and has had worsening alcohol abuse with depression since then. No history of suicidal or homicidal ideation. No history of psychiatric hospitalizations. He has home citalopram, clonazepam twice daily and trazodone were continued and he was initiated on hydroxyzine 3 times daily as needed. Was noted that he was going to an AA program through [facility] for alcohol abuse. He saw neurology on 04/09. He initially established with neurology in November for concern for memory change. 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 Patient presented today with his for alcohol detox. He reports drinking about 4 shots daily, but notes separately that he is drinking more than this. He denies any history of alcohol withdrawal. He notably is on clonazepam 1 mg twice daily and has been on this for some time. Given desire for alcohol detox from patient and , hospitalist was contacted for admission. I saw the patient at bedside in the ED. Patient was sitting back comfortably in bed and in no acute distress. He denied any alcohol withdrawal symptoms currently. He was willing to go through alcohol detox here but stated that after completing the 3 days of treatment, he needed to go home because he has work related things to do. He denies any other concerns currently. separately noted to me that she is very concerned about him and would prefer for inpatient alcohol rehab after discharge. Will be admitted for further management. [facility] Medical History Wears hearing aid Wears glasses Depression Alcohol use Restless legs Migraine headache Injury of head and neck History of IBS Smokeless tobacco use Marijuana use History of echocardiogram History of stress test GERD (gastroesophageal reflux disease) CPAP (continuous positive airway pressure) dependence Anxiety Tremor Hypertension Home Medications ???Medication ???Instructions ???Recorded ???Last Taken ???Type multivitamin (Multiple Vitamins 1 ea PO DAILY vitamin 11/11/16 History tablet) finasteride 5 mg tablet 5 mg PO DAILY 05/02/24 Unknown His tory lovastatin 40 mg tablet 40 mg PO QHS 05/02/24 Unknown Hist ory omeprazole 20 mg capsule,delayed 20 mg PO DAILY 05/02/24 Unknown Hi story release tamsulosin 0.4 mg capsule 0.4 mg PO DAILY 05/02/24 Unknown H istory lisinopril 40 mg tablet 40 mg PO DAILY 05/10/24 Unknown Hi story trazodone 50 mg tablet See Rx Instructions PO QHS #180 Unknown Rx tabs clonazepam 1 mg tablet 1 mg PO BID 04/06/25 Unknown Histo ry hydroxyzine HCl 10 mg tablet 10 mg PO TID PRN itching #90 tabs 04/06/25 Unknown Rx atenolol 100 mg tablet 100 mg PO DAILY 04/20/25 Unknown H istory citalopram 40 mg tablet 40 mg PO DAILY 04/20/25 Unknown Hi story ropinirole 1 mg tablet 1 mg PO DAILY 04/20/25 Unknown His tory spironolactone 50 mg tablet 50 mg PO DAILY 04/20/25 Unknown Hi story Allergy/AdvReac Type Severity Reaction Status Date / Time Sulfa (Sulfonamide AdvReac Nausea Verified 04/20/25 12:27 Antibiotics) Family History Mother , 88 Heart disease Dementia Father , 77 CVA (cerebral vascular accident) Other Diabetes Surgical History History of esophagogastroduodenoscopy (EGD) Hx of excision of mass H/O transurethral resection of prostate Social History household members: spouse current occupational status: employed current occupation: apartment maintenance manager - delivers paint for [employer] Smoking Status: Current every day smoker tobacco type: pipe Electronic Cigarette Use: with nicotine alcohol intake (more content not included)... Normal [facility] Lipaseon 04-20-2025 Lipase [Catalytic activity/Vol] 55 U/L Normal 13-75 [facility] Comment on above: Result Comment: Gregg estevez note: LIPASE revised reference range effective 23. New Lipase methodology. Expected to produce lower values than the previous assay method. NEW Reference Range: 13 - 75 U/L Performed By: #### L 501.2450 ####[facility] [address] [place], [address] Magnesiumon 04-20-2025 Magnesium [Mass/Vol] 2.1 mg/dL Normal 1.5-2.2 [facility] Comment on above: Performed By: #### L 501.2300, L501.5200 #### [facility] [address] [place], [address] Phosphoruson 04-20-2025 Phosphate [Mass/Vol] 3.5 mg/dL Normal 2.7-4.5 [facility] Comment on above: Performed By: #### L 501.2300, L501.5200 #### [facility] [address] [place], [address] Urine Drug Screen (VISTA)on 04-20-2025 AMPHETAMINES Negative Normal <1000 ng/mL [facility] Comment on above: Performed By: #### L 100.0100, L505.5000, L501.9100, L500.4050 ####[facility] [address] [place], [address] BARBITIURATES Negative Normal < 200 ng/mL [facility] Comment on above: Performed By: #### L 100.0100, L505.5000, L501.9100, L500.4050 ####[facility] [address] [place], [address] BENZODIAZIPINE Positive Normal < 200 ng/mL [facility] Comment on above: Result Comment: If c onfirmation testing is needed, a separate order will be required to send out testing to the reference laboratory. Performed By: #### L 100.0100, L505.5000, L501.9100, L500.4050 ####[facility] [address] [place], [address] BUP Ur Drug Scr Negative Normal < 200 ng/mL [facility] Comment on above: Performed By: #### L 100.0100, L505.5000, L501.9100, L500.4050 ####[facility] [address] [place], [address] COCAINE Negative Normal < 300 ng/mL [facility] Comment on above: Performed By: #### L 100.0100, L505.5000, L501.9100, L500.4050 ####[facility] [address] [place], [address] Fentanyl Negative Normal [facility] Comment on above: Performed By: #### L 100.0100, L505.5000, L501.9100, L500.4050 ####[facility] [address] [place], [address] METHADONE Negative Normal < 300 ng/mL [facility] Comment on above: Performed By: #### L 100.0100, L505.5000, L501.9100, L500.4050 ####[facility] [address] [place], [address] OPIATES Negative Normal < 300 ng/mL [facility] Comment on above: Performed By: #### L 100.0100, L505.5000, L501.9100, L500.4050 ####[facility] [address] [place], [address] OXYCODONE Negative Normal < 100 ng/mL [facility] Comment on above: Performed By: #### L 100.0100, L505.5000, L501.9100, L500.4050 ####[facility] [address] [place], [address] PCP Negative Normal < 25 ng/mL [facility] Comment on above: Performed By: #### L 100.0100, L505.5000, L501.9100, L500.4050 ####[facility] [address] [place], [address] THC Positive Normal < 50 ng/mL [facility] Comment on above: Result Comment: If c onfirmation testing is needed, a separate order will be required to send out testing to the reference laboratory. Performed By: #### L 100.0100, L505.5000, L501.9100, L500.4050 ####[facility] [address] [place], [address] Vitamin B1, Thiamineon 04-14 VIT B1 THIAMINE 147.0 nmol/L Normal 66.5-200.0 [facility] Comment on above: Order Comment: Test( s) 819381-Hgm. B1, Whole Bloodwas developed and its performance characteristicsdetermined by [facility]. It has not been cleared or approvedby the Food and Drug Administration. Result Comment: Perf ormed at: - [facility] [id number] Information Systems Supervisor: Tushar Hu MD, Phone: [phone] Performed By: #### L 506.1001, L3300.8000, L503.0106 ####[facility] [address] [place], [address] Neurology Visit Reporton Neurology Visit Report [facility] [address], [address] [place], [place] [address] OFFICE VISIT Date of Service: 04/09/25 MR#: [id number] Acct: [id number] Name: LOREE FRANCIS Rep #: [id number] : 1955 Provider: KELECHI garcia Age/Sex: 69/M Location: [facility].BN Status: Signed HPI HPI Chief Complaint: Follow up Details: History of Present Illness: Mr. Francis is a 69-year-old right handed male who originally established care with neurologist Dr. Martínez on 12/08/24. He was referred 10/26/[address] Rakel Licea with [facility] for memory change. Patient noted recent episodes of apparent memory lapse. He states that these episodes may occur 3 or 4 times a day when they do occur. There may be 8 days/month when these episodes occur. Date of onset is not clear. It has been over the past few months. He notes that these are very momentary perhaps 10 seconds in duration. His indicates that she has seen these episodes and he appears to be absent and just staring. Patient does not appear to be deep in thought when these episodes occur. He has no prior history of TIAs, seizures, or strokes. He does have a prior history of having angiographically demonstrated intracranial aneurysms x 2. No recent recheck on that has been performed angiographically. He has had a recent CT of the head which demonstrated some mild atrophy. Some white matter disease may also be present. There is a familial history of tremor. His sister has tremor in his son has tremor. 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 Patient does have a psych history and follows with psychiatry. He is on multiple antidepressant medications. He has also been on clonazepam for years (1mg PO daily). Additionally, he has a history of alcohol use and marijuana use. Interim History: Mr. Francis presents to neurology today 04/09/25 for a 2-month follow-up visit. His previous visit was 12/08/[address] Martínez. He is accompanied by his today. At his previous visit, an MRI brain without contrast, CTA head/neck with contrast, and EEG were ordered. These were reviewed with Dr. Martínez. Results are as follows: 1- CTA head/neck (01/04/2025) was unremarkable, there was no evidence of stenosis or presence of aneurysms per radiologist interpretation. 2- MRI brain (02/17/2025) consistent with generalized age-related atrophy with chronic small vessel ischemic disease. Otherwise, imaging was unremarkable. 3- Routine EEG (03/19/2025) was interpreted as normal. There were no asymmetries or focal abnormalities. These results were discussed today with the patient and previously over the phone with his on 03/26/25. His expressed concerns for his ongoing alcohol abuse and marijuana use. He smokes marijuana daily and consumes approximately 1 pint of alcohol daily. This is likely the primary etiology for his memory changes given his grossly normal neuroimaging. I believe absence seizure's can be ruled out at this time. He has an extensive psychiatric history requiring at least 2 hospitalizations per 's report. Patient reported being awake for days at a time. Per the , the question of bipolar with manic episodes was raised while he was hospitalized. He follows with psychiatry. The patient's psychologist personnel was contacted regarding the 's concern with substance abuse. He was last seen by her in the office on 04/06/25. At this point, patient had not consumed alcohol in approximately 4 days and started an AA based program once weekly at [facility]. He has plans to see a counselor. Unfortunately on today's visit, the patient reports a relapse of alcohol after being sober for 5 days. He did not report any withdrawal symptoms such as hallucinations, agitation, panic episodes, or excessive perspiration. He has a baseline tremor. On exam today, it is clear that he has a thought disorder. His speech is very disorganized as he often loses his train of thought during conversation. He has fluctuating emotions during his exam with episodes of crying. His reports apathy and lack of motivation. There are no reported hallucinations. Sleep was reported to be okay. Patient states that he smokes marijuana prior to bed to calm him down. Aside from the risk factors associated with smoking, the patient was educated on the negative impact of cannabis on cognitive function, particularly when used in combination with alcohol, benzodiazepines, and other psychiatric drugs. There are no further reported episodes of memory lapse as initially described; however, his states that his memory has been progressively worse. He often forgets about appointments or what medications he should take. Patient was alert and oriented but his delayed recall was 1/3 words. His raised the concern of dementia. Given his history of alcohol (more content not included)... Normal [facility] Vitamin B12on 04-09-2025 Cobalamin (Vitamin B12) [Mass/Vol] 581 pg/mL Normal 180-914 [facility] Comment on above: Performed By: #### L 506.1001, L3300.8000, L503.0106 ####[facility] [address] [place], [address] Vitamin D,25 Hydroxyon 04-09 Vitamin D 25-OH 37.0 ng/mL Normal 30-100 [facility] Comment on above: Result Comment: Shante min D Status Deficiency: <20 ng/mL (50nmol/L) Insufficiency: 20-30 ng/mL (50-75 nmol/L) Sufficiency: 30-100 ng/mL (75-250 nmol/L) Toxicity: >100 ng/mL (>250 nmol/L) Performed By: #### L 506.1001, [id number], L503.0106 ####[facility] [address] [place], [place], [address] MR/BMS.BPon 04-06-2025 MR/BMS.[address], [address] [place] [address] OFFICE VISIT Date of Service: 04/06/25 MR#: [id number] Acct: [id number] Name: LOREE FRANCIS Rep #: [id number] : 1955 Provider: KELECHI gonzalez Age/Sex: 69/M Location: [facility].BP Status: Signed Intake Vital Signs 01/26/25 11:35 04/06/25 09:27 04/06/25 09:54 Height 5 ft 8 in 5 ft 8 in 5 ft 8 in Weight: 196 lb 2 oz BMI 29.8 BP 129/77 H Blood Pressure Location Lt brachial Position Sitting Respiration 17 Pulse 54 L Pulse Source Monitor BP Intake Visit Reasons: Follow up Allergies Sulfa (Sulfonamide Antibiotics) Adverse Reaction (Verified 04/06/25 09:31) Nausea Medications ???Medication ???Instructions ???Recorded ???Confirmed ???Type multivitamin (Multiple Vitamins 1 ea PO DAILY vitamin 11/11/16 History tablet) atenolol 50 mg tablet 100 mg PO DAILY 05/21/22 04/06/25 History citalopram 20 mg tablet 40 mg PO DAILY 05/21/22 04/06/25 H istory finasteride 5 mg tablet 5 mg PO DAILY 05/02/24 04/06/25 Hi story lovastatin 40 mg tablet 40 mg PO QHS 05/02/24 04/06/25 His tory omeprazole 20 mg capsule,delayed 20 mg PO DAILY 05/02/24 04/06/25 H istory release tamsulosin 0.4 mg capsule 0.4 mg PO DAILY 05/02/24 04/06/25 History lisinopril 40 mg tablet 40 mg PO DAILY 05/10/24 04/06/25 H istory trazodone 50 mg tablet See Rx Instructions PO QHS #180 04/06/25 Rx tabs lorazepam 0.5 mg tablet 0.5 mg PO ONCE #1 TAB 01/04/25 Rx clonazepam 1 mg tablet 1 mg PO BID 04/06/25 04/06/25 Hist ory hydroxyzine HCl 10 mg tablet 10 mg PO TID PRN itching #90 tabs 04/06/25 04/06/25 Rx ropinirole 0.5 mg tablet 0.5 mg PO QHS 04/06/25 04/06/25 Hi story Have you fallen in the past year?: No PFSH Medical History Wears hearing aid Wears glasses Depression Alcohol use Restless legs Migraine headache Injury of head and neck History of IBS Smokeless tobacco use Marijuana use History of echocardiogram History of stress test GERD (gastroesophageal reflux disease) CPAP (continuous positive airway pressure) dependence Anxiety Tremor Hypertension Surgical History History of esophagogastroduodenoscopy (EGD) Hx of excision of mass H/O transurethral resection of prostate Family History Mother , 88 Heart disease Dementia Father , 77 CVA (cerebral vascular accident) Other Diabetes Social History household members: spouse current occupational status: employed current occupation: apartment maintenance manager - delivers paint for [employer] Smoking Status: Former smoker Electronic Cigarette Use: with nicotine alcohol intake: current alcohol intake frequency: holidays/special occasions only details: On avg 2 shots of bourban once - twice a wk substance use type: marijuana caffeine: Yes Type: coffee do you feel safe at home: Yes HPI History of Present Illness History provided by: patient HPI: Loree Francis is a 69 year old male patient presenting today for a follow up evaluation. Reports he had been drinking almost daily, multiple drinks daily ( reports it to be 6/7 days per week about 1 pint daily) but has not had alcohol in 4 days. Is going through and AA based program one time per week. Is planning to start seeing someone for therapy. Is feeling depressed daily due to not being able to see his grandchildren. Denies SI/HI. Denies feelings of anxiety. Denies panic attacks. Denies cravings. Reports he has been sleeping more. About 10 hours per night. Appeite has been poor and does not eat often. Previous similar episode: Yes Age of first onset of symptoms: 61-70 years Review of Systems Constitutional Denies: fever(s), chills, change in weight or fatigue Eyes Denies: change in vision or blurry vision Ears, Nose, Mouth, Throat Reports: neck pain Cardiovascular Reports: chest pain, palpitations and dyspnea Respiratory Reports: dyspnea; Denies: wheezing Gastrointestinal Reports: constipation; Denies: abdominal pain, nausea, vomiting or diarrhea Genitourinary Denies: dysuria, urinary frequency or urinary urgency Musculoskeletal Reports: back pain and neck pain Integumentary/Breast Denies: rash, pruritus or erythema Neurological Denies: headache(s) Psychiatric Reports: hopelessness, loss of interest, memory loss and difficulty concentrating; Denies: anxiety, mood swings, panic attacks, change in sleep pattern, irritability, paranoia, visual hallucinations, auditory hallucinations, suicidal ideation or homicidal ideation Endocrine Denies: fatigue He (more content not included)... Normal [facility] Brain without Contraston Brain without Contrast [facility] [address] [place] [address] Brain without Contrast MR#: [id number] Acct: [id number] Name: LOREE FRANCIS Rep #: [id number] : 1955 M 69 From: Barrington morgan MD PCP: Dr. Rakel Licea MD Status: REG CLI Study: Brain without Contrast Date of Exam: 02/17/25 Exam# [id number] Ordering Dr: Wilfredo Martínez MD PROCEDURE: BRAIN WITHOUT CONTRAST 02/17/2025 REASON FOR EXAM: MEMORY CHANGE TECHNIQUE: Noncontrast brain MRI. Multiplanar and multisequence images were obtained. COMPARISON: CT brain 11/24/2024 and CTA head and neck 01/04/2025 FINDINGS: TECHNIQUE: Multiplanar, multi-sequence MRI of brain was performed without and with IV contrast. FINDINGS: BRAIN/PARENCHYMA: No evidence of acute infarction or acute intracranial hemorrhage. There are subcortical and periventricular white matter FLAIR hyperintensities, likely related to chronic microvascular ischemic disease. EXTRA-AXIAL SPACES: No abnormal extra-axial fluid collections. Patent basal cisterns and foramen magnum. MIDLINE SHIFT: None. VENTRICLES: No hydrocephalus. SCALP SOFT TISSUES CALVARIUM: No significant abnormality. VISUALIZED SINUSES MASTOIDS: No air-fluid levels in the paranasal sinuses. The mastoid air cells are clear. ARTERIAL FLOW VOIDS: Preserved major arterial flow voids indicating gross patency. . MRI/Brain without Contrast IMPRESSION: CEREBRAL ATROPHY WITH CHRONIC SMALL VESSEL ISCHEMIC DISEASE. OTHERWISE UNREMARKABLE BRAIN MRI WITHOUT CONTRAST. [facility] CC: Dr. Rakel Licea MD; Dr. Wilfredo Martínez MD Pre Owned Sales Manager: Signed Normal [facility] MR/BMS.BPon 01-26-2025 MR/BMS.BP [address], [address] [place] [address] OFFICE VISIT Date of Service: 01/26/25 MR#: [id number] Acct: [id number] Name: LOREE FRANCIS Rep #: [id number] : 1955 Provider: KELECHI gonzalez Age/Sex: 69/M Location: [facility].BP Status: Signed Intake Vital Signs 12/15/24 08:35 01/26/25 11:35 Height 5 ft 8 in 5 ft 8 in Weight: 190 lb BMI 28.8 BP 142/80 H 164/88 H Blood Pressure Location Lt brachial Lt brachial Position Sitting Sitting Respiration 16 Pulse 61 57 L Pulse Source Monitor Monitor Pulse Oximetry (%) 96 Oxygen Delivery Method room air BP Intake Visit Reasons: 6 wk FU Is patient in pain?: No Allergies Sulfa (Sulfonamide Antibiotics) Adverse Reaction (Verified 01/26/25 11:34) Nausea Medications ???Medication ???Instructions ???Recorded ???Confirmed ???Type multivitamin (Multiple Vitamins 1 ea PO DAILY vitamin 11/11/1609/11 History tablet) atenolol 50 mg tablet 100 mg PO DAILY 05/21/22 01/26/25 History citalopram 20 mg tablet 40 mg PO DAILY 05/21/22 01/26/25 H istory finasteride 5 mg tablet 5 mg PO DAILY 05/02/24 01/26/25 Hi story lovastatin 40 mg tablet 40 mg PO QHS 05/02/24 01/26/25 His tory omeprazole 20 mg capsule,delayed 20 mg PO DAILY 05/02/24 01/26/25 H istory release tamsulosin 0.4 mg capsule 0.4 mg PO DAILY 05/02/24 01/26/25 History lisinopril 40 mg tablet 40 mg PO DAILY 05/10/24 01/26/25 H istory clonazepam 1 mg tablet 1 mg PO QHS 07/07/24 01/26/25 Hist ory trazodone 50 mg tablet See Rx Instructions PO QHS #180 01/26/25 Rx tabs lorazepam 0.5 mg tablet 0.5 mg PO ONCE #1 TAB 01/04/25 Rx Have you fallen in the past year?: No PFSH Medical History Wears hearing aid Wears glasses Depression Alcohol use Restless legs Migraine headache Injury of head and neck History of IBS Smokeless tobacco use Marijuana use History of echocardiogram History of stress test GERD (gastroesophageal reflux disease) CPAP (continuous positive airway pressure) dependence Anxiety Tremor Hypertension Surgical History History of esophagogastroduodenoscopy (EGD) Hx of excision of mass H/O transurethral resection of prostate Family History Mother , 88 Heart disease Dementia Father , 77 CVA (cerebral vascular accident) Other Diabetes Social History household members: spouse current occupational status: employed current occupation: apartment maintenance manager - delivers paint for [employer] Smoking Status: Former smoker Electronic Cigarette Use: with nicotine alcohol intake: current alcohol intake frequency: holidays/special occasions only details: On avg 2 shots of bourban once - twice a wk substance use type: marijuana caffeine: Yes Type: coffee do you feel safe at home: Yes HPI History of Present Illness History provided by: patient HPI: Loree Francis is a 69 year old male patient presenting today for a follow up evaluation. Reports he did not do well on buspirone. Reports he has not been as emotional and has been doing well since discontinuing buspirone. Reports mood to be good. Denies feelings of depression. Denies SI/HI. Sleep has been good. Is getting at least 8 hours per night. Is taking trazodone nightly. Has not been feeling irritable or agitated since discontinuing use of buspirone. Has not been feeling anxious. Appetite has been good. Reports weighting about 198. Previous similar episode: Yes Age of first onset of symptoms: 61-70 years Review of Systems Constitutional Denies: fever(s), chills, change in weight or fatigue Eyes Denies: change in vision or blurry vision Ears, Nose, Mouth, Throat Reports: neck pain Cardiovascular Reports: chest pain, palpitations and dyspnea Respiratory Reports: dyspnea; Denies: wheezing Gastrointestinal Reports: constipation; Denies: abdominal pain, nausea, vomiting or diarrhea Genitourinary Denies: dysuria, urinary frequency or urinary urgency Musculoskeletal Reports: back pain and neck pain Integumentary/Breast Denies: rash, pruritus or erythema Neurological Denies: headache(s) Psychiatric Reports: memory loss and difficulty concentrating; Denies: anxiety, mood swings, panic attacks, change in sleep pattern, hopelessness, loss of interest, irritability, paranoia, visual hallucinations, auditory hallucinations, suicidal ideation or homicidal ideation Endocrine Denies: fatigue Hematologic/Lymphatic Denies: easy bruising Allergic/Immunologic Denies: wheezing Exam Mental Status Exam - Psych Appearance casually dressed (more content not included)... Normal [facility] CTA Head AND Neck W/ Contras ton 01-04-2025 CTA Head AND Neck W/ Contrast [facility] [address] [place] [address] CTA Head AND Neck W/ Contrast MR#: [id number] Acct: [id number] Name: LOREE FRANCIS Rep #: [id number] : 1955 M 69 From: Taj canales MD PCP: Dr. Rakel Licea MD Status: REG CLI Study: CTA Head AND Neck W/ Contrast Date of Exam: Exam# [id number] Ordering Dr: Wilfredo Martínez MD PROCEDURE: CTA HEAD AND NECK W/ CONTRAST 01/04/2025 REASON FOR EXAM: ANEURYSMS X 2 TECHNIQUE: CTA imaging of the head and neck from the aortic arch to the skull vertex with intravenous contrast. 3D reconstructions. Coronal and Sagittal reconstruction series were provided. CONTRAST: Isovue 370 VOLUME: 100mL One or more dose reduction techniques were used (e.g., Automated exposure control, adjustment of the mA and/or kV according to patient size, use of iterative reconstruction technique). RADIATION DOSE SUMMARY: CTDlvol: 29 mGy DLP: 1642.23 mGycm COMPARISON: Comparison is made with prior CT scan of the head dated November 24, 2024. comparison is also made with prior CT of the head and neck dated October 03, 2021. FINDINGS: Aortic Arch: Normal size and branching pattern. No significant atherosclerotic plaque. Brachiocephalic and Subclavians: Unremarkable RIGHT Carotid: Right CCA: Unremarkable. Right ICA: Unremarkable. Right ECA: Unremarkable. LEFT Carotid: Left CCA: Unremarkable. Left ICA: Unremarkable. Left ECA: Unremarkable. Vertebrals: Codominant. Arise from the subclavians. Both vertebrals form the basilar. RIGHT Vertebral: Unremarkable. LEFT Vertebral: Unremarkable. Aneurysm or avm: No intracranial aneurysms or large vascular malformations are identified. Anterior cerebral arteries: Unremarkable: Middle cerebral arteries: Unremarkable. Basilar artery: Unremarkable. Posterior cerebral arteries: Unremarkable. Other major branches of the posterior circulation: Unremarkable. Major venous structures: Unremarkable. CT/CTA Head AND Neck W/ Contrast IMPRESSION: Unremarkable examination. Reading Location: [place] [address] CC: Dr. Rakel Licea MD; Dr. Wilfredo Martínez MD Pre Owned Sales Manager: Signed [facility] MR/BMS.BPon 12-15-2024 MR/BMS.BP [facility] [address], [address] [place] [address] OFFICE VISIT Date of Service: 12/15/24 MR#: [id number] Acct: [id number] Name: LOREE FRANCIS Rep #: [id number] : 1955 Provider: KELECHI gonzalez Age/Sex: 69/M Location: [facility].BP Status: Signed Intake Vital Signs 10/05/24 11:32 12/08/24 11:03 12/15/24 08:35 Height 5 ft 9 in 5 ft 8 in 5 ft 8 in Weight: 191 lb 190 lb BMI 29.0 28.8 BP 134/78 H 142/80 H Blood Pressure Location Lt brachial Lt brachial Position Sitting Sitting Respiration 16 16 Pulse 60 61 Pulse Source Monitor Monitor Temp 98.6 F Pulse Oximetry (%) 97 96 Oxygen Delivery Method room air room air BP Intake Visit Reasons: follow up Allergies Sulfa (Sulfonamide Antibiotics) Adverse Reaction (Verified 12/08/24 11:07) Nausea Have you fallen in the past year?: No PFSH Medical History Wears hearing aid Wears glasses Depression Alcohol use Restless legs Migraine headache Injury of head and neck History of IBS Smokeless tobacco use Marijuana use History of echocardiogram History of stress test GERD (gastroesophageal reflux disease) CPAP (continuous positive airway pressure) dependence Anxiety Tremor Hypertension Surgical History Hx of excision of mass H/O transurethral resection of prostate Family History Mother , 88 Heart disease Dementia Father , 77 CVA (cerebral vascular accident) Other Diabetes Social History household members: spouse current occupational status: employed current occupation: apartment maintenance manager - delivers paint for [employer] Smoking Status: Former smoker Electronic Cigarette Use: with nicotine alcohol intake: current alcohol intake frequency: holidays/special occasions only details: On avg 2 shots of bourban once - twice a wk substance use type: marijuana caffeine: Yes Type: coffee do you feel safe at home: Yes HPI History of Present Illness History provided by: patient Chief complaint: Anxiety/Irritability HPI: Loree Francis is a 69 year old male patient presenting today for a follow up evaluation. Has been working on weight loss and has gone from 243 to 191 in the last 6 months. Does report he has been feeling more nauseous and has been eating smaller more frequent meals. Does feel he has been more irritable lately. reports he is experiencing an agitated mood that occurs at least a couple of times per week. Does report sometimes a struggle with sleep and feeling like he is unable to fall asleep. Does feel he has slept well with the use of trazodone. Is getting about 8-10 hours per night. Denies feelings of depression. Denies SI/HI. Does report some lack of motivation due to feeling overwhelmed. Does have bad days but feels it is much decreased compared to before. Previous similar episode: Yes Age of first onset of symptoms: 61-70 years Review of Systems Constitutional Reports: fatigue; Denies: fever(s), chills or change in weight Eyes Denies: change in vision or blurry vision Ears, Nose, Mouth, Throat Reports: neck pain Cardiovascular Reports: chest pain, palpitations and dyspnea Respiratory Reports: dyspnea; Denies: wheezing Gastrointestinal Reports: constipation; Denies: abdominal pain, nausea, vomiting or diarrhea Genitourinary Denies: dysuria, urinary frequency or urinary urgency Musculoskeletal Reports: back pain and neck pain Integumentary/Breast Denies: rash, pruritus or erythema Neurological Denies: headache(s) Psychiatric Reports: anxiety, irritability, memory loss and difficulty concentrating; Denies: mood swings, panic attacks, change in sleep pattern, hopelessness, loss of interest, paranoia, visual hallucinations, auditory hallucinations, suicidal ideation or homicidal ideation Endocrine Reports: fatigue Hematologic/Lymphatic Denies: easy bruising Allergic/Immunologic Denies: wheezing Exam Mental Status Exam - Psych Appearance casually dressed, adequately groomed and no apparent distress Attitude cooperative and calm Activity/Motor Behavior MSE activity/motor behavior finding no adventitious movements and appropriate eye contact Speech regular rate, regular volume and regular prosody Mood euythmic Affect full range Thought Process linear, logical and coherent Thought Content no delusions and no hallucinations Suicidal Ideation none Homicidal Ideation none Attention impaired (per patient self report) Concentration impaired (per patient self report) Sensorium/Orientation awake, alert and oriented x3 Memory/Cogni (more content not included)... Normal [facility] Neurology Visit Reporton Neurology Visit Report [facility] [address], [address] [place] [address] OFFICE VISIT Date of Service: 12/08/24 MR#: [id number] Acct: [id number] Name: LOREE FRANCIS Rep #: [id number] : 1955 Provider: Dr. Wilfredo allison MD Age/Sex: 69/M Location: [facility].BN Status: Signed with Addenda ADDENDUM by SECOND OPERATOR-C Mulu Francis on 03/27/25 at 1200 Addendum (03/26/2025): Ania had called to inquire about MRI results and EEG results. Patient had missed his appointment on 03/22/2025 and rescheduled for 04/09/2025. She expressed concerns about the patient's excessive alcohol consumption and marijuana use. She requested a referral for addiction services. (03/27/2025): I had spoken with patient's psychologist personnel Deanne who will address these concerns and place the necessary referrals at his upcoming appointment on 03/30/2025. 03/27/25 1200 Date Mulu Francis cc: * Signed HPI HPI Chief Complaint: Establish Care Details: The patient is a 69-year-old right handed male who presents to [facility]. He was referred 10/26/[address] Rakel Licea with [facility] for memory change. Patient presents with his for evaluation of episodes of memory lapse. Patient has noted recent episodes of apparent memory lapse. He states that these episodes may occur 3 or 4 times a day when they do occur. There may be 8 days/month when these episodes occur. Date of onset is not clear. It has been over the past few months. He notes that these are very momentary perhaps 10 seconds in duration. His indicates that she has seen these episodes and he appears to be absent and just staring. Patient does not appear to be deep in thought when these episodes occur. He has no prior history of TIAs seizures or strokes. He does have a prior history of having angiographically demonstrated intracranial aneurysms x 2. No recent recheck on that has been performed angiographically. He has had a recent CT of the head which demonstrated some mild atrophy. Some white matter disease may also be present. I did have an opportunity review the radiology report. Patient did have a heart cath in the past. Apparently does not have a heart issue. He is not diabetic. He has not had blood loss. He is on a statin for lipid management. There is a familial history of tremor. His sister has tremor in his son has tremor. 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 Patient does have a psych history. He is on multiple antidepressant medications. He has also been on clonazepam for years at 1 mg p.o. daily. ROS: General: No recent illnesses. Afebrile. HEENT: No headaches. No visual phenomenon. No loss of hearing. No difficulties with oropharynx. Respiratory: No hemoptysis Cardiac: No chest pain or palpitations. Abdomen: Apparently has some GI distress which is being assessed. He does not vomit blood or cough up blood or passed blood in his stool. No tarry black stools. No hematuria. Extremities: Did have a tip of the finger amputated. Remote past. Skin: No rashes observed. Patient does have a positive JOSE CARLOS and titer for scleroderma noted on chart. This will be deferred to primary care physician. Neurologic: Patient is on ropinirole for periodic limb movement syndrome during REM sleep. Patient has had a sleep evaluation. Patient also has a history of headaches and there is a diagnosis of migraine on chart. Exam Const Other: Blood pressure 134/78 pulse 60 respiration 16 temperature 98.6 O2 sat 97%. BMI is 29.0. General: Well-developed well-nourished male HEENT: Normocephalic. Conjunctiva clear. Respiratory: Clear to auscultation Cardiac: Regular rhythm no murmur Abdomen not distended nontender Extremities: No acute trauma Skin: No obvious rashes on exposed areas. Neurologic examination: Mental status: Awake alert oriented x 3. Memory language functions intact. Insight and judgment appears to be adequate. His speech does seem somewhat pressured and he does appear to be emanated. No obvious hallucinations or delusions noted. No obvious memory defect noted during this evaluation. CN II-XII: Pupils equal round react to light 3 mm. Extraocular muscles intact. No nystagmus. Visual villarreal full. Motor and sensory function face appears intact. Hearing swallowing phonation tongue normal. Motor exam: No focal weakness identified. No atrophy's. No fasciculations or unusual movements. Cerebellar testing: Patient has a high-frequency low amplitude cerebellar tremor consistent with a familial tremor. No ataxia. Reflexes: 1+ at biceps 1+ at knees. Sensory exam is intact to tactile stimuli. Station gait normal. Supplemental Info Patient's sleep study will be deferred to primary care physician. Psychiatric medications are being man (more content not included)... Normal [facility] Brain/Head W/WO Contraston 0 11-24-2024 Brain/Head W/WO Contrast [facility] [address] [place] [address] Brain/Head W/WO Contrast MR#: [id number] Acct: [id number] Name: LOREE FRANCIS Rep #: [id number] : 1955 M 69 From: Taj canales MD PCP: Dr. Rakel Licea MD Status: [facility] Study: Brain/Head W/WO Contrast Date of Exam: 5 Exam# [id number] Ordering Dr: Rakel Licea MD EXAM: BRAIN/HEAD W/WO CONTRAST CLINICAL HISTORY: Three-month history of dizziness. Hypertension. COMPARISON: Comparison is made with prior examination dated May 02, 2024. TECHNIQUE: Multiple axial tomographic images were obtained with and without intravenous contrast administration. Coronal and sagittal reconstruction was obtained as well. 100 cc of Isovue-300 was injected intravenously. FINDINGS: Mild degree of cerebral atrophy. Stable hypoattenuation in the periventricular white matter suggestive of chronic small-vessel disease. Stable examination. Atherosclerotic calcification of the cavernous portions of the internal carotid arteries as well as the vertebral arteries. CT/Brain/Head W/WO Contrast IMPRESSION: Stable examination. Reading Location: [place] [address] CC: Dr. Rakel Licea MD Pre Owned Sales Manager: Signed [facility] MR/BMS.BPon 10-05-2024 MR/BMS.BP [address], [address] [place] [address] OFFICE VISIT Date of Service: 10/05/24 MR#: [id number] Acct: [id number] Name: LOREE FRANCIS Rep #: [id number] : 1955 Provider: KELECHI gonzalez Age/Sex: 69/M Location: [facility].BP Status: Signed Intake Vital Signs 08/24/24 11:30 10/05/24 11:32 Height 5 ft 9 in 5 ft 9 in BP 179/81 H Blood Pressure Location Lt brachial Position Sitting Respiration 16 Pulse 50 L Pulse Source Monitor BP Intake Visit Reasons: 6 wk FU Accompanied by: Self Allergies Sulfa (Sulfonamide Antibiotics) Adverse Reaction (Verified 10/05/24 11:36) Nausea Medications ???Medication ???Instructions ???Recorded ???Confirmed ???Type multivitamin (Multiple Vitamins 1 ea PO DAILY vitamin 11/11/16 10/05/24 History tablet) atenolol 50 mg tablet 100 mg PO DAILY 05/21/22 10/05/24 History citalopram 20 mg tablet 40 mg PO DAILY 05/21/22 10/05/24 History finasteride 5 mg tablet 5 mg PO DAILY 05/02/24 10/05/24 History lovastatin 40 mg tablet 40 mg PO QHS 05/02/24 10/05/24 History omeprazole 20 mg capsule,delayed 20 mg PO DAILY 05/02/24 10/05/24 History release tamsulosin 0.4 mg capsule 0.4 mg PO DAILY 05/02/24 10/05/24 History lisinopril 40 mg tablet 40 mg PO DAILY 05/10/24 10/05/24 History clonazepam 1 mg tablet 1 mg PO QHS 07/07/24 10/05/24 History trazodone 100 mg tablet 100 mg PO QHS #90 tabs 07/07/24 10/05/24 Rx Have you fallen in the past year?: No PFSH Medical History Wears hearing aid Wears glasses Depression Alcohol use Restless legs Migraine headache Injury of head and neck History of IBS Smokeless tobacco use Marijuana use History of echocardiogram History of stress test GERD (gastroesophageal reflux disease) CPAP (continuous positive airway pressure) dependence Anxiety Tremor Hypertension Surgical History Hx of excision of mass H/O transurethral resection of prostate Family History Other CVA (cerebral vascular accident) Diabetes Heart disease Social History (Updated 10/05/24 @ 11:38 by Pam Rosado) household members: spouse Smoking Status: Current every day smoker tobacco type: smokeless tobacco Electronic Cigarette Use: with nicotine alcohol intake: current alcohol intake frequency: holidays/special occasions only substance use type: marijuana HPI History of Present Illness History provided by: patient HPI: Loree Francis is a 69 year old male patient presenting today for a follow up evaluation. Has been off of lurasidone for about 1 week and reports he is feeling better without this medication. He feels he is more alert and more about to be himself. Has been sleeping well since being on Trazodone. Has been taking the Trazodone early and has been falling asleep in the chair. Has been struggling more with losing himself in conversation which has been occurring more frequently over the last 2 months. Does voice concerns about dementia due to family history. Admits to some other memory issues and misplacing things. Denies ever feeling disoriented. Admits to difficulties with motivation. Admits to being frustrated with this. Denies feelings of depression. Denies SI/HI. Denies feeling of anxiety. Denies panic attacks. Appetite has been the same but is trying to decrease portion size to lose weight. Patient does voice concerns with memory and losing his thought process often when he is talking to others. Previous similar episode: Yes Age of first onset of symptoms: 61-70 years Review of Systems Constitutional Reports: fatigue; Denies: fever(s), chills or change in weight Eyes Denies: change in vision or blurry vision Ears, Nose, Mouth, Throat Reports: neck pain Cardiovascular Reports: chest pain, palpitations and dyspnea Respiratory Reports: dyspnea; Denies: wheezing Gastrointestinal Reports: constipation; Denies: abdominal pain, nausea, vomiting or diarrhea Genitourinary Denies: dysuria, urinary frequency or urinary urgency Musculoskeletal Reports: back pain and neck pain Integumentary/Breast Denies: rash, pruritus or erythema Neurological Denies: headache(s) Psychiatric Reports: memory loss and difficulty concentrating; Denies: anxiety, mood swings, panic attacks, change in sleep pattern, hopelessness, loss of interest, irritability, paranoia, visual hallucinations, auditory hallucinations, suicidal ideation or homicidal ideation Endocrine Reports: fatigue Hematologic/Lymphatic Denies: easy bruising Allergic/Immunologic Denies: wheezing Exam Mental Status Exam - Psych Appearance casually dressed, adequately groomed and no apparent distress (more content not included)... Normal [facility] MR/BMS.BPon 08-24-2024 MR/BMS.[address] [place] [address] OFFICE VISIT Date of Service: 08/24/24 MR#: [id number] Acct: [id number] Name: LOREE FRANCIS Rep #: [id number] : 1955 Provider: KELECHI gonzalez Age/Sex: 68/M Location: [facility].BP Status: Signed Intake Vital Signs 07/07/24 15:25 08/24/24 11:30 Height 5 ft 9 in 5 ft 9 in BP 146/87 H Blood Pressure Location Rt brachial Position Sitting Respiration 18 Pulse 54 L Pulse Source Monitor Pulse Oximetry (%) 94 Oxygen Delivery Method room air BP Intake Visit Reasons: 6 wk FU Allergies Sulfa (Sulfonamide Antibiotics) Adverse Reaction (Verified 07/07/24 15:26) Nausea Have you fallen in the past year?: No [facility] Medical History Wears hearing aid Wears glasses Depression Alcohol use Restless legs Migraine headache Injury of head and neck History of IBS Smokeless tobacco use Marijuana use History of echocardiogram History of stress test GERD (gastroesophageal reflux disease) CPAP (continuous positive airway pressure) dependence Anxiety Tremor Hypertension Surgical History Hx of excision of mass H/O transurethral resection of prostate Family History Other CVA (cerebral vascular accident) Diabetes Heart disease Social History household members: spouse Smoking Status: Current every day smoker tobacco type: smokeless tobacco Electronic Cigarette Use: with nicotine alcohol intake: current alcohol intake frequency: holidays/special occasions only substance use type: does not use HPI History of Present Illness History provided by: patient HPI: Loree Francis is a 68 year old male patient presenting today for a follow up evaluation. States he does not like his medication. He feels like he is wanting to sleep all day. Patient's states that he is not himself on this medication. Patient feels the medication has caused an increase in anxiety. Feels he is getting anxious about things but then does not follow through with what he should be doing. Does feel he has been more forgetful with the medication. Does feel he is having some depression but reports this is related to having an increase in anxiety. Reports he is having some issues with being agitated at times and impatient. Denies any manic symptoms. Does feel like he is over sleeping and is sometimes getting 12 hours per night. Does not nap during the day. Does feel he is more fatigued with the medication. Denies any increase in appetite or changes in diet. states she feels he is eating less while on this medication. Does not have huge fluctuations in weight. Is still having difficulty in finding samra in things. Denies SI/HI. Previous similar episode: Yes Age of first onset of symptoms: 61-70 years Review of Systems Constitutional Reports: change in weight and fatigue; Denies: fever(s) or chills Eyes Denies: change in vision or blurry vision Ears, Nose, Mouth, Throat Reports: neck pain Cardiovascular Reports: chest pain, palpitations and dyspnea Respiratory Reports: dyspnea; Denies: wheezing Gastrointestinal Reports: constipation; Denies: abdominal pain, nausea, vomiting or diarrhea Genitourinary Denies: dysuria, urinary frequency or urinary urgency Musculoskeletal Reports: back pain and neck pain Integumentary/Breast Denies: rash, pruritus or erythema Neurological Denies: headache(s) Psychiatric Reports: anxiety, mood swings, change in sleep pattern, memory loss and difficulty concentrating; Denies: panic attacks, hopelessness, loss of interest, irritability, paranoia, visual hallucinations, auditory hallucinations, suicidal ideation or homicidal ideation Endocrine Reports: fatigue Hematologic/Lymphatic Denies: easy bruising Allergic/Immunologic Denies: wheezing Exam Mental Status Exam - Psych Appearance casually dressed, adequately groomed and no apparent distress Attitude cooperative and calm Activity/Motor Behavior MSE activity/motor behavior finding no adventitious movements and appropriate eye contact Speech regular rate, regular volume and regular prosody Mood euythmic Affect full range Thought Process linear, logical and coherent Thought Content no delusions and no hallucinations Suicidal Ideation none Homicidal Ideation none Attention impaired (per patient self report) Concentration impaired (per patient self report) Sensorium/Orientation awake, alert and oriented x3 Memory/Cognition impaired Insight fair Judgement fair Exam Constitutional Common normals: no acute distress, average body habitus and patient (more content not included)... Normal [facility] Comprehensive Metabolic Prof ilon 08-18-2024 Albumin [Mass/Vol] 3.5 g/dL Normal 3.2-5.0 [facility] Comment on above: Performed By: #### L 500.4050 ####[facility] [id number] [place], [place], [id number] Albumin/Globulin [Mass ratio] 0.9 {ratio} Normal 0.9-2.4 [facility] Comment on above: Performed By: #### L 500.4050 ####[facility] [id number] [place], [place], [id number] ALK P 60 U/L Normal 45-117 [facility] Comment on above: Performed By: #### L 500.4050 ####[facility] [id number] [place], [address] ALT [Catalytic activity/Vol] 20 U/L Normal 16-61 [facility] Comment on above: Performed By: #### L 500.4050 ####[facility] [id number] [place], [address] AST [Catalytic activity/Vol] 11 U/L Low 15-37 [facility] Comment on above: Performed By: #### L 500.4050 ####[facility] [id number] [place], [address] Bilirubin [Mass/Vol] 0.50 mg/dL Normal 0.20-1.00 [facility] Comment on above: Result Comment: For patients on eltrombopag therapy, use of Dimension [place] TBIL is not recommended. Performed By: #### L 500.4050 ####[facility] [id number] [place], [address] BUN/CRE 15.7 RATIO Normal 10-20 [facility] Comment on above: Performed By: #### L 500.4050 ####[facility] [id number] [place], [address] CA,Total 9.0 mg/dL Normal 8.5-10.1 [facility] Comment on above: Performed By: #### L 500.4050 ####[facility] [id number] [place], [address] Chloride [Moles/Vol] 105 mmol/L Normal 98-107 [facility] Comment on above: Performed By: #### L 500.4050 ####[facility] [address] [place], [address] CO2 [Moles/Vol] 25.0 mmol/L Normal 21.0-32.0 [facility] Comment on above: Performed By: #### L 500.4050 ####[facility] [address] [place], [address] Creatinine [Mass/Vol] 1.02 mg/dL Normal 0.70-1.30 [facility] Comment on above: Result Comment: The validity of the calculated GFR GFRAA in patients over 70 years has not been determined. Clinical correlation is essential. Performed By: #### L 500.4050 ####[facility] [address] [place], [address] EST GFR - AA 93 mL/min Normal >60 [facility] Comment on above: Result Comment: Afri can Citizen Of [place] GFR Calc Performed By: #### L 500.4050 ####[facility] [address] [place], [address] GAP 5 Normal 5-15 [facility] Comment on above: Performed By: #### L 500.4050 ####[facility] [address] [place], [address] GFR/1.73 sq M.predicted among non-blacks MDRD (S/P/Bld) [Vol rate/Area] 77 mL/min/{1.73_m2} Normal >60 [facility] Comment on above: Result Comment: Non- GFR Calc Performed By: #### L 500.4050 ####[facility] [address] [place], [address] Globulin (S) [Mass/Vol] 3.8 g/dL Normal 2.2-4.2 [facility] Comment on above: Performed By: #### L 500.4050 ####[facility] [address] [place], [address] Glucose [Mass/Vol] 93 mg/dL Normal 74-106 [facility] Comment on above: Performed By: #### L 500.4050 ####[facility] [address] [place], [address] Potassium [Moles/Vol] 4.2 mmol/L Normal 3.5-5.1 [facility] Comment on above: Performed By: #### L 500.4050 ####[facility] [address] [place], [place], [id number] Sodium [Moles/Vol] 135 mmol/L Low 136-145 [facility] Comment on above: Performed By: #### L 500.4050 ####[facility] [address] [place], [place], [id number] T PROT 7.3 g/dL Normal 6.4-8.2 [facility] Comment on above: Performed By: #### L 500.4050 ####[facility] [address] [place], [place], [id number] Urea nitrogen [Mass/Vol] 16 mg/dL Normal 7-18 [facility] Comment on above: Performed By: #### L 500.4050 ####[facility] [address] [place], [place], [address] MR/BMS.BPon 07-07-2024 MR/BMS.[address], [address] [place], [place] [address] OFFICE VISIT Date of Service: 07/07/24 MR#: [id number] Acct: [id number] Name: LOREE FRANCIS Rep #: [id number] : 1955 Provider: KELECHI gonzalez Age/Sex: 68/M Location: [facility].BP Status: Signed Intake Vital Signs 05/31/24 08:32 07/07/24 15:25 Height 5 ft 9 in 5 ft 9 in Weight: 243 lb BMI 35.9 BP 167/89 H 146/87 H Blood Pressure Location Rt brachial Rt brachial Position Sitting Sitting Respiration 18 Pulse 52 L 54 L Pulse Source Monitor Monitor Pulse Oximetry (%) 94 Oxygen Delivery Method room air BP Intake Visit Reasons: 4wfu Accompanied by: Self Is patient in pain?: No Allergies Sulfa (Sulfonamide Antibiotics) Adverse Reaction (Verified 07/07/24 15:26) Nausea Medications ???Medication ???Instructions ???Recorded ???Confirmed ???Type multivitamin (Multiple Vitamins 1 ea PO DAILY vitamin 11/11/16 07/07/24 History tablet) atenolol 50 mg tablet 100 mg PO DAILY 05/21/22 07/07/24 History citalopram 20 mg tablet 40 mg PO DAILY 05/21/22 07/07/24 History finasteride 5 mg tablet 5 mg PO DAILY 05/02/24 07/07/24 History lovastatin 40 mg tablet 40 mg PO QHS 05/02/24 07/07/24 History omeprazole 20 mg capsule,delayed 20 mg PO DAILY 05/02/24 07/07/24 History release tamsulosin 0.4 mg capsule 0.4 mg PO DAILY 05/02/24 07/07/24 History lisinopril 40 mg tablet 40 mg PO DAILY 05/10/24 07/07/24 History clonazepam 1 mg tablet 1 mg PO QHS 07/07/24 07/07/24 History lurasidone 60 mg tablet 60 mg PO QPM #30 tabs 07/07/24 07/07/24 Rx trazodone 100 mg tablet 100 mg PO QHS #90 tabs 07/07/24 07/07/24 Rx Have you fallen in the past year?: No PFSH Medical History Wears hearing aid Wears glasses Depression Alcohol use Restless legs Migraine headache Injury of head and neck History of IBS Smokeless tobacco use Marijuana use History of echocardiogram History of stress test GERD (gastroesophageal reflux disease) CPAP (continuous positive airway pressure) dependence Anxiety Tremor Hypertension Surgical History Hx of excision of mass H/O transurethral resection of prostate Family History Other CVA (cerebral vascular accident) Diabetes Heart disease Social History household members: spouse Smoking Status: Current every day smoker tobacco type: smokeless tobacco Electronic Cigarette Use: with nicotine alcohol intake: current alcohol intake frequency: holidays/special occasions only substance use type: does not use HPI History of Present Illness History provided by: patient HPI: Loree Francis is a 68 year old male patient presenting today for a follow up evaluation. Feels he is doing well but his family has been hounding him about his medication. Appetite has been poor. Will eat breakfast and dinner but nothing in between. Foley after his hospitalization he had a major lack of motivation. He knows he needs to do things but is unable to get the motivation to do things. Has not been drinking alcohol since last appointment. Has been feeling depressed some times, moments throughout the day. Denies SI/HI. 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 Sleep has been good. 8 hours per night. Has not been napping. Denies feelings of anxiety. Admits that he has not been taking his lurasidone all the time with 350 calories. Also reports that he has been taking it at 5PM and is feeling exhausted by 6. Previous similar episode: Yes Age of first onset of symptoms: 61-70 years Review of Systems Constitutional Reports: change in weight and fatigue; Denies: fever(s) or chills Eyes Denies: change in vision or blurry vision Ears, Nose, Mouth, Throat Reports: neck pain Cardiovascular Reports: chest pain, palpitations and dyspnea Respiratory Reports: dyspnea; Denies: wheezing Gastrointestinal Reports: constipation; Denies: abdominal pain, nausea, vomiting or diarrhea Genitourinary Denies: dysuria, urinary frequency or urinary urgency Musculoskeletal Reports: back pain and neck pain Integumentary/Breast Denies: rash, pruritus or erythema Neurological Denies: headache(s) Psychiatric Reports: anxiety, mood swings, change in sleep pattern, memory loss and difficulty concentrating; Denies: panic attacks, hopelessness, loss of interest, irritability, paranoia, visual hallucinations, auditory hallucinations, suicidal ideation or homicidal ideation Endocrine Reports: fatigue Hematologic/Lymphatic Denies: easy bruising Allergic/Immunologic Denies: wheezing Exam Men (more content not included)... Normal [facility] BASIC METABOLIC PANELon - Anion gap [Moles/Vol] 15 mmol/L Normal - [facility] Comment on above: Order Comment: [facility] has implemented the eGFR calculation approach that does not have a coefficient for race that conforms to the NKF-ASN Task Force Recommendations. Performed By: #### 4 6167 #### [facility] [address] [place], [place] [address] Ellis Copeland M.D. [id number] Calcium [Mass/Vol] 9.2 mg/dL Normal 8.4-10.2 [facility] Comment on above: Order Comment: [facility] has implemented the eGFR calculation approach that does not have a coefficient for race that conforms to the NKF-ASN Task Force Recommendations. Performed By: #### 4 6124 #### LAB [address] [place] [address] Ellis Copeland M.D. [id number] Chloride [Moles/Vol] 98 mmol/L Normal 98-108 [facility] Comment on above: Order Comment: [facility] has implemented the eGFR calculation approach that does not have a coefficient for race that conforms to the NKF-ASN Task Force Recommendations. Performed By: #### 4 6124 #### [facility] [address] [place] [address] Ellis Copeland M.D. [id number] Creatinine [Mass/Vol] 1.07 mg/dL Normal 0.80-1.30 [facility] Comment on above: Order Comment: [facility] has implemented the eGFR calculation approach that does not have a coefficient for race that conforms to the NKF-ASN Task Force Recommendations. Performed By: #### 4 6124 #### LAB [address] [place] [address] Ellis Copeland M.D. [id number] EGFR 76 mL/min/1.73 m2 Normal >=60 [facility] Comment on above: Order Comment: [facility] has implemented the eGFR calculation approach that does not have a coefficient for race that conforms to the NKF-ASN Task Force Recommendations. Result Comment: Sofia mated GFR was calculated using the 2020 CKD-EPI creatinine equation. Performed By: #### 4 6124 #### LAB [address] [place] [id number] Ellis Copeland M.D. [id number] Glucose [Mass/Vol] 92 mg/dL Normal 65-99 [facility] Comment on above: Order Comment: [facility] has implemented the eGFR calculation approach that does not have a coefficient for race that conforms to the NKF-ASN Task Force Recommendations. Performed By: #### 4 6124 #### [facility] [address] [place] [address] Ellis Copeland M.D. [id number] HCO3 (Bld) [Moles/Vol] 27 mmol/L Normal 21-32 [facility] Comment on above: Order Comment: [facility] has implemented the eGFR calculation approach that does not have a coefficient for race that conforms to the NKF-ASN Task Force Recommendations. Performed By: #### 4 6124 #### LAB [address] [place] [address] Ellis Copeland M.D. [id number] Potassium [Moles/Vol] 4.2 mmol/L Normal 3.5-5.1 [facility] Comment on above: Order Comment: [facility] has implemented the eGFR calculation approach that does not have a coefficient for race that conforms to the NKF-ASN Task Force Recommendations. Performed By: #### 4 6124 #### [facility] [address] [place] [address] Ellis Copeland M.D. [id number] Sodium [Moles/Vol] 136 mmol/L Normal 135-145 [facility] Comment on above: Order Comment: [facility] has implemented the eGFR calculation approach that does not have a coefficient for race that conforms to the NKF-ASN Task Force Recommendations. Performed By: #### 4 6145 #### LAB [address] [place] [address] Ellis Copeland M.D. [id number] Urea nitrogen [Mass/Vol] 12 mg/dL Normal 8-25 [facility] Comment on above: Order Comment: [facility] has implemented the eGFR calculation approach that does not have a coefficient for race that conforms to the NKF-ASN Task Force Recommendations. Performed By: #### 4 6120 #### LAB [address] [place] [address] Ellis Copeland M.D. [id number] Urea nitrogen/Creatinine [Mass ratio] 11.2 mg/mg Normal 10.0-20.0 [facility] Comment on above: Order Comment: [facility] has implemented the eGFR calculation approach that does not have a coefficient for race that conforms to the NKF-ASN Task Force Recommendations. Performed By: #### 4 6124 #### LAB [address] [place] [address] Ellis Copeland M.D. [id number] CBC WITH AUTO DIFFERENTIALon 05-12-2024 AUTO NRBC 0.0 % [facility] Comment on above: Performed By: #### L [id number] #### LAB [address] [place] [address] Ellis Copeland M.D. [id number] AUTO NRBC ABS COUNT 0.00 K/mcL Normal 0.00-0.00 [facility] Comment on above: Performed By: #### L [id number] #### LAB [address] [place] [address] Ellis Copeland M.D. [id number] BASOPHILS ABSOLUTE COUNT 0.03 K/mcL Normal 0.00-0.30 [facility] Comment on above: Performed By: #### L [id number] #### LAB [address] [place] [address] Ellis Copeland M.D. [id number] Basophils/100 WBC (Bld) 0.4 % [facility] Comment on above: Performed By: #### L [id number] #### [facility] [address] [place] [address] Ellis Copeland M.D. [id number] Eosinophils (Bld) [#/Vol] 0.08 10*3/uL Normal 0.00-0.50 [facility] Comment on above: Performed By: #### L [id number] #### LAB [address] [place] [address] Ellis Copeland M.D. [id number] Eosinophils/100 WBC (Bld) 1.2 % [facility] Comment on above: Performed By: #### L [id number] #### LAB [address] [place] [address] Ellis Copeland M.D. [id number] Erythrocyte distribution width (RBC) [Ratio] 13.7 % Normal 11.6-14.8 [facility] Comment on above: Performed By: #### L [id number] #### LAB [address] [place] [address] Ellis Copeland M.D. [id number] Hematocrit (Bld) [Volume fraction] 45.3 % Normal 41.0-53.0 [facility] Comment on above: Performed By: #### L [id number] #### LAB [address] [place] [address] Ellis Copeland M.D. [id number] Hemoglobin (Bld) [Mass/Vol] 15.2 g/dL Normal 13.5-17.5 [facility] Comment on above: Performed By: #### L [id number] #### LAB [address] [place] [address] Ellis Copeland M.D. [id number] IG ABSOLUTE 0.02 K/mcL Normal 0.00-0.30 [facility] Comment on above: Performed By: #### L [id number] #### LAB [address] [place] [address] Ellis Copeland M.D. [id number] IG PERCENT 0.30 % Normal [facility] Comment on above: Result Comment: The IG parameter is the percentage of metamyelocytes, myelocytes and promyelocytes. An immature granulocyte count (IG) of 1% or more suggests the possibility of infection, an IG count of 3% is very likely related to an infection. Performed By: #### L [id number] #### LAB [address] [place] [address] Ellis Copeland M.D. [id number] Lymphocytes (Bld) [#/Vol] 2.39 10*3/uL Normal 0.90-4.00 [facility] Comment on above: Performed By: #### L [id number] #### LAB [address] [place] [address] Ellis Copeland M.D. [id number] Lymphocytes/100 WBC (Bld) 35.1 % Normal [facility] Comment on above: Performed By: #### L [id number] #### LAB [address] [place] [address] Ellis Copeland M.D. [id number] MCH (RBC) [Entitic mass] 31.1 pg Normal 26.0-34.0 [facility] Comment on above: Performed By: #### L [id number] #### LAB [address] [place] [address] Ellis Copeland M.D. [id number] MCV (RBC) [Entitic vol] 92.6 fL Normal 80.0-100.0 [facility] Comment on above: Performed By: #### L [id number] #### LAB [address] [place] [address] Ellis Copeland M.D. [id number] MEAN CORPUSCULAR HEMOGLOBIN CONC 33.6 g/dL Normal 31.0-37.0 [facility] Comment on above: Performed By: #### L [id number] #### LAB [address] [place] [address] Ellis Copeland M.D. [id number] Monocytes (Bld) [#/Vol] 0.49 10*3/uL Normal 0.30-0.90 [facility] Comment on above: Performed By: #### L [id number] #### LAB [address] [place] [address] Ellis Copeland M.D. [id number] Monocytes/100 WBC (Bld) 7.2 % Normal [facility] Comment on above: Performed By: #### L [id number] #### LAB [address] [place] [address] Ellis Copeland M.D. [id number] NEUTROPHILS ABSOLUTE COUNT 3.79 K/mcL Normal 1.70-7.00 [facility] Comment on above: Performed By: #### L [id number] #### LAB [address] [place] [address] Ellis Copeland M.D. [id number] Neutrophils/100 WBC (Bld) 55.8 % Normal [facility] Comment on above: Performed By: #### L [id number] #### LAB [address] [place] [address] Ellis Copeland M.D. [id number] Platelet mean volume (Bld) [Entitic vol] 9.6 fL Normal 9.4-12.4 [facility] Comment on above: Performed By: #### L [id number] #### LAB [address] [place] [address] Ellis Copeland M.D. [id number] Platelets (Bld) [#/Vol] 200 10*3/uL Normal 150-400 [facility] Comment on above: Performed By: #### L [id number] #### LAB [address] [place] [address] Ellis Copeland M.D. [id number] RBC (Bld) [#/Vol] 4.89 10*6/uL Normal 4.50-5.90 [facility] Comment on above: Performed By: #### L [id number] #### LAB [address] [place] [address] Ellis Copeland M.D. [id number] WBC (Bld) [#/Vol] 6.80 10*3/uL Normal 4.50-11.00 [facility] Comment on above: Performed By: #### L [id number] #### LAB [address] [place] [address] Ellis Copeland M.D. [id number] TSH WITH REFLEX FREE T4on TSH Qn 1.22 m[IU]/L Normal 0.27-4.20 [facility] Comment on above: Performed By: #### 4 6612 #### LAB [address] [place] [address] Ellis Copeland M.D. [id number] URINALYSISon 05-11-2024 BACTERIA, URINE None Seen Normal None Seen [facility] Comment on above: Order Comment: Micro scopic examination is performed on all urinalysis samples and only positive findings are reported. The test for blood on the chemical analytic portion of urinalysis may also be positive due to hemoglobinuria and myoglobinuria and if red blood cells are present they are quantified by microscopic examination. Performed By: #### 4 6625 #### LAB [address] [place] [address] Ellis Copeland M.D. [id number] BILIRUBIN, URINE Negative Normal Negative [facility] Comment on above: Order Comment: Micro scopic examination is performed on all urinalysis samples and only positive findings are reported. The test for blood on the chemical analytic portion of urinalysis may also be positive due to hemoglobinuria and myoglobinuria and if red blood cells are present they are quantified by microscopic examination. Performed By: #### 4 6625 #### LAB [address] [place] [address] Ellis Copeland M.D. [id number] BLOOD, URINE Small Abnormal Negative [facility] Comment on above: Order Comment: Micro scopic examination is performed on all urinalysis samples and only positive findings are reported. The test for blood on the chemical analytic portion of urinalysis may also be positive due to hemoglobinuria and myoglobinuria and if red blood cells are present they are quantified by microscopic examination. Performed By: #### 4 6625 #### LAB [address] [place] [address] Ellis Copeland M.D. [id number] Clarity (U) Clear Normal Clear [facility] Comment on above: Order Comment: Micro scopic examination is performed on all urinalysis samples and only positive findings are reported. The test for blood on the chemical analytic portion of urinalysis may also be positive due to hemoglobinuria and myoglobinuria and if red blood cells are present they are quantified by microscopic examination. Performed By: #### 4 6625 #### LAB [address] [place] [address] Ellis Copeland M.D. [id number] Color (U) Yellow Normal Colorless, Yellow [facility] Comment on above: Order Comment: Micro scopic examination is performed on all urinalysis samples and only positive findings are reported. The test for blood on the chemical analytic portion of urinalysis may also be positive due to hemoglobinuria and myoglobinuria and if red blood cells are present they are quantified by microscopic examination. Performed By: #### 4 6625 #### LAB [address] [place] [address] Ellis Copeland M.D. [id number] Glucose Ql (U) Negative Normal Negative [facility] Comment on above: Order Comment: Micro scopic examination is performed on all urinalysis samples and only positive findings are reported. The test for blood on the chemical analytic portion of urinalysis may also be positive due to hemoglobinuria and myoglobinuria and if red blood cells are present they are quantified by microscopic examination. Performed By: #### 4 6625 #### LAB [address] [place] [address] Ellis Copeland M.D. [id number] Ketones Ql (U) Negative Normal Negative [facility] Comment on above: Order Comment: Micro scopic examination is performed on all urinalysis samples and only positive findings are reported. The test for blood on the chemical analytic portion of urinalysis may also be positive due to hemoglobinuria and myoglobinuria and if red blood cells are present they are quantified by microscopic examination. Performed By: #### 4 6625 #### LAB [address] [place] [address] Ellis Copeland M.D. [id number] Leukocyte esterase Test strip Ql (U) Negative Normal Negative [facility] Comment on above: Order Comment: Micro scopic examination is performed on all urinalysis samples and only positive findings are reported. The test for blood on the chemical analytic portion of urinalysis may also be positive due to hemoglobinuria and myoglobinuria and if red blood cells are present they are quantified by microscopic examination. Performed By: #### 4 6625 #### LAB [address] [place] [address] Ellis Copeland M.D. [id number] MUCUS, URINE Rare Normal None Seen, Rare [facility] Comment on above: Order Comment: Micro scopic examination is performed on all urinalysis samples and only positive findings are reported. The test for blood on the chemical analytic portion of urinalysis may also be positive due to hemoglobinuria and myoglobinuria and if red blood cells are present they are quantified by microscopic examination. Performed By: #### 4 6625 #### LAB [address] [place] [address] Ellis Copeland M.D. [id number] NITRITE, URINE Negative Normal Negative [facility] Comment on above: Order Comment: Micro scopic examination is performed on all urinalysis samples and only positive findings are reported. The test for blood on the chemical analytic portion of urinalysis may also be positive due to hemoglobinuria and myoglobinuria and if red blood cells are present they are quantified by microscopic examination. Performed By: #### 4 6625 #### LAB [address] [place] [address] Ellis Copeland M.D. [id number] pH (U) 6.5 [pH] Normal 5.0-7.0 [facility] Comment on above: Order Comment: Micro scopic examination is performed on all urinalysis samples and only positive findings are reported. The test for blood on the chemical analytic portion of urinalysis may also be positive due to hemoglobinuria and myoglobinuria and if red blood cells are present they are quantified by microscopic examination. Performed By: #### 4 6625 #### LAB [address] [place] [address] Ellis Copeland M.D. [id number] PROTEIN, URINE Negative Normal Negative [facility] Comment on above: Order Comment: Micro scopic examination is performed on all urinalysis samples and only positive findings are reported. The test for blood on the chemical analytic portion of urinalysis may also be positive due to hemoglobinuria and myoglobinuria and if red blood cells are present they are quantified by microscopic examination. Performed By: #### 4 6625 #### LAB [address] [place] [address] Ellis Copeland M.D. [id number] RBC LM.HPF (Urine sed) [#/Area] 4 /[HPF] High 0-3 [facility] Comment on above: Order Comment: Micro scopic examination is performed on all urinalysis samples and only positive findings are reported. The test for blood on the chemical analytic portion of urinalysis may also be positive due to hemoglobinuria and myoglobinuria and if red blood cells are present they are quantified by microscopic examination. Performed By: #### 4 6625 #### LAB [address] [place] [address] Ellis Copeland M.D. [id number] Specific gravity (U) [Rel density] 1.020 Normal 1.005-1.025 [facility] Comment on above: Order Comment: Micro scopic examination is performed on all urinalysis samples and only positive findings are reported. The test for blood on the chemical analytic portion of urinalysis may also be positive due to hemoglobinuria and myoglobinuria and if red blood cells are present they are quantified by microscopic examination. Performed By: #### 4 6625 #### [facility] [address] [place] [address] Ellis Copeland M.D. [id number] SQUAMOUS EPITHELIAL < Normal 0-4 [facility] Comment on above: Order Comment: Micro scopic examination is performed on all urinalysis samples and only positive findings are reported. The test for blood on the chemical analytic portion of urinalysis may also be positive due to hemoglobinuria and myoglobinuria and if red blood cells are present they are quantified by microscopic examination. Performed By: #### [id number] #### LAB [address] [place] [address] Ellis Copeland M.D. [id number] UROBILINOGEN, URINE <2.0 Normal <2.0 [facility] Comment on above: Order Comment: Micro scopic examination is performed on all urinalysis samples and only positive findings are reported. The test for blood on the chemical analytic portion of urinalysis may also be positive due to hemoglobinuria and myoglobinuria and if red blood cells are present they are quantified by microscopic examination. Performed By: #### [id number] #### LAB [address] [place] [address] Ellis Copeland M.D. [id number] WBC LM.HPF (Urine sed) [#/Area] 2 /[HPF] Normal 0-5 [facility] Comment on above: Order Comment: Micro scopic examination is performed on all urinalysis samples and only positive findings are reported. The test for blood on the chemical analytic portion of urinalysis may also be positive due to hemoglobinuria and myoglobinuria and if red blood cells are present they are quantified by microscopic examination. Performed By: #### [id number] #### [facility] [address] [place], [place] [address] Ellis Copeland M.D. [id number] ESRon 01-18-2024 Erythrocyte Sed Rate 32 mm/hr High 0-20 [facility] ([place]) Comment on above: Performed By: #### E #### [id number] [place], [place] [address] LABORATORYOrdered By: Phillip Yates on 01-18-2024 ESR Photometric method (Bld) [Velocity] 32 mm/hr High 0 - 20 mm/hr AO Man Heme SS Absolute lymphocyte countOrd ered By: Gilmar Morse on 01-17-2024 Lymphocytes Auto (Unsp spec) [#/Vol] 1.53 10*3/uL 0.83-4.51 [facility] Automated lymphocyte count a s percentage of total leukocytesOrdered By: Gilmar Morse on 01-17-2024 Lymphocytes/100 WBC Auto (Unsp spec) 26.2 % 19-41 [facility] Basophil percentageOrdered B y: Gilmar Morse on 01-17-2024 Basophils/100 WBC (Bld) 0.3 % 0-1 [facility] Bilirubin [Mass/Vol] 0.40 mg/dL 0.20-1.00 [facility] Comment on above: For patients on eltr ombopag therapy, use of Dimension [place] TBIL is not recommended. Chloride [Moles/Vol] 104 mmol/L 98-107 [facility] Eosinophils/100 WBC (Bld) 1.5 % 0-5 [facility] Glucose [Mass/Vol] 103 mg/dL 74-106 [facility] Comment on above: Fasting Glucose resu lt from 100 to 125 mg/dL suggests IMPAIRED HOMEOSTASIS per A.D.A. criteria. Hemoglobin (Bld) [Mass/Vol] 13.9 g/dL 13.0-16.5 [facility] Monocytes/100 WBC (Bld) 7.0 % 0-10 [facility] Neutrophils (Bld) [#/Vol] 3.8 10*3/uL 2.0-7.7 [facility] Neutrophils/100 WBC (Bld) 64.8 % 47-70 [facility] Potassium [Moles/Vol] 4.0 mmol/L 3.5-5.1 [facility] Protein [Mass/Vol] 7.4 g/dL 6.4-8.2 [facility] Sodium [Moles/Vol] 137 mmol/L 136-145 [facility] WBC (Bld) [#/Vol] 5.8 10*3/uL 4.4-11.0 [facility] Determination of erythrocyte mean corpuscular volume (MCV)Ordered By: Gilmar Morse on 01-17-2024 MCV (RBC) [Entitic vol] 89.6 fL 80-94 [facility] Erythrocyte distribution wid th ratioOrdered By: Gilmar Morse on 01-17-2024 Erythrocyte distribution width (RBC) [Ratio] 13.3 % 11.6-14.6 [facility] Erythrocyte distribution wid th standard deviationOrdered By: Gilmar Morse on 01-17-2024 Erythrocyte distribution width (RBC) [Entitic vol] 43.5 fL 35.1-43.9 [facility] Erythrocyte sedimentation ra teOrdered By: Gilmar Morse on 01-17-2024 ESR (Bld) [Velocity] 32 mm/h 0-20 [facility] Comment on above: TESTING PERFORMED AT [facility]. ORIGINAL REPORT ON FILE IN LAB CONTAINS ADDITIONAL TEST SITE INFORMATION. ____ Hematocrit Auto (Bld) [Volum e fraction]Ordered By: Gilmar Morse on 01-17-2024 Hematocrit (Bld) [Volume fraction] 40.5 % 40-54 [facility] Immature granulocytes/100 WB C Auto (Bld)Ordered By: Gilmar Morse on 01-17-2024 Immature granulocytes/100 WBC (Bld) 0.200 % 0.0-0.9 [facility] Comment on above: IG% - Immature Granu locytes (promyelocytes, myelocytes and metamyelocytes) > 1% indicates that a LEFT SHIFT is Present. Laboratory - Chemistry and C hemistry - challengeOrdered By: Gilmar Morse on 01-17-2024 Albumin/Globulin [Mass ratio] 0.8 {ratio} 0.9-2.4 [facility] ALP [Catalytic activity/Vol] 70 U/L 45-117 [facility] ALT [Catalytic activity/Vol] 24 U/L 16-61 [facility] CO2 [Moles/Vol] 25.0 mmol/L 21.0-32.0 [facility] Cobalamin (Vitamin B12) [Mass/Vol] 555 pg/mL 211-911 [facility] Ferritin [Mass/Vol] 39 ng/mL 26-388 [facility] Globulin (S) [Mass/Vol] 4.0 g/dL 2.2-4.2 [facility] Magnesium [Mass/Vol] 2.3 mg/dL 1.6-2.6 [facility] Sodium (U) [Moles/Vol] 57 mmol/L Not Establ. [facility] Urea nitrogen/Creatinine [Mass ratio] 16.1 mg/mg 10-20 [facility] Laboratory - Hematology and Cell countsOrdered By: Gilmar Morse on 01-17-2024 MCH (RBC) [Entitic mass] 30.8 pg 27.0-32.0 [facility] MCHC (RBC) [Mass/Vol] 34.3 g/dL 32-36 [facility] Nucleated RBC/100 WBC (Bld) [Ratio] 0 % 0-5 [facility] Platelet mean volume (Bld) [Entitic vol] 10.4 fL 6.2-12.0 [facility] Platelets (Bld) [#/Vol] 189 10*3/uL 150-450 [facility] No Panel InformationOrdered By: Gilmar Morse on 01-17-2024 Anti-Nuclear Antibody Screen Positive Negative [facility] Comment on above: Performed at: [facility] [employer] [address] [id number] Director: Jamey Alicia PhD, Phone: [phone] C-Reactive Protein Extended Range 11.20 mg/L 0.0-3.0 [facility] Comment on above: C-Reactive Protein ( CRP) provides useful information for thediagnosis, therapy and monitoring of inflammatory processesand associated diseases. For the evaluation of Relative Riskfor Cardiovascular Disease, a High Sensitivity CRP (HSCRP)should be ordered. Estimated GFR (MDRD) Amer 104 mL/min >60 [facility] Comment on above: GFR Calc Estimated GFR (MDRD) Non-Af Amer 86 mL/min >60 [facility] Comment on above: Non- GFR Calc Vitamin D 25-Hydroxy 38.8 ng/mL [facility] Comment on above: Vitamin D 25(OH) Sta tus Range Deficiency <20 ng/mL (50nmol/L) Insufficiency 20 - 30 ng/mL (50 - 75 nmol/L) Sufficiency 30 - 100 ng/mL (75 - 250 nmol/L) Toxicity >100 ng/mL (>250 nmol/L) RBC Auto (Bld) [#/Vol]Ordere d By: Gilmar Morse on 01-17-2024 RBC (Bld) [#/Vol] 4.52 10*6/uL 4.6-6.2 [facility] Serum or plasma calcium jeovanny urement (mass/volume)Ordered By: Gilmar Morse on 01-17-2024 Calcium [Mass/Vol] 8.9 mg/dL 8.5-10.1 [facility] Serum or plasma cortisol reuben surement (mass/volume)Ordered By: Gilmar Morse on 01-17-2024 Cortisol [Mass/Vol] 10.70 ug/dL 3.44-22.45 [facility] Comment on above: Adult (AM) 5.27 - 22 .45 ug/dL Adult (PM) 3.44 - 16.76 ug/dLPlease note revised CORTISOL reference range effective 2019. Serum or plasma creatinine m easurement (mass/volume)Ordered By: Gilmar Morse on 01-17-2024 Creatinine [Mass/Vol] 0.93 mg/dL 0.70-1.30 [facility] Comment on above: The validity of the calculated GFR & GFRAA in patients over 70 years has not been determined. Clinical correlation is essential. Serum or plasma thyroid stim ulating hormone (TSH) measurement (units/volume)Ordered By: Gilmar Morse on 01-17-2024 TSH Qn 1.85 uIU/mL 0.358-3.74 [facility] Serum or plasma urea nitroge n measurement (mass/volume)Ordered By: Gilmar Morse on 01-17-2024 Urea nitrogen [Mass/Vol] 15 mg/dL 7-18 [facility] Thin prep Papanicolaou smear with manual screeningOrdered By: Gilmar Morse on 01-17-2024 Thin prep Papanicolaou smear with manual screening 3.4 g/dL 3.2-5.0 [facility] Thin prep Papanicolaou smear with manual screening 14 U/L 15-37 [facility] Thin prep Papanicolaou smear with manual screening 8 5-15 [facility] Thin prep Papanicolaou smear with manual screening 294 mOsm/KG 280-301 [facility] Urine osmolality measurement Ordered By: Gilmar Morse on 01-17-2024 Osmolality (U) [Osmolality] 1144 mOsm/KG >50 [facility] Comment on above: Normal Urine Referen ce Ranges Random: 50 - 1200 mOsm/kg H20 depending on fluid intake Random: >850 mOsm/kg after 12 hour fluid restriction 24 hour: ~300 - 900 mOsm/kg H2O Whole blood hemoglobin A1c/t otal hemoglobin ratio (mass fraction)Ordered By: Gilmar Morse on 01-17-2024 HbA1c (Bld) [Mass fraction] 5.5 % 3.8-5.6 [facility] Comment on above: Normal < 5.7 % Predi abetic 5.7 - 6.4 % Diabetic >or= 6.5 % Please note range changes. Basophil percentageOrdered B y: Jerald Hardwick on 12-20-2023 Chloride [Moles/Vol] 94 mmol/L 98-107 [facility] Glucose [Mass/Vol] 101 mg/dL 74-106 [facility] Comment on above: Fasting Glucose resu lt from 100 to 125 mg/dL suggests IMPAIRED HOMEOSTASIS per A.D.A. criteria. Potassium [Moles/Vol] 4.0 mmol/L 3.5-5.1 [facility] Sodium [Moles/Vol] 128 mmol/L 136-145 [facility] Laboratory - Chemistry and C hemistry - challengeOrdered By: Jerald Hardwick on 12-20-2023 CO2 [Moles/Vol] 27.0 mmol/L 21.0-32.0 [facility] Urea nitrogen/Creatinine [Mass ratio] 19.4 mg/mg 10-20 [facility] No Panel InformationOrdered By: Jerald Hardwick on 12-20-2023 Estimated GFR (MDRD) Amer 104 mL/min >60 [facility] Comment on above: GFR Calc Estimated GFR (MDRD) Non-Af Amer 86 mL/min >60 [facility] Comment on above: Non- GFR Calc Serum or plasma calcium jeovanny urement (mass/volume)Ordered By: Jerald Hardwick on 12-20-2023 Calcium [Mass/Vol] 9.1 mg/dL 8.5-10.1 [facility] Serum or plasma creatinine m easurement (mass/volume)Ordered By: Jerald Hardwick on 12-20-2023 Creatinine [Mass/Vol] 0.93 mg/dL 0.70-1.30 [facility] Comment on above: The validity of the calculated GFR & GFRAA in patients over 70 years has not been determined. Clinical correlation is essential. Serum or plasma urea nitroge n measurement (mass/volume)Ordered By: Jerald Hardwick on 12-20-2023 Urea nitrogen [Mass/Vol] 18 mg/dL 7-18 [facility] Thin prep Papanicolaou smear with manual screeningOrdered By: Jerald Hardwick on 12-20-2023 Thin prep Papanicolaou smear with manual screening 7 5-15 [facility] Absolute lymphocyte countOrd ered By: Gilmar Morse on 04-21-2023 Lymphocytes Auto (Unsp spec) [#/Vol] 2.09 10*3/uL 0.83-4.51 [facility] Basophil percentageOrdered B y: Gilmar Morse on 04-21-2023 Basophils/100 WBC (Bld) 0.5 % 0-1 [facility] Bilirubin [Mass/Vol] 0.40 mg/dL 0.20-1.00 [facility] Comment on above: For patients on eltr ombopag therapy, use of Dimension [place] TBIL is not recommended. Chloride [Moles/Vol] 109 mmol/L 98-107 [facility] Cholesterol [Mass/Vol] 182 mg/dL <200 [facility] Comment on above: <200 mg/dL Desirable 200-240 mg/dL Borderline >240 mg/dL High Risk Eosinophils/100 WBC (Bld) 0.8 % 0-5 [facility] Glucose [Mass/Vol] 99 mg/dL 74-106 [facility] Neutrophils (Bld) [#/Vol] 4.8 10*3/uL 2.0-7.7 [facility] Neutrophils/100 WBC (Bld) 62.1 % 47-70 [facility] Potassium [Moles/Vol] 4.6 mmol/L 3.5-5.1 [facility] Protein [Mass/Vol] 7.6 g/dL 6.4-8.2 [facility] Sodium [Moles/Vol] 138 mmol/L 136-145 [facility] Triglyceride [Mass/Vol] 272 mg/dL <199 [facility] Comment on above: The drugs N-Acetylcy steine and Metamizole may falsely depress this assay.Serum Triglycerides Reference Interval Normal <150 mg/dL Borderline high 150 - 199 mg/dL High 200 - 499 mg/dL Very High > or = 500 mg/dL WBC (Bld) [#/Vol] 7.6 10*3/uL 4.4-11.0 [facility] Blood erythrocytes count (nu mber/volume)Ordered By: Gilmar Morse on 04-21-2023 RBC (Bld) [#/Vol] 5.11 10*6/uL 4.6-6.2 [facility] Blood hemoglobin measurement (mass/volume)Ordered By: Gilmar Morse on 04-21-2023 Hemoglobin (Bld) [Mass/Vol] 15.4 g/dL 13.0-16.5 [facility] Blood lymphocytes/100 leukoc ytesOrdered By: Gilmar Morse on 04-21-2023 Lymphocytes/100 WBC (Bld) 27.4 % 19-41 [facility] Blood monocytes/100 leukocyt esOrdered By: Gilmar Morse on 04-21-2023 Monocytes/100 WBC (Bld) 8.9 % 0-10 [facility] Blood platelet mean volumeOr dered By: Gilmar Morse on 04-21-2023 Platelet mean volume (Bld) [Entitic vol] 9.8 fL 6.2-12.0 [facility] Determination of erythrocyte mean corpuscular volume (MCV)Ordered By: Gilmar Morse on 04-21-2023 MCV (RBC) [Entitic vol] 92.0 fL 80-94 [facility] Hematocrit Auto (Bld) [Volum e fraction]Ordered By: Gilmar Morse on 04-21-2023 Hematocrit (Bld) [Volume fraction] 47.0 % 40-54 [facility] Laboratory - Chemistry and C hemistry - challengeOrdered By: Gilmar Morse on 04-21-2023 ALP [Catalytic activity/Vol] 63 U/L 45-117 [facility] ALT [Catalytic activity/Vol] 30 U/L 16-61 [facility] CO2 [Moles/Vol] 24.0 mmol/L 21.0-32.0 [facility] Cobalamin (Vitamin B12) [Mass/Vol] 487 pg/mL 211-911 [facility] Globulin (S) [Mass/Vol] 4.1 g/dL 2.2-4.2 [facility] Urea nitrogen/Creatinine [Mass ratio] 15.0 mg/mg 10-20 [facility] Laboratory - Hematology and Cell countsOrdered By: Gilmar Morse on 04-21-2023 Erythrocyte distribution width (RBC) [Entitic vol] 45.0 fL 35.1-43.9 [facility] Erythrocyte distribution width (RBC) [Ratio] 13.3 % 11.6-14.6 [facility] Immature granulocytes/100 WBC (Bld) 0.300 % 0.0-0.9 [facility] Comment on above: IG% - Immature Granu locytes (promyelocytes, myelocytes and metamyelocytes) > 1% indicates that a LEFT SHIFT is Present. MCH (RBC) [Entitic mass] 30.1 pg 27.0-32.0 [facility] Nucleated RBC/100 WBC (Bld) [Ratio] 0 % 0-5 [facility] MCHC Auto (RBC) [Mass/Vol]Or dered By: Gilmar Morse on 04-21-2023 MCHC (RBC) [Mass/Vol] 32.8 g/dL 32-36 [facility] No Panel InformationOrdered By: Gilmar Morse on 04-21-2023 Estimated GFR (MDRD) Amer 96 mL/min >60 [facility] Comment on above: GFR Calc Estimated GFR (MDRD) Non-Af Amer 79 mL/min >60 [facility] Comment on above: Non- GFR Calc Prostate Specific Antigen Screen 3.04 ng/mL 0.00-4.00 [facility] Comment on above: This test was perfor med using the TPSA assay method for the[employer] chemistry system. Values obtained with differentassay methods cannot be used interchangably.When changing PSA assays in the course of monitoring apatient, additional sequential testing should be carriedout to confirm baseline values. Thyroid Stimulating Hormone (TSH) 1.89 uIU/mL 0.358-3.74 [facility] Vitamin D 25-Hydroxy 33.5 ng/mL [facility] Comment on above: Vitamin D 25(OH) Sta tus Range Deficiency <20 ng/mL (50nmol/L) Insufficiency 20 - 30 ng/mL (50 - 75 nmol/L) Sufficiency 30 - 100 ng/mL (75 - 250 nmol/L) Toxicity >100 ng/mL (>250 nmol/L) Platelets bldOrdered By: Luis Manuel Morse on 04-21-2023 Platelets (Bld) [#/Vol] 231 10*3/uL 150-450 [facility] Serum or plasma albumin jeovanny urement (mass/volume)Ordered By: Gilmar Morse on 04-21-2023 Albumin [Mass/Vol] 3.5 g/dL 3.2-5.0 [facility] Serum or plasma albumin/glob ulin mass ratioOrdered By: Gilmar Morse on 04-21-2023 Albumin/Globulin [Mass ratio] 0.9 {ratio} 0.9-2.4 [facility] Serum or plasma calcium jeovanny urement (mass/volume)Ordered By: Gilmar Morse on 04-21-2023 Calcium [Mass/Vol] 8.8 mg/dL 8.5-10.1 [facility] Serum or plasma cholesterol in HDL measurement (mass/volume)Ordered By: Gilmar Morse on 04-21-2023 Cholesterol in HDL [Mass/Vol] 42 mg/dL >40 [facility] Comment on above: The drugs N-Acetylcy steine and Metamizole may falsely depress this assay. Reference Range HDL <40 mg/dL Low HDL Cholesterol HDL >or= 60 mg/dL High HDL Cholesterol Serum or plasma cholesterol in VLDL measurement (mass/volume)Ordered By: Gilmar Morse on 04-21-2023 Cholesterol in VLDL [Mass/Vol] 54 mg/dL 5-40 [facility] Serum or plasma creatinine m easurement (mass/volume)Ordered By: Gilmar Morse on 04-21-2023 Creatinine [Mass/Vol] 1.00 mg/dL 0.70-1.30 [facility] Comment on above: The validity of the calculated GFR & GFRAA in patients over 70 years has not been determined. Clinical correlation is essential. Serum or plasma ferritin reuben surement (mass/volume)Ordered By: Gilmar Morse on 04-21-2023 Ferritin [Mass/Vol] 83 ng/mL 26-388 [facility] Serum or plasma low density lipoprotein (LDL) cholesterol measurement (mass/volume)Ordered By: Gilmar Morse on 04-21-2023 Cholesterol in LDL [Mass/Vol] 86 mg/dL 0-130 [facility] Serum or plasma urea nitroge n measurement (mass/volume)Ordered By: Gilmar Morse on 04-21-2023 Urea nitrogen [Mass/Vol] 15 mg/dL 7-18 [facility] Thin prep Papanicolaou smear with manual screeningOrdered By: Gilmar Morse on 04-21-2023 Thin prep Papanicolaou smear with manual screening 18 U/L 15-37 [facility] Thin prep Papanicolaou smear with manual screening 5 5-15 [facility] Whole blood hemoglobin A1c/t otal hemoglobin ratio (mass fraction)Ordered By: Gilmar Morse on 04-21-2023 HbA1c (Bld) [Mass fraction] 5.6 % 3.8-5.6 [facility] Comment on above: Normal < 5.7 % Predi abetic 5.7 - 6.4 % Diabetic >or= 6.5 % Please note range changes. Basophil percentageon 2021 WBC (Bld) [#/Vol] 5.2 10*3/uL 4.4-11.0 [facility] Work Phone: Blood erythrocytes count (nu mber/volume)on 08-28-2022 RBC (Bld) [#/Vol] 5.01 10*6/uL 4.6-6.2 [facility] Work Phone: Blood hemoglobin measurement (mass/volume)on 08-28-2022 Hemoglobin (Bld) [Mass/Vol] 15.1 g/dL 13.0-16.5 [facility] Work Phone: Blood platelet mean volumeon 08-28-2022 Platelet mean volume (Bld) [Entitic vol] 9.1 fL 6.2-12.0 [facility] Work Phone: Determination of erythrocyte mean corpuscular volume (MCV)on 08-28-2022 MCV (RBC) [Entitic vol] 89.8 fL 80-94 [facility] Work Phone: Hematocrit Auto (Bld) [Volum e fraction]on 08-28-2022 Hematocrit (Bld) [Volume fraction] 45.0 % 40-54 [facility] Work Phone: Laboratory - Hematology and Cell countson 08-28-2022 Erythrocyte distribution width (RBC) [Entitic vol] 43.8 fL 35.1-43.9 [facility] Work Phone: Erythrocyte distribution width (RBC) [Ratio] 13.3 % 11.6-14.6 [facility] Work Phone: MCH (RBC) [Entitic mass] 30.1 pg 27.0-32.0 [facility] Work Phone: MCHC Auto (RBC) [Mass/Vol]on 08-28-2022 MCHC (RBC) [Mass/Vol] 33.6 g/dL 32-36 [facility] Work Phone: Platelets bldon 08-28-2022 Platelets (Bld) [#/Vol] 191 10*3/uL 150-450 [facility] Work Phone: Absolute lymphocyte counton 05-24-2022 Lymphocytes Auto (Unsp spec) [#/Vol] 1.73 10*3/uL 0.83-4.51 [facility] Work Phone: Basophil percentageon 2021 Basophils/100 WBC (Bld) 0.2 % 0-1 [facility] Work Phone: Chloride [Moles/Vol] 104 mmol/L 98-107 [facility] Work Phone: Eosinophils/100 WBC (Bld) 0.1 % 0-5 [facility] Work Phone: Glucose [Mass/Vol] 113 mg/dL 74-106 [facility] Work Phone: Comment on above: Fasting Glucose resu lt from 100 to 125 mg/dL suggests IMPAIRED HOMEOSTASIS per A.D.A. criteria. Neutrophils (Bld) [#/Vol] 7.2 10*3/uL 2.0-7.7 [facility] Work Phone: Neutrophils/100 WBC (Bld) 75.6 % 47-70 [facility] Work Phone: Potassium [Moles/Vol] 4.1 mmol/L 3.5-5.1 [facility] Work Phone: Sodium [Moles/Vol] 134 mmol/L 136-145 [facility] Work Phone: WBC (Bld) [#/Vol] 9.5 10*3/uL 4.4-11.0 [facility] Work Phone: Blood erythrocytes count (nu mber/volume)on 05-24-2022 RBC (Bld) [#/Vol] 4.95 10*6/uL 4.6-6.2 [facility] Work Phone: Blood hemoglobin measurement (mass/volume)on 05-24-2022 Hemoglobin (Bld) [Mass/Vol] 15.2 g/dL 13.0-16.5 [facility] Work Phone: Blood lymphocytes/100 leukoc yteson 05-24-2022 Lymphocytes/100 WBC (Bld) 18.2 % 19-41 [facility] Work Phone: Blood monocytes/100 leukocyt eson 05-24-2022 Monocytes/100 WBC (Bld) 5.7 % 0-10 [facility] Work Phone: Blood platelet mean volumeon 05-24-2022 Platelet mean volume (Bld) [Entitic vol] 9.2 fL 6.2-12.0 [facility] Work Phone: Determination of erythrocyte mean corpuscular volume (MCV)on 05-24-2022 MCV (RBC) [Entitic vol] 89.5 fL 80-94 [facility] Work Phone: Hematocrit Auto (Bld) [Volum e fraction]on 05-24-2022 Hematocrit (Bld) [Volume fraction] 44.3 % 40-54 [facility] Work Phone: Laboratory - Chemistry and C hemistry - challengeon 05-24-2022 CO2 [Moles/Vol] 24.0 mmol/L 21.0-32.0 [facility] Work Phone: Urea nitrogen/Creatinine [Mass ratio] 19.9 mg/mg 10-20 [facility] Work Phone: Laboratory - Hematology and Cell countson 08-07-2022 Erythrocyte distribution width (RBC) [Entitic vol] 41.9 fL 35.1-43.9 [facility] Work Phone: Erythrocyte distribution width (RBC) [Ratio] 12.9 % 11.6-14.6 [facility] Work Phone: Immature granulocytes/100 WBC (Bld) 0.200 % 0.0-0.9 [facility] Work Phone: Comment on above: IG% - Immature Granu locytes (promyelocytes, myelocytes and metamyelocytes) > 1% indicates that a LEFT SHIFT is Present. MCH (RBC) [Entitic mass] 30.7 pg 27.0-32.0 [facility] Work Phone: Nucleated RBC/100 WBC (Bld) [Ratio] 0 % 0-5 [facility] Work Phone: MCHC Auto (RBC) [Mass/Vol]on 05-24-2022 MCHC (RBC) [Mass/Vol] 34.3 g/dL 32-36 [facility] Work Phone: No Panel Informationon 05-24 D-Dimer Quantitative (PE/DVT) 0.81 FEU/ug/m 0.27-0.49 [facility] Work Phone: Comment on above: D-Dimer ELEVATED (>0 .49): Additional studies and clinicalassessments are indicated to conclude diagnosis of:Deep Vein Thrombosis (DVT) or Pulmonary Embolism (PE)CRITICAL VALUE VERIFIED. CALLED TO [id number]/07/22 [facility]3 Sandra Ward.RESULTS READ BACK BY SAME . Estimated Creatinine Clearance Calc 90.83 ml/min [facility] Work Phone: Estimated GFR (MDRD) Amer 123 mL/min >60 [facility] Work Phone: Comment on above: GFR Calc Estimated GFR (MDRD) Non-Af Amer 102 mL/min >60 [facility] Work Phone: Comment on above: Non- GFR Calc Troponin I High Sensitivity 4 pg/mL 3.0-78.0 [facility] Work Phone: Comment on above: Please Note: New Iris t Units and Gender Specific Reference Ranges. For more information see Policy Stat Procedure [place] High Sensitivity Troponin (TNIH) and attachments. Platelets bldon 05-24-2022 Platelets (Bld) [#/Vol] 250 10*3/uL 150-450 [facility] Work Phone: Serum or plasma calcium jeovanny urement (mass/volume)on 05-24-2022 Calcium [Mass/Vol] 9.2 mg/dL 8.5-10.1 [facility] Work Phone: Serum or plasma creatinine m easurement (mass/volume)on 05-24-2022 Creatinine [Mass/Vol] 0.80 mg/dL 0.70-1.30 [facility] Work Phone: Comment on above: The validity of the calculated GFR & GFRAA in patients over 70 years has not been determined. Clinical correlation is essential. Serum or plasma urea nitroge n measurement (mass/volume)on 05-24-2022 Urea nitrogen [Mass/Vol] 16 mg/dL 7-18 [facility] Work Phone: Thin prep Papanicolaou smear with manual screeningon 05-24-2022 Thin prep Papanicolaou smear with manual screening 6 5-15 [facility] Work Phone: Absolute lymphocyte counton 05-21-2022 Lymphocytes Auto (Unsp spec) [#/Vol] 1.30 10*3/uL 0.83-4.51 [facility] Work Phone: Basophil percentageon 2021 Basophils/100 WBC (Bld) 0.3 % 0-1 [facility] Work Phone: Chloride [Moles/Vol] 107 mmol/L 98-107 [facility] Work Phone: Eosinophils/100 WBC (Bld) 0.4 % 0-5 [facility] Work Phone: Glucose [Mass/Vol] 120 mg/dL 74-106 [facility] Work Phone: Comment on above: Fasting Glucose resu lt from 100 to 125 mg/dL suggests IMPAIRED HOMEOSTASIS per A.D.A. criteria. Neutrophils (Bld) [#/Vol] 5.0 10*3/uL 2.0-7.7 [facility] Work Phone: Neutrophils/100 WBC (Bld) 73.9 % 47-70 [facility] Work Phone: Potassium [Moles/Vol] 4.7 mmol/L 3.5-5.1 [facility] Work Phone: Comment on above: Slight Hemolysis, Re sult may be falsely increased. Sodium [Moles/Vol] 135 mmol/L 136-145 [facility] Work Phone: WBC (Bld) [#/Vol] 6.8 10*3/uL 4.4-11.0 [facility] Work Phone: Blood erythrocytes count (nu mber/volume)on 05-21-2022 RBC (Bld) [#/Vol] 4.66 10*6/uL 4.6-6.2 [facility] Work Phone: Blood hemoglobin measurement (mass/volume)on 05-21-2022 Hemoglobin (Bld) [Mass/Vol] 14.2 g/dL 13.0-16.5 [facility] Work Phone: Blood lymphocytes/100 leukoc yteson 05-21-2022 Lymphocytes/100 WBC (Bld) 19.2 % 19-41 [facility] Work Phone: Blood monocytes/100 leukocyt eson 05-21-2022 Monocytes/100 WBC (Bld) 5.9 % 0-10 [facility] Work Phone: Blood platelet mean volumeon 05-21-2022 Platelet mean volume (Bld) [Entitic vol] 9.5 fL 6.2-12.0 [facility] Work Phone: Determination of erythrocyte mean corpuscular volume (MCV)on 05-21-2022 MCV (RBC) [Entitic vol] 90.8 fL 80-94 [facility] Work Phone: Hematocrit Auto (Bld) [Volum e fraction]on 05-21-2022 Hematocrit (Bld) [Volume fraction] 42.3 % 40-54 [facility] Work Phone: Laboratory - Chemistry and C hemistry - challengeon 05-21-2022 CO2 [Moles/Vol] 24.0 mmol/L 21.0-32.0 [facility] Work Phone: Urea nitrogen/Creatinine [Mass ratio] 15.7 mg/mg 10-20 [facility] Work Phone: Laboratory - Hematology and Cell countson 05-21-2022 Erythrocyte distribution width (RBC) [Entitic vol] 43.4 fL 35.1-43.9 [facility] Work Phone: Erythrocyte distribution width (RBC) [Ratio] 13.2 % 11.6-14.6 [facility] Work Phone: Immature granulocytes/100 WBC (Bld) 0.300 % 0.0-0.9 [facility] Work Phone: Comment on above: IG% - Immature Granu locytes (promyelocytes, myelocytes and metamyelocytes) > 1% indicates that a LEFT SHIFT is Present. MCH (RBC) [Entitic mass] 30.5 pg 27.0-32.0 [facility] Work Phone: Nucleated RBC/100 WBC (Bld) [Ratio] 0 % 0-5 [facility] Work Phone: MCHC Auto (RBC) [Mass/Vol]on 05-21-2022 MCHC (RBC) [Mass/Vol] 33.6 g/dL 32-36 [facility] Work Phone: No Panel Informationon 05-21 Troponin I High Sensitivity 5 pg/mL 3.0-78.0 [facility] Work Phone: Comment on above: Please Note: New Iris t Units and Gender Specific Reference Ranges. For more information see Policy Stat Procedure [place] High Sensitivity Troponin (TNIH) and attachments. Estimated Creatinine Clearance Calc 81.64 ml/min [facility] Work Phone: Estimated GFR (MDRD) Amer 109 mL/min >60 [facility] Work Phone: Comment on above: GFR Calc Estimated GFR (MDRD) Non-Af Amer 90 mL/min >60 [facility] Work Phone: Comment on above: Non- GFR Calc Platelets bldon 05-21-2022 Platelets (Bld) [#/Vol] 198 10*3/uL 150-450 [facility] Work Phone: Serum or plasma calcium jeovanny urement (mass/volume)on 05-21-2022 Calcium [Mass/Vol] 8.6 mg/dL 8.5-10.1 [facility] Work Phone: Serum or plasma creatinine m easurement (mass/volume)on 05-21-2022 Creatinine [Mass/Vol] 0.89 mg/dL 0.70-1.30 [facility] Work Phone: Comment on above: The validity of the calculated GFR & GFRAA in patients over 70 years has not been determined. Clinical correlation is essential. Serum or plasma urea nitroge n measurement (mass/volume)on 05-21-2022 Urea nitrogen [Mass/Vol] 14 mg/dL 7-18 [facility] Work Phone: Thin prep Papanicolaou smear with manual screeningon 05-21-2022 Thin prep Papanicolaou smear with manual screening 4 5-15 [facility] Work Phone: Absolute lymphocyte counton 05-11-2022 Lymphocytes Auto (Unsp spec) [#/Vol] 2.08 10*3/uL 0.83-4.51 [facility] Work Phone: Basophil percentageon 2021 Basophils/100 WBC (Bld) 0.3 % 0-1 [facility] Work Phone: Chloride [Moles/Vol] 106 mmol/L 98-107 [facility] Work Phone: Cholesterol [Mass/Vol] 168 mg/dL <200 [facility] Work Phone: Comment on above: <200 mg/dL Desirable 200-240 mg/dL Borderline >240 mg/dL High Risk Eosinophils/100 WBC (Bld) 1.1 % 0-5 [facility] Work Phone: Glucose [Mass/Vol] 101 mg/dL 74-106 [facility] Work Phone: Comment on above: Fasting Glucose resu lt from 100 to 125 mg/dL suggests IMPAIRED HOMEOSTASIS per A.D.A. criteria. Neutrophils (Bld) [#/Vol] 4.4 10*3/uL 2.0-7.7 [facility] Work Phone: Neutrophils/100 WBC (Bld) 61.4 % 47-70 [facility] Work Phone: Potassium [Moles/Vol] 4.1 mmol/L 3.5-5.1 [facility] Work Phone: Sodium [Moles/Vol] 139 mmol/L 136-145 [facility] Work Phone: Triglyceride [Mass/Vol] 115 mg/dL <199 [facility] Work Phone: Comment on above: The drugs N-Acetylcy steine and Metamizole may falsely depress this assay.Serum Triglycerides Reference Interval Normal <150 mg/dL Borderline high 150 - 199 mg/dL High 200 - 499 mg/dL Very High > or = 500 mg/dL WBC (Bld) [#/Vol] 7.2 10*3/uL 4.4-11.0 [facility] Work Phone: Blood erythrocytes count (nu mber/volume)on 05-11-2022 RBC (Bld) [#/Vol] 4.47 10*6/uL 4.6-6.2 [facility] Work Phone: Blood hemoglobin measurement (mass/volume)on 05-11-2022 Hemoglobin (Bld) [Mass/Vol] 14.3 g/dL 13.0-16.5 [facility] Work Phone: Blood lymphocytes/100 leukoc yteson 05-11-2022 Lymphocytes/100 WBC (Bld) 28.8 % 19-41 [facility] Work Phone: Blood monocytes/100 leukocyt eson 05-11-2022 Monocytes/100 WBC (Bld) 8.0 % 0-10 [facility] Work Phone: Blood platelet mean volumeon 05-11-2022 Platelet mean volume (Bld) [Entitic vol] 9.8 fL 6.2-12.0 [facility] Work Phone: Determination of erythrocyte mean corpuscular volume (MCV)on 05-11-2022 MCV (RBC) [Entitic vol] 92.4 fL 80-94 [facility] Work Phone: Hematocrit Auto (Bld) [Volum e fraction]on 05-11-2022 Hematocrit (Bld) [Volume fraction] 41.3 % 40-54 [facility] Work Phone: Laboratory - Chemistry and C hemistry - challengeon 05-11-2022 CO2 [Moles/Vol] 26.0 mmol/L 21.0-32.0 [facility] Work Phone: Urea nitrogen/Creatinine [Mass ratio] 16.6 mg/mg 10-20 [facility] Work Phone: Laboratory - Hematology and Cell countson 05-11-2022 Erythrocyte distribution width (RBC) [Entitic vol] 44.6 fL 35.1-43.9 [facility] Work Phone: Erythrocyte distribution width (RBC) [Ratio] 13.2 % 11.6-14.6 [facility] Work Phone: Immature granulocytes/100 WBC (Bld) 0.400 % 0.0-0.9 [facility] Work Phone: Comment on above: IG% - Immature Granu locytes (promyelocytes, myelocytes and metamyelocytes) > 1% indicates that a LEFT SHIFT is Present. MCH (RBC) [Entitic mass] 32.0 pg 27.0-32.0 [facility] Work Phone: Nucleated RBC/100 WBC (Bld) [Ratio] 0 % 0-5 [facility] Work Phone: MCHC Auto (RBC) [Mass/Vol]on 05-11-2022 MCHC (RBC) [Mass/Vol] 34.6 g/dL 32-36 [facility] Work Phone: No Panel Informationon 05-11 Estimated Creatinine Clearance Calc 80.74 ml/min [facility] Work Phone: Estimated GFR (MDRD) Amer 108 mL/min >60 [facility] Work Phone: Comment on above: GFR Calc Estimated GFR (MDRD) Non-Af Amer 89 mL/min >60 [facility] Work Phone: Comment on above: Non- GFR Calc Platelets bldon 05-11-2022 Platelets (Bld) [#/Vol] 168 10*3/uL 150-450 [facility] Work Phone: Serum or plasma calcium jeovanny urement (mass/volume)on 05-11-2022 Calcium [Mass/Vol] 8.6 mg/dL 8.5-10.1 [facility] Work Phone: Serum or plasma cholesterol in HDL measurement (mass/volume)on 05-11-2022 Cholesterol in HDL [Mass/Vol] 45 mg/dL >40 [facility] Work Phone: Comment on above: The drugs N-Acetylcy steine and Metamizole may falsely depress this assay. Reference Range HDL <40 mg/dL Low HDL Cholesterol HDL >or= 60 mg/dL High HDL Cholesterol Serum or plasma cholesterol in VLDL measurement (mass/volume)on 05-11-2022 Cholesterol in VLDL [Mass/Vol] 23 mg/dL 5-40 [facility] Work Phone: Serum or plasma creatinine m easurement (mass/volume)on 05-11-2022 Creatinine [Mass/Vol] 0.90 mg/dL 0.70-1.30 [facility] Work Phone: Comment on above: The validity of the calculated GFR & GFRAA in patients over 70 years has not been determined. Clinical correlation is essential. Serum or plasma low density lipoprotein (LDL) cholesterol measurement (mass/volume)on 05-11-2022 Cholesterol in LDL [Mass/Vol] 100 mg/dL 0-130 [facility] Work Phone: Serum or plasma urea nitroge n measurement (mass/volume)on 05-11-2022 Urea nitrogen [Mass/Vol] 15 mg/dL 7-18 [facility] Work Phone: Thin prep Papanicolaou smear with manual screeningon 05-11-2022 Thin prep Papanicolaou smear with manual screening 7 5-15 [facility] Work Phone: Absolute lymphocyte counton 05-10-2022 Lymphocytes Auto (Unsp spec) [#/Vol] 1.98 10*3/uL 0.83-4.51 [facility] Work Phone: Basophil percentageon 2021 Basophils/100 WBC (Bld) 0.3 % 0-1 [facility] Work Phone: Chloride [Moles/Vol] 108 mmol/L 98-107 [facility] Work Phone: Eosinophils/100 WBC (Bld) 0.6 % 0-5 [facility] Work Phone: Glucose [Mass/Vol] 109 mg/dL 74-106 [facility] Work Phone: Comment on above: Fasting Glucose resu lt from 100 to 125 mg/dL suggests IMPAIRED HOMEOSTASIS per A.D.A. criteria. Neutrophils (Bld) [#/Vol] 3.7 10*3/uL 2.0-7.7 [facility] Work Phone: Neutrophils/100 WBC (Bld) 59.0 % 47-70 [facility] Work Phone: Potassium [Moles/Vol] 3.8 mmol/L 3.5-5.1 [facility] Work Phone: Sodium [Moles/Vol] 142 mmol/L 136-145 [facility] Work Phone: WBC (Bld) [#/Vol] 6.3 10*3/uL 4.4-11.0 [facility] Work Phone: Blood erythrocytes count (nu mber/volume)on 05-10-2022 RBC (Bld) [#/Vol] 4.71 10*6/uL 4.6-6.2 [facility] Work Phone: Blood hemoglobin measurement (mass/volume)on 05-10-2022 Hemoglobin (Bld) [Mass/Vol] 14.5 g/dL 13.0-16.5 [facility] Work Phone: Blood lymphocytes/100 leukoc yteson 05-10-2022 Lymphocytes/100 WBC (Bld) 31.6 % 19-41 [facility] Work Phone: Blood monocytes/100 leukocyt eson 05-10-2022 Monocytes/100 WBC (Bld) 8.3 % 0-10 [facility] Work Phone: Blood platelet mean volumeon 05-10-2022 Platelet mean volume (Bld) [Entitic vol] 9.4 fL 6.2-12.0 [facility] Work Phone: Determination of erythrocyte mean corpuscular volume (MCV)on 05-10-2022 MCV (RBC) [Entitic vol] 91.3 fL 80-94 [facility] Work Phone: Hematocrit Auto (Bld) [Volum e fraction]on 05-10-2022 Hematocrit (Bld) [Volume fraction] 43.0 % 40-54 [facility] Work Phone: INR in Blood by Coagulation assayon 05-10-2022 INR Coag (Bld) [Relative time] 1.0 {INR} [facility] Work Phone: Laboratory - Chemistry and C hemistry - challengeon 05-10-2022 CO2 [Moles/Vol] 25.0 mmol/L 21.0-32.0 [facility] Work Phone: Urea nitrogen/Creatinine [Mass ratio] 16.5 mg/mg 10-20 [facility] Work Phone: Laboratory - Coagulationon 0 05-10-2022 aPTT Coag (Bld) [Time] 27.8 s 24.1-36.2 [facility] Work Phone: PT Coag (PPP) [Time] 13.2 s 11.7-14.9 [facility] Work Phone: Laboratory - Hematology and Cell countson 05-10-2022 Erythrocyte distribution width (RBC) [Entitic vol] 43.1 fL 35.1-43.9 [facility] Work Phone: Erythrocyte distribution width (RBC) [Ratio] 13.0 % 11.6-14.6 [facility] Work Phone: Immature granulocytes/100 WBC (Bld) 0.200 % 0.0-0.9 [facility] Work Phone: Comment on above: IG% - Immature Granu locytes (promyelocytes, myelocytes and metamyelocytes) > 1% indicates that a LEFT SHIFT is Present. MCH (RBC) [Entitic mass] 30.8 pg 27.0-32.0 [facility] Work Phone: Nucleated RBC/100 WBC (Bld) [Ratio] 0 % 0-5 [facility] Work Phone: MCHC Auto (RBC) [Mass/Vol]on 05-10-2022 MCHC (RBC) [Mass/Vol] 33.7 g/dL 32-36 [facility] Work Phone: No Panel Informationon 05-10 Estimated Creatinine Clearance Calc 74.91 ml/min [facility] Work Phone: Estimated GFR (MDRD) Amer 99 mL/min >60 [facility] Work Phone: Comment on above: GFR Calc Estimated GFR (MDRD) Non-Af Amer 82 mL/min >60 [facility] Work Phone: Comment on above: Non- GFR Calc Troponin I High Sensitivity 3 pg/mL 3.0-78.0 [facility] Work Phone: Comment on above: Please Note: New Iris t Units and Gender Specific Reference Ranges. For more information see Policy Stat Procedure [place] High Sensitivity Troponin (TNIH) and attachments. Platelets bldon 05-10-2022 Platelets (Bld) [#/Vol] 174 10*3/uL 150-450 [facility] Work Phone: Serum or plasma calcium jeovanny urement (mass/volume)on 05-10-2022 Calcium [Mass/Vol] 8.6 mg/dL 8.5-10.1 [facility] Work Phone: Serum or plasma creatinine m easurement (mass/volume)on 05-10-2022 Creatinine [Mass/Vol] 0.97 mg/dL 0.70-1.30 [facility] Work Phone: Comment on above: The validity of the calculated GFR & GFRAA in patients over 70 years has not been determined. Clinical correlation is essential. Serum or plasma urea nitroge n measurement (mass/volume)on 05-10-2022 Urea nitrogen [Mass/Vol] 16 mg/dL 7-18 [facility] Work Phone: Thin prep Papanicolaou smear with manual screeningon 05-10-2022 Thin prep Papanicolaou smear with manual screening 9 5-15 [facility] Work Phone: No Panel Informationon 04-27 Troponin I High Sensitivity 4 pg/mL 3.0-78.0 [facility] Work Phone: Comment on above: Please Note: New Iris t Units and Gender Specific Reference Ranges. For more information see Policy Stat Procedure [place] High Sensitivity Troponin (TNIH) and attachments. Absolute lymphocyte counton 04-26-2022 Lymphocytes Auto (Unsp spec) [#/Vol] 2.29 10*3/uL 0.83-4.51 [facility] Work Phone: Basophil percentageon 2021 Basophils/100 WBC (Bld) 0.5 % 0-1 [facility] Work Phone: Chloride [Moles/Vol] 106 mmol/L 98-107 [facility] Work Phone: Eosinophils/100 WBC (Bld) 1.4 % 0-5 [facility] Work Phone: Glucose [Mass/Vol] 143 mg/dL 74-106 [facility] Work Phone: Comment on above: Fasting Glucose resu lt greater than or equal to 126 mg/dL suggests DIABETES MELLITUS per A.D.A. criteria. Neutrophils (Bld) [#/Vol] 3.3 10*3/uL 2.0-7.7 [facility] Work Phone: Neutrophils/100 WBC (Bld) 52.6 % 47-70 [facility] Work Phone: Potassium [Moles/Vol] 3.7 mmol/L 3.5-5.1 [facility] Work Phone: [phone] Sodium [Moles/Vol] 138 mmol/L 136-145 [facility] Work Phone: WBC (Bld) [#/Vol] 6.2 10*3/uL 4.4-11.0 [facility] Work Phone: Blood erythrocytes count (nu mber/volume)on 04-26-2022 RBC (Bld) [#/Vol] 4.82 10*6/uL 4.6-6.2 [facility] Work Phone: Blood hemoglobin measurement (mass/volume)on 04-26-2022 Hemoglobin (Bld) [Mass/Vol] 15.1 g/dL 13.0-16.5 [facility] Work Phone: [phone] Blood lymphocytes/100 leukoc yteson 04-26-2022 Lymphocytes/100 WBC (Bld) 36.8 % 19-41 [facility] Work Phone: Blood monocytes/100 leukocyt eson 04-26-2022 Monocytes/100 WBC (Bld) 8.4 % 0-10 [facility] Work Phone: Blood platelet mean volumeon 04-26-2022 Platelet mean volume (Bld) [Entitic vol] 10.0 fL 6.2-12.0 [facility] Work Phone: Determination of erythrocyte mean corpuscular volume (MCV)on 04-26-2022 MCV (RBC) [Entitic vol] 91.5 fL 80-94 [facility] Work Phone: Hematocrit Auto (Bld) [Volum e fraction]on 04-26-2022 Hematocrit (Bld) [Volume fraction] 44.1 % 40-54 [facility] Work Phone: Laboratory - Chemistry and C hemistry - challengeon 04-26-2022 CO2 [Moles/Vol] 27.0 mmol/L 21.0-32.0 [facility] Work Phone: Urea nitrogen/Creatinine [Mass ratio] 13.1 mg/mg 10-20 [facility] Work Phone: Laboratory - Hematology and Cell countson 04-26-2022 Erythrocyte distribution width (RBC) [Entitic vol] 43.0 fL 35.1-43.9 [facility] Work Phone: Erythrocyte distribution width (RBC) [Ratio] 12.8 % 11.6-14.6 [facility] Work Phone: Immature granulocytes/100 WBC (Bld) 0.300 % 0.0-0.9 [facility] Work Phone: Comment on above: IG% - Immature Granu locytes (promyelocytes, myelocytes and metamyelocytes) > 1% indicates that a LEFT SHIFT is Present. MCH (RBC) [Entitic mass] 31.3 pg 27.0-32.0 [facility] Work Phone: Nucleated RBC/100 WBC (Bld) [Ratio] 0 % 0-5 [facility] Work Phone: MCHC Auto (RBC) [Mass/Vol]on 07-10-2022 MCHC (RBC) [Mass/Vol] 34.2 g/dL 32-36 [facility] Work Phone: No Panel Informationon 04-26 Estimated Creatinine Clearance Calc 79.85 ml/min [facility] Work Phone: Estimated GFR (MDRD) Amer 107 mL/min >60 [facility] Work Phone: Comment on above: GFR Calc Estimated GFR (MDRD) Non-Af Amer 88 mL/min >60 [facility] Work Phone: Comment on above: Non- GFR Calc Platelets bldon 04-26-2022 Platelets (Bld) [#/Vol] 225 10*3/uL 150-450 [facility] Work Phone: Serum or plasma calcium jeovanny urement (mass/volume)on 04-26-2022 Calcium [Mass/Vol] 8.6 mg/dL 8.5-10.1 [facility] Work Phone: Serum or plasma creatinine m easurement (mass/volume)on 04-26-2022 Creatinine [Mass/Vol] 0.91 mg/dL 0.70-1.30 [facility] Work Phone: Comment on above: The validity of the calculated GFR & GFRAA in patients over 70 years has not been determined. Clinical correlation is essential. Serum or plasma urea nitroge n measurement (mass/volume)on 04-26-2022 Urea nitrogen [Mass/Vol] 12 mg/dL 7-18 [facility] Work Phone: Thin prep Papanicolaou smear with manual screeningon 04-26-2022 Thin prep Papanicolaou smear with manual screening 5 5-15 [facility] Work Phone: Basophil percentageon 2021 Bilirubin [Mass/Vol] 0.40 mg/dL 0.20-1.00 [facility] Work Phone: Comment on above: For patients on eltr ombopag therapy, use of Dimension [place] TBIL is not recommended. Chloride [Moles/Vol] 105 mmol/L 98-107 [facility] Work Phone: Cholesterol [Mass/Vol] 177 mg/dL <200 [facility] Work Phone: Comment on above: <200 mg/dL Desirable 200-240 mg/dL Borderline >240 mg/dL High Risk Glucose [Mass/Vol] 101 mg/dL 74-106 [facility] Work Phone: Comment on above: Fasting Glucose resu lt from 100 to 125 mg/dL suggests IMPAIRED HOMEOSTASIS per A.D.A. criteria. Potassium [Moles/Vol] 3.7 mmol/L 3.5-5.1 [facility] Work Phone: Protein [Mass/Vol] 7.2 g/dL 6.4-8.2 [facility] Work Phone: Sodium [Moles/Vol] 138 mmol/L 136-145 [facility] Work Phone: Triglyceride [Mass/Vol] 92 mg/dL <199 [facility] Work Phone: Comment on above: The drugs N-Acetylcy steine and Metamizole may falsely depress this assay.Serum Triglycerides Reference Interval Normal <150 mg/dL Borderline high 150 - 199 mg/dL High 200 - 499 mg/dL Very High > or = 500 mg/dL WBC (Bld) [#/Vol] 8.9 10*3/uL 4.4-11.0 [facility] Work Phone: Blood erythrocytes count (nu mber/volume)on 01-28-2022 RBC (Bld) [#/Vol] 4.92 10*6/uL 4.6-6.2 [facility] Work Phone: Blood hemoglobin measurement (mass/volume)on 01-28-2022 Hemoglobin (Bld) [Mass/Vol] 15.5 g/dL 13.0-16.5 [facility] Work Phone: Blood platelet mean volumeon 01-28-2022 Platelet mean volume (Bld) [Entitic vol] 10.0 fL 6.2-12.0 [facility] Work Phone: Determination of erythrocyte mean corpuscular volume (MCV)on 01-28-2022 MCV (RBC) [Entitic vol] 91.7 fL 80-94 [facility] Work Phone: Erythrocyte sedimentation ra yarelis 01-28-2022 ESR (Bld) [Velocity] 19 mm/h 0-20 [facility] Work Phone: Hematocrit Auto (Bld) [Volum e fraction]on 01-28-2022 Hematocrit (Bld) [Volume fraction] 45.1 % 40-54 [facility] Work Phone: Laboratory - Chemistry and C hemistry - challengeon 01-28-2022 ALP [Catalytic activity/Vol] 53 U/L 45-117 [facility] Work Phone: ALT [Catalytic activity/Vol] 28 U/L 16-61 [facility] Work Phone: CO2 [Moles/Vol] 27.0 mmol/L 21.0-32.0 [facility] Work Phone: Globulin (S) [Mass/Vol] 3.9 g/dL 2.2-4.2 [facility] Work Phone: Urea nitrogen/Creatinine [Mass ratio] 18.7 mg/mg 10-20 [facility] [place] Work Phone: Laboratory - Hematology and Cell countson 01-28-2022 Erythrocyte distribution width (RBC) [Entitic vol] 46.6 fL 35.1-43.9 [facility] [place] Work Phone: Erythrocyte distribution width (RBC) [Ratio] 13.8 % 11.6-14.6 [facility] [place] Work Phone: MCH (RBC) [Entitic mass] 31.5 pg 27.0-32.0 [facility] [place] Work Phone: MCHC Auto (RBC) [Mass/Vol]on 01-28-2022 MCHC (RBC) [Mass/Vol] 34.4 g/dL 32-36 [facility] [place] Work Phone: No Panel Informationon 01-28 Estimated GFR (MDRD) Amer 107 mL/min >60 [facility] [place] Work Phone: Comment on above: GFR Calc Estimated GFR (MDRD) Non-Af Amer 89 mL/min >60 [facility] [place] Work Phone: Comment on above: Non- GFR Calc Platelets bldon 01-28-2022 Platelets (Bld) [#/Vol] 185 10*3/uL 150-450 [facility] [place] Work Phone: Serum or plasma C reactive p rotein measurement (mass/volume)on 01-28-2022 CRP [Mass/Vol] mg/L 0.0-3.0 [facility] [place] Work Phone: Comment on above: C-Reactive Protein ( CRP) provides useful information for thediagnosis, therapy and monitoring of inflammatory processesand associated diseases. For the evaluation of Relative Riskfor Cardiovascular Disease, a High Sensitivity CRP (HSCRP)should be ordered. Serum or plasma albumin jeovanny urement (mass/volume)on 01-28-2022 Albumin [Mass/Vol] 3.3 g/dL 3.2-5.0 [facility] Work Phone: Serum or plasma albumin/glob ulin mass ratioon 01-28-2022 Albumin/Globulin [Mass ratio] 0.8 {ratio} 0.9-2.4 [facility] [place] Work Phone: Serum or plasma calcium jeovanny urement (mass/volume)on 01-28-2022 Calcium [Mass/Vol] 8.9 mg/dL 8.5-10.1 [facility] Work Phone: Serum or plasma cholesterol in HDL measurement (mass/volume)on 01-28-2022 Cholesterol in HDL [Mass/Vol] 70 mg/dL >40 [facility] [place] Work Phone: Comment on above: The drugs N-Acetylcy steine and Metamizole may falsely depress this assay. Reference Range HDL <40 mg/dL Low HDL Cholesterol HDL >or= 60 mg/dL High HDL Cholesterol Serum or plasma cholesterol in VLDL measurement (mass/volume)on 01-28-2022 Cholesterol in VLDL [Mass/Vol] 18 mg/dL 5-40 [facility] [place] Work Phone: Serum or plasma creatinine m easurement (mass/volume)on 01-28-2022 Creatinine [Mass/Vol] 0.91 mg/dL 0.70-1.30 [facility] [place] Work Phone: Comment on above: The validity of the calculated GFR & GFRAA in patients over 70 years has not been determined. Clinical correlation is essential. Serum or plasma low density lipoprotein (LDL) cholesterol measurement (mass/volume)on 01-28-2022 Cholesterol in LDL [Mass/Vol] 89 mg/dL 0-130 [facility] [place] Work Phone: Serum or plasma urea nitroge n measurement (mass/volume)on 01-28-2022 Urea nitrogen [Mass/Vol] 17 mg/dL 7-18 [facility] [place] Work Phone: Thin prep Papanicolaou smear with manual screeningon 01-28-2022 Thin prep Papanicolaou smear with manual screening 13 U/L 15-37 [facility] [place] Work Phone: Thin prep Papanicolaou smear with manual screening 6 5-15 [facility] [place] Work Phone: COVID-19on 10-07-2021 SARS-CoV-2 (COVID-19) RNA GABBY+probe Ql (Unsp spec) Not detected Normal Not Detect [facility] Comment on above: Result Comment: Vinny bowling NAAT: Negative results should be treated as presumptive and, if inconsistent with clinical signs and symptoms or necessary for patient management, should be tested with an alternative molecular assay. Negative results do not preclude SARS-CoV-2 infection and should not be used as the sole basis for patient management decisions. This test has been authorized by the FDA under an Emergency Use Authorization (EUA) for use by authorized laboratories. Fact sheet for Healthcare Providers: https://www.fda.gov/media/724689/download Fact sheet for Patients: https://www.fda.gov/media/113999/download METHODOLOGY: Isothermal Nucleic Acid Amplification Performed By: #### C OVRG #### [facility] [address] [place] [address] Culture, Urineon 10-05-2021 Culture, Urine ORDER#: [id number] OR DERED BY: JESSICA TUBBS SOURCE: Urine Clean Catch COLLECTED: 10/05/21 06:00 ANTIBIOTICS AT JONA.: RECEIVED : 10/05/21 08:01 Culture, Urine FINAL 10/06/21 09:22 No growth 24 hours Normal [facility] Comment on above: Performed By: #### C KASIA #### [facility] [address] [place] [address] OBSOLETEon 07-31-2019 OBSOLETE Refill (NEAGAK) LOREE FRANCIS ([id number]) 1955 M Date Time Provider Department 07/31/19 STEVE RUIZ, MARIUSZ JOHNSON During your visit today, we recorded the following information about you: Jaky Patel MA 07/31/2019 3:05 PM Signed 07/31/2019 15:05:04 Patient called requesting the following refill Refill(s) Requested: Pending Prescriptions Disp Refills TOPIRAMATE 25 MG TABLET 90 tablet 1 Sig: Take 3 tablets by mouth daily at bedtime. Take 25 mg for 1 week qhs Then take 50 mg for 1 week qhs Then 75 mg qhs STEPHANY: No ALLERGIES No Known Allergies (home) [phone] (cell) Last Visit date: Visit date not found Future appointment: Visit date not found The patients preferred pharmacy has been captured for this encounter? yes Request is for script(s) to be escript to pharmacy. Jaky Patel MA Allergies As of Date: 07/31/2019 (No Known Allergies) Date Reviewed: 06/06/2019 Reviewed by: Emma VilledaRn) DOMI Whatley - Fully Assessed Reason for Visit: Refill Request [94] Cmt: Topamax Reason For Visit History Recorded Visit Diagnoses:Intractable migraine without status migrainosus, unspecified migraine type [G43.919] PLMD (periodic limb movement disorder) [G47.61] Order(s):topiramate (TOPAMAX) 25 mg tabletTake 3 tablets by mouth daily at bedtime.Disp: 90 tabletRfl: 2 Prescriptions as of 07/31/2019 Sig: TOPIRAMATE 25 MG TABLET Take 3 tablets by mouth daily* LEVOFLOXACIN 750 MG TABLET Take 750 mg by mouth once curtis* EXCEDRIN MIGRAINE ORAL Take 1 tablet by mouth as dir* ROPINIROLE 1 MG TABLET Take 1.5 MG qhs LISINOPRIL 20 MG TABLET Take 20 mg by mouth twice curtis* TAMSULOSIN 0.4 MG CAPSULE Take 2 capsules by mouth once* LOVASTATIN 40 MG TABLET Take 40 mg by mouth daily at * MULTIVITAMIN WITH MINERALS TA* Take 1 tablet by mouth once d* * OMEPRAZOLE 20 MG CAPSULE,JERILYN* Take 20 mg by mouth once juan* Problem List As Of Date 07/31/2019 Noted Resolved CHRONIC PROSTATITIS [N41.1] INVALID FOR* CALCULUS OF PROSTATE [N42.0] INVALID FOR* THROMBOS HEMORRHOIDS NOS [K64.5] INVALID FOR* BLADDER NECK OBSTRUCTION [N32.0] INVALID FOR* BPH W URINARY OBS/LUTS [N40.1] INVALID FOR* Spinal stenosis in cervical region [M48.02] INVALID FOR* Sleep starts [F51.8] INVALID FOR* More... 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 Medications Discontinued During This Encounter topiramate (TOPAMAX) 25 mg tablet 90 t* 1 05/15/2019 07/31/2019 Route: ORAL Sig: Take 3 tablets by mouth daily at bedtime. Take 25 mg for 1 week qhs Then take 50 mg for 1 week qhs Then 75 mg qhs Disc: Reason for discontinue is not on file. Encounter Status:Closed by JAKY PATEL on 08/03/19 Normal [facility] ER Physician Documentationon 06-14-[address] [facility] Patient: LOREE FRANCIS [address] : 1955 [place], [place] [address] Location: ER [phone] Unit #: [id number] ER Physician Documentation Service Date:06/05/19 ER Provider: Stephany Chapa DO [facility] - General Medical Time Seen by Provider: 06/05/19 10:31 Arrival Mode: EMS Historian: Patient - History of Present Illness Stated Complaint: adult illness Symptoms Began: Just SALES LEAD Symptoms Still Occurring: Still Present Severity: Mild Current/Associated Symptoms: Other - mild headache, neck stiffness, high BP, mild chest pain (now resolved), not feeling right 06/05/19 63 y/o male pt presents to the ED via EMS with multiple complaints x SALES LEAD. Pt is from out of town and traveling here for work. Pt began to experience mild headache, high BP, mild chest pain, neck stiffness, and was not feeling right on his way to work this morning. Pt became anxious due to his symptoms, so he called the squad to bring him to our ED for evaluation. Pt had recent UTI approximately 3 weeks ago and was placed on 2 different antibiotics, both of which he has taken the full course of and the 2nd antibiotic of which he finished yesterday. Pt relates in addition to the above symptoms, he thinks he may still have a UTI due to frequency issues and urinating 4 times last night. Pt relates chronic history of urinary issues such as frequency and trouble starting his flow. Pt follows with a urologist for this chronic issue. Pt relates his chest pain is currently resolved. Pt denies cardiac stents. Pt's last stress test was in late winter or early spring. Pt denies blood in his urine or burning with urination. Pt also relates chronic back pain that has been present for several months. Pt states he was prescribed pain medication by his doctor, which provided no relief, so they referred him to a chiropractor, who pt has not seen as of yet. Pt has chronic history of headaches and follows with neurology. Pt relates his headache has lessened in severity and is only mild currently. Past Medical History Allergies/Adverse Reactions No Known Drug Allergies Allergy (Verified 06/05/19 10:51) Home Medications Lisinopril 20 mg PO DAILY 06/05/19 [History Confirmed 06/05/19] Lovastatin [Altoprev] 40 mg PO QHS 06/05/19 [History Confirmed 06/05/19] Multivitamin [Daily Chalo] 1 tab PO DAILY 06/05/19 [History Confirmed 06/05/19] Omeprazole 20 mg PO DAILY 06/05/19 [History Confirmed 06/05/19] Ropinirole HCl [Requip] 1 - 2 mg PO QHS 06/05/19 [History Confirmed 06/05/19] Tamsulosin HCl [Flomax] 0.4 mg PO DAILY 06/05/19 [History Confirmed 06/05/19] Topiramate [Topamax] 75 mg PO QHS 06/05/19 [History Confirmed 06/05/19] clonazePAM [Klonopin] 0.5 mg PO PRN PRN 06/05/19 [History Confirmed 06/05/19] Cardiovascular Problems: Hypertension Additional Urinary Information: RECENT UTI 3 WEEKS AGO TOOK CIPRO, THEN SAW UROLOGIST AND COMPLETED ANOTHER ANTIBIOTIC- DOESN'T KNOW THE NAME. - Other PMH Additional Medical Information: CHRONIC UPPER BACK, LT SHOULDER PAIN - Past Surgical History Cardiovascular Surgeries: Stress Test Other Surgical Information: COLONOSCOPY - Social History Type of Tobacco: Chewing tobacco Caffeine Amount: 1-2/Day Alcohol Amount: Socially/Occasionally Street Drugs: None Review and agree with Nursing - Past Medical History: Agree Review and agree with Nursing - Social History: Agree Review and agree with Nursing - Family History: Agree Review of Systems Constitutional: Positive: No symptoms EENT: Positive: No symptoms Respiratory: Positive: No symptoms Cardiac: Positive: Chest pain - currently resolved Abdomen/GI: Positive: No symptoms Genitourinary: Positive: Frequency - chronic Skin: Positive: No symptoms Musculoskeletal: Positive: Back pain - chronic. Negative: Neck pain - neck stiffness Neurological: Positive: Headache - mild Endocrine: Positive: No symptoms Hematologic/Lymphatic: Positive: No symptoms Psychiatric: Positive: No symptoms All other systems: Reviewed and negative except HPI Exam - Physical Exam Patient presentation: Positive: Well appearing, No apparent distress, Other - resting comfortably General Skin: Positive: Warm, Dry General Habitus: Positive: Normal General Mental Status: Positive: Alert General hydration: Positive: Moist mucous membranes ENT Exam: Pharynx normal, Neck supple Eye exam: PERRL, EOMI, Conjunctivi normal Cardiovascular Exam: Regular rate and rhythm, No edema, Other - no chest pain Heart sounds: Normal Pulmonary exam: Lungs clear, No respiratory distress, Chest non-tender Respirations: Normal Gastrointestinal Exam: Normal bowel sounds, non tender, Soft, No organomegaly, Non distended Auscultation of Abdomen: Normal Exam - Male: Other - no testicular pain, no testicular swelling, hernia left suprapubic area that is reducible - Musculoskeletal Exam Musculoskeletal Exam: Full ROM, No edema, Neurovascular intact - Skin Exam Intact, Warm,dry, No rash - Psychiatric Exam Alert , oriented x 3 Anxious - Neurovascular Exam Neurological Exam: Alert, Oriented x 3 Mental Status: Oriented to person, Oriented to place, Oriented to time, Usual mental status Speech: Normal speech - Progress note 06/05/19 10:37 Dr. Stephany Jacobson examined 63 y/o male pt who presents to the ED via EMS with multiple complaints x SALES LEAD. Pt is resting comfortably and in no distress. Pt has no chest pain. Pt has no testicular swelling and no testicular pain. Pt has hernia left suprapubic area that is reducible. Pt is anxious on examination. Pt will receive EKG, CT abdomen/pelvis, XR chest, laboratory work, UA, and IV Bolus. All questions were asked and answered. Pt understands and agrees with the POC. 06/05/19 11:57 Dr. Stephany Jacobson updated pt on results. Pt's relates he still has a mild headache. Pt has chronic history of headaches and follows with neurology. Pt will receive Toradol. Pt will be discharged with instructions. All questions were asked and answered. Pt understands and agrees with the POC. - Orders/Results Orders CT Abd/Pelvis W/[place] [id number] Scan 06/05/19 10:47 Completed EKG [Electrocardiogram 12 Lead] Stat CTC 06/05/19 10:48 Ordered Obtain EKG (Information only) NOW Care 06/05/19 10:48 Completed Laboratory 06/05/19 10:45: Urine Color Yellow, Urine Appearance Clear, Urine pH 7.0, Ur Specific [place] 1.012, Urine Protein Negative, Urine Ketones Negative, Urine Blood Negative, Urine Nitrite Negative, Urine Bilirubin Negative, Urine Urobilinogen <2.0 E.U./dL, Ur Leukocyte Esterase Negative, Urine RBC 0-2, Ur WBC Total Counted 0-5, Ur Squamous Epith Cells None, Urine Mucus (Auto) Present, Ur Culture Indicated? No, Urine Glucose Negative 06/05/19 10:57: WBC 6.5, RBC 4.81, Hgb 14.4, Hct 42.3, MCV 87.9, MCH 30.0, MCHC 34.1, RDW 15.0, Plt Count 208, Neut % (Auto) 69.2, Lymph % (Auto) 21.2, Page % (Auto) 7.5, Eos % (Auto) 1.6, Baso % (Auto) 0.5, Nucleat RBC Rel Count 0.1, Absolute Neuts (auto) 4500, Absolute Lymphs (auto) 1400, Absolute Monos (auto) 500, Absolute Eos (auto) 100, Absolute Basos (auto) 0 06/05/19 10:57: Sodium 138, Potassium 3.9, Chloride 108, Carbon Dioxide 24, Anion Gap 6, BUN 18, Creatinine 0.95, GFR Calculation > 60, Random Glucose 98, Calcium 8.40 L, Troponin < 0.01 Radiology Interpretations: CT ABDOMEN AND PELVIS WITHOUT CONTRAST IMPRESSION: 1. No hydronephrosis or urinary tract calcifications. Electronically Signed: Venkatesh Boss MD ([place]) at 11:45 EDT X-RAY CHEST IMPRESSION: 1. Nonacute portable x-ray examination of the chest. Electronically Signed: Venkatesh Boss MD ([place]) at 11:34 EDT Radiology: Agree with Radiology report findings, Radiology report reviewed, CT Scan report reviewed - Pulse Oximetry Oxygen delivery method: Room Air Patient Hypoxic: No - EKG Interpretation EKG #1 EKG review date: 06/05/19 - Reviewed by Dr. Stephany Jacobson EKG review time: 10:35 Computerized reading: Agree with computerized reading Interpretation: Normal EKG Comparison: No comparison available Heart rate: 60 Rate: Normal Rhythm: Sinus Vital Signs 06/05/19 10:22 98.2 F 61 18 146/87 H 98 Departure Disposition*: Discharge from ER Condition*: Good Clinical Impression*: Headache Additional Instructions: Please follow up with your doctor this week. If symptoms are persistent or become worse, please return to the emergency department immediately. If you have any other questions or concerns, please return to the emergency department immediately. Referrals: None,Physician [Primary Care Provider] - in one week Forms: ED Additional Information - Scribe Attestation By electronically signing this emergency patient record, the Emergency Physician attests that all entries made into the electronic medical record by the scribe prior to the Physician electronic signature reflect an accurate accounting of the evaluation and care rendered by that Emergency Physician. The Emergency Physician assumes full responsibility for those entries. The Emergency Physician also attests that any patient testing and treatment that was instituted by nursing staff in accordance with Emergency Department Preemptive Guidelines have been reviewed and unless so stated elsewhere in this patient chart, the physician agrees with the testing and care provided. Clarice Morrison, documented the HPI, ROS, PE, Progress Notes, Radiology results, and EKG results on behalf of Dr. Stephany Jacobson. cc: None Dictated by: Clarice Lu on 06/05/19 1152 Transcribed by: ALY Schultz on 06/05/19 1152 Report Signed by: Clarice LU on 06/07/19 1004 < > Report Signed by: Stephany Chapa DO on 06/14/19 0616 < > Report Signed by: on Report Signed by: on Co-Signer: Stephany Chapa DO on 06/14/19 0616 < > Normal [facility] Basic Panelon 06-06-2019 Creatinine [Mass/Vol] 0.84 mg/dL Normal 0.67-1.17 [facility] Comment on above: Performed By: #### P 8 #### [address] [address] Anion gap [Moles/Vol] 12 mmol/L Normal 8-16 [facility] Comment on above: Performed By: #### P 8 #### [address] [address] CO2 [Moles/Vol] 22 mmol/L Normal 21- [facility] Comment on above: Performed By: #### P 8 #### [facility] [address], [place] [address] Glucose [Mass/Vol] 113 mg/dL High 70-99 [facility] Comment on above: Performed By: #### P 8 #### [facility] [address], [place] [address] Urea nitrogen [Mass/Vol] 18 mg/dL Normal 7-18 [facility] Comment on above: Performed By: #### P 8 #### [facility] [address], [place] [address] Calcium [Mass/Vol] 8.9 mg/dL Normal 8.5-10.1 [facility] Comment on above: Performed By: #### P 8 #### [facility] [address], [place] [address] Chloride [Moles/Vol] 109 mmol/L High 98-107 [facility] Comment on above: Performed By: #### P 8 #### [facility] [address], [place] [address] Potassium [Moles/Vol] 4.0 mmol/L Normal 3.5-5.1 [facility] Comment on above: Performed By: #### P 8 #### [facility] [address], [place] [address] Sodium [Moles/Vol] 139 mmol/L Normal 136-145 [facility] Comment on above: Performed By: #### P 8 #### [facility] [address], [place] [address] CT BRAIN WO IVCONon 06-06-[address] BRAIN WO IVCON * * *Final Report* * * DATE OF EXAM: Jun 06 2019 10:39AM [facility] 0504 - CT BRAIN WO IVCON / PROCEDURE REASON: SAH suspected, initial exam * * * * Physician Interpretation * * * * EXAMINATION: CT BRAIN WO IVCON CLINICAL HISTORY: SAH suspected, initial exam headache with history of small aneurysm TECHNIQUE: Serial axial images without IV contrast were obtained from the vertex to the foramen magnum. MQ: [id number]_3 CT Dose-Length Product (DLP): 800 mGy*cm CT Dose Reduction Employed: Iterative recon COMPARISON: CT brain 04/07/2019 RESULT: Post-operative change: None. Acute change: No evidence of an acute infarct or other acute parenchymal process. Hemorrhage: No evidence of acute intracranial hemorrhage. Mass Lesion / Mass Effect: There is no evidence of an intracranial mass or extraaxial fluid collection. No significant mass effect. Chronic change: None apparent. Parenchyma: There is no significant volume loss. The brain parenchyma is otherwise within normal limits for age. Ventricles: The ventricles are within normal limits of size and configuration for age. Paranasal sinuses and skull base: The visualized paranasal sinuses are grossly clear. The skull base and imaged soft tissues are unremarkable. IMPRESSION: Unremarkable noncontrast CT brain. No evidence of acute intracranial hemorrhage or other acute intracranial abnormality. Pre Owned Sales Manager: PSCB Transcribe Date/Time: Jun 06 2019 12:08P Dictated by : MICHELLE PLASCENCIA MD This examination was interpreted and the report reviewed and electronically signed by: MICHELLE PLASCENCIA MD on Jun 06 2019 12:14PM EST Normal [facility] CTA HEAD W IVCONon 9 CTA HEAD W IVCON * * *Final Report* * * DATE OF EXAM: Jun 06 2019 1:20PM [facility] 0022 - CTA HEAD W IVCON / PROCEDURE REASON: Aneurysm, neck vessel(s) * * * * Physician Interpretation * * * * EXAMINATION: CTA HEAD W IVCON CLINICAL HISTORY: Aneurysm, neck vessel(s) TECHNIQUE: Spiral high resolution axial images were obtained through the head, neck and superior mediastinum following bolus administration of intravenous contrast for CT angiography. 3D maximum intensity projection images were created, reviewed and archived . MQ: CTAHN_4 Contrast: 100 mL Omnipaque 350 IV Dose-Length Product (DLP): 460 mGy*cm. CT Dose Reduction Employed: Automated exposure control(AEC) and iterative recon COMPARISON: CT brain performed on the same day. Intracranial MRA 10/20/2017 RESULT: BRAIN: Evaluation of the individual slices of the CTA demonstrates no evidence of an acute stroke. ASPECT Score = 10 Hemorrhage: No evidence of acute intracranial hemorrhage. ECASS hemorrhagic transformation score: Not Applicable Spot Sign Presence: Not Applicable Spot Sign Number: Not Applicable CT ARTERIOGRAM: Intracranial Circulation: Anterior Circulation: There is atherosclerosis of the intracranial ICAs. The ACAs and MCAs are patent. No significant stenosis. Stable anteromedially directed 2 mm aneurysm/infundibulum at left ophthalmic origin. The previously noted 2 mm outpouching along the undersurface of the right supraclinoid ICA likely represents infundibulum at the right superior hypophyseal artery. No additional aneurysm. Vertebrobasilar Circulation: The distal cervical and intradural vertebral arteries are patent. The basilar artery is patent. android software engineer are patent. SCAs and PICAs are patent. No significant stenosis. No aneurysm. The major dural sinuses and draining veins are grossly patent. IMPRESSION: No significant stenosis or major vessel occlusion in the intracranial circulation. Stable 2 mm left ophthalmic infundibulum/aneurysm The previously noted right supraclinoid ICA outpouching likely represents right superior hypophyseal artery infundibulum. No new aneurysm. Pre Owned Sales Manager: LUZ Transcribe Date/Time: Jun 06 2019 1:28P Dictated by : BIRGIT KHALIL MD This examination was interpreted and the report reviewed and electronically signed by: BIRGIT KHALIL MD on Jun 06 2019 1:46PM EST Normal [facility] ECG COMPLETEon 06-06-2019 ECG COMPLETE NAME : LOREE FRANCIS PID : [id number] : 1955 Gender : Male Race : ORD : [id number] Procedure Date : Jun 06 2019 09:40:52 Edit Date : Jun 16 2019 07:49:31 Diagnosis:NORMAL SINUS RHYTHM NORMAL ECG WHEN COMPARED WITH ECG OF 07-APR-2019 11:36, NO SIGNIFICANT CHANGE WAS FOUND Confirmed by MD AQUINO STEVEN ([id number]) on 06/16/2019 7:49:28 AM Ventricular Rate : 81 BPM Atrial Rate : 81 BPM P-R Interval : 166 ms QRS Duration : 98 ms Q-T Interval : 374 ms QTC Calculation(Bazett) : 434 ms P Ledger : 35 degrees R Ledger : 4 degrees T Ledger : -4 degrees Test Reason : Chest Pain Location : 4 : AKED 15 Overread By : MD AQUINO STEVEN Edited By : MD AQUINO STEVEN Referred By : , Acquired by : JASON DAVILA [facility]U Troponin Ion 06-06-2019 Troponin I.cardiac [Mass/Vol] ng/mL Normal 0.015-0.045 [facility] Comment on above: Performed By: #### C BC1 #### [facility] [address], [place] [address] Troponin I.cardiac [Mass/Vol] ng/mL Normal 0.015-0.045 [facility] Comment on above: Performed By: #### E RTRP #### [facility] [facility] [address], [place] [address] ED NOTEon 06-06-2019 ED NOTE HNO ID: [id number] Author: Ann VilledaRn) DOMI Christianson Service: Emergency Medicine Author Type: Registered Nurse Type: ED Notes Filed: 06/06/2019 12:41 PM Note Text: Radiology notified that patient was ready for CT, message left Normal [facility] ED NOTE HNO ID: [id number] Author: Honey Estrada DO Service: Emergency Medicine Author Type: Physician Type: ED Notes Filed: 06/06/2019 10:44 AM Note Text: TEACHING ATTESTATION: I personally saw and examined the patient. I reviewed the resident?s note. I agree with the resident?s assessment and plan unless otherwise noted. This is a 63-year-old male presents to the emergency department with complaint of chest pain as well as headache. Patient has a known history of intracranial aneurysm that was found to be stable by MRI/MRA on April 17, 2019. Patient states he was driving today when he felt chest discomfort as well as headache. Patient states that this is not the worst of his life but that his headaches have been worsening. CT noncontrast is currently pending. We also will perform a cardiac workup. Pt was seen with Dr. Beckford, resident physician, please see his note for full history and physical exam. I agree with the above without significant change. Plan at this time is to complete a noncontrast CT head as well as cardiac workup. We will obtain a CTA of the head if noncontrast CT is negative. Patient is neurologically intact. Heart rate and rhythm, lungs are clear to auscultation bilaterally. Normal [facility] ED NOTE HNO ID: [id number] Author: Corina Charlton) DOMI Tijerina Service: ? Author Type: Registered Nurse Type: ED Notes Filed: 06/06/2019 8:50 AM Note Text: Bed: 15-ED Expected date: Expected time: Means of arrival: Comments: triage Normal [facility] ED PROV NOTEon 06-06-2019 ED PROV NOTE HNO ID: [id number] Author: Honey Estrada DO Service: Emergency Medicine Author Type: Physician Type: ED Provider Notes Filed: 06/07/2019 7:51 AM Note Text: ED Provider Note Patient Name: Loree Francis SERVICE DATE: 06/06/19 History Patient presents with: Headache: Pt arrives ambulatory with c/o headache that started yesterday, c/o having high BP. C/o right blurry vision. pt denies taking anything for relief of headache. Denies CP, SOB. Denies light sensitivity. Headaches have started while driving car. HPI Patient is a 63 years old male presented with headache and mild chest pain that started today morning. Yesterday he went to a different ED for similar symptoms and his blood pressure was found to be high and so his lisinopril dose was doubled from 10 to 20 mg. His chest pain was left sided, sharp/dull in nature, lasted for about a minute. He took clonazepam which helped relieve his symptoms. He denies and weakness, numbness or tingling sensation. Currently denies any chest pain. He does have a history of chronic headaches and also has a history of intracranial aneurysms. He follows up with Dr Sanderson as outpatient and has been taking Topamax at bedtime. He also has recent stress at home and usually Excedrin works for his headaches. He had MRA brain last month which showed stable aneurysm. PAST MEDICAL HISTORY Diagnosis Date - Spinal stenosis PAST SURGICAL HISTORY Procedure Laterality Date - HEMORRHOIDECTOMY,INT/EXT,COM PLX FAMILY HISTORY Problem Relation Age of Onset - Arthritis Father - Cancer Father - Stroke Father - Coronary Artery Disease Maternal Grandmother - Diabetes Maternal Grandmother - Coronary Artery Disease Mother - Coronary Artery Disease Maternal Uncle - Genitourinary () Sister - Seizures Paternal Aunt Social History Tobacco Use - Smoking status: Never Smoker - Smokeless tobacco: Current User Types: Snuff Substance and Sexual Activity - Alcohol use: Yes Comment: rarely - Drug use: No - Sexual activity: Not on file ALLERGIES No Known Allergies Review of Systems Constitutional: Negative for activity change, appetite change, chills, diaphoresis, fatigue, fever and unexpected weight change. HENT: Negative for congestion, ear discharge and hearing loss. Eyes: Negative for photophobia, pain, discharge, redness and itching. Respiratory: Negative for apnea, cough, choking, chest tightness, shortness of breath, wheezing and stridor. Cardiovascular: Negative for chest pain, palpitations and leg swelling. Gastrointestinal: Negative for abdominal distention, abdominal pain, constipation, diarrhea, nausea and vomiting. Endocrine: Negative for cold intolerance, heat intolerance, polydipsia and polyphagia. Genitourinary: Negative for difficulty urinating, dysuria, enuresis, flank pain, frequency and hematuria. Musculoskeletal: Negative for arthralgias, back pain, gait problem, joint swelling, myalgias, neck pain and neck stiffness. Skin: Negative for color change, pallor, rash and wound. Neurological: Positive for headaches. Negative for dizziness, seizures, syncope, facial asymmetry, speech difficulty, weakness, light-headedness and numbness. Hematological: Negative for adenopathy. Does not bruise/bleed easily. Psychiatric/Behavioral: Negative for agitation, behavioral problems, confusion, decreased concentration, dysphoric mood and hallucinations. The patient is not nervous/anxious and is not hyperactive. Physical Exam BP 132/84 Pulse 99 Temp (Src) 97.7 (Oral) Resp 16 Ht 5' 9 (1.75m) Wt 212 lb (96.2kg) SpO2 98% BMI 31.29 kg/(m2). O2 Therapy: Room Air Physical Exam Constitutional: He is oriented to person, place, and time. He appears well-developed and well-nourished. No distress. HENT: Head: Normocephalic and atraumatic. Eyes: Pupils are equal, round, and reactive to light. EOM are normal. Right eye exhibits no discharge. Left eye exhibits no discharge. Neck: Normal range of motion. Neck supple. No JVD present. No tracheal deviation present. No thyromegaly present. Cardiovascular: Normal rate, regular rhythm, normal heart sounds and intact distal pulses. Exam reveals no gallop and no friction rub. No murmur heard. Pulmonary/Chest: Effort normal and breath sounds normal. No stridor. No respiratory distress. He has no wheezes. He has no rales. Abdominal: Soft. Bowel sounds are normal. He exhibits no distension. There is no tenderness. Musculoskeletal: Normal range of motion. He exhibits no edema, tenderness or deformity. Lymphadenopathy: He has no cervical adenopathy. Neurological: He is alert and oriented to person, place, and time. No cranial nerve deficit. Skin: Skin is warm and dry. No rash noted. He is not diaphoretic. No erythema. No pallor. Psychiatric: He has a normal mood and affect. His behavior is normal. Judgment and thought content normal. Diagnostic Testing ED Labs Ordered and Reviewed - No data to display Procedures ED Course / Clinical Impression Clinical Impressions as of Jun 06 1454 Headache disorder MDM / Disposition / Plan Patient is a 63 years old male with history of brain aneurysms presented with headache and mild chest pain. He has normal EKG and troponin. CT head w/o contrast is unremarkable. CTA head was obtained which showed stable aneurysm. He has a follow up with his PCP in 3 days. The patient was DISCHARGED: Counseled patient regarding lab results AND radiology results AND suspected diagnosis AND need for follow-up. Discharged home with verbal and written instructions. They were instructed to return as needed for persistent or worsening symptoms or any new concerns. Condition at time of disposition: stable SIGNATURE: MD Anny Fung (Res) Shakeel Resident 06/06/19 1456 Honey Estrada DO 06/07/19 0751 Normal [facility] Hemogramon 06-06-2019 Erythrocyte distribution width (RBC) [Ratio] 14.6 % High 11.6-14.4 [facility] Comment on above: Performed By: #### C BC1 #### [address] [address] Hematocrit (Bld) [Volume fraction] 43.5 % Normal 40.1-51.0 [facility] Comment on above: Performed By: #### C BC1 #### [address] [address] Hemoglobin (Bld) [Mass/Vol] 14.8 g/dL Normal 13.7-17.5 [facility] Comment on above: Performed By: #### C BC1 #### [address] [address] MCH (RBC) [Entitic mass] 30.0 pg Normal 25.7-32.2 [facility] Comment on above: Performed By: #### C BC1 #### [facility] [address], [place] [address] MCHC (RBC) [Mass/Vol] 34.0 % Normal 32.3-36.5 [facility] Comment on above: Performed By: #### C BC1 #### [facility] [address], [place] [address] MCV (RBC) [Entitic vol] 88.1 fL Normal 83.2-95.6 [facility] Comment on above: Performed By: #### C BC1 #### [facility] [address] [place] [address] Platelet mean volume (Bld) [Entitic vol] 9.8 fL Normal 8.7-12.0 [facility] Comment on above: Performed By: #### C BC1 #### [facility] [address] [place] [address] Platelets (Bld) [#/Vol] 218 thou/cmm Normal 141-365 [facility] Comment on above: Performed By: #### C BC1 #### [facility] [address] [place] [address] RBC (Bld) [#/Vol] 4.94 mil/cmm Normal 4.63-6.08 [facility] Comment on above: Performed By: #### C BC1 #### [facility] [address] [place] [address] RDW SD 46.5 fl High 36.1-45.8 [facility] Comment on above: Performed By: #### C BC1 #### [facility] [address] [place] [address] WBC (Bld) [#/Vol] 7.27 thou/cmm Normal 4.23-9.07 [facility] Comment on above: Performed By: #### C BC1 #### [facility] [address] [place] [id number] MDRD GFRon 06-06-2019 GFR/1.73 sq M predicted among non-blacks MDRD (S/P/Bld) [Vol rate/Area] mL/min/{1.73_m2} Normal >60mL/min/1 .73m2 [facility] Comment on above: Result Comment: If t he patient is , multiply the result by 1.210. Performed By: #### C BC1 #### [facility] [address], [place] [address] PLAN OF CAREon 06-06-2019 PLAN OF CARE HNO ID: [id number] Author: Mariusz Carranza ([employer]) Service: Pharmacy Author Type: Retail Associate Type: Plan of Care Filed: 06/06/2019 12:43 PM Note Text: MEDICATION HISTORY Patient Name:Fannie Francis : 1955 Source of history:Patient: Reliability of source: Appears reliable, clearly identified: Medication name and Pharmacy records: [facility] [phone] Medication Nonadherence Identified: No barriers noted The above information represents the best possible medication history: Yes Additional comments: [id number] Medication List Adjustments: Medication Regimen Changes: lisinopril (ZESTRIL, PRINIVIL) 20 mg tablet, Take 20 mg by mouth once daily. Pt. states his PCP increased med to 20 mg BID recently. tamsulosin ER (FLOMAX) 0.4 mg cap, Take 2 capsules by mouth once daily. Pt. states his urologist increased med to 1 cap daily to 2 caps daily recently. Medications Added: levoFLOXacin (LEVAQUIN) 750 mg tablet, Take 750 mg by mouth once daily. aspirin/acetaminophen/caffei ne (EXCEDRIN MIGRAINE ORAL), Take 1 tablet by mouth as directed. OTC. PRN for migraine headaches per pt. Medications Removed: Aspirin, 81 mg EC, Pt. states he does not take med. Klonopin, Pt. states he does not take med. Plaquenil 200 mg, Pt. states he does not take med. [id number]-lipids (Krill oil) 316-48-21-50 mg cap, Pt. states he does not take med. Mobic 15 mg, Pt. States he does not take med Short-Term Medications: levoFLOXacin (LEVAQUIN) 750 mg tablet, Take 750 mg by mouth once daily. Take med for 10 days. Pt. states he started med on 06/06/19 Further Clarification Required: na Patient is a 30 day readmission: No Patient Interested in Bedside Delivery: No Time Spent Reviewing Patient's Medications: 45 minutes Allergies: ALLERGIES No Known Allergies Preferred Pharmacy: [facility] [phone] Current SALES LEAD Medications: Prior to Admission medications as of 06/06/19 0849 Medication Sig Last Dose Taking levoFLOXacin (LEVAQUIN) 750 mg tablet Take 750 mg by mouth once daily. 06/06/2019 Yes aspirin/acetaminophen/caffei ne (EXCEDRIN MIGRAINE ORAL) Take 1 tablet by mouth as directed. OTC. PRN for migraine headaches per pt. Yes rOPINIRole (REQUIP) 1 mg tablet Take 1.5 MG qhs 06/05/2019 Yes topiramate (TOPAMAX) 25 mg tablet Take 3 tablets by mouth daily at bedtime. Take 25 mg for 1 week qhs Then take 50 mg for 1 week qhs Then 75 mg qhs 06/05/2019 Yes lisinopril (ZESTRIL, PRINIVIL) 20 mg tablet Take 20 mg by mouth twice daily. 06/06/2019 Yes tamsulosin ER (FLOMAX) 0.4 mg cap Take 2 capsules by mouth once daily. 06/06/2019 Yes Lovastatin 40 mg tablet Take 40 mg by mouth daily at bedtime. 06/05/2019 Yes multivitamin with minerals (MEN'S ONE DAILY) tablet Take 1 tablet by mouth once daily. 06/06/2019 Yes OMEPRAZOLE 20 MG CAP, DELAYED RELEASE Take 20 mg by mouth once daily. 06/06/2019 Yes Mariusz Carranza ([employer]) pager [phone] June 06, 2019 12:29 PM Normal [facility] Basic Metabolic,Non-Fastingo n 06-05-2019 Anion gap [Moles/Vol] 6 mmol/L Normal 4-12 [facility] Comment on above: Performed By: #### L 400.0425, L400.0152 #### [facility] ([facility]) [address] [place], [place] [id number] Francisco Croft MD Calcium [Mass/Vol] 8.40 mg/dL Low 8.8-10.5 [facility] Comment on above: Performed By: #### L 400.0425, L400.0152 #### [facility] ([facility]) [address] [place] [address] Francisco Croft MD Chloride [Moles/Vol] 108 mmol/L Normal 101-111 [facility] Comment on above: Performed By: #### L 400.0425, L400.0152 #### [facility] ([facility]) [address] [place] [address] Francisco Croft MD CO2 [Moles/Vol] 24 mmol/L Normal 21-32 [facility] Comment on above: Performed By: #### L 400.0425, L400.0152 #### [facility] ([facility]) [address] [place] [address] Francisco Croft MD Creatinine [Mass/Vol] 0.95 mg/dL Normal 0.60-1.30 [facility] Comment on above: Performed By: #### L 400.0425, L400.0152 #### [facility] ([facility]) [address] [place] [address] Francisco Croft MD GFR/1.73 sq M predicted among non-blacks MDRD (S/P/Bld) [Vol rate/Area] mL/min/{1.73_m2} Normal [facility] Comment on above: Result Comment: Child Life Therapist jonny Kidney Disease stages by NKDF Stage eGFR I >90 II 60-89 III 30-59 IV 15-29 V <15 or dialysis AGE(years) AVERAGE GFR 60-69 85 ml/min/1.73 square meters Note:This result is normalized to 1.73 square meter body surface area. Height and weight are not factored. Performed By: #### L 400.0425, L400.0152 #### [facility] ([facility]) [address] [place] [address] Francisco Croft MD Glucose [Mass/Vol] 98 mg/dL Normal 70-110 [facility] Comment on above: Result Comment: *Thi s reference range applies to fasting specimens only. Performed By: #### L 400.0425, L400.0152 #### [facility] ([facility]) [address] [place] [address] Francisco Croft MD Potassium [Moles/Vol] 3.9 mmol/L Normal 3.6-5.0 [facility] Comment on above: Performed By: #### L 400.0425, L400.0152 #### [facility] ([facility]) [address] [place] [address] Francisco Croft MD Sodium [Moles/Vol] 138 mmol/L Normal 135-145 [facility] Comment on above: Performed By: #### L 400.0425, L400.0152 #### [facility] ([facility]) [address] [place] [address] Francisco Croft MD Urea nitrogen [Mass/Vol] 18 mg/dL Normal 7-20 [facility] Comment on above: Performed By: #### L 400.0425, L400.0152 #### [facility] ([facility]) [address] [place] [address] Francisco Corft MD CBC with Differentialon 05-18 Abs Baso Count 0 /cmm Normal 0-200 [facility] Comment on above: Performed By: #### L 100.0000 #### [facility] ([facility]) [address] [place] [address] Francisco Croft MD Abs Eos Count 100 /cmm Normal 0-500 [facility] Comment on above: Performed By: #### L 100.0000 #### [facility] ([facility]) [address] [place] [address] Francisco Croft MD Abs Page Count 500 /cmm Normal 0-800 [facility] Comment on above: Performed By: #### L 100.0000 #### [facility] ([facility]) [address] [place] [address] Francisco Croft MD Abs Neut Count 4500 /cmm Normal 4369-7216 [facility] Comment on above: Performed By: #### L 100.0000 #### [facility] ([facility]) [address] [place], [place] [address] Francisco Croft MD Basophils/100 WBC (Bld) 0.5 % Normal 0-2 [facility] Comment on above: Performed By: #### L 100.0000 #### [facility] ([facility]) [address] [place], [place] [address] Francisco Croft MD EOS-Auto Diff 1.6 % Normal 0-6 [facility] Comment on above: Performed By: #### L 100.0000 #### [facility] ([facility]) [address] [place], [place] [address] Francisco Croft MD Erythrocyte distribution width (RBC) [Ratio] 15.0 % Normal 12.0-16.0 [facility] Comment on above: Performed By: #### L 100.0000 #### [facility] ([facility]) [address] [place], [place] [address] Francisco Crfot MD Hematocrit (Bld) [Volume fraction] 42.3 % Normal 40.0-49.0 [facility] Comment on above: Performed By: #### L 100.0000 #### [facility] ([facility]) [address] [place], [place] [address] Francisco Croft MD Hemoglobin (Bld) [Mass/Vol] 14.4 g/dL Normal 13.5-16.5 [facility] Comment on above: Performed By: #### L 100.0000 #### [facility] ([facility]) [address] [place], [place] [address] Francisco Croft MD Lymphocytes (Bld) [#/Vol] 1400 /cmm Normal 0976-0667 [facility] Comment on above: Performed By: #### L 100.0000 #### [facility] ([facility]) [address] [place] [address] Francisco Croft MD Lymphocytes/100 WBC (Bld) 21.2 % Normal 15-45 [facility] Comment on above: Performed By: #### L 100.0000 #### [facility] ([facility]) [address] [place] [address] Francisco Croft MD MCH (RBC) [Entitic mass] 30.0 pg Normal 27.5-33.0 [facility] Comment on above: Performed By: #### L 100.0000 #### [facility] ([facility]) [address] [place] [address] Francisco Croft MD MCHC (RBC) [Mass/Vol] 34.1 g/dL Normal 33.0-36.0 [facility] Comment on above: Performed By: #### L 100.0000 #### [facility] ([facility]) [address] [place] [address] Francisco Croft MD MCV (RBC) [Entitic vol] 87.9 CU KASI Normal 80-97 [facility] Comment on above: Performed By: #### L 100.0000 #### [facility] ([facility]) [address] [place] [address] Francisco Croft MD Page- Auto Diff 7.5 % Normal 2-10 [facility] Comment on above: Performed By: #### L 100.0000 #### [facility] ([facility]) [address] [place] [address] Francisco Croft MD Neut-Auto Diff 69.2 % Normal 40-70 [facility] Comment on above: Performed By: #### L 100.0000 #### [facility] ([facility]) [address] [place] [address] Francisco Croft MD NRBC-Auto 0.1 /100 WBC Normal <1 [facility] Comment on above: Performed By: #### L 100.0000 #### [facility] ([facility]) [address] [place] [address] Francisco Croft MD Platelets (Bld) [#/Vol] 208 th/cmm Normal 150-400 [facility] Comment on above: Performed By: #### L 100.0000 #### [facility] ([facility]) [address] [place] [address] Francisco Croft MD RBC (Bld) [#/Vol] 4.81 mil/cmm Normal 4.50-6.00 [facility] Comment on above: Performed By: #### L 100.0000 #### [facility] ([facility]) [address] [place] [address] Francisco Croft MD WBC (Bld) [#/Vol] 6.5 th/cmm Normal 4.4-10.5 [facility] Comment on above: Performed By: #### L 100.0000 #### [facility] ([facility]) [address] [place] [address] Abd/Pelvis W/[place] Cont [id number] on 06-05-2019 CT Abd/Pelvis W/O Cont [id number] [facility] Radiology Department Patient: LOREE FRANCIS [address] : 1955 Sex: Connie [place] [address] Location: [place] [address] Unit #: [id number] Ordering Phys: Stephany Chapa DO Exam Date: 06/05/19 Exam: CT CT Abd/Pelvis W/O Cont [id number] Result: See Report STUDY: CT ABDOMEN AND PELVIS WITHOUT CONTRAST REASON FOR EXAM: Male, 63 years old. Flank pain. has upper back pain. no hx of surgery. recent uti with 2 rounds of antibiotics. pt states that he has a bad headache and elevated blood pressure RADIATION DOSAGE (If Supplied By Facility): CTDIvol = ( ) mGy, DLP = ( ) mGycm TECHNIQUE: Transaxial images were obtained from the dome of the diaphragm to the symphysis pubis without oral contrast, and without intravenous contrast. Sagittal and coronal images were reconstructed. Individualized dose optimization techniques were used for this CT. COMPARISON: None. FINDINGS: The visualized lung bases are unremarkable. The visualized portions of the heart are within normal limits. Normal liver. Normal gallbladder and extrahepatic biliary system. There are multiple benign calcified granulomata of the spleen. Normal pancreas. Normal bilateral adrenal glands. No hydronephrosis or urinary tract calcifications. 1.2 cm simple cyst of the inferior left kidney. There is a small hiatal hernia. Normal small intestine. There are multiple colonic diverticula consistent with diverticulosis. The appendix is visualized and appears normal. There is diffuse atherosclerotic calcification of the abdominal aorta, without a demonstrated aneurysm. Normal inferior vena cava. Normal retroperitoneum. Normal urinary bladder. Normal abdominal wall. There are diffuse degenerative changes of the visualized lumbar spine. IMPRESSION: 1. No hydronephrosis or urinary tract calcifications. Electronically Signed: Venkatesh Boss MD (Brooks) at 11:45 EDT , Service support , cc: Stephany Chapa DO; None Dictated by: Anaya Boss MD on 06/05/19 1145 Technologist: Dinora Baumann RT(R)(CT) Transcribed by: Anaya Boss on 06/05/19 1145 Report Signed by: Gera QUINONES,Anaya Aquino on 06/05/[address] [facility] EKG Monitoringon 06-05-[address] [facility] Patient: LOREE FRANCIS [address] : 1955 [place], [place] [address] Location: [facility] [phone] Unit #: [id number] Ordering Phys: Physician Non Staff EKG Monitoring Faith Mengatif WATSON Exam Date/Time Jun 05 2019 10:05:51 Test Reason : LIFE NET EKG Blood Pressure : / mmHG Vent. Rate : 067 BPM Atrial Rate : 000 BPM P-R Int : 182 ms QRS Dur : 100 ms QT Int : 378 ms P-R-T Axes : 082 064 024 degrees QTc Int : 399 ms Sinus rhythm with PACs Baseline artifact No previous ECGs available Confirmed by FAITH LANGE DO (Boris) on 06/05/2019 2:32:16 PM Referred By: Non-Staff Physician Confirmed By:FAITH LANGE DO Dictated by: Faith Lange DO on 06/05/19 1005 Transcribed by: [employer] M-AT on 06/05/19 143 Report Signed by: Faith Lange DO on 06/05/[address] [facility] EKG Monitoring [facility] Patient: LOREE FRANCIS [address] : 1955 [place], [place] [address] Location: [place] [address] Unit #: [id number] Ordering Phys: Stephany Chapa DO EKG Monitoring Faith Lange DO Exam Date/Time Jun 05 2019 10:32:04 Test Reason : Blood Pressure : / mmHG Vent. Rate : 060 BPM Atrial Rate : 060 BPM P-R Int : 182 ms QRS Dur : 100 ms QT Int : 402 ms P-R-T Axes : 036 017 -08 degrees QTc Int : 402 ms Normal sinus rhythm Normal ECG When compared with ECG of 05-JUN-2019 10:05, No significant change was found Confirmed by FAITH LANGE DO (Boris) on 06/05/2019 2:32:31 PM Referred By: Non-Staff Physician Confirmed By:FAITH LANGE DO Dictated by: Faith Lange DO on 06/05/19 1032 Transcribed by: neoSurgical M-AT on 06/05/19 1432 Report Signed by: Faith Lange DO on 06/05/[address] [facility] Troponin-Ion 06-05-2019 Troponin I.cardiac [Mass/Vol] ng/mL Normal 0.00-0.02 [facility] Comment on above: Performed By: #### L 400.0425, L400.0152 #### Main Laboratory ([facility]) [address] [place], [place] [address] Francisco Croft MD Urinalysis with Reflex Cultu reon 06-05-2019 Appearance (U) Clear Normal [facility] Comment on above: Order Comment: Urine Source Urine, Clean Catch Performed By: #### L 300.3000 #### Main Laboratory ([facility]) [address] [place], [place] [address] Francisco Croft MD Bilirubin [Mass/Vol] Negative Normal Negative [facility] Comment on above: Order Comment: Urine Source Urine, Clean Catch Performed By: #### L 300.3000 #### Main Laboratory ([facility]) [address] [place], [place] [address] Francisco Croft MD Color (U) Yellow Normal [facility] Comment on above: Order Comment: Urine Source Urine, Clean Catch Performed By: #### L 300.3000 #### Main Laboratory ([facility]) [address] [place], [place] [address] Francisco Croft MD Epi,Squamous None Normal [facility] Comment on above: Order Comment: Urine Source Urine, Clean Catch Performed By: #### L 300.3000 #### Main Laboratory ([facility]) [address] [place], [place] [address] Francisco Croft MD Glucose [Mass/Vol] Negative Normal Negative [facility] Comment on above: Order Comment: Urine Source Urine, Clean Catch Performed By: #### L 300.3000 #### Main Laboratory ([facility]) [address] [place], [place] [address] Francisco Croft MD Ketones Ql (U) Negative Normal Negative [facility] Comment on above: Order Comment: Urine Source Urine, Clean Catch Performed By: #### L 300.3000 #### Main Laboratory ([facility]) [address] [place], [place] [address] Francisco Croft MD Mucous Present Normal [facility] Comment on above: Order Comment: Urine Source Urine, Clean Catch Performed By: #### L 300.3000 #### Main Laboratory ([facility]) [address] [place], [place] [address] Francisco Croft MD Nitrite Ql (U) Negative Normal Negative [facility] Comment on above: Order Comment: Urine Source Urine, Clean Catch Performed By: #### L 300.3000 #### Main Laboratory ([facility]) [address] [place], [place] [address] Francisco Croft MD pH (Bld) 7.0 Normal 5.0-8.0 [facility] Comment on above: Order Comment: Urine Source Urine, Clean Catch Performed By: #### L 300.3000 #### Main Laboratory ([facility]) [address] [place], [place] [address] Francisco Croft MD Protein (U) [Mass/Vol] Negative Normal Negative [facility] Comment on above: Order Comment: Urine Source Urine, Clean Catch Performed By: #### L 300.3000 #### Main Laboratory ([facility]) [address] [place] [address] Francisco Croft MD RBC (U) [#/Vol] 0-[address] [facility] Comment on above: Order Comment: Urine Source Urine, Clean Catch Performed By: #### L 300.3000 #### Main Laboratory ([facility]) [address] [place], [place] [address] Francisco Croft MD Specific gravity (U) [Rel density] 1.012 Normal 1.000-1.035 [facility] Comment on above: Order Comment: Urine Source Urine, Clean Catch Performed By: #### L 300.3000 #### Main Laboratory ([facility]) [address] [place], [place] [address] Francisco Croft MD UA Reflex Culture No Normal [facility] Comment on above: Order Comment: Urine Source Urine, Clean Catch Result Comment: Cult ure not done per lab protocol Performed By: #### L 300.3000 #### Main Laboratory ([facility]) [address] [place] [address] Francisco Croft MD Urobilinogen Qn (U) <2.0 E.U./dL Normal 0.2-1.0 [facility] Comment on above: Order Comment: Urine Source Urine, Clean Catch Performed By: #### L 300.3000 #### Main Laboratory ([facility]) [address] [place] [address] Francisco Croft MD WBC (Bld) [#/Vol] Negative Normal Negative [facility] Comment on above: Order Comment: Urine Source Urine, Clean Catch Performed By: #### L 300.3000 #### Main Laboratory ([facility]) [address] [place] [address] Francisco Croft MD WBC (Bld) [#/Vol] 0-[address] [facility] Comment on above: Order Comment: Urine Source Urine, Clean Catch Performed By: #### L 300.3000 #### Main Laboratory ([facility]) [address] [place] [address] Francisco Croft MD XR Chest 1 View Portableon 06-05-2019 XR Chest [address] [facility] Radiology Department Patient: LOREE FRANCIS [address] : 1955 Sex: Connie Song [place] [address] Location: [place] [address] Unit #: [id number] Ordering Phys: Stephany Chapa DO Exam Date: 06/05/19 Exam: MAIN XR Chest 1 View Portable Result: See Report STUDY: X-RAY CHEST REASON FOR EXAM: Male, 63 years old. Hypertension, left upper back pain TECHNIQUE: AP COMPARISON: None. FINDINGS: EKG leads project over the chest. The lungs are clear and expanded. There is no demonstrated pleural abnormality. Normal size heart. There are calcified mediastinal lymph nodes. Normal visualized pulmonary arteries. There is atherosclerotic tortuosity of the aortic arch and descending thoracic aorta. Normal visualized thoracic spine. Normal visualized ribs, clavicles, and shoulders. There is no demonstrated abnormality of the visualized soft tissue structures of the upper abdomen. IMPRESSION: 1. Nonacute portable x-ray examination of the chest. Electronically Signed: Venkatesh Boss MD (Brooks) at 11:34 EDT , Service support , cc: Stephany Chapa DO; None Dictated by: Anaya Boss MD on 06/05/19 1134 Technologist: Louise Mejia RT (R) Transcribed by: Anaya Boss on 06/05/19 1134 Report Signed by: Gera QUINONES,Anaya Aquino on 06/05/19 1134 [facility] Office Visit (NEURGN ) LOREE FRANCIS ([id number]) 1955 M Date Time Provider Department 05/15/19 9:30 AM MIGUEL METZGER During your visit today, we recorded the following information about you: Pulse Blood pressure Weight Height 68/minute 120/76 95.5 kg 1.753 m Miguel Metzger APRN.[facility] 05/15/2019 9:31 AM Signed See neuropsychology Increase your requip to 1.5 mg at bedtime Continue topamax Follow up in 3 months Miguel Metzger APRN.CNP 05/15/2019 9:53 AM Signed Neurology Follow Up Note Date: May 15, 2019 Patient Name: Loree Francis HPI: This is Mr. Loree Francis a 63 year old male who presents to [facility] Neu[facility] for follow up of PMLD, migraines and HILARY. Pt was last seen 04/17/19. At that time pt was started on Requip 1 mg at bedtime and MRI and MRA of the brain were ordered. Today he arrives alone for results of the MRI/MRA. MRI findings were: 1. No infarct or acute intracranial disease 2. Negative noncontrast MR examination of brain. Stable exam. MRA findings were: 1. 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 No flow signal of right PCOM to suggest infundibulum. 2. Stable 2mm aneurysm versus infundibulum of the left ophthalmic artery, also unchanged dating back to February 2015. 3. Consider further evaluation with CT angiography of the brain for better characterization of these abnormalities as deemed clinically warrented. 4. Remainder of this MRA brain is otherwise within normal limits. These were discussed with the pt. He admits that the requip has helped but still has a little twitching. I discussed increasing his dose to 1.5 mg qhs and he agrees. His migraines are improved with his topamax and is happy with his current dose. When asked about anxiety or stress he states that he has nothing to be anxious or stressed about. He then goes on about his finances and retiring soon. When I asked about seeing a neuropsychologist he stated that he is open to anything. He then proceeds to say that his anxiety and stress has increased significantly since January, when his son and grandkids moved in with him. His story consistently changes and always refers back to cecille and that it was the only thing that worked. ( please see Dr. Bender's prior note). At this time we will increase his requip to 1.5 mg qhs and continue his topamax. He is to follow up in 3 months or PRN. Medications: rOPINIRole (REQUIP) 1 mg tablet Take 1.5 MG qhs topiramate (TOPAMAX) 25 mg tablet Take 3 tablets by mouth daily at bedtime. Take 25 mg for 1 week qhs Then take 50 mg for 1 week qhs Then 75 mg qhs lisinopril (ZESTRIL, PRINIVIL) 10 mg tablet Take 10 mg by mouth once daily. tamsulosin HCl (FLOMAX ORAL) Take by mouth. Lovastatin 40 mg tablet Take 40 mg by mouth once daily. multivitamin with minerals (MEN'S ONE DAILY) tablet Take 1 tablet by mouth once daily. OMEPRAZOLE 20 MG CAP, DELAYED RELEASE Take one(1) tablet daily. clonazepam (KLONOPIN ORAL) Take by mouth. meloxicam (MOBIC) 15 mg tablet Take 15 mg by mouth once daily. hydroxychloroquine (PLAQUENIL) 200 mg tablet Take 200 mg by mouth once daily. gteyt-fbeci-1-tgt-dpp-fotzre (KRILL OIL) 490-72-32-50 mg cap Take by mouth. aspirin, enteric coated (ASPIRIN, ENTERIC COATED) 81 mg EC tablet Take 81 mg by mouth once daily. PMH/PSH/FH/ALLERGIES: Reviewed from last visit and unchanged. ROS: Reviewed from prior visit and unchanged. Physical Exam: Vitals: BP 120/76 (BP Site: Right Arm, BP Position: Sitting, BP Cuff Size: Regular Adult) Pulse 68 Ht 5' 9 (1.753 m) Wt 210 lb 9.6 oz (95.5 kg) SpO2 97% BMI 31.10 kg/m? Gen: well appearing, in no acute distress CV: 2+ radial pulses Alert, oriented to person, place, time. Speech fluent with no dysarthria or aphasia. Attention and concentration intact. Recent and remote memory intact. Fund of knowledge is normal. Pupils equally round and reactive to light. Extraocular muscles intact. Visual villarreal full, face symmetric. Normal muscles bulk and tone Muscle strength symmetric, 5/5 bilateral upper and lower extremities. Sensation intact to light touch throughout Coordination intact Gait is normal Studies: Most recent labs Most recent imaging ASSESSMENT/PLAN: 1. Anxiety - ICD9: 300.00, ICD10: F41.9 (primary diagnosis) - CONSULT TO NEUROLOGY- neuropsych 2. Periodic limb movement disorder - ICD9: 327.51, ICD10: G47.61 - CONSULT TO NEUROLOGY 3. Intractable migraine without status migrainosus, unspecified migraine type - ICD9: 346.91, ICD10: G43.919 - CONSULT TO NEUROLOGY - TOPIRAMATE 25 MG TABLET 4. HILARY (obstructive sleep apnea) - ICD9: 327.23, ICD10: G47.33 5. PLMD (periodic limb movement disorder) - ICD9: 327.51, ICD10: G47.61 - TOPIRAMATE 25 MG TABLET- refill- 75 mg qhs RTC in 3 months 25 minutes were spent with patient, > 50% of time was spent counseling and coordinating care. Topics discussed included differential diagnosis, diagnosis, treatment options, and skilled nursing disease management. Miguel Metzger APRN.[facility], Department of Neurology Referring Provider: MARIUSZ BENDER JR [[id number]] Allergies As of Date: 05/15/2019 (No Known Allergies) Date Reviewed: 05/15/2019 Reviewed by: Adry ([facility]) Nam - Fully Assessed Reason for Visit: Established Patient [175] Cmt: 4 week follow up Primary Visit Diagnosis:Anxiety [F41.9] Other Visit Diagnoses:Periodic limb movement disorder [G47.61] Intractable migraine without status migrainosus, unspecified migraine type [G43.919] HILARY (obstructive sleep apnea) [G47.33] PLMD (periodic limb movement disorder) [G47.61] Order(s):rOPINIRole (REQUIP) 1 mg tabletTake 1.5 MG qhsDisp: 45 tabletRfl: 2 CONSULT TO NEUROLOGY [9019] Order #: [id number]: 1 topiramate (TOPAMAX) 25 mg tabletTake 3 tablets by mouth daily at bedtime. Take 25 mg for 1 week qhs Then take 50 mg for 1 week qhs Then 75 mg qhsDisp: 90 tabletRfl: 1 Prescriptions as of 05/15/2019 Sig: ROPINIROLE 1 MG TABLET Take 1.5 MG qhs TOPIRAMATE 25 MG TABLET Take 3 tablets by mouth daily* LISINOPRIL 10 MG TABLET Take 10 mg by mouth once juan* FLOMAX ORAL Take by mouth. LOVASTATIN 40 MG TABLET Take 40 mg by mouth once juan* MULTIVITAMIN WITH MINERALS TA* Take 1 tablet by mouth once d* * OMEPRAZOLE 20 MG CAPSULE,JERILYN* Take one(1) tablet daily. KLONOPIN ORAL Take by mouth. MOBIC 15 MG TABLET Take 15 mg by mouth once juan* HYDROXYCHLOROQUINE 200 MG TAB* Take 200 mg by mouth once curtis* KRILL [id number]-[id number]-LIAMNB* Take by mouth. ASPIRIN 81 MG TABLET,DELAYED * Take 81 mg by mouth once juan* Problem List As Of Date 05/15/2019 Noted Resolved CHRONIC PROSTATITIS [N41.1] INVALID FOR* CALCULUS OF PROSTATE [N42.0] INVALID FOR* THROMBOS HEMORRHOIDS NOS [K64.5] INVALID FOR* BLADDER NECK OBSTRUCTION [N32.0] INVALID FOR* BPH W URINARY OBS/LUTS [N40.1] INVALID FOR* Spinal stenosis in cervical region [M48.02] INVALID FOR* Sleep starts [F51.8] INVALID FOR* More... Supraclinoid carotid artery aneurysm, small [I6*INVALID FOR* Nonintractable headache [R51] INVALID FOR* HILARY (obstructive sleep apnea) [G47.33] INVALID FOR* Tremor [R25.1] INVALID FOR* Other instructions from your clinician: See neuropsychology Increase your requip to 1.5 mg at bedtime Continue topamax Follow up in 3 months Prescriptions ordered this encounter Disp Refills Start End ROPINIROLE 1 MG TABLET 45 t* 2 05/15/2019 Sig: Take 1.5 MG qhs TOPIRAMATE 25 MG TABLET 90 t* 1 05/15/2019 Route: ORAL Sig: Take 3 tablets by mouth daily at bedtime. Take 25 mg for 1 week qhs Then take 50 mg for 1 week qhs Then 75 mg qhs Medications Discontinued During This Encounter rOPINIRole (REQUIP) 0.5 mg tablet 60 t* 1 04/17/2019 05/15/2019 Sig: Take 1 hour before bed. If after 1 week still having jerks at night increase to 2 tablets 1 hour before bedtime. Disc: Adjust Sig - Block E-Cancel topiramate (TOPAMAX) 25 mg tablet 90 t* 1 03/09/2019 05/15/2019 Route: ORAL Sig: Take 3 tablets by mouth daily at bedtime. Take 25 mg for 1 week qhs Then take 50 mg for 1 week qhs Then 75 mg qhs Disc: Reason for discontinue is not on file. Disposition: Return in about 3 months (around 08/15/2019). Follow-up and Disposition History Recorded Encounter Status:Closed by MIGUEL METZGER CNP on 05/15/19 Normal [facility] PROGRESSon 05-15-2019 PROGRESS HNO ID: [id number] Author: Miguel Metzger Service: ? Author Type: Nurse Practitioner Type: Progress Notes Filed: 05/15/2019 9:53 AM Note Text: Neurology Follow Up Note Date: May 15, 2019 Patient Name: Loree Francis HPI: This is Mr. Loree Francis a 63 year old male who presents to [facility] for follow up of PMLD, migraines and HILARY. Pt was last seen 04/17/19. At that time pt was started on Requip 1 mg at bedtime and MRI and MRA of the brain were ordered. Today he arrives alone for results of the MRI/MRA. MRI findings were: 1. No infarct or acute intracranial disease 2. Negative noncontrast MR examination of brain. Stable exam. MRA findings were: 1. 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 No flow signal of right PCOM to suggest infundibulum. 2. Stable 2mm aneurysm versus infundibulum of the left ophthalmic artery, also unchanged dating back to February 2015. 3. Consider further evaluation with CT angiography of the brain for better characterization of these abnormalities as deemed clinically warrented. 4. Remainder of this MRA brain is otherwise within normal limits. These were discussed with the pt. He admits that the requip has helped but still has a little twitching. I discussed increasing his dose to 1.5 mg qhs and he agrees. His migraines are improved with his topamax and is happy with his current dose. When asked about anxiety or stress he states that he has nothing to be anxious or stressed about. He then goes on about his finances and retiring soon. When I asked about seeing a neuropsychologist he stated that he is open to anything. He then proceeds to say that his anxiety and stress has increased significantly since January, when his son and grandkids moved in with him. His story consistently changes and always refers back to klonopin and that it was the only thing that worked. ( please see Dr. Bender's prior note). At this time we will increase his requip to 1.5 mg qhs and continue his topamax. He is to follow up in 3 months or PRN. Medications: rOPINIRole (REQUIP) 1 mg tablet Take 1.5 MG qhs topiramate (TOPAMAX) 25 mg tablet Take 3 tablets by mouth daily at bedtime. Take 25 mg for 1 week qhs Then take 50 mg for 1 week qhs Then 75 mg qhs lisinopril (ZESTRIL, PRINIVIL) 10 mg tablet Take 10 mg by mouth once daily. tamsulosin HCl (FLOMAX ORAL) Take by mouth. Lovastatin 40 mg tablet Take 40 mg by mouth once daily. multivitamin with minerals (MEN'S ONE DAILY) tablet Take 1 tablet by mouth once daily. OMEPRAZOLE 20 MG CAP, DELAYED RELEASE Take one(1) tablet daily. clonazepam (KLONOPIN ORAL) Take by mouth. meloxicam (MOBIC) 15 mg tablet Take 15 mg by mouth once daily. hydroxychloroquine (PLAQUENIL) 200 mg tablet Take 200 mg by mouth once daily. fndmo-jskmu-8-xul-ppk-tdlqaw (KRILL OIL) 147-47-06-50 mg cap Take by mouth. aspirin, enteric coated (ASPIRIN, ENTERIC COATED) 81 mg EC tablet Take 81 mg by mouth once daily. PMH/PSH/FH/ALLERGIES: Reviewed from last visit and unchanged. ROS: Reviewed from prior visit and unchanged. Physical Exam: Vitals: BP 120/76 (BP Site: Right Arm, BP Position: Sitting, BP Cuff Size: Regular Adult) Pulse 68 Ht 5' 9 (1.753 m) Wt 210 lb 9.6 oz (95.5 kg) SpO2 97% BMI 31.10 kg/m? Gen: well appearing, in no acute distress CV: 2+ radial pulses Alert, oriented to person, place, time. Speech fluent with no dysarthria or aphasia. Attention and concentration intact. Recent and remote memory intact. Fund of knowledge is normal. Pupils equally round and reactive to light. Extraocular muscles intact. Visual villarreal full, face symmetric. Normal muscles bulk and tone Muscle strength symmetric, 5/5 bilateral upper and lower extremities. Sensation intact to light touch throughout Coordination intact Gait is normal Studies: Most recent labs Most recent imaging ASSESSMENT/PLAN: 1. Anxiety - ICD9: 300.00, ICD10: F41.9 (primary diagnosis) - CONSULT TO NEUROLOGY- neuropsych 2. Periodic limb movement disorder - ICD9: 327.51, ICD10: G47.61 - CONSULT TO NEUROLOGY 3. Intractable migraine without status migrainosus, unspecified migraine type - ICD9: 346.91, ICD10: G43.919 - CONSULT TO NEUROLOGY - TOPIRAMATE 25 MG TABLET 4. HILARY (obstructive sleep apnea) - ICD9: 327.23, ICD10: G47.33 5. PLMD (periodic limb movement disorder) - ICD9: 327.51, ICD10: G47.61 - TOPIRAMATE 25 MG TABLET- refill- 75 mg qhs RTC in 3 months 25 minutes were spent with patient, > 50% of time was spent counseling and coordinating care. Topics discussed included differential diagnosis, diagnosis, treatment options, and marine oil terminal superintendent disease management. Miguel Metzger APRN.[facility], Department of Neurology [facility] LOREE FRANCIS ([id number]) 1955 M Date Time Provider Department 04/19/19 MARIUSZ BENDER JR During your visit today, we recorded the following information about you: Stefanie Khantanner 04/19/2019 2:26 PM Signed Faxed over documents to obtain prior authorization for MRI and MRA of head WO IVCon. Authorization is pending with insurance. Stefanie Lambert 04/24/2019 8:53 AM Addendum Authorization has been approved for MRI Brain. Auth#[id number]. Approved from 05/16/2019-10/20/2019. Called Patient to notify this can be scheduled. Provided information for [place] scheduling. Stefanie Lambert Allergies As of Date: 04/19/2019 (No Known Allergies) Date Reviewed: 04/17/2019 Reviewed by: Mariusz Bender Jr. - Fully Assessed Reason for Visit: Insurance Authorization [[id number]] Prescriptions as of 04/19/2019 Sig: LISINOPRIL 10 MG TABLET Take 10 mg by mouth once juan* ROPINIROLE 0.5 MG TABLET Take 1 hour before bed. If a* FLOMAX ORAL Take by mouth. KLONOPIN ORAL Take by mouth. TOPIRAMATE 25 MG TABLET Take 3 tablets by mouth daily* MOBIC 15 MG TABLET Take 15 mg by mouth once juan* LOVASTATIN 40 MG TABLET Take 40 mg by mouth once juan* HYDROXYCHLOROQUINE 200 MG TAB* Take 200 mg by mouth once curtis* KRILL [id number]-YD-2-[id number]-LNA-JHZALY* Take by mouth. ASPIRIN 81 MG TABLET,DELAYED * Take 81 mg by mouth once juan* MULTIVITAMIN WITH MINERALS TA* Take 1 tablet by mouth once d* * OMEPRAZOLE 20 MG CAPSULE,JERILYN* Take one(1) tablet daily. Problem List As Of Date 04/19/2019 Noted Resolved CHRONIC PROSTATITIS [N41.1] INVALID FOR* CALCULUS OF PROSTATE [N42.0] INVALID FOR* THROMBOS HEMORRHOIDS NOS [K64.5] INVALID FOR* BLADDER NECK OBSTRUCTION [N32.0] INVALID FOR* BPH W URINARY OBS/LUTS [N40.1] INVALID FOR* Spinal stenosis in cervical region [M48.02] INVALID FOR* Sleep starts [F51.8] INVALID FOR* More... Supraclinoid carotid artery aneurysm, small [I6*INVALID FOR* Nonintractable headache [R51] INVALID FOR* HILARY (obstructive sleep apnea) [G47.33] INVALID FOR* Tremor [R25.1] INVALID FOR* Encounter Status:Closed by STEFANIE LAMBERT on 04/24/19 [facility] CNOVon 04-17-2019 CNOV Office Visit (NEURGN ) LOREE FRANCIS ([id number]) 1955 M Date Time Provider Department 04/17/19 11:00 AM MARIUSZ BENDER JR NEURANGELITO During your visit today, we recorded the following information about you: Pulse Blood pressure Weight Height 74/minute 120/82 95.4 kg 1.753 m Mariusz Bender MD 04/17/2019 12:24 PM Signed ESTABLISHED PATIENT VISIT HISTORY OF PRESENT ILLNESS: Loree Francis is a 63 year old male, Ht 5' 9 (1.753 m) BMI 31.07 kg/m2 with a PMH significant for: 1. Intractable migraine without status migrainosus, unspecified migraine type - ICD9: 346.91, ICD10: G43.919 (primary diagnosis) 2. PLMD (periodic limb movement disorder) - ICD9: 327.51, ICD10: G47.61 3. HILARY (obstructive sleep apnea) - ICD9: 327.23, ICD10: G47.33 During the interim he did undergo CPAP titration study at OSH that per report recommended CPAP 10 cmH2O. He was also noted to have a PLM index of 24. In addition he developed new complaints of ptosis, twitching, arm weakness, of which symptoms onset and duration was very non-specific. He was advised to go to ER: At ER reported 63 yo M w pmhx of CVA who presents today w/ CC of ravi. He states he has been having episodes where his body twitches. states they stop spontaneously, no LOC w/ the event. No ext weakness, numbness, tingling. No vision changes. Not having sx right now. +mild JOHNSON... Labs CT head and CXR obtained. Lytes wnl. CT head w/o acute process. Pt asymptomatic. Will d/c home, PCP f/up. Return precautions given. Pt states that jerks continue to occur. States they only occur when trying to fall asleep. Not when awake. He states the Gabapentin and Depakote did not make him feel right. He cannot be any more specific. When I ask him about the jerks when he was awake, goes on tangent. States when I last saw him on 12/06/18 I placed him on gabapentin which is correct. However he is also telling me he was still taking Klonopin that I was not providing. Per my last visit, it was expressed that he was out of Klonopin, and per ER note, but now still had some and was trying to wean himself. Then tells me in 12/2018 was in [facility] [place] and woke up at midnight and had posterior headaches, and feet and calves were cold and started shaking. States he went out and took a Klonopin and was able to go back to sleep and it was over. Again, uncertain who supplied Klonopin. Then states the next day he is driving down the road and I didn't know if I was having a seizure or stroke. States he had the same identical symptoms as night before but that left eye lid was also drooping so took another Klonopin. States at that point was thinking about going to ER but never did. States Klonopin did a little bit to help, but that symptoms would then come and go. He then got into [facility], and took a Klonopin under his tongue and symptoms went away. States he was still having symptoms of flu and was at urgent care there, and asked doctor to given him a refill of Klonopin. States he has had a few occasion since then where he thought he was having symptoms again where his feet get cold. Saw Patricio Metzger CNP on 03/09/19 and it has helped with headaches, but jerking symptoms are still there at night. He is still on CPAP and using nightly at 10 cmH2O. Pt denies getting Rx of Klonopin after being in [place], but after I directly confront him about Rx filled on 01/[address] Mohamud, he says oh yeah I forgot that, but now I am weaned off of it. When asked if he thinks these are panic attacks he states I don't know what they are, but they are unnerving and scary. He has never had loc or impaired consciousness with any of these episodes. States Topamax has done nothing for jerks at night. Gets 4 headaches per week (lasting less than the full day). He states jerks occur within 15 minutes of lying down but do not occur any time before that. He adds that he is taking melatonin at night before bed but does not know dose. REVIEW OF SYSTEMS GENERAL:No weight loss, malaise or fevers. HEENT:Negative for frequent or significant headaches, No changes in hearing or vision, no nose bleeds or other nasal problems NECK:Negative for lumps, goiter, pain and significant neck swelling RESPIRATORY: Negative for cough, wheezing or shortness of breath. CARDIOVASCULAR: Negative for chest pain, leg swelling or palpitations. GASTROINTESTINAL: Negative for abdominal discomfort, blood in stools or black stools or change in bowel habits GENITOURINARY: No history of dysuria, frequency or incontinence MUSCULOSKELETAL: Negative for joint pain or swelling, back pain or muscle pain. NEUROLOGIC:See HPI. PSYCHIATRIC: See HPI. Denies anxiety or depression. HEMATOLOGIC/LYMPHATIC/IMMUNO LOGIC:Negative for prolonged bleeding, bruising easily or swollen nodes. ENDOCRINE: Negative for cold or heat intolerance, polyuria, polydipsia and goiter. The remainder of the ROS was reviewed and is negative. LAB/IMAGING: Those performed since patient's last visit have been reviewed. WBC (thou/cmm) Date Value 04/07/2019 7.35 RBC (mil/cmm) Date Value 04/07/2019 4.97 HGB (g/dL) Date Value 04/07/2019 15.0 Hematocrit (%) Date Value 04/07/2019 43.5 MCV (fl) Date Value 04/07/2019 87.5 MCH (pg) Date Value 04/07/2019 30.2 MCHC (%) Date Value 04/07/2019 34.5 Platelet Count (thou/cmm) Date Value 04/07/2019 200 MPV (fl) Date Value 04/07/2019 9.9 Glucose (mg/dL) Date Value 04/07/2019 99 BUN (mg/dL) Date Value 04/07/2019 18 Creatinine (mg/dL) Date Value 04/07/2019 0.94 Sodium (mEq/L) Date Value 04/07/2019 137 Potassium (mEq/L) Date Value 04/07/2019 3.8 Chloride (mEq/L) Date Value 04/07/2019 107 CO2 (mEq/L) Date Value 04/07/2019 22 Calcium (mg/dL) Date Value 04/07/2019 8.8 MEDICATIONS: lisinopril (ZESTRIL, PRINIVIL) 10 mg tablet Take 10 mg by mouth once daily. tamsulosin HCl (FLOMAX ORAL) Take by mouth. topiramate (TOPAMAX) 25 mg tablet Take 3 tablets by mouth daily at bedtime. Take 25 mg for 1 week qhs Then take 50 mg for 1 week qhs Then 75 mg qhs Lovastatin 40 mg tablet Take 40 mg by mouth once daily. multivitamin with minerals (MEN'S ONE DAILY) tablet Take 1 tablet by mouth once daily. OMEPRAZOLE 20 MG CAP, DELAYED RELEASE Take one(1) tablet daily. clonazepam (KLONOPIN ORAL) Take by mouth. meloxicam (MOBIC) 15 mg tablet Take 15 mg by mouth once daily. hydroxychloroquine (PLAQUENIL) 200 mg tablet Take 200 mg by mouth once daily. dvjei-sdlii-7-fss-hnq-zbhbhn (KRILL OIL) 102-82-97-50 mg cap Take by mouth. aspirin, enteric coated (ASPIRIN, ENTERIC COATED) 81 mg EC tablet Take 81 mg by mouth once daily. HISTORIES PAST MEDICAL HISTORY Diagnosis Date - Spinal stenosis FAMILY HISTORY Problem Relation Age of Onset - Arthritis Father - Cancer Father - Stroke Father - Coronary Artery Disease Maternal Grandmother - Diabetes Maternal Grandmother - Coronary Artery Disease Mother - Coronary Artery Disease Maternal Uncle - Genitourinary () Sister - Seizures Paternal Aunt SOCIAL HISTORY Social History Tobacco Use - Smoking status: Never Smoker - Smokeless tobacco: Current User Types: Snuff Substance Use Topics - Alcohol use: Yes Comment: rarely - Drug use: No PHYSICAL EXAMINATION BP 120/82 (BP Site: Left Arm, BP Position: Sitting, BP Cuff Size: Regular Adult) Pulse 74 Ht 5' 9 (1.753 m) Wt 210 lb 6.4 oz (95.4 kg) SpO2 98% BMI 31.07 kg/m? GENERAL EXAM: General appearance: NAD, pleasant. HEENT: NC/AT, nasal congestion absent, no oral lesions, membranes moist. NECK: No masses, supple. Lungs: CTA bilaterally. CV: RRR nl S1, S2. No carotid bruits. Extr: No cyanosis, clubbing or edema. No evidence of fasciculations. Extremity pulses palpable and normal. Skin: Cool to touch. No rash. NEUROLOGICAL EXAM: General: Awake, alert, oriented x3 (person,place,time), speech fluent, no dysarthria; comprehension, naming, repetition intact. Fund of knowledge grossly normal by MOCA. CN: PERRL, fundi with no evidence of papilledema, EOMI and without nystagmus, VFF to confrontation, facial sensation and strength are normal and symmetric, hearing is intact to finger rub bilaterally, palate and tongue movements are intact and symmetric. SCM and trapezius strength normal. Motor: Normal tone, bulk and strength (5/5) bilaterally (throughout extremities x4). Reflexes: 2/4 and symmetric, plantar stimulation is flexor. Coordination: FNF, ANN MARIE, HTS intact. No tremors. Sensation: Light touch and pin intact throughout. No evidence of neglect. Gait: Narrow based and stable with normal stride and arm swing. Romberg normal. Assessment and Plan: ASSESSMENT/PLAN: 1. PLMD (periodic limb movement disorder) - ICD9: 327.51, ICD10: G47.61 (primary diagnosis) Patient with jerks during the night time hours. Suspect PLMD. He has been inconsistent with history as in the past there has been reported jerks during day but denies such at this time. He has provided an inconsistent history with regards to benzo use, and as per my last note, there has been non-compliance in the manner he has taken them. Thus I explained again that I will not prescribe these given risks such behaviors present to him. I have also made attempts to reach Dr. Mohamud to make him aware of these behaviors. For now, will try patient on Requip 0.5mg 1 hour before bedtime. If he has persistent symptoms after 1 week, he can increase the dose to 1.0mg 1 hour before bedtime. SE and ADRs d/w pt. 2. HILARY (obstructive sleep apnea) - ICD9: 327.23, ICD10: G47.33 Encouraged compliance with PAP therapy. He reports using PAP nightly for at least 4 hours. He states his device is on 10 cmH2O. I have no download for review. 3. Intractable migraine without status migrainosus, unspecified migraine type - ICD9: 346.91, ICD10: G43.919 Chronic headaches that he states improved with Topamax, but uncertain by history he provides. Will continue Topamax 75mg QHS for now. Asked pt to keep sleep diary. Component of headache may be secondary to kamila greater occipital neuralgia. May benefit from cedrick vs facet injections. He states he is no longer following with spine. 4. Supraclinoid carotid artery aneurysm, small - ICD9: 442.81, ICD10: I67.1 Per pt, Dr. Ridley told him all was stable at visit earlier this year. Pt concerned may be cause of ptosis. Again non-focal neuro exam. However, will get MRA brain to confirm no change. 5. Ptosis of left eyelid - ICD9: 374.30, ICD10: H02.402 6. Paresthesias - ICD9: 782.0, ICD10: R20.2 Events described above inconsistent with those he provided to the office last month in which he indicated he was symptomatic on the day he was evaluated in the ER. Again he has had extensive workups in the past for various vague symptoms all of which have been unremarkable for an etiology. Ddx could include benzo w/d if he in fact was still taking the meds, vs panic attacks (expressed concern for possible panic and anxiety with pt but he states he has nothing to panic about). There is no ptosis today nor was any noted when pt was seen in ER. Will get MRI brain to again confirm no intracranial etiology. However, if unremarkable, as noted with prior complaints, unlikely of neurologic etiology. Mariusz Bender MD PDMP website checked and validated. History inconsistent with fills as above. 04/17/2019 by Mariusz Bender MD I spent 40 minutes in the visit, with more than 50% of the total [id number] time of the visit in counseling / coordination of care. Referring Provider: SELF [200] Allergies As of Date: 04/17/2019 (No Known Allergies) Date Reviewed: 04/17/2019 Reviewed by: Mariusz Bender Jr. 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 If after 1 week still having jerks at night increase to 2 tablets 1 hour before bedtime.Disp: 60 tabletRfl: 1 Prescriptions as of 04/17/2019 Sig: LISINOPRIL 10 MG TABLET Take 10 mg by mouth once juan* FLOMAX ORAL Take by mouth. TOPIRAMATE 25 MG TABLET Take 3 tablets by mouth daily* LOVASTATIN 40 MG TABLET Take 40 mg by mouth once juan* MULTIVITAMIN WITH MINERALS TA* Take 1 tablet by mouth once d* * OMEPRAZOLE 20 MG CAPSULE,JERILYN* Take one(1) tablet daily. ROPINIROLE 0.5 MG TABLET Take 1 hour before bed. If a* KLONOPIN ORAL Take by mouth. MOBIC 15 MG TABLET Take 15 mg by mouth once juan* HYDROXYCHLOROQUINE 200 MG TAB* Take 200 mg by mouth once curtis* KRILL [id number]-NP-[id number]-[id number]-IPAVOY* Take by mouth. ASPIRIN 81 MG TABLET,DELAYED * Take 81 mg by mouth once juan* Problem List As Of Date 04/17/2019 Noted Resolved CHRONIC PROSTATITIS [N41.1] INVALID FOR* CALCULUS OF PROSTATE [N42.0] INVALID FOR* THROMBOS HEMORRHOIDS NOS [K64.5] INVALID FOR* BLADDER NECK OBSTRUCTION [N32.0] INVALID FOR* BPH W URINARY OBS/LUTS [N40.1] INVALID FOR* Spinal stenosis in cervical region [M48.02] INVALID FOR* Sleep starts [F51.8] INVALID FOR* More... Supraclinoid carotid artery aneurysm, small [I6*INVALID FOR* Nonintractable headache [R51] INVALID FOR* HILARY (obstructive sleep apnea) [G47.33] INVALID FOR* Tremor [R25.1] INVALID FOR* Prescriptions ordered this encounter Disp Refills Start End ROPINIROLE 0.5 MG TABLET 60 t* 1 04/17/2019 Sig: Take 1 hour before bed. If after 1 week still having jerks at night increase to 2 tablets 1 hour before bedtime. Disposition: Return in about 4 weeks (around 05/15/2019). Follow-up and Disposition History Recorded Encounter Status:Closed by MARIUSZ BENDER on 04/17/19 [facility] PROGRESSon 04-17-2019 PROGRESS HNO ID: [id number] Author: Mariusz J Bender Jr. Service: ? Author Type: Physician Type: Progress Notes Filed: 04/17/2019 12:24 PM Note Text: ESTABLISHED PATIENT VISIT HISTORY OF PRESENT ILLNESS: Loree Francis is a 63 year old male, Ht 5' 9 (1.753 m) BMI 31.07 kg/m2 with a PMH significant for: 1. Intractable migraine without status migrainosus, unspecified migraine type - ICD9: 346.91, ICD10: G43.919 (primary diagnosis) 2. PLMD (periodic limb movement disorder) - ICD9: 327.51, ICD10: G47.61 3. HILARY (obstructive sleep apnea) - ICD9: 327.23, ICD10: G47.33 During the interim he did undergo CPAP titration study at OSH that per report recommended CPAP 10 cmH2O. He was also noted to have a PLM index of 24. In addition he developed new complaints of ptosis, twitching, arm weakness, of which symptoms onset and duration was very non-specific. He was advised to go to ER: At ER reported 63 yo M w pmhx of CVA who presents today w/ CC of ravi. He states he has been having episodes where his body twitches. states they stop spontaneously, no LOC w/ the event. No ext weakness, numbness, tingling. No vision changes. Not having sx right now. +mild JOHNSON... Labs CT head and CXR obtained. Lytes wnl. CT head w/o acute process. Pt asymptomatic. Will d/c home, PCP f/up. Return precautions given. Pt states that jerks continue to occur. States they only occur when trying to fall asleep. Not when awake. He states the Gabapentin and Depakote did not make him feel right. He cannot be any more specific. When I ask him about the jerks when he was awake, goes on tangent. States when I last saw him on 12/06/18 I placed him on gabapentin which is correct. However he is also telling me he was still taking Klonopin that I was not providing. Per my last visit, it was expressed that he was out of Klonopin, and per ER note, but now still had some and was trying to wean himself. Then tells me in 12/2018 was in [facility] [place] and woke up at midnight and had posterior headaches, and feet and calves were cold and started shaking. States he went out and took a Klonopin and was able to go back to sleep and it was over. Again, uncertain who supplied Klonopin. Then states the next day he is driving down the road and I didn't know if I was having a seizure or stroke. States he had the same identical symptoms as night before but that left eye lid was also drooping so took another Klonopin. States at that point was thinking about going to ER but never did. States Klonopin did a little bit to help, but that symptoms would then come and go. He then got into [facility], and took a Klonopin under his tongue and symptoms went away. States he was still having symptoms of flu and was at urgent care there, and asked doctor to given him a refill of Klonopin. States he has had a few occasion since then where he thought he was having symptoms again where his feet get cold. Saw Patricio Metzger CNP on 03/09/19 and it has helped with headaches, but jerking symptoms are still there at night. He is still on CPAP and using nightly at 10 cmH2O. Pt denies getting Rx of Klonopin after being in [place], but after I directly confront him about Rx filled on 01/[address] Mohamud, he says oh yeah I forgot that, but now I am weaned off of it. When asked if he thinks these are panic attacks he states I don't know what they are, but they are unnerving and scary. He has never had loc or impaired consciousness with any of these episodes. States Topamax has done nothing for jerks at night. Gets 4 headaches per week (lasting less than the full day). He states jerks occur within 15 minutes of lying down but do not occur any time before that. He adds that he is taking melatonin at night before bed but does not know dose. REVIEW OF SYSTEMS GENERAL:No weight loss, malaise or fevers. HEENT:Negative for frequent or significant headaches, No changes in hearing or vision, no nose bleeds or other nasal problems NECK:Negative for lumps, goiter, pain and significant neck swelling RESPIRATORY: Negative for cough, wheezing or shortness of breath. CARDIOVASCULAR: Negative for chest pain, leg swelling or palpitations. GASTROINTESTINAL: Negative for abdominal discomfort, blood in stools or black stools or change in bowel habits GENITOURINARY: No history of dysuria, frequency or incontinence MUSCULOSKELETAL: Negative for joint pain or swelling, back pain or muscle pain. NEUROLOGIC:See HPI. PSYCHIATRIC: See HPI. Denies anxiety or depression. HEMATOLOGIC/LYMPHATIC/IMMUNO LOGIC:Negative for prolonged bleeding, bruising easily or swollen nodes. ENDOCRINE: Negative for cold or heat intolerance, polyuria, polydipsia and goiter. The remainder of the ROS was reviewed and is negative. LAB/IMAGING: Those performed since patient's last visit have been reviewed. WBC (thou/cmm) Date Value 04/07/2019 7.35 RBC (mil/cmm) Date Value 04/07/2019 4.97 HGB (g/dL) Date Value 04/07/2019 15.0 Hematocrit (%) Date Value 04/07/2019 43.5 MCV (fl) Date Value 04/07/2019 87.5 MCH (pg) Date Value 04/07/2019 30.2 MCHC (%) Date Value 04/07/2019 34.5 Platelet Count (thou/cmm) Date Value 04/07/2019 200 MPV (fl) Date Value 04/07/2019 9.9 Glucose (mg/dL) Date Value 04/07/2019 99 BUN (mg/dL) Date Value 04/07/2019 18 Creatinine (mg/dL) Date Value 04/07/2019 0.94 Sodium (mEq/L) Date Value 04/07/2019 137 Potassium (mEq/L) Date Value 04/07/2019 3.8 Chloride (mEq/L) Date Value 04/07/2019 107 CO2 (mEq/L) Date Value 04/07/2019 22 Calcium (mg/dL) Date Value 04/07/2019 8.8 MEDICATIONS: lisinopril (ZESTRIL, PRINIVIL) 10 mg tablet Take 10 mg by mouth once daily. tamsulosin HCl (FLOMAX ORAL) Take by mouth. topiramate (TOPAMAX) 25 mg tablet Take 3 tablets by mouth daily at bedtime. Take 25 mg for 1 week qhs Then take 50 mg for 1 week qhs Then 75 mg qhs Lovastatin 40 mg tablet Take 40 mg by mouth once daily. multivitamin with minerals (MEN'S ONE DAILY) tablet Take 1 tablet by mouth once daily. OMEPRAZOLE 20 MG CAP, DELAYED RELEASE Take one(1) tablet daily. clonazepam (KLONOPIN ORAL) Take by mouth. meloxicam (MOBIC) 15 mg tablet Take 15 mg by mouth once daily. hydroxychloroquine (PLAQUENIL) 200 mg tablet Take 200 mg by mouth once daily. gunsv-zervj-9-zsb-dqi-mcagzg (KRILL OIL) 262-23-09-50 mg cap Take by mouth. aspirin, enteric coated (ASPIRIN, ENTERIC COATED) 81 mg EC tablet Take 81 mg by mouth once daily. HISTORIES PAST MEDICAL HISTORY Diagnosis Date - Spinal stenosis FAMILY HISTORY Problem Relation Age of Onset - Arthritis Father - Cancer Father - Stroke Father - Coronary Artery Disease Maternal Grandmother - Diabetes Maternal Grandmother - Coronary Artery Disease Mother - Coronary Artery Disease Maternal Uncle - Genitourinary () Sister - Seizures Paternal Aunt SOCIAL HISTORY Social History Tobacco Use - Smoking status: Never Smoker - Smokeless tobacco: Current User Types: Snuff Substance Use Topics - Alcohol use: Yes Comment: rarely - Drug use: No PHYSICAL EXAMINATION BP 120/82 (BP Site: Left Arm, BP Position: Sitting, BP Cuff Size: Regular Adult) Pulse 74 Ht 5' 9 (1.753 m) Wt 210 lb 6.4 oz (95.4 kg) SpO2 98% BMI 31.07 kg/m? GENERAL EXAM: General appearance: NAD, pleasant. HEENT: NC/AT, nasal congestion absent, no oral lesions, membranes moist. NECK: No masses, supple. Lungs: CTA bilaterally. CV: RRR nl S1, S2. No carotid bruits. Extr: No cyanosis, clubbing or edema. No evidence of fasciculations. Extremity pulses palpable and normal. Skin: Cool to touch. No rash. NEUROLOGICAL EXAM: General: Awake, alert, oriented x3 (person,place,time), speech fluent, no dysarthria; comprehension, naming, repetition intact. Fund of knowledge grossly normal by MOCA. CN: PERRL, fundi with no evidence of papilledema, EOMI and without nystagmus, VFF to confrontation, facial sensation and strength are normal and symmetric, hearing is intact to finger rub bilaterally, palate and tongue movements are intact and symmetric. SCM and trapezius strength normal. Motor: Normal tone, bulk and strength (5/5) bilaterally (throughout extremities x4). Reflexes: 2/4 and symmetric, plantar stimulation is flexor. Coordination: FNF, ANN MARIE, HTS intact. No tremors. Sensation: Light touch and pin intact throughout. No evidence of neglect. Gait: Narrow based and stable with normal stride and arm swing. Romberg normal. Assessment and Plan: ASSESSMENT/PLAN: 1. PLMD (periodic limb movement disorder) - ICD9: 327.51, ICD10: G47.61 (primary diagnosis) Patient with jerks during the night time hours. Suspect PLMD. He has been inconsistent with history as in the past there has been reported jerks during day but denies such at this time. He has provided an inconsistent history with regards to benzo use, and as per my last note, there has been non-compliance in the manner he has taken them. Thus I explained again that I will not prescribe these given risks such behaviors present to him. I have also made attempts to reach Dr. Mohamud to make him aware of these behaviors. For now, will try patient on Requip 0.5mg 1 hour before bedtime. If he has persistent symptoms after 1 week, he can increase the dose to 1.0mg 1 hour before bedtime. SE and ADRs d/w pt. 2. HILARY (obstructive sleep apnea) - ICD9: 327.23, ICD10: G47.33 Encouraged compliance with PAP therapy. He reports using PAP nightly for at least 4 hours. He states his device is on 10 cmH2O. I have no download for review. 3. Intractable migraine without status migrainosus, unspecified migraine type - ICD9: 346.91, ICD10: G43.919 Chronic headaches that he states improved with Topamax, but uncertain by history he provides. Will continue Topamax 75mg QHS for now. Asked pt to keep sleep diary. Component of headache may be secondary to kamila greater occipital neuralgia. May benefit from cedrick vs facet injections. He states he is no longer following with spine. 4. Supraclinoid carotid artery aneurysm, small - ICD9: 442.81, ICD10: I67.1 Per pt, Dr. Ridley told him all was stable at visit earlier this year. Pt concerned may be cause of ptosis. Again non-focal neuro exam. However, will get MRA brain to confirm no change. 5. Ptosis of left eyelid - ICD9: 374.30, ICD10: H02.402 6. Paresthesias - ICD9: 782.0, ICD10: R20.2 Events described above inconsistent with those he provided to the office last month in which he indicated he was symptomatic on the day he was evaluated in the ER. Again he has had extensive workups in the past for various vague symptoms all of which have been unremarkable for an etiology. Ddx could include benzo w/d if he in fact was still taking the meds, vs panic attacks (expressed concern for possible panic and anxiety with pt but he states he has nothing to panic about). There is no ptosis today nor was any noted when pt was seen in ER. Will get MRI brain to again confirm no intracranial etiology. However, if unremarkable, as noted with prior complaints, unlikely of neurologic etiology. Mariusz Bender MD PDMP website checked and validated. History inconsistent with fills as above. 04/17/2019 by Mariusz Bender MD I spent 40 minutes in the visit, with more than 50% of the total [id number] time of the visit in counseling / coordination of care. Normal [facility] Basic Panelon 04-07-2019 Creatinine [Mass/Vol] 0.94 mg/dL Normal 0.67-1.17 [facility] Comment on above: Performed By: #### P 8 #### [facility] [address], [place] [address] Urea nitrogen [Mass/Vol] 18 mg/dL Normal 7-18 [facility] Comment on above: Performed By: #### P 8 #### [facility] [address], [place] [address] Anion gap [Moles/Vol] 12 mmol/L Normal 8-16 [facility] Comment on above: Performed By: #### P 8 #### [facility] [address], [place] [address] Calcium [Mass/Vol] 8.8 mg/dL Normal 8.5-10.1 [facility] Comment on above: Performed By: #### P 8 #### [facility] [address], [place] [address] CO2 [Moles/Vol] 22 mmol/L Normal 21-32 [facility] Comment on above: Performed By: #### P 8 #### [facility] [address], [place] [address] Glucose [Mass/Vol] 99 mg/dL Normal 70-99 [facility] Comment on above: Performed By: #### P 8 #### [facility] [address], [place] [address] Chloride [Moles/Vol] 107 mmol/L Normal 98-107 [facility] Comment on above: Performed By: #### P 8 #### [facility] [address], [place] [address] Potassium [Moles/Vol] 3.8 mmol/L Normal 3.5-5.1 [facility] Comment on above: Performed By: #### P 8 #### [facility] [address], [place] [address] Sodium [Moles/Vol] 137 mmol/L Normal 136-145 [facility] Comment on above: Performed By: #### P 8 #### [facility] [address] [place] [address] [facility] Troponin Ion 04-07-2019 Troponin I.cardiac [Mass/Vol] ng/mL Normal 0.015-0.045 [facility] Comment on above: Performed By: #### E RTRP #### [facility] [facility] [address], [place] [address] ED NOTEon 04-07-2019 ED NOTE HNO ID: [id number] Author: Page Pérez RN Service: Emergency Medicine Author Type: Registered Nurse Type: ED Notes Filed: 04/07/2019 2:51 PM Note Text: Clean catch urine specimen obtained and sent. [facility] ED NOTE HNO ID: [id number] Author: Page Charlton) DOMI Pérez Service: Emergency Medicine Author Type: Registered Nurse Type: ED Notes Filed: 04/07/2019 2:49 PM Note Text: ED CT and ED XRAY notified pt ready. Normal [facility] ED NOTE HNO ID: [id number] Author: Page Pérez RN Service: Emergency Medicine Author Type: Registered Nurse Type: ED Notes Filed: 04/07/2019 2:09 PM Note Text: Pt placed on the lunchroom monitor and continuous pulse ox. Alarms reviewed, pt tolerated well. Normal [facility] ED PROV NOTEon 04-07-2019 ED PROV NOTE HNO ID: [id number] Author: Louise Woodard MD Service: Emergency Medicine Author Type: Physician Type: ED Provider Notes Filed: 04/09/2019 8:43 AM Note Text: HPI 63 yo M w pmhx of CVA who presents today w/ CC of twiching. He states he has been having episodes where his body twitches. states they stop spontaneously, no LOC w/ the event. No ext weakness, numbness, tingling. No vision changes. Not having sx right now. +mild JOHNSON. States sx started when he stopped taking benzos, has been off them for months at this point. PE Gen:awake, alert, oriented x 3, speech nl PERRL, EOMI, CN 2-12 intact 5/5 strength in all 4 ext, gait nl, coordination nl CV:RRR Pulm:CTAB Abd:soft, NT DDX:lyte abnl, feel intracranial process possible but less likely, does not sound like seizure ED course and plan Labs CT head and CXR obtained. Lytes wnl. CT head w/o acute process. Pt asymptomatic. Will d/c home, PCP f/up. Return precautions given. Attending Note I evaluated the patient and personally participated in the arenas components. I agree with the resident's findings and plan as documented and have discussed the case and management of the patient's care with the resident. Signature: Louise Woodard MD Date: 04/07/2019 Time: 2:36 PM Louise Woodard MD 04/09/19 0843 Normal [facility] ED PROV NOTE HNO ID: [id number] Author: Nena Trevino MD Service: Emergency Medicine Author Type: Resident Type: ED Provider Notes Filed: 04/07/2019 4:52 PM Note Text: Attestation signed by Louise Woodard MD at 04/07/2019 5:10 PM Attending Note I evaluated the patient and personally participated in the arenas components. I agree with the resident's findings and plan as documented and have discussed the case and management of the patient's care with the resident. Signature: Louise Woodard MD Date: 04/07/2019 Time: 5:10 PM ED Provider Note Patient Name: Loree Francis SERVICE DATE: 04/07/19 History Patient presents with: Musculoskeletal Problem: Pt c/o twitching, headaches, and eye drooping. Pt states he was sent in by his PCP. Pt states he has an appointment with Dr Bender. Pt appears anxious in triage and took his klonopin prior to arrival. This patient is a 63-year-old male with a past medical history significant for stroke, coronary artery disease, seizures and arthritis who presents to the emergency department with left thigh twitching as well as headaches. Patient states has been having symptoms since 2007. She states that symptoms are normally controlled on Klonopin usually prescribed by his neurologist. She however states that in the last few months the symptoms have worsened. He called his primary care as physician's office today and was instructed to come to the emergency department for further evaluation. Patient however denies any focal weakness, focal numbness or tingling, or vision changes. History provided by: Patient and spouse public health assistant used: No PAST MEDICAL HISTORY Diagnosis Date - Spinal stenosis PAST SURGICAL HISTORY Procedure Laterality Date - HEMORRHOIDECTOMY,INT/EXT,COM PLX FAMILY HISTORY Problem Relation Age of Onset - Arthritis Father - Cancer Father - Stroke Father - Coronary Artery Disease Maternal Grandmother - Diabetes Maternal Grandmother - Coronary Artery Disease Mother - Coronary Artery Disease Maternal Uncle - Genitourinary () Sister - Seizures Paternal Aunt Social History Tobacco Use - Smoking status: Never Smoker - Smokeless tobacco: Former User Types: Snuff Substance and Sexual Activity - Alcohol use: Yes Comment: rarely - Drug use: No - Sexual activity: Not on file ALLERGIES No Known Allergies Review of Systems Constitutional: Negative for chills, fatigue and fever. HENT: Negative for ear discharge, ear pain, mouth sores, rhinorrhea, sinus pressure, sneezing, sore throat and tinnitus. Facial twitching. Eyes: Negative for photophobia, discharge, itching and visual disturbance. Respiratory: Negative for cough, shortness of breath, wheezing and stridor. Cardiovascular: Negative for chest pain, palpitations and leg swelling. Gastrointestinal: Negative for abdominal distention, blood in stool, constipation and diarrhea. Endocrine: Negative for cold intolerance and heat intolerance. Genitourinary: Negative for dysuria, flank pain, frequency and hematuria. Musculoskeletal: Negative for back pain, gait problem and joint swelling. Bilateral lower extremity twitching. Skin: Negative for color change, pallor and rash. Neurological: Positive for headaches. Negative for dizziness, syncope, weakness and light-headedness. Psychiatric/Behavioral: Negative for confusion. Physical Exam BP 136/84 Pulse 91 Temp (Src) 98.1 (Oral) Resp 18 Ht 5' 9 (1.75m) Wt 212 lb (96.2kg) SpO2 96% BMI 31.29 kg/(m2). O2 Therapy: Room Air Physical Exam Constitutional: He is oriented to person, place, and time. HENT: Head: Normocephalic and atraumatic. Right Ear: External ear normal. Left Ear: External ear normal. Nose: Nose normal. Mouth/Throat: Oropharynx is clear and moist. Eyes: Pupils are equal, round, and reactive to light. EOM are normal. Right eye exhibits no discharge. Left eye exhibits no discharge. No scleral icterus. Neck: Normal range of motion. No tracheal deviation present. Cardiovascular: Normal rate, regular rhythm, normal heart sounds and intact distal pulses. Pulmonary/Chest: Breath sounds normal. No stridor. No respiratory distress. He has no wheezes. Abdominal: He exhibits no distension and no mass. There is no tenderness. There is no rebound and no guarding. Musculoskeletal: He exhibits no edema, tenderness or deformity. Lymphadenopathy: He has no cervical adenopathy. Neurological: He is alert and oriented to person, place, and time. He displays normal reflexes. No cranial nerve deficit or sensory deficit. He exhibits normal muscle tone. Coordination normal. Skin: Skin is warm and dry. No rash noted. No pallor. Psychiatric: He has a normal mood and affect. Judgment and thought content normal. Nursing note and vitals reviewed. Diagnostic Testing ED Labs Ordered and Reviewed GLUCOSE, BLOOD (POC) - Abnormal; Notable for the following components: Result Value Ref Range GLUCOSE METER 101 (*) 70 - 99 mg/dL All other components within normal limits BASIC METABOLIC PANEL (AK,AV,EU,FV,HL,ROX,MM,SP) CBC + PLT (AK,AV,EU,FV,HL,ROX,MM,SP) MDRD GFR Procedures ED Course / Clinical Impression Clinical Impressions as of Apr 07 1636 Headache disorder Facial twitching MDM / Disposition / Plan 63-year-old male with a past medical history of cardiac disease and stroke presenting for evaluation of headache, facial twitching with left eyebrow droopiness and lower extremity twitching. Patient's presentation is concerning for medication withdrawal given patient has been on Klonopin for a while, migraine headaches, and less likely due to an intercranial process given that the patient has had symptoms for several months. Patient's workup was unremarkable for a urinary tract infection, like abnormalities, renal function impairment, leukocytosis, anemia, radiographic abnormalities on chest x-ray. We obtained an EKG and the patient which revealed sinus rhythm with no changes, patient's troponin was negative. We also obtained a CT head which was unremarkable. I discussed all imaging and lab results with the patient. I educated the patient he'll Need to Follow-Up with Dr.. Bender Which he States he Has an Appointment Set up for 18 March. Patient Was Discharged Home in Stable Condition. Additional Tests or Interventions: IV Fluids IV fluids were given for the following reasons replacement. Disposition The patient was discharged. Counseled patient regarding lab results and radiology results. As well as the need for follow-up. Discharged home with verbal and written instructions. They were instructed to return as needed for persistent or worsening symptoms or any new concerns. Condition at disposition is stable. SIGNATURE: MD Nena Dejesus Res, MD Resident 04/07/19 0965 Nena Trevino MD Resident 04/07/19 1652 Louise Woodard MD 04/07/19 1710 Normal [facility] Glucose Meteron 04-07-2019 Glucose [Mass/Vol] 101 mg/dL High 70-99 [facility] Comment on above: Performed By: #### G LMET #### [facility] [address] [place] [address] Hemogramon 04-07-2019 Erythrocyte distribution width (RBC) [Ratio] 14.0 % Normal 11.6-14.4 [facility] Comment on above: Performed By: #### C BC1 #### [facility] [address] [address] Hematocrit (Bld) [Volume fraction] 43.5 % Normal 40.1-51.0 [facility] Comment on above: Performed By: #### C BC1 #### [facility] [address] [address] Hemoglobin (Bld) [Mass/Vol] 15.0 g/dL Normal 13.7-17.5 [facility] Comment on above: Performed By: #### C BC1 #### [facility] [address] [address] MCH (RBC) [Entitic mass] 30.2 pg Normal 25.7-32.2 [facility] Comment on above: Performed By: #### C BC1 #### [facility] [address] [address] MCHC (RBC) [Mass/Vol] 34.5 % Normal 32.3-36.5 [facility] Comment on above: Performed By: #### C BC1 #### [facility] [address] [address] MCV (RBC) [Entitic vol] 87.5 fL Normal 83.2-95.6 [facility] Comment on above: Performed By: #### C BC1 #### [facility] [address] [address] Platelet mean volume (Bld) [Entitic vol] 9.9 fL Normal 8.7-12.0 [facility] Comment on above: Performed By: #### C BC1 #### [facility] [address], [place] [address] Platelets (Bld) [#/Vol] 200 thou/cmm Normal 141-365 [facility] Comment on above: Performed By: #### C BC1 #### [facility] [address], [place] [address] RBC (Bld) [#/Vol] 4.97 mil/cmm Normal 4.63-6.08 [facility] Comment on above: Performed By: #### C BC1 #### [facility] [address] [address] RDW SD 44.2 fl Normal 36.1-45.8 [facility] Comment on above: Performed By: #### C BC1 #### [facility] [address] [address] WBC (Bld) [#/Vol] 7.35 thou/cmm Normal 4.23-9.07 [facility] Comment on above: Performed By: #### C BC1 #### [place] [id number] MDRD GFRon 04-07-2019 GFR/1.73 sq M predicted among non-blacks MDRD (S/P/Bld) [Vol rate/Area] mL/min/{1.73_m2} Normal >60mL/min/1 .73m2 [facility] Comment on above: Result Comment: If t he patient is , multiply the result by 1.210. Performed By: #### G FR #### [facility] [address] [address] Magnesium Bloodon 04-07-2019 Magnesium [Mass/Vol] 2.2 mg/dL Normal 1.6-2.6 [facility] Comment on above: Performed By: #### M AG #### [facility] [address] [place] [id number] Urinalysis Routineon 019 Bacteria LM.HPF (Urine sed) [#/Area] NONE Normal None [facility] Comment on above: Performed By: #### U RIN2 #### [facility] [address] [address] Ep Cells Urine 0.1 /hpf Normal 0.0-5.0 [facility] Comment on above: Performed By: #### U RIN2 #### [facility] [address] [address] Hyaline Cast 0.0 /lpf Normal 0.0-1.0 [facility] Comment on above: Performed By: #### U RIN2 #### [facility] [address] [address] RBC LM.HPF (Urine sed) [#/Area] 1.1 /[HPF] Normal 0.0-5.0 [facility] Comment on above: Performed By: #### U RIN2 #### [facility] [address] [address] WBC LM.HPF (Urine sed) [#/Area] 0.1 /[HPF] Normal 0.0-5.0 [facility] Comment on above: Performed By: #### U RIN2 #### [facility] [address] [address] Appearance (U) CLEAR Normal [facility] Comment on above: Performed By: #### U RIN2 #### [place] [address] Bilirubin (U) [Mass/Vol] Negative Normal Negative [facility] Comment on above: Performed By: #### U RIN2 #### [place] [address] Color (U) YELLOW Normal [facility] Comment on above: Performed By: #### U RIN2 #### [facility] [address] [address] Glucose Ql (U) Negative Normal Negative [facility] Comment on above: Performed By: #### U RIN2 #### [place] [address] Hemoglobin,Urine Negative Normal Negative [facility] Comment on above: Performed By: #### U RIN2 #### [place] [address] Ketone Urine Negative Normal Negative [facility] Comment on above: Performed By: #### U RIN2 #### [facility] [address], [place] [address] Leukocytes Esterase Negative Normal Negative [facility] Comment on above: Performed By: #### U RIN2 #### [facility] [address] [address] Nitrites Urine Negative Normal Negative [facility] Comment on above: Performed By: #### U RIN2 #### [place] [address] pH (U) 7.0 [pH] Normal 5.0-8.0 [facility] Comment on above: Performed By: #### U RIN2 #### [facility] [address] [address] Protein (U) [Mass/Vol] Negative Normal Negative [facility] Comment on above: Performed By: #### U RIN2 #### [place] [address] Specific [place], Ur 1.004 Normal 1.005-1.030 [facility] Comment on above: Performed By: #### U RIN2 #### [place] [address] Urobilinogen,Ur 0.2 EU/dL Normal 0.2-1.0 [facility] Comment on above: Performed By: #### U RIN2 #### [place] [address] CNOVon 03-09-2019 CNOV Office Visit (NEURGN ) LOREE FRANCIS ([id number]) 1955 M Date Time Provider Department 03/09/19 4:00 PM MIGUEL METZGER ([facility]GBOAT MATE) NEURGN During your visit today, we recorded the following information about you: Respiration Blood pressure Weight Height 16/minute 125/65 98.4 kg 1.753 m Miguel Metzger APRN.[facility] [facility]ATE 03/09/2019 4:31 PM Signed Wean down off of Klonopin Start topamax- titrate up to 75 mg at bedtime Call to get Sleep study reports Follow up in 3-4 months Miguel Metzger APRN.GARY 03/09/2019 5:40 PM Signed Neurology Follow Up Note Date: March 09, 2019 Patient Name: Loree Francis HPI: This is Mr. Loree Francis a 63 year old male who presents to [facility] for follow up of PLMD, HILARY, headaches. Pt was last seen by Dr. Bender 12/06. Today patient arrives alone. He was started on gabapentin at the last visit but had side effects and had stopped it. She was then started on Depakote, but he states that he didn't like the way it made him feel when he had stopped that as well. Pt was here for sleep study results but I am unable to find them. He had the study done at [facility]. Multiple times during the visit, patient was wanting Klonopin renewed. It was denied by Dr. Bender prior, so patient got a refill by his PCP. I told him I will not be refilling Klonopin. He should be weaning himself off of what he has left at home. This was explained to him. He states that he gets these episodes where he gets limb twitching and his left eye drooping. He wanted me to look at his eye closely that he felt that it was drooping during the visit. I did not notice much of a droop. He was insisting that it was getting worse as we were in the room. He is still having headaches on a near daily basis. I offered him Topamax to try to titrate up to 75 mg at bedtime in hopes that this would help with his twitching and headaches. Recent benefits were discussed. Patient agrees to try medication. Patient's reflexes were examined. He was a +1 throughout. Patient is to return in 3 months Medications: tamsulosin HCl (FLOMAX ORAL) Take by mouth. clonazepam (KLONOPIN ORAL) Take by mouth. Lovastatin 40 mg tablet Take 40 mg by mouth once daily. multivitamin with minerals (MEN'S ONE DAILY) tablet Take 1 tablet by mouth once daily. OMEPRAZOLE 20 MG CAP, DELAYED RELEASE Take one(1) tablet daily. topiramate (TOPAMAX) 25 mg tablet Take 3 tablets by mouth daily at bedtime. Take 25 mg for 1 week qhs Then take 50 mg for 1 week qhs Then 75 mg qhs meloxicam (MOBIC) 15 mg tablet Take 15 mg by mouth once daily. hydroxychloroquine (PLAQUENIL) 200 mg tablet Take 200 mg by mouth once daily. [id number] (KRILL OIL) 885-27-58-50 mg cap Take by mouth. aspirin, enteric coated (ASPIRIN, ENTERIC COATED) 81 mg EC tablet Take 81 mg by mouth once daily. PMH/PSH/FH/ALLERGIES: Reviewed from last visit and unchanged. ROS: Reviewed from prior visit and unchanged. Physical Exam: Vitals: BP 125/65 (BP Site: Left Arm, BP Position: Sitting, BP Cuff Size: Regular Adult) Resp 16 Ht 5' 9 (1.753 m) Wt 217 lb (98.4 kg) BMI 32.05 kg/m? Gen: well appearing, in no acute distress CV: 2+ radial pulses Alert, oriented to person, place, time. Speech fluent with no dysarthria or aphasia. Attention and concentration intact. Recent and remote memory intact. Fund of knowledge is normal. Pupils equally round and reactive to light. Extraocular muscles intact. Visual villarreal full, face symmetric. Normal muscles bulk and tone Muscle strength symmetric, 5/5 bilateral upper and lower extremities. Sensation intact to light touch throughout Coordination intact Gait is normal Studies: Most recent labs Most recent imaging ASSESSMENT/PLAN: 1. Intractable migraine without status migrainosus, unspecified migraine type - ICD9: 346.91, ICD10: G43.919 (primary diagnosis) - TOPIRAMATE 25 MG TABLE titrate to 75 mg qhs 2. PLMD (periodic limb movement disorder) - ICD9: 327.51, ICD10: G47.61 - TOPIRAMATE 25 MG TABLET 3. HILARY (obstructive sleep apnea) - ICD9: 327.23, ICD10: G47.33 - Please get sleep study results from [facility] in 3 months 40 minutes were spent with patient, > 50% of time was spent counseling and coordinating care. Topics discussed included differential diagnosis, diagnosis, treatment options, and marine oil terminal superintendent disease management. Miguel Metzger APRN.[facility], Department of Neurology Referring Provider: MARIUSZ BENDER JR [[id number]] Allergies As of Date: 03/09/2019 (No Known Allergies) Date Reviewed: 03/09/2019 Reviewed by: Miguel (Gary) Yassine - Fully Assessed Reason for Visit: Follow Up [171] Cmt: 3 month follow up Primary Visit Diagnosis:Intractable migraine without status migrainosus, unspecified migraine type [G43.919] Other Visit Diagnoses:PLMD (periodic limb movement disorder) [G47.61] HILARY (obstructive sleep apnea) [G47.33] Order(s):topiramate (TOPAMAX) 25 mg tabletTake 3 tablets by mouth daily at bedtime. Take 25 mg for 1 week qhs Then take 50 mg for 1 week qhs Then 75 mg qhsDisp: 90 tabletRfl: 1 Prescriptions as of 03/09/2019 Sig: FLOMAX ORAL Take by mouth. KLONOPIN ORAL Take by mouth. LOVASTATIN 40 MG TABLET Take 40 mg by mouth once juan* MULTIVITAMIN WITH MINERALS TA* Take 1 tablet by mouth once d* * OMEPRAZOLE 20 MG CAPSULE,JERILYN* Take one(1) tablet daily. TOPIRAMATE 25 MG TABLET Take 3 tablets by mouth daily* MOBIC 15 MG TABLET Take 15 mg by mouth once juan* HYDROXYCHLOROQUINE 200 MG TAB* Take 200 mg by mouth once curtis* KRILL [id number]* Take by mouth. ASPIRIN 81 MG TABLET,DELAYED * Take 81 mg by mouth once juan* Problem List As Of Date 03/09/2019 Noted Resolved CHRONIC PROSTATITIS [N41.1] INVALID FOR* CALCULUS OF PROSTATE [N42.0] INVALID FOR* THROMBOS HEMORRHOIDS NOS [K64.5] INVALID FOR* BLADDER NECK OBSTRUCTION [N32.0] INVALID FOR* BPH W URINARY OBS/LUTS [N40.1] INVALID FOR* Spinal stenosis in cervical region [M48.02] INVALID FOR* Sleep starts [F51.8] INVALID FOR* More... Supraclinoid carotid artery aneurysm, small [I6*INVALID FOR* Nonintractable headache [R51] INVALID FOR* HILARY (obstructive sleep apnea) [G47.33] INVALID FOR* Tremor [R25.1] INVALID FOR* Other instructions from your clinician: Wean down off of Klonopin Start topamax- titrate up to 75 mg at bedtime Call to get Sleep study reports Follow up in 3-4 months Prescriptions ordered this encounter Disp Refills Start End TOPIRAMATE 25 MG TABLET 90 t* 1 03/09/2019 Route: ORAL Sig: Take 3 tablets by mouth daily at bedtime. Take 25 mg for 1 week qhs Then take 50 mg for 1 week qhs Then 75 mg qhs Medications Discontinued During This Encounter gabapentin (NEURONTIN) 300 mg capsule 60 c* 2 12/06/2018 03/09/2019 Sig: Take 1 capsule at bedtime. If symptoms persist can increase to 2 capsules at bedtime. Disc: Side Effects divalproex ER (DEPAKOTE ER) 500 mg 2* 30 t* 0 12/20/2018 03/09/2019 Route: ORAL Sig: Take 1 tablet by mouth daily at bedtime. Patient not taking: Reported on 03/09/2019 Disc: Side Effects topiramate (TROKENDI XR) 50 mg cp24 03/09/2019 Class: Historical Med Route: ORAL Sig: Take 50 mg by mouth once daily. Disc: Course of therapy completed methylphenidate ER 18 mg CR tablet 03/09/2019 Class: Historical Med Route: ORAL Sig: Take 18 mg by mouth once daily. Disc: Course of therapy completed Disposition: Return in about 3 months (around 06/09/2019). Follow-up and Disposition History Recorded Encounter Status:Closed by MIGUEL METZGER CNP on 03/09/19 Normal [facility] PROGRESSon 03-09-2019 PROGRESS HNO ID: [id number] Author: Miguel Metzger Service: ? Author Type: Nurse Practitioner Type: Progress Notes Filed: 03/09/2019 5:40 PM Note Text: Neurology Follow Up Note Date: March 09, 2019 Patient Name: Loree Francis HPI: This is Mr. Loree Francis a 63 year old male who presents to [facility] for follow up of PLMD, HILARY, headaches. Pt was last seen by Dr. Bender 12/06. Today patient arrives alone. He was started on gabapentin at the last visit but had side effects and had stopped it. She was then started on Depakote, but he states that he didn't like the way it made him feel when he had stopped that as well. Pt was here for sleep study results but I am unable to find them. He had the study done at [facility]. Multiple times during the visit, patient was wanting Klonopin renewed. It was denied by Dr. Bender prior, so patient got a refill by his PCP. I told him I will not be refilling Klonopin. He should be weaning himself off of what he has left at home. This was explained to him. He states that he gets these episodes where he gets limb twitching and his left eye drooping. He wanted me to look at his eye closely that he felt that it was drooping during the visit. I did not notice much of a droop. He was insisting that it was getting worse as we were in the room. He is still having headaches on a near daily basis. I offered him Topamax to try to titrate up to 75 mg at bedtime in hopes that this would help with his twitching and headaches. Recent benefits were discussed. Patient agrees to try medication. Patient's reflexes were examined. He was a +1 throughout. Patient is to return in 3 months Medications: tamsulosin HCl (FLOMAX ORAL) Take by mouth. clonazepam (KLONOPIN ORAL) Take by mouth. Lovastatin 40 mg tablet Take 40 mg by mouth once daily. multivitamin with minerals (MEN'S ONE DAILY) tablet Take 1 tablet by mouth once daily. OMEPRAZOLE 20 MG CAP, DELAYED RELEASE Take one(1) tablet daily. topiramate (TOPAMAX) 25 mg tablet Take 3 tablets by mouth daily at bedtime. Take 25 mg for 1 week qhs Then take 50 mg for 1 week qhs Then 75 mg qhs meloxicam (MOBIC) 15 mg tablet Take 15 mg by mouth once daily. hydroxychloroquine (PLAQUENIL) 200 mg tablet Take 200 mg by mouth once daily. zoxrs-wxefk-5-tbi-jda-stqtir (KRILL OIL) 420-45-18-50 mg cap Take by mouth. aspirin, enteric coated (ASPIRIN, ENTERIC COATED) 81 mg EC tablet Take 81 mg by mouth once daily. PMH/PSH/FH/ALLERGIES: Reviewed from last visit and unchanged. ROS: Reviewed from prior visit and unchanged. Physical Exam: Vitals: BP 125/65 (BP Site: Left Arm, BP Position: Sitting, BP Cuff Size: Regular Adult) Resp 16 Ht 5' 9 (1.753 m) Wt 217 lb (98.4 kg) BMI 32.05 kg/m? Gen: well appearing, in no acute distress CV: 2+ radial pulses Alert, oriented to person, place, time. Speech fluent with no dysarthria or aphasia. Attention and concentration intact. Recent and remote memory intact. Fund of knowledge is normal. Pupils equally round and reactive to light. Extraocular muscles intact. Visual villarreal full, face symmetric. Normal muscles bulk and tone Muscle strength symmetric, 5/5 bilateral upper and lower extremities. Sensation intact to light touch throughout Coordination intact Gait is normal Studies: Most recent labs Most recent imaging ASSESSMENT/PLAN: 1. Intractable migraine without status migrainosus, unspecified migraine type - ICD9: 346.91, ICD10: G43.919 (primary diagnosis) - TOPIRAMATE 25 MG TABLE titrate to 75 mg qhs 2. PLMD (periodic limb movement disorder) - ICD9: 327.51, ICD10: G47.61 - TOPIRAMATE 25 MG TABLET 3. HILARY (obstructive sleep apnea) - ICD9: 327.23, ICD10: G47.33 - Please get sleep study results from [facility] in 3 months 40 minutes were spent with patient, > 50% of time was spent counseling and coordinating care. Topics discussed included differential diagnosis, diagnosis, treatment options, and skilled nursing disease management. Miguel Metzger APRN.[facility], Department of Neurology Normal [facility] [facility] Telephone (CRYSTALBA) LOREE FRANCIS ([id number]) 1955 M Date Time Provider Department 12/20/18 MARIUSZ BENDER JR During your visit today, we recorded the following information about you: Vanda BonillaPANTERA 12/20/2018 11:21 AM Signed Loree states that he can not tolerate Gabapentin at all! Says he has 4-5 days of klonopin left, and states that klonopin does not give him a problem. What action should he take Please advise Vanda Bonilla (Crma) Mariusz Bender MD 12/20/2018 2:27 PM Signed Will d/c Gabapentin. Will provide trial of Depakote ER 500mg QHS to see if this improve symptoms. Should take 1 hour before bedtime. WJN Mariusz Bender MD 12/20/2018 4:44 PM Signed Addended by: MARIUSZ BENDER on: 12/20/2018 04:44 PM Modules accepted: Orders Allergies As of Date: 12/20/2018 (No Known Allergies) Date Reviewed: 12/06/2018 Reviewed by: Mariusz Bender Jr. - Fully Assessed Reason for Visit: Medication Problem [509] Order(s):divalproex ER (DEPAKOTE ER) 500 mg 24 hr tabletTake 1 tablet by mouth daily at bedtime.Disp: 30 tabletRfl: 0 Prescriptions as of 12/20/2018 Sig: DIVALPROEX ER 500 MG TABLET,E* Take 1 tablet by mouth daily * GABAPENTIN 300 MG CAPSULE Take 1 capsule at bedtime. I* MELOXICAM 15 MG TABLET Take 15 mg by mouth once juan* METHYLPHENIDATE ER 18 MG TABL* Take 18 mg by mouth once juan* LOVASTATIN 40 MG TABLET Take 40 mg by mouth once juan* HYDROXYCHLOROQUINE 200 MG TAB* Take 200 mg by mouth once curtis* KRILL [id number]* Take by mouth. ASPIRIN 81 MG TABLET,DELAYED * Take 81 mg by mouth once juan* MULTIVITAMIN WITH MINERALS TA* Take 1 tablet by mouth once d* TOPIRAMATE XR 50 MG CAPSULE,E* Take 50 mg by mouth once juan* * OMEPRAZOLE 20 MG CAPSULE,JERILYN* Take one(1) tablet daily. Problem List As Of Date 12/20/2018 Noted Resolved CHRONIC PROSTATITIS [N41.1] INVALID FOR* CALCULUS OF PROSTATE [N42.0] INVALID FOR* THROMBOS HEMORRHOIDS NOS [K64.5] INVALID FOR* BLADDER NECK OBSTRUCTION [N32.0] INVALID FOR* BPH W URINARY OBS/LUTS [N40.1] INVALID FOR* Spinal stenosis in cervical region [M48.02] INVALID FOR* Sleep starts [F51.8] INVALID FOR* More... Supraclinoid carotid artery aneurysm, small [I6*INVALID FOR* Nonintractable headache [R51] INVALID FOR* HILARY (obstructive sleep apnea) [G47.33] INVALID FOR* Tremor [R25.1] INVALID FOR* Prescriptions ordered this encounter Disp Refills Start End DIVALPROEX ER 500 MG TABLET,EXTENDED* 30 t* 0 12/20/2018 Route: ORAL Sig: Take 1 tablet by mouth daily at bedtime. Encounter Status:Closed by MARIUSZ BENDER on 12/20/18 [facility] [place] 12-07-2018 C[facility] Telephone (JUDYBA) LOREE FRANCIS ([id number]) 1955 M Date Time Provider Department 12/07/18 MARIUSZ BENDER JR During your visit today, we recorded the following information about you: Venessa Marie 12/07/2018 9:59 AM Signed PAP Titration PSG: PENDING with insurance Clinical information, order and authorization form faxed to lettrs at Venessapeggy Marie 12/07/2018 09:58:39 Venessa Marie 12/09/2018 9:27 AM Signed PAP Titration PSG: APPROVED Authorization #: [id number] Demographic sheet, insurance authorization, order and insurance cards faxed to Centralized Scheduling at [phone] Venessa [facility] 12/09/2018 09:22:28 Venessa Marie 01/18/2019 9:29 AM Signed Demographic sheet, insurance authorization, order and insurance cards faxed to Centralized Scheduling at [phone] [facility] Venessa [facility] 01/18/2019 9:29 AM Signed Demographic sheet, insurance authorization, order and insurance cards faxed to Centralized Scheduling at [phone] Venessa Kelly 01/18/2019 09:29:45 Allergies As of Date: 12/07/2018 (No Known Allergies) Date Reviewed: 12/06/2018 Reviewed by: Mariusz Bender Jr. - Fully Assessed Reason for Visit: Insurance Authorization [[id number]] Cmt: PAP Titration PSG Prescriptions as of 12/07/2018 Sig: GABAPENTIN 300 MG CAPSULE Take 1 capsule at bedtime. I* MELOXICAM 15 MG TABLET Take 15 mg by mouth once juan* METHYLPHENIDATE ER 18 MG TABL* Take 18 mg by mouth once juan* LOVASTATIN 40 MG TABLET Take 40 mg by mouth once juan* HYDROXYCHLOROQUINE 200 MG TAB* Take 200 mg by mouth once curtis* KRILL [id number]* Take by mouth. ASPIRIN 81 MG TABLET,DELAYED * Take 81 mg by mouth once juan* MULTIVITAMIN WITH MINERALS TA* Take 1 tablet by mouth once d* TOPIRAMATE XR 50 MG CAPSULE,E* Take 50 mg by mouth once juan* * OMEPRAZOLE 20 MG CAPSULE,JERILYN* Take one(1) tablet daily. Problem List As Of Date 12/07/2018 Noted Resolved CHRONIC PROSTATITIS [N41.1] INVALID FOR* CALCULUS OF PROSTATE [N42.0] INVALID FOR* THROMBOS HEMORRHOIDS NOS [K64.5] INVALID FOR* BLADDER NECK OBSTRUCTION [N32.0] INVALID FOR* BPH W URINARY OBS/LUTS [N40.1] INVALID FOR* Spinal stenosis in cervical region [M48.02] INVALID FOR* Sleep starts [F51.8] INVALID FOR* More... Supraclinoid carotid artery aneurysm, small [I6*INVALID FOR* Nonintractable headache [R51] INVALID FOR* HILARY (obstructive sleep apnea) [G47.33] INVALID FOR* Tremor [R25.1] INVALID FOR* Encounter Status:Closed by VENESSA KELLY on 12/09/18 [facility] [place] 12-06-2018 CNOV Office Visit (NEURBA ) LOREE FRANCIS ([id number]) 1955 M Date Time Provider Department 12/06/18 4:20 PM STEVE RUIZ, MARIUSZ ASHLEY During your visit today, we recorded the following information about you: Pulse Respiration Blood pressure Weight 79/minute 17/minute 149/87 97.5 kg Height 1.753 m Mariusz Bender MD 12/06/2018 6:41 PM Signed ESTABLISHED PATIENT VISIT HISTORY OF PRESENT ILLNESS: Loree Francis is a 63 year old male, Ht 5' 9 (1.753 m) BMI 31.75 kg/m2 with a PMH significant for: 1. Spinal stenosis in cervical region - ICD9: 723.0, ICD10: M48.02 (primary diagnosis) Sent to spine since time of last visit. 2. Sleep starts - ICD9: 307.49, ICD10: F51.8 Increased Klonopin to 1.0mg QHS last visit. 3. 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 He was to follow up with Dr. Ridley. ? 4. Nonintractable headache, unspecified chronicity pattern, unspecified headache type - ICD9: 784.0, ICD10: R51 Headache frequency <4 per month and thus felt no need for preventative medication. ? 5. HILARY (obstructive sleep apnea) - ICD9: 327.23, ICD10: G47.33 On PAP. No download available for review.? 6. Tremor - ICD9: 781.0, ICD10: R25.1 Family history in sister. Likely essential vs familial termor. Patient did not feel need for medication last visit. Since last visit, patient states he did go to see spine, and was told by them to have a sleep study. Note that we did not send patient there for abnormal movements but due to his complaining of neck pain. Patient states he would have the jerks and movements as soon as he would lie in bed and start to fall asleep - this is prior to falling asleep. Note he is on CPAP therapy. During last visit, increased Klonopin to 1.0mg at bedtime and 0.5mg Q dinner. He states he went to the ER because he stopped taking it and went through w/d and BP went up to 190s. He is also telling me that the Klonpin is not improving symptoms, although this had not been the case in the past. States he is lying in bed, and closes eyes and limb jerks. He repeatedly states he is asleep with onset of symptoms which is inconsistent with history. He then is telling me that he is also taking Benadryl and using Vodka. The patient is inconsistent with history as to how much Klonopin he is getting. However review of PDMP would indicate 0.5mg QHS. He states the jerks are not nightly. He states the jerks can keep him up until 3 AM. He continues to use his CPAP. States uses nightly. I do not have a download available for review. He states the jerks can recur over and over almost in the fashion of a tremor. He currently is not having any headaches, and states if one was to occur is very very mild. He also reports that he followed up with Dr. Ridley and that he was told Everything is stable. I do not have report for review. Jerks of extremities can be up to 4 nights per week. REVIEW OF SYSTEMS GENERAL:No weight loss, malaise or fevers. HEENT:Negative for frequent or significant headaches, No changes in hearing or vision, no nose bleeds or other nasal problems NECK:Negative for lumps, goiter, pain and significant neck swelling RESPIRATORY: Negative for cough, wheezing or shortness of breath. CARDIOVASCULAR: Negative for chest pain, leg swelling or palpitations. GASTROINTESTINAL: Negative for abdominal discomfort, blood in stools or black stools or change in bowel habits GENITOURINARY: No history of dysuria, frequency or incontinence MUSCULOSKELETAL: Negative for joint pain or swelling, back pain or muscle pain. NEUROLOGIC:Negative for focal numbness or weakness, headaches and dizziness or syncope, vision changes, speech/languag changes - EXCEPT that as per HPI above. SKIN:Negative for lesions, rash, and itching. PSYCHIATRIC: Negative for sleep disturbance, mood disorder and recent psychosocial stressors. HEMATOLOGIC/LYMPHATIC/IMMUNO LOGIC:Negative for prolonged bleeding, bruising easily or swollen nodes. ENDOCRINE: Negative for cold or heat intolerance, polyuria, polydipsia and goiter. The remainder of the ROS was reviewed and is negative. LAB/IMAGING: Those performed since patient's last visit have been reviewed. WBC (/hpf) Date Value 08/17/2005 Negative Glucose (mg/dL) Date Value 08/17/2005 Negative BUN (mg/dL) Date Value 04/01/2015 16 Creatinine (mg/dL) Date Value 04/01/2015 0.87 URINALYSIS No results found for: PH, SPGR, UGLUC, UBILI, UKET, UHB, UPROT, UROBIL, UWBC, SSA MEDICATIONS: clonazePAM (KLONOPIN) 0.5 mg tablet Take 1 tablet at 5pm, and take 2 tablets at bedtime. meloxicam (MOBIC) 15 mg tablet Take 15 mg by mouth once daily. Lovastatin 40 mg tablet Take 40 mg by mouth once daily. hydroxychloroquine (PLAQUENIL) 200 mg tablet Take 200 mg by mouth once daily. kaqxc-qdvpr-6-rqs-ldj-txmchk (KRILL OIL) 077-50-38-50 mg cap Take by mouth. aspirin, enteric coated (ASPIRIN, ENTERIC COATED) 81 mg EC tablet Take 81 mg by mouth once daily. multivitamin with minerals (MEN'S ONE DAILY) tablet Take 1 tablet by mouth once daily. topiramate (TROKENDI XR) 50 mg cp24 Take 50 mg by mouth once daily. OMEPRAZOLE 20 MG CAP, DELAYED RELEASE Take one(1) tablet daily. methylphenidate ER 18 mg CR tablet Take 18 mg by mouth once daily. Not on Trokendi. HISTORIES PAST MEDICAL HISTORY Diagnosis Date - Spinal stenosis FAMILY HISTORY Problem Relation Age of Onset - Arthritis Father - Cancer Father - Stroke Father - Coronary Artery Disease Maternal Grandmother - Diabetes Maternal Grandmother - Coronary Artery Disease Mother - Coronary Artery Disease Maternal Uncle - Genitourinary () Sister - Seizures Paternal Aunt SOCIAL HISTORY Social History Substance Use Topics - Smoking status: Never Smoker - Smokeless tobacco: Former User Types: Snuff - Alcohol use Yes Comment: rarely PHYSICAL EXAMINATION BP 149/87 Pulse 79 Resp 17 Ht 5' 9 (1.753 m) Wt 215 lb (97.5 kg) SpO2 97% BMI 31.75 kg/m? GENERAL EXAM: General appearance: NAD, pleasant. HEENT: NC/AT, nasal congestion absent, no oral lesions, membranes moist. NECK: No masses, supple. Lungs: CTA bilaterally. CV: RRR nl S1, S2. No carotid bruits. Extr: No cyanosis, clubbing or edema. No evidence of fasciculations. Extremity pulses palpable and normal. Skin: Cool to touch. No rash. NEUROLOGICAL EXAM: General: Awake, alert, oriented x3 (person,place,time), speech fluent, no dysarthria; comprehension, naming, repetition intact. Fund of knowledge grossly normal by MOCA. CN: PERRL, fundi appear normal including no evidence of papilledema, EOMI and without nystagmus, VFF to confrontation, facial sensation and strength are normal and symmetric, hearing is intact to finger rub bilaterally, palate and tongue movements are intact and symmetric. SCM and trapezius strength normal. Motor: Normal tone, bulk and strength (5/5) bilaterally (throughout extremities x4). Reflexes: 2/4 and symmetric, plantar stimulation is flexor. Coordination: FNF, ANN MARIE, HTS intact. No tremors. Sensation: Light touch and pin intact throughout. No evidence of neglect. Gait: Narrow based and stable with normal stride and arm swing. Romberg normal. Assessment and Plan: ASSESSMENT/PLAN: 1. Sleep starts - ICD9: 307.49, ICD10: F51.8 (primary diagnosis) 2. PLMD (periodic limb movement disorder) - ICD9: 327.51, ICD10: G47.61 3. HILARY (obstructive sleep apnea) - ICD9: 327.23, ICD10: G47.33 Patient with complaints of jerking of extremities upon lying in bed and closing eyes. Again, some inconsistencies in history, and thus difficult to determine etiology of symptoms. As he reports he is not asleep, initially thought sleep starts but now symptoms becoming quite complex. He has had elevated PLMI on prior PSGs, but the manner of movements seem to rapid and complex for PLMD. If movements were in sleep could be secondary to uncontrolled HILARY. However, also need to consider possible stress reaction. As he has been non-compliant with Klonopin as well as mixing with ETOH, I will not renew the Rx and patient aware. His last Rx was provided by Dr. Mohamud (PCP). I do not have the details of his ER visit as above, but if taking medications appropriately, I would not expect him to have a w/d reaction. Will request records for review. For symptoms will provide trial of gabapentin 300 to 600mg QHS, but advised NO ETOH or OTC use with this Rx. SE and ADRs d/w pt. To further evaluate for possible sleep disorder, will have patient undergo retitration starting at home pressure of 7 cmH2O and with extra limb leads. 4. 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 Ridley. 5. Spinal stenosis in cervical region - ICD9: 723.0, ICD10: M48.02 Patient now reports no symptoms. No further workup. 6. Nonintractable headache, unspecified chronicity pattern, unspecified headache type - ICD9: 784.0, ICD10: R51 Patient reports symptoms minimal and not needing treatment. Mariusz Bender MD I spent 40 minutes in the visit, with more than 50% of the total gnzv-gz-xgnn time of the visit in counseling / coordination of care. PDMP website checked and validated. All prescriptions have been APPROPRIATELY filled. No suspicious activity was identified. 12/06/2018 by Mariusz Bender MD Referring Provider: SELF [200] Allergies As of Date: 12/06/2018 (No Known Allergies) Date Reviewed: 12/06/2018 Reviewed by: Mariusz Bender Jr. - Fully Assessed Reason for Visit: Follow Up [171] Primary Visit Diagnosis:Sleep starts [F51.8] Other Visit Diagnoses:PLMD (periodic limb movement disorder) [G47.61] HILARY (obstructive sleep apnea) [G47.33] Supraclinoid carotid artery aneurysm, small [I67.1] Spinal stenosis in cervical region [M48.02] Nonintractable headache, unspecified chronicity pattern, unspecified headache type [R51] Order(s):gabapentin (NEURONTIN) 300 mg capsuleTake 1 capsule at bedtime. If symptoms persist can increase to 2 capsules at bedtime.Disp: 60 capsuleRfl: 2 PAP TITRATION PSG (CPAP, BIPAP, ASV) [[id number]] Order #: [id number] FUTURE Prescriptions as of 12/06/2018 Sig: MELOXICAM 15 MG TABLET Take 15 mg by mouth once juan* LOVASTATIN 40 MG TABLET Take 40 mg by mouth once juan* HYDROXYCHLOROQUINE 200 MG TAB* Take 200 mg by mouth once curtis* KRILL [id number]* Take by mouth. ASPIRIN 81 MG TABLET,DELAYED * Take 81 mg by mouth once juan* MULTIVITAMIN WITH MINERALS TA* Take 1 tablet by mouth once d* TOPIRAMATE XR 50 MG CAPSULE,E* Take 50 mg by mouth once juan* * OMEPRAZOLE 20 MG CAPSULE,JERILYN* Take one(1) tablet daily. GABAPENTIN 300 MG CAPSULE Take 1 capsule at bedtime. I* METHYLPHENIDATE ER 18 MG TABL* Take 18 mg by mouth once juan* Problem List As Of Date 12/06/2018 Noted Resolved CHRONIC PROSTATITIS [N41.1] INVALID FOR* CALCULUS OF PROSTATE [N42.0] INVALID FOR* THROMBOS HEMORRHOIDS NOS [K64.5] INVALID FOR* BLADDER NECK OBSTRUCTION [N32.0] INVALID FOR* BPH W URINARY OBS/LUTS [N40.1] INVALID FOR* Spinal stenosis in cervical region [M48.02] INVALID FOR* Sleep starts [F51.8] INVALID FOR* More... Supraclinoid carotid artery aneurysm, small [I6*INVALID FOR* Nonintractable headache [R51] INVALID FOR* HILARY (obstructive sleep apnea) [G47.33] INVALID FOR* Tremor [R25.1] INVALID FOR* Prescriptions ordered this encounter Disp Refills Start End GABAPENTIN 300 MG CAPSULE 60 c* 2 12/06/2018 02/03/2019 Sig: Take 1 capsule at bedtime. If symptoms persist can increase to 2 capsules at bedtime. Medications Discontinued During This Encounter clonazePAM (KLONOPIN) 0.5 mg tablet 90 t* 0 06/27/2018 12/06/2018 Class: Call Rx Sig: Take 1 tablet at 5pm, and take 2 tablets at bedtime. Disc: Clinical Decision Disposition: Return in about 3 months (around 03/05/2019). Follow-up and Disposition History Recorded Encounter Status:Closed by MARIUSZ BENDER on 12/06/18 [facility] PROGRESSon 12-06-2018 PROGRESS HNO ID: [id number] Author: Mariusz Bender Jr. Service: (none) Author Type: Physician Type: Progress Notes Filed: 12/06/2018 6:41 PM Note Text: ESTABLISHED PATIENT VISIT HISTORY OF PRESENT ILLNESS: Loree Francis is a 63 year old male, Ht 5' 9 (1.753 m) BMI 31.75 kg/m2 with a PMH significant for: 1. Spinal stenosis in cervical region - ICD9: 723.0, ICD10: M48.02 (primary diagnosis) Sent to spine since time of last visit. 2. Sleep starts - ICD9: 307.49, ICD10: F51.8 Increased Klonopin to 1.0mg QHS last visit. 3. 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 He was to follow up with Dr. Ridley. ? 4. Nonintractable headache, unspecified chronicity pattern, unspecified headache type - ICD9: 784.0, ICD10: R51 Headache frequency <4 per month and thus felt no need for preventative medication. ? 5. HILARY (obstructive sleep apnea) - ICD9: 327.23, ICD10: G47.33 On PAP. No download available for review.? 6. Tremor - ICD9: 781.0, ICD10: R25.1 Family history in sister. Likely essential vs familial termor. Patient did not feel need for medication last visit. Since last visit, patient states he did go to see spine, and was told by them to have a sleep study. Note that we did not send patient there for abnormal movements but due to his complaining of neck pain. Patient states he would have the jerks and movements as soon as he would lie in bed and start to fall asleep - this is prior to falling asleep. Note he is on CPAP therapy. During last visit, increased Klonopin to 1.0mg at bedtime and 0.5mg Q dinner. He states he went to the ER because he stopped taking it and went through w/d and BP went up to 190s. He is also telling me that the Klonpin is not improving symptoms, although this had not been the case in the past. States he is lying in bed, and closes eyes and limb jerks. He repeatedly states he is asleep with onset of symptoms which is inconsistent with history. He then is telling me that he is also taking Benadryl and using Vodka. The patient is inconsistent with history as to how much Klonopin he is getting. However review of PDMP would indicate 0.5mg QHS. He states the jerks are not nightly. He states the jerks can keep him up until 3 AM. He continues to use his CPAP. States uses nightly. I do not have a download available for review. He states the jerks can recur over and over almost in the fashion of a tremor. He currently is not having any headaches, and states if one was to occur is very very mild. He also reports that he followed up with Dr. Ridley and that he was told Everything is stable. I do not have report for review. Jerks of extremities can be up to 4 nights per week. REVIEW OF SYSTEMS GENERAL:No weight loss, malaise or fevers. HEENT:Negative for frequent or significant headaches, No changes in hearing or vision, no nose bleeds or other nasal problems NECK:Negative for lumps, goiter, pain and significant neck swelling RESPIRATORY: Negative for cough, wheezing or shortness of breath. CARDIOVASCULAR: Negative for chest pain, leg swelling or palpitations. GASTROINTESTINAL: Negative for abdominal discomfort, blood in stools or black stools or change in bowel habits GENITOURINARY: No history of dysuria, frequency or incontinence MUSCULOSKELETAL: Negative for joint pain or swelling, back pain or muscle pain. NEUROLOGIC:Negative for focal numbness or weakness, headaches and dizziness or syncope, vision changes, speech/languag changes - EXCEPT that as per HPI above. SKIN:Negative for lesions, rash, and itching. PSYCHIATRIC: Negative for sleep disturbance, mood disorder and recent psychosocial stressors. HEMATOLOGIC/LYMPHATIC/IMMUNO LOGIC:Negative for prolonged bleeding, bruising easily or swollen nodes. ENDOCRINE: Negative for cold or heat intolerance, polyuria, polydipsia and goiter. The remainder of the ROS was reviewed and is negative. LAB/IMAGING: Those performed since patient's last visit have been reviewed. WBC (/hpf) Date Value 08/17/2005 Negative Glucose (mg/dL) Date Value 08/17/2005 Negative BUN (mg/dL) Date Value 04/01/2015 16 Creatinine (mg/dL) Date Value 04/01/2015 0.87 URINALYSIS No results found for: PH, SPGR, UGLUC, UBILI, UKET, UHB, UPROT, UROBIL, UWBC, SSA MEDICATIONS: clonazePAM (KLONOPIN) 0.5 mg tablet Take 1 tablet at 5pm, and take 2 tablets at bedtime. meloxicam (MOBIC) 15 mg tablet Take 15 mg by mouth once daily. Lovastatin 40 mg tablet Take 40 mg by mouth once daily. hydroxychloroquine (PLAQUENIL) 200 mg tablet Take 200 mg by mouth once daily. aztwp-tktmm-2-wfj-uka-bpyept (KRILL OIL) 772-56-78-50 mg cap Take by mouth. aspirin, enteric coated (ASPIRIN, ENTERIC COATED) 81 mg EC tablet Take 81 mg by mouth once daily. multivitamin with minerals (MEN'S ONE DAILY) tablet Take 1 tablet by mouth once daily. topiramate (TROKENDI XR) 50 mg cp24 Take 50 mg by mouth once daily. OMEPRAZOLE 20 MG CAP, DELAYED RELEASE Take one(1) tablet daily. methylphenidate ER 18 mg CR tablet Take 18 mg by mouth once daily. Not on [employer]. HISTORIES PAST MEDICAL HISTORY Diagnosis Date - Spinal stenosis FAMILY HISTORY Problem Relation Age of Onset - Arthritis Father - Cancer Father - Stroke Father - Coronary Artery Disease Maternal Grandmother - Diabetes Maternal Grandmother - Coronary Artery Disease Mother - Coronary Artery Disease Maternal Uncle - Genitourinary () Sister - Seizures Paternal Aunt SOCIAL HISTORY Social History Substance Use Topics - Smoking status: Never Smoker - Smokeless tobacco: Former User Types: Snuff - Alcohol use Yes Comment: rarely PHYSICAL EXAMINATION BP 149/87 Pulse 79 Resp 17 Ht 5' 9 (1.753 m) Wt 215 lb (97.5 kg) SpO2 97% BMI 31.75 kg/m? GENERAL EXAM: General appearance: NAD, pleasant. HEENT: NC/AT, nasal congestion absent, no oral lesions, membranes moist. NECK: No masses, supple. Lungs: CTA bilaterally. CV: RRR nl S1, S2. No carotid bruits. Extr: No cyanosis, clubbing or edema. No evidence of fasciculations. Extremity pulses palpable and normal. Skin: Cool to touch. No rash. NEUROLOGICAL EXAM: General: Awake, alert, oriented x3 (person,place,time), speech fluent, no dysarthria; comprehension, naming, repetition intact. Fund of knowledge grossly normal by MOCA. CN: PERRL, fundi appear normal including no evidence of papilledema, EOMI and without nystagmus, VFF to confrontation, facial sensation and strength are normal and symmetric, hearing is intact to finger rub bilaterally, palate and tongue movements are intact and symmetric. SCM and trapezius strength normal. Motor: Normal tone, bulk and strength (5/5) bilaterally (throughout extremities x4). Reflexes: 2/4 and symmetric, plantar stimulation is flexor. Coordination: FNF, ANN MARIE, HTS intact. No tremors. Sensation: Light touch and pin intact throughout. No evidence of neglect. Gait: Narrow based and stable with normal stride and arm swing. Romberg normal. Assessment and Plan: ASSESSMENT/PLAN: 1. Sleep starts - ICD9: 307.49, ICD10: F51.8 (primary diagnosis) 2. PLMD (periodic limb movement disorder) - ICD9: 327.51, ICD10: G47.61 3. HILARY (obstructive sleep apnea) - ICD9: 327.23, ICD10: G47.33 Patient with complaints of jerking of extremities upon lying in bed and closing eyes. Again, some inconsistencies in history, and thus difficult to determine etiology of symptoms. As he reports he is not asleep, initially thought sleep starts but now symptoms becoming quite complex. He has had elevated PLMI on prior PSGs, but the manner of movements seem to rapid and complex for PLMD. If movements were in sleep could be secondary to uncontrolled HILARY. However, also need to consider possible stress reaction. As he has been non-compliant with Klonopin as well as mixing with ETOH, I will not renew the Rx and patient aware. His last Rx was provided by Dr. Mohamud (PCP). I do not have the details of his ER visit as above, but if taking medications appropriately, I would not expect him to have a w/d reaction. Will request records for review. For symptoms will provide trial of gabapentin 300 to 600mg QHS, but advised NO ETOH or OTC use with this Rx. SE and ADRs d/w pt. To further evaluate for possible sleep disorder, will have patient undergo retitration starting at home pressure of 7 cmH2O and with extra limb leads. 4. 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 Ridley. 5. Spinal stenosis in cervical region - ICD9: 723.0, ICD10: M48.02 Patient now reports no symptoms. No further workup. 6. Nonintractable headache, unspecified chronicity pattern, unspecified headache type - ICD9: 784.0, ICD10: R51 Patient reports symptoms minimal and not needing treatment. Mariusz Bender MD I spent 40 minutes in the visit, with more than 50% of the total [id number] time of the visit in counseling / coordination of care. PDMP website checked and validated. All prescriptions have been APPROPRIATELY filled. No suspicious activity was identified. 12/06/2018 by Mariusz Bender MD [facility] CNOVon 03-25-2018 CNOV Office Visit (SPNMMN) ----LOREE FRANCIS ([id number]) 1955 MDate Time Provider Department03/25/18 10:20 AM NICOLE GOLDBERG ([facility]) [facility] During your visit today, we recorded the following information about you: Pulse Respiration Blood pressure Weight 62/minute 18/minute 143/111 90.7 kg Height 1.753 Oma Og Ma 03/25/2018 10:42 AM SignedPt completed half of KP he states the rest is not applicable to his condition.Nicole Goldberg APRN.GARY 03/29/2018 3:04 [address] S[address]Spine Care Path Neck Pain - Chronic (> 12 weeks) Initial ExamSUBJECTIVEHISTORY OF PRESENT ILLNESS:Loree Hortencia Penny is a 62 year old male who presents with a chief complaint of neckpain and is seen in consultation requested by Dr. Mariusz Bender Jr. for anopinion regarding pain. My final recommendations will be communicated back tothe requesting physician by way of shared medical record or letter via US mail.Patient presents with night time jerking epidsodesDenies accident/injuryJerking of legs and jerking in limbs and back only when he lays down at night.No pain. Started about 2013 and has gotten worse per patient and spouse.Clonazepam improves symptoms but does not resolve them.Has had several episodes starting 2006 years ago of feet going numb feel cold,pressure behind scrotum, gets shaky. Doesn't feel normal. Worked up. WNL.Last episode was about 2 years ago. During an episode was given AtivanPatient also reports that he gets random eye droop that switches eyes.Pain localized to- no pain reported today. 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.Symptoms worse with laying down, improved with during dayInterventions: NoneMedications: clonazepamPhysical Therapy: previously did therapy at outside facility.Treating Physicians:Dr Mohamud PCPDr Bneder Neurology.History of Spine Injections/Surgery: NoneHx:Sleep apnea- CPAP at nightOther Issues Addressed at the Visit Today: None.Precipitating Event: NonePAIN EVALUATION No data found.Litigation: NoWorkers' Compensation: NoPED RED FLAGS YELLOW AND BLUE FLAGSNo No-Significant Injury to SpineNo-Use of Steroids for Prolonged DurationNo-Loss of Bowel/Bladder Control, Genital/Anal NumbnessNo-Recent Use of Intravenous (IV) DrugsNo-Difficulty Keeping Balance when WalkingNo-Progressive Weakness in Arms/LegsNo-History of Any Type of CancerNo-Unable to Find Position of ComfortNo-Pain at Night that Disturbs SleepNo-Recent Elevated Temp with Unknown CauseNo-Diagnosed with OsteoporosisNo-Unintentional Weight Loss or Gain No-Neg Attitude; Back Pain is DisablingNo-Avoiding Activity (for Fear of Pain)No-Depression or Anxiety DisordersNo-Social ProblemsNo-Substance Use DisorderNo-Job DissatisfactionNo-Financial Disincentives*PED (Patient Entered Data) osteoporosis flag will display for females 55 yearsor older and males 75 years or older.ACTIVE PROBLEM LISTChronic ProstatitisCalculus of ProstateUnspecified Thrombosed HemorrhoidsBladder Neck ObstructionBPH W URINARY OBS/LUTSSpinal Stenosis in Cervical RegionSleep StartsSupraclinoid Carotid Artery Aneurysm, SmallNonintractable HeadacheOsa (Obstructive Sleep Apnea)TremorNo past medical history on file.PAST SURGICAL HISTORYProcedure Laterality Date- HEMORRHOIDECTOMY,INT/EXT,COM PLXSocial History Marital status: Spouse name: Years of education: Number of children:Social History Main Topics Smoking status: Never Smoker Smokeless tobacco: Former User Types: Snuff Alcohol use: Yes Comment: rarely Drug use: NoFAMILY HISTORYProblem Relation Age of Onset- Arthritis Father- Cancer Father- Coronary Artery Disease Maternal Grandmother- Coronary Artery Disease Mother- Coronary Artery Disease Maternal Uncle- Diabetes Maternal Grandmother- Genitourinary () Sister- Seizures Paternal Aunt- Stroke FatherALLERGIESNo Known AllergiesCURRENT MEDICATIONS:clonazePAM (KLONOPIN) 1 mg tablet Take 1/2 tablet at 5PM and 1 tablet 1 hourbefore bedtime.meloxicam (MOBIC) 15 mg tablet Take 15 mg by mouth once daily.Lovastatin 40 mg tablet Take 40 mg by mouth once daily.hydroxychloroquine (PLAQUENIL) 200 mg tablet Take 200 mg by mouth once daily.xyjcz-uqmet-7-dha-epa- lipids (KRILL OIL) 045-10-57-50 mg cap Take by mouth.aspirin, enteric coated (ASPIRIN, ENTERIC COATED) 81 mg EC tablet Take 81 mg bymouth once daily.multivitamin with minerals (MEN'S ONE DAILY) tablet Take 1 tablet by mouth oncedaily.OMEPRAZOLE 20 MG CAP, DELAYED RELEASE Take one(1) tablet daily.methylphenidate ER 18 mg CR tablet Take 18 mg by mouth once daily.topiramate (TROKENDI XR) 50 mg cp24 Take 50 mg by mouth once daily.REVIEW OF SYSTEMS:PAIN ASSESSMENT: See HPI.GENERAL: Denies fever, chills malaise and weight loss.HEENT: No recent change in vision or hearing.CARDIOVASCULAR: Denies chest pain, history of A-fib, valvular disease, orpacemaker/ICD.RESPIRATORY: Denies SOB, sputum production, and hemoptysis.GI: Denies GI ulcers, inflammatory disease, or liver disease.: Denies change in frequency or urgency, kidney disease, and burning withurination.MUSCULOSKELETA L: Positive for See HPISKIN: Denies rash or itching.PSYCHOLOGICAL: Denies uncontrolled depression or anxiety.NEURO: HeadachesENDOCRINE: Denies diabetes, thyroid disease.HEMATOLOGY/LYMPHOLOG Y: Denies cancer, bleeding or clotting disorders,anemia,and DVT's.ALLERGIC/IMMUNOLOGICAL : Denies risks for infection, or recent MRSA infections.OBJECTIVE:PHYSICA L EXAMBP 143/111 (BP Site: Left Arm, BP Position: Sitting, BP Cuff Size: RegularAdult) Pulse 62 Resp 18 Ht 175.3 cm (5' 9) Wt 90.7 kg (200 lb) BMI 29.53 kg/m?GENERAL APPEARANCE: Well appearing, well-hydrated, well nourished and alertSKIN: Head, neck, trunk, and extremities dry, intact and without lesionsLUNGS: even and non-labored breathing, normal chest excursionNEURO/PSYCH: oriented to time, place, and person, speech normal, mental statusintactGAIT: normal, toe walking normal, heel walking normal, able to tandem gaitPOSTURE: Posture and spinal curves are normalPALPATION: no palpable masses, tenderness, or spasm, no palpable subluxation orstep-off, no point tenderness over the spineMUSCULOSKELETAL:Extende d Low Back AND Leg ExamLumbar Range of MotionFlexion 6 inches from floorExtension Normal RIGHT LEFTLateral Bending Full FullOblique Extension Within Normal Limits Within Normal LimitsLeg RaiseStraight Leg Raise Negative NegativeContralateral Straight Leg Raise Negative NegativeDTRsKnee Normal NormalAnkle Normal NormalMedial Hamstring Normal NormalBabinski normal normalStrength of Lower ExtremitiesExtensor Hallux Longus 5/5 5/5Ankle Dorsiflexion 5/5 5/5Ankle Plantarflexion 5/5 5/5Knee Extension 5/5 5/5Waddell's Exam: DeferredCervical Range of MotionFlexion NormalExtension Mildly restricted RIGHT LEFTRotation Full ROM without pain Full ROM without painLateral Bend Full ROM without pain Full ROM without painUpper Body Reflex Exam RIGHT LEFT Reflex Status Reflex StatusBiceps 2+ Normal 2+ NormalTriceps 2+ Normal 2+ NormalBrachioradialis 2+ Normal 2+ NormalInverted Radial 2+ Normal 2+ NormalHoffman's Sign absent absentUpper Extremity Strength RIGHT LEFT Strength(MMT) Strength(MMT)Shoulder Abduction 5/5 5/5Biceps 5/5 5/5Triceps 5/5 5/5Resisted Suppination 5/5 5/5Wrist Extension 5/5 5/5Interossei 5/5 5/5Shoulder Range of Motion RIGHT LEFTFlexion Normal NormalExtension Normal NormalAbduction Normal NormalAdduction Normal NormalInternal Rotation Normal NormalExternal Rotation Normal NormalShoulder TestsNeer Impingement Sign - NegativeNEUROSENSORY: Soft touch; Within Normal LimitsNeuro Tests:NoneData Review:[facility] records reviewed03/04/18 Cervical MRI: Developmental cervical canal stenosis with mildsuperimposed degenerativechanges that have slightly progressed at C3-4 since 07/29/2015. ?Otherwise no significant change.Sleep Study December 2014: frequent periodic limb movements present throughoutrecording. Patient with known history of restless leg syndrome, and theincrease in limb movments may represent poor control of such a disorder.ASSESSMENT/PLANSlee p apnea, unspecified typeRestless legs syndrome (primary encounter diagnosis)Spinal stenosis in cervical regionChronic nonintractable headache, unspecified headache typeMr Francis is a 62 year old with chief complaint of abnormal jerking reportedat night time. Known cervical stenosis with no reports of consistent pain,radicular symptoms, myelopathy, numbness/tingling. I reviewed MRI with patientand explained in depth that I cannot relate his spinal stenosis to his nighttime symptoms. I think based on his reported symptoms and sleep study resultsit is more likely related to a possible restless limb diagnosis.1. Imaging: None2. Physical Therapy: continue HEP3. Medication: per PCP/neurology4. Referrals: Sleep Neurology5. Considerations: updated physical therapy for neck, Cervical SALLY/MBB,Neurosurgery if stenosis symptoms6. Follow up: PRNSIGNATURE: Nicole Goldberg APRN.TUGBOAT MATE PATIENT NAME: Loree VillalbaATE: March 25, 2018 : 11:02 AMReferring Provider: MARIUSZ BENDER JR [[id number]]Allergies As of Date: 03/25/2018(No Known Allergies)Date Reviewed: 03/25/2018Reviewed by: Batsheva Og Ma - Fully AssessedReason for Visit: New Patient [172]Primary Visit Diagnosis:Restless legs syndrome [G25.81] Other Visit Diagnoses:Sleep apnea, unspecified type [G47.30] Spinal stenosis in cervical region [M48.02] Chronic nonintractable headache, unspecified headache type [R51]Order(s):PATIENT PLACED ON SPINE CARE PATH [[id number]] Order #: [id number]: 1 CONSULT TO NEUROLOGY [9019] Order #: [id number]: 1Prescriptions as of 03/25/2018 Sig: CLONAZEPAM 1 MG TABLET Take 1/2 tablet at 5PM and 1 * MELOXICAM 15 MG TABLET Take 15 mg by mouth once juan* LOVASTATIN 40 MG TABLET Take 40 mg by mouth once juan* HYDROXYCHLOROQUINE 200 MG TAB* Take 200 mg by mouth once curtis* KRILL [id number]* Take by mouth. ASPIRIN 81 MG TABLET,DELAYED * Take 81 mg by mouth once juan* MULTIVITAMIN WITH MINERALS TA* Take 1 tablet by mouth once d* * OMEPRAZOLE 20 MG CAPSULE,JERILYN* Take one(1) tablet daily. METHYLPHENIDATE ER 18 MG TABL* Take 18 mg by mouth once juan* TOPIRAMATE XR 50 MG CAPSULE,E* Take 50 mg by mouth once juan*Problem List As Of Date 03/25/2018 Noted Resolved CHRONIC PROSTATITIS [N41.1] INVALID FOR* CALCULUS OF PROSTATE [N42.0] INVALID FOR* THROMBOS HEMORRHOIDS NOS [K64.5] INVALID FOR* BLADDER NECK OBSTRUCTION [N32.0] INVALID FOR* BPH W URINARY OBS/LUTS [N40.1] INVALID FOR* Spinal stenosis in cervical region [M48.02] INVALID FOR* Sleep starts [F51.8] INVALID FOR* More... Supraclinoid carotid artery aneurysm, small [I6*INVALID FOR* Nonintractable headache [R51] INVALID FOR* HILARY (obstructive sleep apnea) [G47.33] INVALID FOR* Tremor [R25.1] INVALID FOR*Visit Notes:>> Batsheva Og Ma WedMar 25, 2018 10:41 AM Status: SignedPt completed half of KP he states the rest is not applicable to hiscondition.Disposition: Return if symptoms worsen or fail to improve.Follow-up and Disposition History RecordedEncounter Number: [id number] Status:Closed by NICOLE GOLDBERG on 03/29/18 [facility] PROGRESSon 03-25-2018 PROGRESS HNO ID: [id number] thor: Nicole (Wrap Yarn Sorter) LorettaaudeliaenService: (none)Author Type: Nurse PractitionerType: Progress NotesFiled: 03/29/2018 3:04 PMNote Text:Spine Care Path Neck Pain - Chronic (> 12 weeks) Initial ExamSUBJECTIVEHISTORY OF PRESENT ILLNESS:Loree Francis is a 62 year old male who presents with a chief complaint ofneck pain and is seen in consultation requested by Dr. Mariusz Bender Jr.for an opinion regarding pain. My final recommendations will becommunicated back to the requesting physician by way of shared medicalrecord or letter via US mail.Patient presents with night time jerking epidsodesDenies accident/injuryJerking of legs and jerking in limbs and back only when he lays down atnight. No pain. Started about 2013 and has gotten worse per patient andspouse. Clonazepam improves symptoms but does not resolve them.Has had several episodes starting 2006 years ago of feet going numb feelcold, pressure behind scrotum, gets shaky. Doesn't feel normal. Workedup. WNL. Last episode was about 2 years ago. During an episode was givenAtivanPatient also reports that he gets random eye droop that switches eyes.Pain localized to- no pain reported today. 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.Symptoms worse with laying down, improved with during dayInterventions: NoneMedications: clonazepamPhysical Therapy: previously did therapy at outside facility.Treating Physicians:Dr Mohamud PCPDr Bender Neurology.History of Spine Injections/Surgery: NoneHx:Sleep apnea- CPAP at nightOther Issues Addressed at the Visit Today: None.Precipitating Event: NonePAIN EVALUATION No data found.Litigation: NoWorkers' Compensation: NoPED RED FLAGS YELLOW AND BLUE FLAGSNo No-Significant Injury to SpineNo-Use of Steroids for Prolonged DurationNo-Loss of Bowel/Bladder Control, Genital/Anal NumbnessNo-Recent Use of Intravenous (IV) DrugsNo-Difficulty Keeping Balance when WalkingNo-Progressive Weakness in Arms/LegsNo-History of Any Type of CancerNo-Unable to Find Position of ComfortNo-Pain at Night that Disturbs SleepNo-Recent Elevated Temp with Unknown CauseNo-Diagnosed with OsteoporosisNo-Unintentional Weight Loss or Gain No-Neg Attitude; Back Pain is DisablingNo-Avoiding Activity (for Fear of Pain)No-Depression or Anxiety DisordersNo-Social ProblemsNo-Substance Use DisorderNo-Job DissatisfactionNo-Financial Disincentives*PED (Patient Entered Data) osteoporosis flag will display for females 55years or older and males 75 years or older.ACTIVE PROBLEM LISTChronic ProstatitisCalculus of ProstateUnspecified Thrombosed HemorrhoidsBladder Neck ObstructionBPH W URINARY OBS/LUTSSpinal Stenosis in Cervical RegionSleep StartsSupraclinoid Carotid Artery Aneurysm, SmallNonintractable HeadacheOsa (Obstructive Sleep Apnea)TremorNo past medical history on file.PAST SURGICAL HISTORYProcedure Laterality Date- HEMORRHOIDECTOMY,INT/EXT,COM PLXSocial History Marital status: Spouse name: Years of education: Number of children:Social History Main Topics Smoking status: Never Smoker Smokeless tobacco: Former User Types: Snuff Alcohol use: Yes Comment: rarely Drug use: NoFAMILY HISTORYProblem Relation Age of Onset- Arthritis Father- Cancer Father- Coronary Artery Disease Maternal Grandmother- Coronary Artery Disease Mother- Coronary Artery Disease Maternal Uncle- Diabetes Maternal Grandmother- Genitourinary () Sister- Seizures Paternal Aunt- Stroke FatherALLERGIESNo Known AllergiesCURRENT MEDICATIONS:clonazePAM (KLONOPIN) 1 mg tablet Take 1/2 tablet at 5PM and 1 tablet 1hour before bedtime.meloxicam (MOBIC) 15 mg tablet Take 15 mg by mouth once daily.Lovastatin 40 mg tablet Take 40 mg by mouth once daily.hydroxychloroquine (PLAQUENIL) 200 mg tablet Take 200 mg by mouth oncedaily.ajgws-rwrol-4-dha- epa-lipids (KRILL OIL) 532-76-61-50 mg cap Take bymouth.aspirin, enteric coated (ASPIRIN, ENTERIC COATED) 81 mg EC tablet Take 81mg by mouth once daily.multivitamin with minerals (MEN'S ONE DAILY) tablet Take 1 tablet by mouthonce daily.OMEPRAZOLE 20 MG CAP, DELAYED RELEASE Take one(1) tablet daily.methylphenidate ER 18 mg CR tablet Take 18 mg by mouth once daily.topiramate (TROKENDI XR) 50 mg cp24 Take 50 mg by mouth once daily.REVIEW OF SYSTEMS:PAIN ASSESSMENT: See HPI.GENERAL: Denies fever, chills malaise and weight loss.HEENT: No recent change in vision or hearing.CARDIOVASCULAR: Denies chest pain, history of A-fib, valvular disease, orpacemaker/ICD.RESPIRATORY: Denies SOB, sputum production, and hemoptysis.GI: Denies GI ulcers, inflammatory disease, or liver disease.: Denies change in frequency or urgency, kidney disease, and burningwith urination.MUSCULOSKELETAL: Positive for See HPISKIN: Denies rash or itching.PSYCHOLOGICAL: Denies uncontrolled depression or anxiety.NEURO: HeadachesENDOCRINE: Denies diabetes, thyroid disease.HEMATOLOGY/LYMPHOLOG Y: Denies cancer, bleeding or clotting disorders,anemia,and DVT's.ALLERGIC/IMMUNOLOGICAL : Denies risks for infection, or recent MRSAinfections.OBJECTIVE:PHY SICAL EXAMBP 143/111 (BP Site: Left Arm, BP Position: Sitting, BP Cuff Size: RegularAdult) Pulse 62 Resp 18 Ht 175.3 cm (5' 9) Wt 90.7 kg (200lb) BMI 29.53 kg/m?GENERAL APPEARANCE: Well appearing, well-hydrated, well nourished andalertSKIN: Head, neck, trunk, and extremities dry, intact and without lesionsLUNGS: even and non-labored breathing, normal chest excursionNEURO/PSYCH: oriented to time, place, and person, speech normal, mentalstatus intactGAIT: normal, toe walking normal, heel walking normal, able to tandem gaitPOSTURE: Posture and spinal curves are normalPALPATION: no palpable masses, tenderness, or spasm, no palpablesubluxation or step-off, no point tenderness over the spineMUSCULOSKELETAL:Extende d Low Back AND Leg ExamLumbar Range of MotionFlexion 6 inches from floorExtension Normal RIGHT LEFTLateral Bending Full FullOblique Extension Within Normal Limits Within Normal LimitsLeg RaiseStraight Leg Raise Negative NegativeContralateral Straight Leg Raise Negative NegativeDTRsKnee Normal NormalAnkle Normal NormalMedial Hamstring Normal NormalBabinski normal normalStrength of Lower ExtremitiesExtensor Hallux Longus 5/5 5/5Ankle Dorsiflexion 5/5 5/5Ankle Plantarflexion 5/5 5/5Knee Extension 5/5 5/5Waddell's Exam: DeferredCervical Range of MotionFlexion NormalExtension Mildly restricted RIGHT LEFTRotation Full ROM without pain Full ROM without painLateral Bend Full ROM without pain Full ROM without painUpper Body Reflex Exam RIGHT LEFT Reflex Status Reflex StatusBiceps 2+ Normal 2+ NormalTriceps 2+ Normal 2+ NormalBrachioradialis 2+ Normal 2+ NormalInverted Radial 2+ Normal 2+ NormalHoffman's Sign absent absentUpper Extremity Strength RIGHT LEFT Strength(MMT) Strength(MMT)Shoulder Abduction 5/5 5/5Biceps 5/5 5/5Triceps 5/5 5/5Resisted Suppination 5/5 5/5Wrist Extension 5/5 5/5Interossei 5/5 5/5Shoulder Range of Motion RIGHT LEFTFlexion Normal NormalExtension Normal NormalAbduction Normal NormalAdduction Normal NormalInternal Rotation Normal NormalExternal Rotation Normal NormalShoulder TestsNeer Impingement Sign - NegativeNEUROSENSORY: Soft touch; Within Normal LimitsNeuro Tests:NoneData Review:[facility] records reviewed03/04/18 Cervical MRI: Developmental cervical canal stenosis with mildsuperimposed degenerativechanges that have slightly progressed at C3-4 since 07/29/2015. ?Otherwise no significant change.Sleep Study December 2014: frequent periodic limb movements presentthroughout recording. Patient with known history of restless leg syndrome,and the increase in limb movments may represent poor control of such adisorder.ASSESSMENT/PLANSle ep apnea, unspecified typeRestless legs syndrome (primary encounter diagnosis)Spinal stenosis in cervical regionChronic nonintractable headache, unspecified headache typeMr Penny is a 62 year old with chief complaint of abnormal jerkingreported at night time. Known cervical stenosis with no reports ofconsistent pain, radicular symptoms, myelopathy, numbness/tingling. Ireviewed MRI with patient and explained in depth that I cannot relate hisspinal stenosis to his night time symptoms. I think based on his reportedsymptoms and sleep study results it is more likely related to a possiblerestless limb diagnosis.1. Imaging: None2. Physical Therapy: continue HEP3. Medication: per PCP/neurology4. Referrals: Sleep Neurology5. Considerations: updated physical therapy for neck, Cervical SALLY/MBB,Neurosurgery if stenosis symptoms6. Follow up: PRNSIGNATURE: Nicole Goldberg APRN.TUGBOAT MATE PATIENT NAME: Loree VillalbaATE: March 25, 2018 : 11:02 AM [facility]N Telephone (NEURMM) ----LOREE FRANCIS ([id number]) 1955 MDate Time Provider Department03/07/18 STEVE RUIZ, MARIUSZ Brody NEUR During your visit today, we recorded the following information about you:Joana Platt MA 03/07/2018 3:45 PM Signed?HIPatient's MRI of C spine shows progression of stenosis that is now of amoderate degree. ?It might benefit patient to see specialist wound care and would behappy to make referral, if he is ok with it.ThanksWJNI called and left message on machine for patient to return my call.Joana Mcdonald 03/07/2018 4:05 PM SignedPatient was notified and voiced understanding of provider message below.Would like to see a specialist wound care as suggested.Please place orderOnce placed call patient so he can scheduleHe is asking if there is a specialist wound care [facility]?Please advisAlexey Strickland Ma 03/08/2018 9:41 AM SignedCalled patient and left a message for a returned call to the office. Just tolet patient know that his order has been placed however there is no spinephysician in [place] that Dr. Bender is aware of.Angeles Strickland Ma 03/16/2018 9:16 AM SignedLeft patient detailed message on verified answering machine.They are to return the call to the office with any questions or concerns.Angeles Ulloa As of Date: 03/07/2018(No Known Allergies)Date Reviewed: 02/07/2018Reviewed by: Mariusz Bender Jr. - Fully AssessedReason for Visit: Results [95]Primary Visit Diagnosis:Spinal stenosis in cervical region [M48.02]Order(s):CONSULT TO SPINE CENTER [[id number]] Order #: [id number]: 1Prescriptions as of 03/07/2018 Sig: CLONAZEPAM 1 MG TABLET Take 1/2 tablet at 5PM and 1 * MELOXICAM 15 MG TABLET Take 15 mg by mouth once juan* METHYLPHENIDATE ER 18 MG TABL* Take 18 mg by mouth once juan* LOVASTATIN 40 MG TABLET Take 40 mg by mouth once juan* HYDROXYCHLOROQUINE 200 MG TAB* Take 200 mg by mouth once curtis* KRILL [id number]* Take by mouth. ASPIRIN 81 MG TABLET,DELAYED * Take 81 mg by mouth once juan* MULTIVITAMIN WITH MINERALS TA* Take 1 tablet by mouth once d* TOPIRAMATE XR 50 MG CAPSULE,E* Take 50 mg by mouth once juan* * OMEPRAZOLE 20 MG CAPSULE,JERILYN* Take one(1) tablet daily.Problem List As Of Date 03/07/2018 Noted Resolved CHRONIC PROSTATITIS [N41.1] INVALID FOR* CALCULUS OF PROSTATE [N42.0] INVALID FOR* THROMBOS HEMORRHOIDS NOS [K64.5] INVALID FOR* BLADDER NECK OBSTRUCTION [N32.0] INVALID FOR* BPH W URINARY OBS/LUTS [N40.1] INVALID FOR* Spinal stenosis in cervical region [M48.02] INVALID FOR* Sleep starts [F51.8] INVALID FOR* More... Supraclinoid carotid artery aneurysm, small [I6*INVALID FOR* Nonintractable headache [R51] INVALID FOR* HILARY (obstructive sleep apnea) [G47.33] INVALID FOR* Tremor [R25.1] INVALID FOR* Status:Closed by MARIUSZ BENDER on 03/08/18 [facility] MRI CERVICAL SPINE WO IVCONo n 03-04-2018 MRI CERVICAL SPINE WO IVCON * * *Final Report* * *DATE OF EXAM: Mar 04 2018 10:06AM WANG 0297 - MRI CERVICAL SPINE WO IVCON / REASON: multiple diagnoses * * * * Physician Interpretation * * * * EXAMINATION: MRI CERVICAL SPINE WO IVCONHISTORY: Spinal stenosis, cervical region Other sleep disorders not due to a substance or known physiological condition Tremor, unspecifiedTECHNIQUE: Routine cervical spine MR protocol without gadolinium.MQ: [id number]: MR cervical spine from 07/29/2015RESULT:Counting reference: Craniocervical junction.Alignment: There is mild straightening of the normal cervical lordosis. Mild disc space narrowing is noted at C4-C5. There is relative narrowing of the canal and foramina on a developmental basis.Craniocervical junction: Developmental fusion of the C2 and C3 vertebral bodies and their dorsal elements.Cord: The visualized cord is within normal limits of signal intensity but is compressed as outlined below.Bone marrow signal/fracture: No evidence of pathologic marrow infiltration. No evidence of prior fracture.Cervical soft tissues: The paraspinal soft tissues are within normal limits.C3-4: Bulging disc with central disc protrusion with moderate canal stenosis and mild cord compression. Findings appear mildly progressed since the prior study from 07/29/2015. Mild facet and uncinate process hypertrophy causes mild right foraminal stenosis.C4-5: Bulging disc with shallow central disc protrusion with mild canal stenosis and mild impingement on the cord. Moderate facet and uncinate process hypertrophy causes moderate right and mild left foraminal stenosis. Not significantly changed since prior study since 07/29/2015.C5-6: Disc osteophyte complex, eccentric to the left with mild canal stenosis and mild cord compression without significant change. Facet and uncinate process hypertrophy causes mild bilateral foraminal stenosis.C6-7: Disc osteophyte complex with left central disc protrusion with mild canal stenosis mild eccentric flattening of the ventral surface of the cord but no significant cord compression. Facet and uncinate process hypertrophy results in mild right foraminal stenosis. No significant change.C7-T1: Disc osteophyte complex, facet and uncinate process hypertrophy. Canal and foramina are patent. Findings not significantly prior study from 07/18/2010.T1-2: Canal and foramina are patent.IMPRESSION:Developmen elise cervical canal stenosis with mild superimposed degenerative changes that have slightly progressed at C3-4 since 07/29/2015. Otherwise no significant change.Pre Owned Sales Manager: PSCB Transcribe Date/Time: Mar 04 2018 10:07ADictated by : NINI GUERRA MDThis examination was interpreted and the report reviewed and electronically signed by: JERALD MCCLENDON MD on Mar 04 2018 11:01AM [id number] [facility] PROGRESSon 03-04-2018 PROGRESS HNO ID: [id number] thor: Nikolai Vivar RtService: (none)Author Type: (none)Type: Progress NotesFiled: 03/04/2018 9:59 AMNote Text: Radiology Service Progress NotePATIENT NAME: Loree FrancisMRN: [id number] OF SERVICE: March 04, 2018TIME: 9:58 AMPATIENT IDENTITY VERIFICATION COMPLETED USING TWO (2) METHODS: Patientconfirmed name verbally and Date of .PATIENT GENDER DATA: MalePATIENT RELEVANT IMPLANT DATA REVIEWED: YesRADIOLOGY DEPARTMENT: MR; Exam(s) Completed: Spine: Cervical spinePERIPHERAL IV DATA: Not applicableSIGNED BY: Rosalie Garg RtMay 2017 9:58 AM [facility] CNOVon 02-07-2018 CNOV Office Visit (NEURMM) ----LOREE FRANCIS ([id number]) 1955 MDate Time Provider Department02/07/18 8:40 AM MARIUSZ BENDER JR NEURMM During your visit today, we recorded the following information about you: Pulse Blood pressure Weight 77/minute 138/90 92.1 kgMariusz Bender MD 02/07/2018 11:11 AM AddendumESTABLISHED PATIENT VISITHISTORY OF PRESENT ILLNESS: Loree Francis is a 62 year old right handed malewith a PMH significant for:1. Sleep starts - ICD9: 307.49, ICD10: F51.8 (primary diagnosis) Likelyetiology of patient's ANDquot;jerkingANDquot; upon trying to go to sleep. Possiblybrought on by stress with known history of panic and anxiety. On Klonopin.2. Supraclinoid carotid artery aneurysm, small - ICD9: 442.81, ICD10: I67.1Aneurysm has been stable on serial imaging. Repeat MRA brain since last visitshowed:2 MM ANEURYSM ALONG THE UNDERSURFACE OF RIGHT SUPRACLINOID ICA1.5 MM LIKELY INFUNDIBULUM AT LEFT OPHTHALMIC ORIGIN (CANNOT FULLYEXCLUDE TORTUOUS VESSELS VERSUS TINY ANEURYSM)Records were sent to Dr. Ridley neuro interventionalist who was followingpatient. Appears aneurysm size unchanged in comparison to prior records.3. Nonintractable headache, unspecified chronicity pattern, unspecifiedheadache type - ICD9: 784.0, ICD10: R51 He did not want change in meds at timeof last visit.4. HILARY (obstructive sleep apnea) - ICD9: 327.23, ICD10: G47.335. Spinal stenosis in cervical region - ICD9: 723.0, ICD10: M48.02 Mild onimaging.Patient reports that despite attempts to reach Dr. Ridley, he has not had ascheduled appointment to see him regarding aneurysm as above. Overall patientfeels that he is having increasing pain in the cervical spine - statessometimes when he has the pain, he feels off - ANDquot;I dont know if it issqueezing my spine but I feel offANDquot;. State no radiation of discomfort inthe upper extremities. His last MRI of the C-spine was 2014. Pain doesradiate up through C2 into the back of the had that is described as piercing orknifing. No associated sensitivities or vision changes. No change in gait.He states he was off his Klonopin a couple days and the jerks at night becamemore evident. States that the use of 0.5 mg at 5PM and 1 hour before bedtimedoes improve but not resolve symptoms. States once he falls asleep, jerkingwill not wake him up. States he feels jerks more prominent in the lowerextremities.Headaches are rare now (ANDlt;2 per month). States he does not keep a journal sodoes not recall the exact frequency. If symptoms occur, will take Excedrinmigraine, and will knock out the headache quite quickly. Headaches are worseif the jerking is worse at night - less sleep = more headaches.Using CPAP nightly. States he does not have any issues with the device.REVIEW OF SYSTEMSGENERAL:No weight loss, malaise or fevers.HEENT:Negative for frequent or significant headaches, No changes in hearing orvision, no nose bleeds or other nasal problemsNECK:See HPIRESPIRATORY: Negative for cough, wheezing or shortness of breath.CARDIOVASCULAR: Negative for chest pain, leg swelling or palpitations.GASTROINTESTINA L: Negative for abdominal discomfort, blood in stools or blackstools or change in bowel habitsGENITOURINARY: No history of dysuria, frequency or incontinenceMUSCULOSKELETAL: Negative for joint pain or swelling, back pain or muscle pain.NEUROLOGIC:Negative for focal numbness or weakness, headaches and dizziness orsyncope, vision changes, vertigo, speech/languag changes - EXCEPT that as perHPI above.SKIN:Negative for lesions, rash, and itching.HEMATOLOGIC/LYMPHATI C/IMMUNOLOGIC:Negative for prolonged bleeding, bruisingeasily or swollen nodes.ENDOCRINE: Negative for cold or heat intolerance, polyuria, polydipsia andgoiter.The remainder of the ROS was reviewed and is negative.LAB/IMAGING: Those performed since patient's last visit have been reviewed.WBC (/hpf)Date Value08/17/2005 NegativeGlucose (mg/dL)Date Value08/17/2005 NegativeBUN (mg/dL)Date Value04/01/2015 16Creatinine (mg/dL)Date Value04/01/2015 0.87MEDICATIONS:meloxicam (MOBIC) 15 mg tablet Take 15 mg by mouth once daily.clonazePAM (KLONOPIN) 0.5 mg tablet Take 0.5 mg by mouth twice daily as needed.methylphenidate ER 18 mg CR tablet Take 18 mg by mouth once daily.Lovastatin 40 mg tablet Take 40 mg by mouth once daily.hydroxychloroquine (PLAQUENIL) 200 mg tablet Take 200 mg by mouth once daily.rpdql-wthqe-2-dha-epa- lipids (KRILL OIL) 547-61-41-50 mg cap Take by mouth.aspirin, enteric coated (ASPIRIN, ENTERIC COATED) 81 mg EC tablet Take 81 mg bymouth once daily.multivitamin with minerals (MEN'S ONE DAILY) tablet Take 1 tablet by mouth oncedaily.topiramate (TROKENDI XR) 50 mg cp24 Take 50 mg by mouth once daily.OMEPRAZOLE 20 MG CAP, DELAYED RELEASE Take one(1) tablet daily.HISTORIESNo past medical history on file.FAMILY HISTORYProblem Relation Age of Onset- Arthritis Father- Cancer Father- Coronary Artery Disease Maternal Grandmother- Coronary Artery Disease Mother- Coronary Artery Disease Maternal Uncle- Diabetes Maternal Grandmother- Genitourinary () Sister- Seizures Paternal Aunt- Stroke FatherSOCIAL HISTORYSocial HistorySubstance Use Topics- Smoking status: Never Smoker- Smokeless tobacco: Former User Types: Snuff- Alcohol use Yes Comment: rarelyPHYSICAL EXAMINATIONBlood pressure 138/90, pulse 77, weight 92.1 kg (203 lb), SpO2 97 %.GENERAL EXAM:General appearance: NAD, pleasant.HEENT: NC/AT, nasal congestion absent, no oral lesions, membranes moist.NECK: No masses, supple.Lungs: CTA bilaterally.CV: RRR nl S1, S2. No carotid bruits.Abd: Soft, nontender, nondistended. Bowel sounds present.Extr: No cyanosis, clubbing or edema. No evidence of fasciculations.Extremity pulses palpable and normal.Skin: Cool to touch. No rash.NEUROLOGICAL EXAM:General: Awake, alert, oriented x3 (person,place,time), speech fluent, nodysarthria; comprehension, naming, repetition intact. Short and long termmemory intact. Fund of knowledge grossly normal by MOCA.CN: PERRL, fundi with no evidence of papilledema, EOMI and without nystagmus,VFF to confrontation, facial sensation and strength are normal and symmetric,hearing is intact to finger rub bilaterally, palate and tongue movements areintact and symmetric. SCM and trapezius strength normal.Motor: Normal tone, bulk and strength (5/5) bilaterally (throughout extremitiesx4).Reflexes: 2/4 and symmetric, plantar stimulation is flexor.Coordination: FNF, ANN MARIE, HTS intact. Low amp, high freq tremor in hands withaction and posture.Sensation: Light touch, pin, vibration intact throughout. No evidence ofneglect.Gait: Narrow based and stable with normal stride and arm swing. Romberg normal.Assessment and Plan:ASSESSMENT/PLAN:1. Spinal stenosis in cervical region - ICD9: 723.0, ICD10: M48.02 (primarydiagnosis)Patient with increasing cervicalgia with known spinal stenosis. Last MRI 3years ago. Possible that stenosis has progressed overtime. Non-focal exam.Will get MRI to further evaluate stenosis. If MRI shows progression, willrefer either to spine or neurosurgery depending on degree of disease.2. Sleep starts - ICD9: 307.49, ICD10: F51.8Chronic condition. Likely to some extent, PLMD. Patient did inform me that hetried to drink ETOH to suppress symptoms and advised him to stop doing so.Will increase Klonopin to 0.5mg Q5PM and 1.0mg QHS. SE and ADRs d/w patient.OARRS website checked and validated. All prescriptions have been APPROPRIATELYfilled. No suspicious activity was identified.- 02/07/2018 by Mariusz Bender MD3. Supraclinoid carotid artery aneurysm, small - ICD9: 442.81, ICD10: I67.1Appears stable in size by report. Will again attempt to inform Dr. Khai singh is desiring follow up.4. Nonintractable headache, unspecified chronicity pattern, unspecifiedheadache type - ICD9: 784.0, ICD10: J11Fgjzhczp frequency ANDlt;4 per month and thus feel no need for preventativemedication. Overall doing well. Can continue to use OTC as abortive therapyif ANDlt;1 day of meds per week.5. HILARY (obstructive sleep apnea) - ICD9: 327.23, ICD10: G47.33Encouraged PAP compliance. Requested download from DME. No mask issues orleaks. He does need new mask and will send Rx to DME ([facility]).6. Tremor - ICD9: 781.0, ICD10: R25.1Family history in sister. Likely essential vs familial termor. Patient doesnot feel need for medication at this time.Mariusz Bender MDI spent 45 minutes in the visit, with more than 50% of the total nyzm-qg-etwcmdpo of the visit in counseling / coordination of care.Referring Provider: AYLEEN MOHAMUD [[id number]]Allergies As of Date: 02/07/2018(No Known Allergies)Date Reviewed: 02/07/2018Reviewed by: Mariusz Bender Jr. - Fully AssessedReason for Visit: Follow Up [171] Cmt: Sleep Starts, headaches and neuropathyPrimary Visit Diagnosis:Spinal stenosis in cervical region [M48.02] Other Visit Diagnoses:Sleep starts [F51.8] Supraclinoid carotid artery aneurysm, small [I67.1] Nonintractable headache, unspecified chronicity pattern, unspecified headache type [R51] HILARY (obstructive sleep apnea) [G47.33] Tremor [R25.1]Order(s):clonazePAM (KLONOPIN) 1 mg tabletTake 1/2 tablet at 5PM and 1 tablet 1 hour before bedtime.Disp: 45 tabletRfl: 2 MRI CERVICAL SPINE WO IVCON [[id number]] Order #: [id number] FUTURE CPAP FULL FACE MASK [[id number]] Order #: [id number] as of 02/07/2018 Sig: LOVASTATIN 40 MG TABLET Take 40 mg by mouth once juan* HYDROXYCHLOROQUINE 200 MG TAB* Take 200 mg by mouth once curtis* KRILL [id number]* Take by mouth. ASPIRIN 81 MG TABLET,DELAYED * Take 81 mg by mouth once juan* MULTIVITAMIN WITH MINERALS TA* Take 1 tablet by mouth once d* * OMEPRAZOLE 20 MG CAPSULE,JERILYN* Take one(1) tablet daily. CLONAZEPAM 1 MG TABLET Take 1/2 tablet at 5PM and 1 * MELOXICAM 15 MG TABLET Take 15 mg by mouth once juan* METHYLPHENIDATE ER 18 MG TABL* Take 18 mg by mouth once juan* TOPIRAMATE XR 50 MG CAPSULE,E* Take 50 mg by mouth once juan*Medication notes this encounter MELOXICAM 15 MG TABLET >> Mulu Cristina Cma 02/07/2018 8:45 AM >> MULU CRISTINA CMA WedFeb 07, 2018 8:45 AM PRN METHYLPHENIDATE ER 18 MG TABLET,EXTENDED RELEASE 24 HR >> Mulu Cristina Cma 02/07/2018 8:46 AM >> MULU CRISTINA CMA WedFeb 07, 2018 8:46 AM Patient not takingProblem List As Of Date 02/07/2018 Noted Resolved CHRONIC PROSTATITIS [N41.1] INVALID FOR* CALCULUS OF PROSTATE [N42.0] INVALID FOR* THROMBOS HEMORRHOIDS NOS [K64.5] INVALID FOR* BLADDER NECK OBSTRUCTION [N32.0] INVALID FOR* BPH W URINARY OBS/LUTS [N40.1] INVALID FOR* Spinal stenosis in cervical region [M48.02] INVALID FOR* Sleep starts [F51.8] INVALID FOR* Supraclinoid carotid artery aneurysm, small [I6*INVALID FOR* Nonintractable headache [R51] INVALID FOR* HILARY (obstructive sleep apnea) [G47.33] INVALID FOR* Tremor [R25.1] INVALID FOR*Prescriptions ordered this encounter Disp Refills Start End CLONAZEPAM 1 MG TABLET 45 t* 2 02/07/2018 03/09/2018 Class: Print RX Sig: Take 1/2 tablet at 5PM and 1 tablet 1 hour before bedtime.Medications Discontinued During This Encounter clonazePAM (KLONOPIN) 0.5 mg tablet 02/07/2018 Class: Historical Med Route: ORAL Sig: Take 0.5 mg by mouth twice daily as needed. Disc: Clinical DecisionDisposition: Return in about 4 months (around 06/09/2018).Follow-up and Disposition History RecordedEncounter Number: [id number] Status:Closed by MARIUSZ BENDER on 02/07/18 [facility] PROGRESSon 02-07-2018 PROGRESS HNO ID: [id number] thor: Mariusz eBnder Jr.Service: (none)Author Type: PhysicianType: Progress NotesFiled: 02/07/2018 11:11 AMNote Text:ESTABLISHED PATIENT VISITHISTORY OF PRESENT ILLNESS: Loree Francis is a 62 year old right handedmale with a PMH significant for:1. Sleep starts - ICD9: 307.49, ICD10: F51.8 (primary diagnosis) Likelyetiology of patient's jerking upon trying to go to sleep. Possiblybrought on by stress with known history of panic and anxiety. OnKlonopin.2. Supraclinoid carotid artery aneurysm, small - ICD9: 442.81, ICD10:I67.1 Aneurysm has been stable on serial imaging. Repeat MRA brain sincelast visit showed:2 MM ANEURYSM ALONG THE UNDERSURFACE OF RIGHT SUPRACLINOID ICA1.5 MM LIKELY INFUNDIBULUM AT LEFT OPHTHALMIC ORIGIN (CANNOT FULLYEXCLUDE TORTUOUS VESSELS VERSUS TINY ANEURYSM)Records were sent to Dr. Ridley neuro interventionalist who was followingpatient. Appears aneurysm size unchanged in comparison to prior records.3. Nonintractable headache, unspecified chronicity pattern, unspecifiedheadache type - ICD9: 784.0, ICD10: R51 He did not want change in meds attime of last visit.4. HILARY (obstructive sleep apnea) - ICD9: 327.23, ICD10: G47.335. Spinal stenosis in cervical region - ICD9: 723.0, ICD10: M48.02 [place] [facility].Patient reports that despite attempts to reach Dr. Ridley, he has not hada scheduled appointment to see him regarding aneurysm as above. Overallpatient feels that he is having increasing pain in the cervical spine -states sometimes when he has the pain, he feels off - I dont know if itis squeezing my spine but I feel off. State no radiation of discomfortin the upper extremities. His last MRI of the C-spine was 2014. Paindoes radiate up through C2 into the back of the had that is described aspiercing or knifing. No associated sensitivities or vision changes. Nochange in gait.He states he was off his Klonopin a couple days and the jerks at nightbecame more evident. States that the use of 0.5 mg at 5PM and 1 hourbefore bedtime does improve but not resolve symptoms. States once hefalls asleep, jerking will not wake him up. States he feels jerks moreprominent in the lower extremities.Headaches are rare now (<2 per month). States he does not keep a journalso does not recall the exact frequency. If symptoms occur, will takeExcedrin migraine, and will knock out the headache quite quickly.Headaches are worse if the jerking is worse at night - less sleep = moreheadaches.Using CPAP nightly. States he does not have any issues with the device.REVIEW OF SYSTEMSGENERAL:No weight loss, malaise or fevers.HEENT:Negative for frequent or significant headaches, No changes inhearing or vision, no nose bleeds or other nasal problemsNECK:See HPIRESPIRATORY: Negative for cough, wheezing or shortness of breath.CARDIOVASCULAR: Negative for chest pain, leg swelling or palpitations.GASTROINTESTINA L: Negative for abdominal discomfort, blood in stools orblack stools or change in bowel habitsGENITOURINARY: No history of dysuria, frequency or incontinenceMUSCULOSKELETAL: Negative for joint pain or swelling, back pain or musclepain.NEUROLOGIC:Negati ve for focal numbness or weakness, headaches anddizziness or syncope, vision changes, vertigo, speech/languag changes -EXCEPT that as per HPI above.SKIN:Negative for lesions, rash, and itching.HEMATOLOGIC/LYMPHATI C/IMMUNOLOGIC:Negative for prolonged bleeding,bruising easily or swollen nodes.ENDOCRINE: Negative for cold or heat intolerance, polyuria, polydipsia andgoiter.The remainder of the ROS was reviewed and is negative.LAB/IMAGING: Those performed since patient's last visit have beenreviewed.WBC (/hpf)Date Value08/17/2005 NegativeGlucose (mg/dL)Date Value08/17/2005 NegativeBUN (mg/dL)Date Value04/01/2015 16Creatinine (mg/dL)Date Value04/01/2015 0.87MEDICATIONS:meloxicam (MOBIC) 15 mg tablet Take 15 mg by mouth once daily.clonazePAM (KLONOPIN) 0.5 mg tablet Take 0.5 mg by mouth twice daily asneeded.methylphenidate ER 18 mg CR tablet Take 18 mg by mouth once daily.Lovastatin 40 mg tablet Take 40 mg by mouth once daily.hydroxychloroquine (PLAQUENIL) 200 mg tablet Take 200 mg by mouth oncedaily.bxdfg-qfwaf-7-dha- epa-lipids (KRILL OIL) 695-96-53-50 mg cap Take byfre[facility] & [facility].aspirin, enteric coated (ASPIRIN, ENTERIC COATED) 81 mg EC tablet Take 81mg by mouth once daily.multivitamin with minerals (MEN'S ONE DAILY) tablet Take 1 tablet by mouthonce daily.topiramate (TROKENDI XR) 50 mg cp24 Take 50 mg by mouth once daily.OMEPRAZOLE 20 MG CAP, DELAYED RELEASE Take one(1) tablet daily.HISTORIESNo past medical history on file.FAMILY HISTORYProblem Relation Age of Onset- Arthritis Father- Cancer Father- Coronary Artery Disease Maternal Grandmother- Coronary Artery Disease Mother- Coronary Artery Disease Maternal Uncle- Diabetes Maternal Grandmother- Genitourinary () Sister- Seizures Paternal Aunt- Stroke FatherSOCIAL HISTORYSocial HistorySubstance Use Topics- Smoking status: Never Smoker- Smokeless tobacco: Former User Types: Snuff- Alcohol use Yes Comment: rarelyPHYSICAL EXAMINATIONBlood pressure 138/90, pulse 77, weight 92.1 kg (203 lb), SpO2 97 %.GENERAL EXAM:General appearance: NAD, pleasant.HEENT: NC/AT, nasal congestion absent, no oral lesions, membranes moist.NECK: No masses, supple.Lungs: CTA bilaterally.CV: RRR nl S1, S2. No carotid bruits.Abd: Soft, nontender, nondistended. Bowel sounds present.Extr: No cyanosis, clubbing or edema. No evidence of fasciculations.Extremity pulses palpable and normal.Skin: Cool to touch. No rash.NEUROLOGICAL EXAM:General: Awake, alert, oriented x3 (person,place,time), speech fluent, nodysarthria; comprehension, naming, repetition intact. Short and long termmemory intact. Fund of knowledge grossly normal by MOCA.CN: PERRL, fundi with no evidence of papilledema, EOMI and withoutnystagmus, VFF to confrontation, facial sensation and strength are normaland symmetric, hearing is intact to finger rub bilaterally, palate andtongue movements are intact and symmetric. SCM and trapezius strengthnormal.Motor: Normal tone, bulk and strength (5/5) bilaterally (throughoutextremities x4).Reflexes: 2/4 and symmetric, plantar stimulation is flexor.Coordination: FNF, ANN MARIE, HTS intact. Low amp, high freq tremor in handswith action and posture.Sensation: Light touch, pin, vibration intact throughout. No evidence ofneglect.Gait: Narrow based and stable with normal stride and arm swing. Rombergnormal.Assessment and Plan:ASSESSMENT/PLAN:1. Spinal stenosis in cervical region - ICD9: 723.0, ICD10: M48.02(primary diagnosis)Patient with increasing cervicalgia with known spinal stenosis. Last MRI3 years ago. Possible that stenosis has progressed overtime. Non-focalexam. Will get MRI to further evaluate stenosis. If MRI showsprogression, will refer either to spine or neurosurgery depending ondegree of disease.2. Sleep starts - ICD9: 307.49, ICD10: F51.8Chronic condition. Likely to some extent, PLMD. Patient did inform methat he tried to drink ETOH to suppress symptoms and advised him to stopdoing so. Will increase Klonopin to 0.5mg Q5PM and 1.0mg QHS. SE andADRs d/w patient.OARRS website checked and validated. All prescriptions have beenAPPROPRIATELY filled. No suspicious activity was identified.- 02/07/2018by Mariusz Bender MD3. Supraclinoid carotid artery aneurysm, small - ICD9: 442.81, ICD10:I67.1Appears stable in size by report. Will again attempt to inform Dr. Valdez patient is desiring follow up.4. Nonintractable headache, unspecified chronicity pattern, unspecifiedheadache type - ICD9: 784.0, ICD10: B27Xwlujwyw frequency <4 per month and thus feel no need for preventativemedication. Overall doing well. Can continue to use OTC as abortivetherapy if <1 day of meds per week.5. HILARY (obstructive sleep apnea) - ICD9: 327.23, ICD10: G47.33Encouraged PAP compliance. Requested download from DME. No mask issuesor leaks. He does need new mask and will send Rx to DME ([facility]).6. Tremor - ICD9: 781.0, ICD10: R25.1Family history in sister. Likely essential vs familial termor. Patientdoes not feel need for medication at this time.Mariusz Bender MDI spent 45 minutes in the visit, with more than 50% of the ucmvlrhox-xo-rsrk time of the visit in counseling / coordination of care. [facility] MRA BRAIN WO IVCONon 10-20- 018 MRA BRAIN WO IVCON * * *Final Report* * *DATE OF EXAM: Oct 20 2017 8:24AM WRM [id number] - MRA BRAIN WO IVCON / REASON: Cerebral aneurysm, nonruptured * * * * Physician Interpretation * * * * HISTORY: Follow-up for reported right supraclinoid aneurysm.TECHNIQUE: Routine noncontrast MRA brain.COMPARISON: Previous outside imaging not available.RESULT:The left intradural vertebral artery is dominant, and the vertebrobasilar system shows robust flow-related enhancement, within normal limits. There is balanced P1 branching at the terminus, with small PCOMs bilaterally. The distal ICAs are nearly codominant, with robust flow-related enhancement in minimal irregularity in the siphons. There is a 1-mm infundibulum versus tortuous vessels at the left ophthalmic insertion. There is a 2mm outpouching of the right supraclinoid segment, pointing inferiorly and laterally, with a broad-based, could be compatible with a small aneurysm. The A1 segments are nearly codominant and there is a small ACOMM. 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 (CANNOT FULLY EXCLUDE TORTUOUS VESSELS VERSUS TINY ANEURYSM)Pre Owned Sales Manager: LUZ Transcribe Date/Time: Oct 20 2017 8:27ADictated by : JACKSON ZHENG MDThis examination was interpreted and the report reviewed and electronically signed by: JACKSON ZHENG MD on Oct 20 2017 9:51AM [id number] [facility] PROGRESSon 10-20-2017 PROGRESS HNO ID: [id number] thor: Linnette Kendall RtService: (none)Author Type: (none)Type: Progress NotesFiled: 10/20/2017 8:15 AMNote Text: Radiology Service Progress NotePATIENT NAME: Loree FrancisMRN: [id number] OF SERVICE: October 20, 2017TIME: 8:15 AMPATIENT IDENTITY VERIFICATION COMPLETED USING TWO (2) METHODS: Patientconfirmed name verbally and Date of .PATIENT GENDER DATA: MalePATIENT RELEVANT IMPLANT DATA REVIEWED: YesRADIOLOGY DEPARTMENT: MR; Exam(s) Completed: Head: [place] MRAPERIPHERAL IV DATA: Not applicableSIGNED BY: Linnette Kendall RtOctober 20, 2017 8:15 AM [facility] CNOVon 10-08-2017 CNOV Office Visit (NEURMM) ----LOREE FRANCIS ([id number]) 1955 [facility] Iyxygsthtg27/22/17 9:00 AM MARIUSZ BENDER JR During your visit today, we recorded the following information about you: Pulse Blood pressure Weight 75/minute 156/92 93 kgWillmonie Bender MD 10/08/2017 9:54 AM SignedNEW PATIENT (CONSULT) HISTORY AND PHYSICAL EXAMPRIMARY CARE PHYSICIAN: ERENDIRA Musa FOR CONSULT: Cerebral aneurysm, C spine stenosis, JOHNSON, HILARY, spells ofabnormal sensationREFERRING PHYSICIAN: Ayleen Mohamud MDCLAFERNANDO COMPLAINT: Aneurysm, C spine stenosis, JOHNSON, HILARY, ObestiyHISTORY OF PRESENT ILLNESS: Loree Francis is a pleasant 62 year old righthanded male, a PMH significant for carotid aneurysm , C spine stenosis (mildper records), JOHNSON (on Trokendi), HILARY (on CPAP), Obestiy. He was previouslyfollow[facility] His prior office notes are available and reviewedat time of office visit. Of note, his last MRI brain was in 2015 thatreportedly showed no change in aneurysm size of R supraclinoid aneurysm that isabout 3mm in size. For aneurysm he has been seen by Dr. Ridley. His last MRIof C spine was in 2014 showing per report:Multilevel degenerative changes of the cervical spine most pronouncedinvolving the C2-3 through C5/6 levels.For C spine disease - pain - he has been followed by Dr. Sh[facility] at [facility].He also has spells of abnormal sensation, for which he underwent extensiveworkup besides MRIs above, including EEG and EMG/NCV -- all unremarkable. [id number] I referred patient to Dr. Oneil here at [facility] for secondopinion. Per Dr. Oneil's note:I would guess that his headache probably has a cervicogenic component. Thereis nothing really to suggest migraine and nothing to suggest an organiccomponent. I do suspect that the episodes are probably a manifestation ofpanic. There is nothing in the description that would suggest an epilepticphenomenon.Patient now with new complaints of twitching. States he is having jerkingsensations that only occur when he lies down to go to sleep. States if on thecouch and feeling tired he does not get such sensations. Only once in bed.Describes as pretty violent. States can occur in head, spine, arms or legs.States mostly in the feet. Does not occur nightly -- rather states it comesand goes. When it happens it occurs about 3 nights in a row and he admits totaking a couple shots of vodka to relieve symptoms. States if he gets up andwalks around and then lies back down that symptoms do not resolve. He notes nodefinite exacerbating factors and likewise no factors that relieve symptoms.Note he is also taking Klonopin at dinner time at 5PM.Adds that headaches have not been bad but that he has now sharp stabbing painthe the R temp. Last MRA as above. Patient very concerned about these. Iasked if he has followed up with Dr. Ridley (neurointerventionalist at [facility])and he denies such. Note patient has had 2 angiograms. On further discussionwith patient, headaches are not daily. Note the headaches are not described asbeing in an area localized to head pain. Then states headaches are notfrequent as they used to be. He was on Trokendi before, but given thatheadache frequency decreased he stopped it and just takes Excedrin prn. Statesheadaches only occur about once per week and last only an hour if takes OTC.At this point, he indicates that pulsating pains in L temp are different thanhis headaches and just started in the last month - states it goes 3-4 days andthen resolves.Regarding initial sensations of discomfort (see outside notes) these haveresolved.States he is using his CPAP nightly. No issues with the PAP device. Usingnasal pillows. Not snoring. Unfortunately I do not have a compliance downloadto review.Denies neck pain and no radiation of discomfort or weakness throughout thoseareas innervated by the cervical spine. No weakness in the arms. No sensorylevels. No B/B incontinence. He has not seen Dr. Shaffer in at least 2 years.REVIEW OF SYSTEMSGENERAL:No weight loss, malaise or fevers.HEENT:Negative for frequent or significant headaches, No changes in hearing orvision, no nose bleeds or other nasal problemsNECK:Negative for lumps, goiter, pain and significant neck swellingRESPIRATORY: Negative for cough, wheezing or shortness of breath.CARDIOVASCULAR: Negative for chest pain, leg swelling or palpitations.GASTROINTESTINA L: Negative for abdominal discomfort, blood in stools or blackstools or change in bowel habitsGENITOURINARY: No history of dysuria, frequency or incontinenceMUSCULOSKELETAL: Negative for joint pain or swelling, back pain or muscle pain.NEUROLOGIC:Negative for focal numbness or weakness, headaches and dizziness orsyncope, vision changes, speech/language changes, changes in gait or falls --besides those complaints as above in HPI.SKIN:Negative for lesions, rash, and itching.PSYCHIATRIC: Negative for sleep disturbance, mood disorder and recentpsychosocial stressors.HEMATOLOGIC/LYMPHA TIC/IMMUNOLOGIC:Negative for prolonged bleeding, bruisingeasily or swollen nodes.ENDOCRINE: Negative for cold or heat intolerance, polyuria, polydipsia andgoiter.The remainder of the ROS was reviewed and is negative.LAB/IMAGING:Reviewe d and include:WBC (/hpf)Date Value08/17/2005 NegativeGlucose (mg/dL)Date Value08/17/2005 NegativeBUN (mg/dL)Date Value04/01/2015 16Creatinine (mg/dL)Date Value04/01/2015 0.87MEDICATIONS:meloxicam (MOBIC) 15 mg tablet Take 15 mg by mouth once daily.clonazePAM (KLONOPIN) 0.5 mg tablet Take 0.5 mg by mouth twice daily as needed.methylphenidate ER 18 mg CR tablet Take 18 mg by mouth once daily.Lovastatin 40 mg tablet Take 40 mg by mouth once daily.hydroxychloroquine (PLAQUENIL) 200 mg tablet Take 200 mg by mouth once daily.lkkpy-ugqjo-4-dha-epa- lipids (KRILL OIL) 449-20-31-50 mg cap Take by mouth.aspirin, enteric coated (ASPIRIN, ENTERIC COATED) 81 mg EC tablet Take 81 mg bymouth once daily.multivitamin with minerals (MEN'S ONE DAILY) tablet Take 1 tablet by mouth oncedaily.topiramate (TROKENDI XR) 50 mg cp24 Take 50 mg by mouth once daily.OMEPRAZOLE 20 MG CAP, DELAYED RELEASE Take one(1) tablet daily.HISTORIESNo past medical history on file.FAMILY HISTORYProblem Relation Age of Onset- Arthritis Father- Cancer Father- Coronary Artery Disease Maternal Grandmother- Coronary Artery Disease Mother- Coronary Artery Disease Maternal Uncle- Diabetes Maternal Grandmother- Genitourinary () Sister- Seizures Paternal Aunt- Stroke FatherSOCIAL HISTORYSocial HistorySubstance Use Topics- Smoking status: Never Smoker- Smokeless tobacco: Former User Types: Snuff- Alcohol use Yes Comment: rarelyPHYSICAL EXAMINATIONBlood pressure 156/92, pulse 75, weight 93 kg (205 lb), SpO2 98 %.GENERAL EXAM:General appearance: NAD, pleasant.HEENT: NC/AT, nasal congestion absent, no oral lesions, membranes moist.NECK: No masses, supple.Lungs: CTA bilaterally. No wheezes present.CV: RRR nl S1, S2. No carotid bruits.Abd: Soft, nontender, nondistended. Bowel sounds present.Extr: No cyanosis, clubbing or edema. No evidence of fasciculations.Extremity pulses palpable and normal.Skin: Cool to touch. No rash.NEUROLOGICAL EXAM:General: Awake, alert, oriented x3 (person,place,time), speech fluent, nodysarthria; comprehension, naming, repetition intact. Short and long termmemory intact. Fund of knowledge grossly normal by MOCA.CN: PERRL, fundi appear normal including no evidence of papilledema, EOMI andwithout nystagmus, VFF to confrontation, facial sensation and strength arenormal and symmetric, hearing is intact to finger rub bilaterally, palate andtongue movements are intact and symmetric. SCM and trapezius strength normal.Motor: Normal tone, bulk and strength (5/5) bilaterally (throughout extremitiesx4).Reflexes: 2/4 and symmetric, plantar stimulation is flexor.Coordination: FNF, ANN MARIE, HTS intact. No tremors.Sensation: LT, PP, vibration, temperature intact throughout. No evidence ofneglect.Gait: Narrow based and stable with normal stride and arm swing. Romberg normal.Assessment and Plan: ASSESSMENT/PLAN:1. Sleep starts - ICD9: 307.49, ICD10: F51.8 (primary diagnosis)Likely etiology of patient's ANDquot;jerkingANDquot; upon trying to go to sleep.Possibly brought on by stress with known history of panic and anxiety. As heis already Rx'd Klonopin 0.5mg BID but only taking once daily, I have asked himto adjust dose so that he takes one at usual hour of 5PM and second 30 minutesbefore bedtime. I also asked him to try relaxation exercises prior to bedtime.2. Supraclinoid carotid artery aneurysm, small - ICD9: 442.81, ICD10: I67.1Aneurysm has been stable on serial imaging. However patient concerned due tonew pulsatile headache. Non-focal exam. Will repeat MRA brain to see if anychanges.3. Nonintractable headache, unspecified chronicity pattern, unspecifiedheadache type - ICD9: 784.0, ICD10: R51See #2. Otherwise patient not wanting preventative medication althoughdiscussed restarting Trokendi that patient tolerated.4. HILARY (obstructive sleep apnea) - ICD9: 327.23, ICD10: G47.33Encouraged compliance with PAP. Reminded to clean and replace equipmentregularly. Advised not to drive or operate heavy machinery if sleepy.5. Spinal stenosis in cervical region - ICD9: 723.0, ICD10: M48.02Asx. Mild on prior imaging. Non focal exam. No additional workup needed atthis time.Mariusz Bender MDI spent 45 minutes in the visit, with more than 50% of the total swtx-bt-evtxvkur of the visit in counseling / coordination of care.Mariusz Bender MD 10/08/2017 9:45 AM Signed1. Take Klonopin as follows: Continue Klonopin tablet at about 6PM, but takeyour second tablet 30 minutes before bedtime.2. Will repeat MRA brain to evaluate changes in carotid aneurysm.Referring Provider: AYLEEN MOHAMUD [[id number]]Allergies As of Date: 10/08/2017(No Known Allergies)Date Reviewed: 10/08/2017Reviewed by: Mariusz Bender Jr. - Fully AssessedReason for Visit: Neuropathy [1405] Cmt: Former pt [facility] Neurol[facility]/ leg twitching Headaches [3461] Cmt: Sharp confucianism painReason For Visit History RecordedPrimary Visit Diagnosis:Sleep starts [F51.8] Other Visit Diagnoses:Supraclinoid carotid artery aneurysm, small [I67.1] Nonintractable headache, unspecified chronicity pattern, unspecified headache type [R51] HILARY (obstructive sleep apnea) [G47.33] Spinal stenosis in cervical region [M48.02]Order(s):MRA BRAIN WO TIFFANIEON [[id number]] Order #: [id number] FUTUREPrescriptions as of 10/08/2017 Sig: MELOXICAM 15 MG TABLET Take 15 mg by mouth once juan* CLONAZEPAM 0.5 MG TABLET Take 0.5 mg by mouth twice da* METHYLPHENIDATE ER 18 MG TABL* Take 18 mg by mouth once juan* LOVASTATIN 40 MG TABLET Take 40 mg by mouth once juan* HYDROXYCHLOROQUINE 200 MG TAB* Take 200 mg by mouth once curtis* KRILL FZJ-IV-4-QWO-FFU-JEYMYC* Take by mouth. ASPIRIN 81 MG TABLET,DELAYED * Take 81 mg by mouth once juan* MULTIVITAMIN WITH MINERALS TA* Take 1 tablet by mouth once d* * OMEPRAZOLE 20 MG CAPSULE,JERILYN* Take one(1) tablet daily. TOPIRAMATE XR 50 MG CAPSULE,E* Take 50 mg by mouth once juan*Medication notes this encounter TOPIRAMATE XR 50 MG CAPSULE,EXTENDED RELEASE 24 HR >> Mulu Cristina Cma 10/08/2017 9:08 AM >> MULU CRISTINA CMA WedOct 08, 2017 9:08 AM Patient not usingProblem List As Of Date 10/08/2017 Noted Resolved CHRONIC PROSTATITIS [N41.1] INVALID FOR* CALCULUS OF PROSTATE [N42.0] INVALID FOR* THROMBOS HEMORRHOIDS NOS [K64.5] INVALID FOR* BLADDER NECK OBSTRUCTION [N32.0] INVALID FOR* BPH W URINARY OBS/LUTS [N40.1] INVALID FOR* Other instructions from your clinician: 1. Take Klonopin as follows: Continue Klonopin tablet at about 6PM, but take your second tablet 30 minutes before bedtime. 2. Will repeat MRA brain to evaluate changes in carotid aneurysm.Disposition: Return in about 4 months (around 02/06/2018).Follow-up and Disposition History RecordedEncounter Number: [id number] Status:Closed by MARIUSZ BENDER on 10/08/17 [facility] PROGRESSon 10-08-2017 PROGRESS HNO ID: [id number] thor: Mariusz Bender Jr.Service: (none)Author Type: PhysicianType: Progress NotesFiled: 10/08/2017 9:54 AMNote Text:NEW PATIENT (CONSULT) HISTORY AND PHYSICAL EXAMPRIMARY CARE PHYSICIAN: JASON MusaEASLAURA FOR CONSULT: Cerebral aneurysm, C spine stenosis, JOHNSON, HILARY, spellsof abnormal sensationREFERRING PHYSICIAN: Ayleen Mohamud, [facility] HOSPITALFERNANDO COMPLAINT: Aneurysm, C spine stenosis, JOHNSON, HILARY, ObestiyHISTORY OF PRESENT ILLNESS: Loree Francis is a pleasant 62 year old righthanded male, a PMH significant for carotid aneurysm , C spine stenosis(mild per records), JOHNSON (on Trokendi), HILARY (on CPAP), Obestiy. He waspreviously followed at neurology offices outside of the [facility] with [facility]). His prior office notes areavailable and reviewed at time of office visit. Of note, his last MRIbrain was in 2015 that reportedly showed no change in aneurysm size of Rsupraclinoid aneurysm that is about 3mm in size. For aneurysm he has beenseen by Dr. Ridley. His last MRI of C spine was in 2014 showing perreport:Multilevel degenerative changes of the cervical spine most pronouncedinvolving the C2-3 through C5/6 levels.For C spine disease - pain - he has been followed by Dr. Shaffer at [facility].He also has spells of abnormal sensation, for which he underwent extensiveworkup besides MRIs above, including EEG and EMG/NCV -- all unremarkable.In 2014 I referred patient [facility]. Per Dr. Oneil's note:I would guess that his headache probably has a cervicogenic component.There is nothing really to suggest migraine and nothing to suggest anorganic component. I do suspect that the episodes are probably amanifestation of panic. There is nothing in the description that wouldsuggest an epileptic phenomenon.Patient now with new complaints of twitching. States he is having jerkingsensations that only occur when he lies down to go to sleep. States if onthe couch and feeling tired he does not get such sensations. Only once inbed. Describes as pretty violent. States can occur in head, spine, armsor legs. States mostly in the feet. Does not occur nightly -- ratherstates it comes and goes. When it happens it occurs about 3 nights in arow and he admits to taking a couple shots of vodka to relieve symptoms.States if he gets up and walks around and then lies back down thatsymptoms do not resolve. He notes no definite exacerbating factors andlikewise no factors that relieve symptoms. Note he is also takingKlonopin at dinner time at 5PM.Adds that headaches have not been bad but that he has now sharp stabbingpain the the R temp. Last MRA as above. Patient very concerned aboutthese. I asked if he has followed up with Dr. Ridley(neurointerventionalis t at [facility]) and he denies such. Note patient has had2 angiograms. On further discussion with patient, headaches are notdaily. Note the headaches are not described as being in an area localizedto head pain. Then states headaches are not frequent as they used to be.He was on Trokendi before, but given that headache frequency decreased hestopped it and just takes Excedrin prn. States headaches only occur aboutonce per week and last only an hour if takes OTC. At this point, heindicates that pulsating pains in L temp are different than his headachesand just started in the last month - states it goes 3-4 days and thenresolves.Regarding initial sensations of discomfort (see outside notes) these haveresolved.States he is using his CPAP nightly. No issues with the PAP device.Using nasal pillows. Not snoring. Unfortunately I do not have acompliance download to review.Denies neck pain and no radiation of discomfort or weakness throughoutthose areas innervated by the cervical spine. No weakness in the arms.No sensory levels. No B/B incontinence. He has not seen Dr. Shaffer in atleast 2 years.REVIEW OF SYSTEMSGENERAL:No weight loss, malaise or fevers.HEENT:Negative for frequent or significant headaches, No changes inhearing or vision, no nose bleeds or other nasal problemsNECK:Negative for lumps, goiter, pain and significant neck swellingRESPIRATORY: Negative for cough, wheezing or shortness of breath.CARDIOVASCULAR: Negative for chest pain, leg swelling or palpitations.GASTROINTESTINA L: Negative for abdominal discomfort, blood in stools orblack stools or change in bowel habitsGENITOURINARY: No history of dysuria, frequency or incontinenceMUSCULOSKELETAL: Negative for joint pain or swelling, back pain or musclepain.NEUROLOGIC:Negati ve for focal numbness or weakness, headaches anddizziness or syncope, vision changes, speech/language changes, changes ingait or falls -- besides those complaints as above in HPI.SKIN:Negative for lesions, rash, and itching.PSYCHIATRIC: Negative for sleep disturbance, mood disorder and recentpsychosocial stressors.HEMATOLOGIC/LYMPHA TIC/IMMUNOLOGIC:Negative for prolonged bleeding,bruising easily or swollen nodes.ENDOCRINE: Negative for cold or heat intolerance, polyuria, polydipsia andgoiter.The remainder of the ROS was reviewed and is negative.LAB/IMAGING:Reviewe d and include:WBC (/hpf)Date Value08/17/2005 NegativeGlucose (mg/dL)Date Value08/17/2005 NegativeBUN (mg/dL)Date Value04/01/2015 16Creatinine (mg/dL)Date Value04/01/2015 0.87MEDICATIONS:meloxicam (MOBIC) 15 mg tablet Take 15 mg by mouth once daily.clonazePAM (KLONOPIN) 0.5 mg tablet Take 0.5 mg by mouth twice daily asneeded.methylphenidate ER 18 mg CR tablet Take 18 mg by mouth once daily.Lovastatin 40 mg tablet Take 40 mg by mouth once daily.hydroxychloroquine (PLAQUENIL) 200 mg tablet Take 200 mg by mouth oncedaily.bcghe-bxtem-7-dha- epa-lipids (KRILL OIL) 641-02-00-50 mg cap Take bymouth.aspirin, enteric coated (ASPIRIN, ENTERIC COATED) 81 mg EC tablet Take 81mg by mouth once daily.multivitamin with minerals (MEN'S ONE DAILY) tablet Take 1 tablet by mouthonce daily.topiramate (TROKENDI XR) 50 mg cp24 Take 50 mg by mouth once daily.OMEPRAZOLE 20 MG CAP, DELAYED RELEASE Take one(1) tablet daily.HISTORIESNo past medical history on file.FAMILY HISTORYProblem Relation Age of Onset- Arthritis Father- Cancer Father- Coronary Artery Disease Maternal Grandmother- Coronary Artery Disease Mother- Coronary Artery Disease Maternal Uncle- Diabetes Maternal Grandmother- Genitourinary () Sister- Seizures Paternal Aunt- Stroke FatherSOCIAL HISTORYSocial HistorySubstance Use Topics- Smoking status: Never Smoker- Smokeless tobacco: Former User Types: Snuff- Alcohol use Yes Comment: rarelyPHYSICAL EXAMINATIONBlood pressure 156/92, pulse 75, weight 93 kg (205 lb), SpO2 98 %.GENERAL EXAM:General appearance: NAD, pleasant.HEENT: NC/AT, nasal congestion absent, no oral lesions, membranes moist.NECK: No masses, supple.Lungs: CTA bilaterally. No wheezes present.CV: RRR nl S1, S2. No carotid bruits.Abd: Soft, nontender, nondistended. Bowel sounds present.Extr: No cyanosis, clubbing or edema. No evidence of fasciculations.Extremity pulses palpable and normal.Skin: Cool to touch. No rash.NEUROLOGICAL EXAM:General: Awake, alert, oriented x3 (person,place,time), speech fluent, nodysarthria; comprehension, naming, repetition intact. Short and long termmemory intact. Fund of knowledge grossly normal by MOCA.CN: PERRL, fundi appear normal including no evidence of papilledema, EOMIand without nystagmus, VFF to confrontation, facial sensation and strengthare normal and symmetric, hearing is intact to finger rub bilaterally,palate and tongue movements are intact and symmetric. SCM and trapeziusstrength normal.Motor: Normal tone, bulk and strength (5/5) bilaterally (throughoutextremities x4).Reflexes: 2/4 and symmetric, plantar stimulation is flexor.Coordination: FNF, ANN MARIE, HTS intact. No tremors.Sensation: LT, PP, vibration, temperature intact throughout. No evidenceof neglect.Gait: Narrow based and stable with normal stride and arm swing. Rombergnormal.Assessment and Plan: ASSESSMENT/PLAN:1. Sleep starts - ICD9: 307.49, ICD10: F51.8 (primary diagnosis)Likely etiology of patient's jerking upon trying to go to sleep.Possibly brought on by stress with known history of panic and anxiety. Heard is already Rx'd Klonopin 0.5mg BID but only taking once daily, I haveasked him to adjust dose so that he takes one at usual hour of 5PM andsecond 30 minutes before bedtime. I also asked him to try relaxationexercises prior to bedtime.2. Supraclinoid carotid artery aneurysm, small - ICD9: 442.81, ICD10:I67.1Aneurysm has been stable on serial imaging. However patient concerned dueto new pulsatile headache. Non-focal exam. Will repeat MRA brain to seeif any changes.3. Nonintractable headache, unspecified chronicity pattern, unspecifiedheadache type - ICD9: 784.0, ICD10: R51See #2. Otherwise patient not wanting preventative medication althoughdiscussed restarting Trokendi that patient tolerated.4. HILARY (obstructive sleep apnea) - ICD9: 327.23, ICD10: G47.33Encouraged compliance with PAP. Reminded to clean and replace equipmentregularly. Advised not to drive or operate heavy machinery if sleepy.5. Spinal stenosis in cervical region - ICD9: 723.0, ICD10: M48.02Asx. Mild on prior imaging. Non focal exam. No additional workup neededat this time.JACOB Alvarez spent 45 minutes in the visit, with more than 50% of the [id number] time of the visit in counseling / coordination of care. Normal [facility] Vital Signs Date Time Vital Sign Value Performing Clinician Joel judge 08-29-2022 10:03-0500 Body temperature 98 [degF] Dr. Dorita Morocho Work Phone: [facility] Work Phone: 08-29-2022 10:03-0500 Diastolic blood pressure 97 mm[Hg] Dr. Dorita Morocho Work Phone: [facility] Work Phone: 08-29-2022 10:03-0500 Heart rate 69 /min Dr. Dorita Morocho Work Phone: [facility] Work Phone: 08-29-2022 10:03-0500 Respiratory rate 20 /min Dr. Dorita Morocho Work Phone: [facility] Work Phone: 08-29-2022 10:03-0500 SaO2% (BldA) [Mass fraction] 95 % Dr. Dorita Morocho Work Phone: [facility] Work Phone: 08-29-2022 10:03-0500 Systolic blood pressure 170 mm[Hg] Dr. Dorita Morocho Work Phone: [facility] Work Phone: 08-29-2022 03:32-0500 Inhaled oxygen flow rate 2 L/min Dr. Dorita Morocho Work Phone: [facility] Work Phone: 08-28-2022 08:19-0500 Body height 175.[address] Dorita Morocho Work Phone: [facility] Work Phone: 08-28-2022 08:19-0500 Body mass index (BMI) [Ratio] 33 kg/m2 Dr. Dorita Morocho Work Phone: [facility] Work Phone: 08-28-2022 08:19-0500 Body weight 101.[address] Dorita Morocho Work Phone: [facility] Work Phone: 05-24-2022 16:44-0400 Diastolic blood pressure 84 mm[Hg] Dr. Dorita Morocho Work Phone: [facility] Work Phone: 05-24-2022 16:44-0400 Heart rate 54 /min Dr. Dorita Morocho Work Phone: [facility] Work Phone: 05-24-2022 16:44-0400 SaO2% (BldA) [Mass fraction] 99 % Dr. Dorita Morocho Work Phone: [facility] Work Phone: 05-24-2022 16:44-0400 Systolic blood pressure 145 mm[Hg] Dr. Dorita Morocho Work Phone: [facility] Work Phone: 05-24-2022 16:28-0400 Respiratory rate 11 /min Dr. Dorita Morocho Work Phone: [facility] Work Phone: 05-24-2022 14:10-0400 Body height 175.[address] Dorita Morocho Work Phone: [facility] Work Phone: 05-24-2022 14:10-0400 Body mass index (BMI) [Ratio] 31.7 kg/m2 Dr. Dorita Morocho Work Phone: [facility] Work Phone: 05-24-2022 14:10-0400 Body temperature 97.7 [degF] Dr. Dorita Morocho Work Phone: [facility] Work Phone: 05-24-2022 14:10-0400 Body weight 97.[address] Dorita Morocho Work Phone: [facility] Work Phone: 05-21-2022 12:27-0400 Diastolic blood pressure 91 mm[Hg] Dr. Dorita Morocho Work Phone: [facility] Work Phone: 05-21-2022 12:27-0400 Heart rate 54 /min Dr. Dorita Morocho Work Phone: [facility] Work Phone: 05-21-2022 12:27-0400 Respiratory rate 12 /min Dr. Dorita Morocho Work Phone: [facility] Work Phone: 05-21-2022 12:27-0400 SaO2% (BldA) [Mass fraction] 98 % Dr. Dorita Morocho Work Phone: [facility] Work Phone: 05-21-2022 12:27-0400 Systolic blood pressure 160 mm[Hg] Dr. Dorita Morocho Work Phone: [facility] Work Phone: 05-21-2022 08:36-0400 Body height 175.[address] Dorita Morocho Work Phone: [facility] Work Phone: 05-21-2022 08:36-0400 Body mass index (BMI) [Ratio] 32.1 kg/m2 Dr. Dorita Morocho Work Phone: [facility] Work Phone: 05-21-2022 08:36-0400 Body temperature 97.1 [degF] Dr. Dorita Morocho Work Phone: [facility] Work Phone: 05-21-2022 08:36-0400 Body weight 98.[address] Dorita Morocho Work Phone: [facility] Work Phone: 05-11-2022 17:31-0400 Body temperature 97.5 [degF] Dr. Dorita Morocho Work Phone: [facility] Work Phone: 05-11-2022 17:31-0400 Diastolic blood pressure 73 mm[Hg] Dr. Dorita Morocho Work Phone: [facility] Work Phone: 05-11-2022 17:31-0400 Heart rate 64 /min Dr. Dorita Morocho Work Phone: [facility] Work Phone: 05-11-2022 17:31-0400 Respiratory rate 18 /min Dr. Dorita Morocho Work Phone: [facility] Work Phone: 05-11-2022 17:31-0400 SaO2% (BldA) [Mass fraction] 96 % Dr. Dorita Morocho Work Phone: [facility] Work Phone: 05-11-2022 17:31-0400 Systolic blood pressure 133 mm[Hg] Dr. Dorita Morocho Work Phone: [facility] Work Phone: 05-11-2022 15:04-0400 Body mass index (BMI) [Ratio] 31.6 kg/m2 Dr. Dorita Morocho Work Phone: [facility] Work Phone: 05-10-2022 23:29-0400 Body height 175.[address] Dorita Morocho Work Phone: [facility] Work Phone: 05-10-2022 23:29-0400 Body weight [address] Dorita Morocho Work Phone: [facility] Work Phone: 05-10-2022 23:18-0400 Body temperature 98.5 [degF] [facility] Work Phone: 05-10-2022 23:18-0400 Diastolic blood pressure 85 mm[Hg] [facility] Work Phone: 05-10-2022 23:18-0400 Heart rate 86 /min [facility] Work Phone: 05-10-2022 23:18-0400 Respiratory rate 20 /min [facility] Work Phone: 05-10-2022 23:18-0400 SaO2% (BldA) [Mass fraction] 95 % [facility] Work Phone: 05-10-2022 23:18-0400 Systolic blood pressure 131 mm[Hg] [facility] Work Phone: 05-10-2022 20:22-0400 Body height 175.26 cm [facility] Work Phone: 05-10-2022 20:22-0400 Body mass index (BMI) [Ratio] 31.9 kg/m2 [facility] Work Phone: 05-10-2022 20:22-0400 Body weight 98.2 kg [facility] Work Phone: 04-27-2022 00:58-0400 Diastolic blood pressure 81 mm[Hg] [facility] Work Phone: 04-27-2022 00:58-0400 Systolic blood pressure 143 mm[Hg] [facility] Work Phone: 04-26-2022 23:35-0400 Heart rate 70 /min [facility] Work Phone: 04-26-2022 23:35-0400 Respiratory rate 18 /min [facility] Work Phone: 04-26-2022 23:35-0400 SaO2% (BldA) [Mass fraction] 96 % [facility] Work Phone: 04-26-2022 23:03-0400 Body height 175.26 cm [facility] Work Phone: 04-26-2022 23:03-0400 Body mass index (BMI) [Ratio] 31.8 kg/m2 [facility] Work Phone: 04-26-2022 23:03-0400 Body temperature 96 [degF] [facility] Work Phone: 04-26-2022 23:03-0400 Body weight 97.8 kg [facility] Work Phone: Encounters Encounter Date Encounter Type Care Provider Facility Start: 06-07-2025 End: 06-07-2025 ambulatory Chalon Heidi Facility:[facility] Start: 05-24-2025 End: 05-24-2025 ambulatory Mulu Francis [facility] Start: 05-03-2025 End: 05-03-2025 ambulatory Chalon Heidi [facility] Start: 04-20-2025 ambulatory Chalon Heidi [facility] Start: 04-20-2025 End: 04-21-2025 Evaluation and management of inpatient Freddie Packer Facility:[facility] Start: 04-19-2025 ambulatory Chalon Heidi [facility] Start: 04-09-2025 End: 04-09-2025 ambulatory Chalon Heidi [facility] Start: 04-09-2025 End: 04-09-2025 ambulatory Mulu Crgal Facility:[facility] Start: 04-06-2025 End: 04-06-2025 ambulatory Chalon Heidi Facility:[facility] Start: 03-27-2025 ambulatory Mulu Borgal Facility: [facility] Start: 03-19-2025 End: 03-19-2025 ambulatory Wilfredo Sanchezmarcus Facility:[facility] Start: 02-17-2025 End: 02-17-2025 ambulatory Wilfredo Martínez Facility:[facility] Start: 01-26-2025 End: 01-26-2025 ambulatory Chalon Heidi Facility:[facility] Start: 01-04-2025 End: 01-04-2025 ambulatory Wilfredo Sanchezmarcus Facility:[facility] Start: 12-15-2024 End: 12-15-2024 ambulatory Chalon Heidi Facility:[facility] Start: 12-08-2024 End: 12-08-2024 ambulatory Wilfredo Sanchezmarcus Facility:[facility] Start: 11-24-2024 End: 11-24-2024 ambulatory Chalon Heidi Facility:[facility] Start: 10-05-2024 End: 10-05-2024 ambulatory Chalon Heidi Facility:[facility] Start: 08-24-2024 End: 08-24-2024 ambulatory Duyen Yesy Facility:[facility] Start: 08-18-2024 End: 08-18-2024 ambulatory Chalon Heidi Facility:[facility] Start: 07-07-2024 End: 07-07-2024 ambulatory Chalon Heidi Facility:[facility] Start: 05-11-2024 End: 05-18-2024 Evaluation and management of inpatient [facility] Start: 01-18-2024 End: 01-23-2024 ambulatory GILMAR MORSE DO Facility:[facility] Start: 01-18-2024 End: 01-22-2024 Outreach Lab GILMAR MORSE DO [facility] Start: 01-17-2024 End: 01-17-2024 ambulatory [facility] Work Phone: Start: 01-17-2024 End: 01-17-2024 Patient encounter procedure [facility] Work Phone: Start: 12-20-2023 End: 12-20-2023 ambulatory [facility] Work Phone: Start: 12-20-2023 End: 12-20-2023 Patient encounter procedure [facility] Work Phone: Start: 04-21-2023 End: 04-21-2023 ambulatory [facility] Work Phone: Start: 04-21-2023 End: 04-21-2023 Patient encounter procedure [facility] Work Phone: Start: 08-28-2022 End: 08-29-2022 Evaluation and management of inpatient Dr. Dorita Morocho Work Phone: [facility]Medical Surgical 3 Start: 08-28-2022 End: 08-29-[address] Dorita Morocho Work Phone: [facility] Work Phone: Start: 05-24-2022 End: 05-24-2022 Emergency department patient visit Dr. Dorita Morocho Work Phone: [facility]Emergency [facility] Start: 05-21-2022 End: 05-21-2022 Emergency department patient visit Dr. Dorita Morocho Work Phone: [facility] Start: 05-19-2022 Non-patient / Non-visit Dr. Chula Morocho Work Phone: [facility] Start: 05-19-2022 End: 05-19-[address] Dorita Morocho Work Phone: [facility]Cardiovascula [facility] Services Start: 05-11-2022 Non-patient / Non-visit Dr. Chula Morocho Work Phone: [facility] Start: 05-10-2022 Non-patient / Non-visit Dr. Chula Morocho Work Phone: [facility] Start: 05-10-2022 End: 05-11-2022 Evaluation and management of inpatient [facility]Progressive Care Unit Start: 04-26-2022 End: 04-27-2022 Emergency department patient visit [facility]Emergency Department Start: 02-26-2022 End: 02-26-2022 Patient encounter procedure [facility] Start: 01-28-2022 End: 01-28-2022 Patient encounter procedure [facility] Start: 03-25-2018 End: 03-30-2018 Ambulatory NICOLE (GARY) TED [facility] Start: 03-04-2018 End: 03-04-2018 Ambulatory MARIUSZ BENDER JR [facility] Start: 02-07-2018 End: 02-07-2018 Ambulatory MARIUSZ BENDER JR [facility] Start: 10-20-2017 End: 10-20-2017 Ambulatory MARIUSZ BENDER JR [facility] Start: 10-08-2017 End: 10-12-2017 Ambulatory MARIUSZ BENDER JR [facility] Procedures Date Procedure Procedure Detail Performing Clinician Start: 08-28-2022 Cysto Direct Visuali zation (Not Applicable) Dr. Dorita Morocho Work Phone: Start: 05-24-2022 CT angiography of ch est with contrast Dr. Dorita Morocho Work Phone: Start: 05-24-2022 Plain chest X-ray Dr. Hortencia Morocho Work Phone: Start: 05-21-2022 Plain chest X-ray Dr. Hortencia Morocho Work Phone: Start: 05-19-2022 Radionuclide imaging of perfusion of myocardium under exercise stress Dr. Dorita Morocho Work Phone: Start: 05-11-2022 MRI of brain without contrast Dr. Dorita Morocho Work Phone: Start: 05-10-2022 Plain chest X-ray Start: 05-10-2022 CT angiography of he ad and neck Start: 05-10-2022 CT of head without contrast Start: 04-26-2022 Plain chest X-ray Start: 02-26-2022 MRI of neck vessels with contrast Start: 06-05-2019 Blood count hemoglobin Comment on above: Order Comment: Urine Source Urine, Clean Catch Performed By: #### L 300.3000 #### Main Laboratory ([facility]) [address] [place] [address] Francisco Croft MD Start: 04-07-2019 Electrocardiogram Plan of Treatment Date Care Activity Detail Author Start: 08-29-2022 Patient discharge [facility] Work Phone: Start: 08-29-2022 Removal of urinary catheter [facility] Work Phone: Start: 08-28-2022 Application of inter mittent pneumatic compression device [facility] Work Phone: Start: 08-28-2022 Following clinical p athway protocol [facility] Work Phone: Start: 08-28-[address] [facility] Work Phone: Start: 08-28-2022 Deep breathing and c oughing exercises [facility] Work Phone: Start: 08-28-2022 Incentive spirometry [facility] Work Phone: Start: 08-28-2022 Irrigation of urinary bladder [facility] Work Phone: Start: 08-28-2022 Measuring intake and output [facility] Work Phone: Start: 08-28-2022 Patient education [facility] Work Phone: Start: 08-28-2022 Taking patient vital signs [facility] Work Phone: Start: 08-28-2022 Vital signs measurements [facility] Work Phone: Start: 08-28-2022 [facility] Work Phone: Start: 05-24-2022 Troponin I measurement [facility] Work Phone: Start: 05-24-2022 [facility] Work Phone: Start: 05-11-2022 Application of inter mittent pneumatic compression device [facility] Work Phone: Start: 05-11-2022 Assessment of risk o f venous thromboembolism [facility] Work Phone: Start: 05-11-2022 Cardiac monitoring [facility] Work Phone: Start: 05-11-2022 Catheterization of vein [facility] Work Phone: Start: 05-11-2022 Continuous pulse oximetry [facility] Work Phone: Start: 05-11-2022 Elevation of head of bed [facility] Work Phone: Start: 05-11-2022 Exercises [facility] Work Phone: Start: 05-11-[address] anned interventions [facility] Work Phone: Start: 05-11-2022 Insertion of cathete r into peripheral vein [facility] Work Phone: Start: 05-11-2022 Measuring intake and output [facility] Work Phone: Start: 05-11-2022 Notification of physician [facility] Work Phone: Start: 05-11-2022 Oxygen therapy [facility] Work Phone: Start: 05-11-2022 Providing care accor ding to standard [facility] Work Phone: Start: 05-11-2022 Provision of activity privileges [facility] Work Phone: Start: 05-11-2022 Tobacco use cessation education [facility] Work Phone: Start: 05-11-2022 [facility] Work Phone: Start: 05-11-2022 Patient discharge [facility] Work Phone: Start: 05-10-2022 Following clinical p athway protocol [facility] Work Phone: Start: 05-10-2022 Continuous positive airway pressure ventilation treatment [facility] Work Phone: Start: 05-10-2022 Verification routine [facility] Work Phone: Start: 05-10-[address] [facility] Work Phone: Start: 05-10-2022 Oxygen therapy [facility] Work Phone: Start: 05-10-2022 [facility] Work Phone: Start: 04-26-2022 [facility] Work Phone: Patient Education [facility] Work Phone: Patient referral [facility] Work Phone: Troponin I measurement [facility] Work Phone: Immunizations Immunization Date Immunization Notes Care Provider Fa cility 05-05-2021 tetanus toxoid, redu nupur diphtheria toxoid, and acellular pertussis vaccine, adsorbed [facility] Payers Date Payer Category Payer Medicare [id number] 2024 Self-pay [id number] 2016 Unknown [id number] 2008 Unknown [facility] [id number] 1955 Unknown [id number] Unknown [id number] [id number] Medicare [facility] d [id number] Unknown [id number] [id number] Unknown [id number] [id number] Unknown [id number] [id number] Unknown [id number] 2.16840.1.046338.3.579.2.462 Unknown [id number] 2.16.840.1.077292.3.579.2.462 Unknown [id number] 2.16.840.1.081681.3.579.2.462 Unknown [id number] 2.16840.1.667668.3.579.2.462 Unknown [id number] 2.16840.1.149248.3.579.2.462 Unknown [id number] 2.16.840.1.106271.3.579.2.462 Unknown [id number] 2.16.840.1.880645.3.579.2.462 Unknown [id number] 2.16.840.1.372719.3.579.2.462 Unknown [id number] 2.16840.1.969587.3.579.2.462 Unknown [id number] 2.16.840.1.107883.3.579.2.462 Unknown [id number] 2.16.840.1.883250.3.579.2.462 Unknown [id number] 2.16.840.1.214216.3.579.2.462 Unknown [id number] 2.16.840.1.415600.3.579.2.462 Unknown [id number] 2.16.840.1.361398.3.579.2.462 Unknown [id number] 2.16.840.1.748353.3.579.2.462 Unknown [id number] 2.16.840.1.292151.3.579.2.462 Unknown [id number] 2.16.840.1.578155.3.579.2.462 Unknown [id number] 2.16.840.1.696742.3.579.2.462 Unknown [id number] [id number]2 Social History Date Type Detail Facility Start: 10-03-2021 End: 08-28-2022 Tobacco smoking status MOIS Unknown if ever smoked [facility] Start: 07-10-2019 Rare [facility] Start: 07-10-2019 None [facility] Start: 07-10-2019 Spouse/ Signif icant Other [facility] Start: 07-10-2019 Chew [facility] Work Phone: Start: 1955 Sex Assigned At Male W [facility] Start: 05-11-2022 Non-smoker [facility] Tobacco smoking status No Smoking Status Entered [facility] Goals Date Patient Goal Desired Activity /State Functional Status Date Assessment Result Facility 08-29-2022 Functional status Ambulates [facility] Work Phone: 05-11-2022 Functional status Bathroom Privilege [facility] Work Phone: Mental Status Date Assessment Result Facility 08-29-2022 Cognitive function Level Of Cons ciousness Awake;Alert;Appropriate;Follow s Commands [facility] Work Phone: 08-28-2022 Cognitive function Appropriate;Cooperativ e [facility] Work Phone: 05-24-2022 Cognitive function Level Of Cons ciousness Awake;Alert;Appropriate;Follow s Commands [facility] Work Phone: 05-21-2022 Cognitive function Level Of Consciousness Awake [facility] Work Phone: 05-11-2022 Cognitive function Voice/Name [facility] Work Phone: 05-10-2022 Cognitive function Voice/Name [facility] Work Phone: 04-26-2022 Cognitive function Level Of Cons ciousness Awake;Alert;Appropriate [facility] Work Phone: Clinical Notes 05-12-2024 to 04-21-2025 Note Date & Type Note Facility 04-21-2025 Note [facility] Medical Records Department [address] [place] [address] Discharge Summary 04/21/25 0837 MR#: [id number] Acct: [id number] Name: LOREE FRANCIS Rep #: [id number] : 1955 69 From: Freddie Packer MD PCP: Dr. Rakel Licea MD Status:ADM IN Location: [place] [address] Providers Date of Admission: 04/20/25 Date of Discharge: 04/21/25 Primary Care Physician: Rakel Licea MD Reason For Visit: ALCOHOL DETOX Diagnosis Discharge Diagnosis (1) Alcohol withdrawal: Status: Acute Code(s): F10.939 - Alcohol use, unspecified with withdrawal, unspecified (2) Desire for detoxification: Status: Acute Plan Patient is a 69-year-old male admitted with acute alcohol withdrawal 1. Alcohol dependence ???Patient currently denies any withdrawal symptoms. Patient last drink was 2 days prior to his admission and his alcohol level was 0.2 on admit. Patient is already on clonazepam for anxiety disorder did continue. Patient was not started on phenobarb taper since patient currently denies any symptoms. ??? 04/21/2025 with patient having remained asymptomatic since his admission and requesting to be discharged decision was made to discharge patient home. Patient wanted his to be informed prior to discharge did call patient's on [phone] there was no response. 2. Hypertension ??? Blood pressure controlled, home medications continued with dose adjustment as needed 3. Dyslipidemia -Patient is on statin therapy, continued at home dose 4. GERD ??? On PPI 5. Depression with anxiety ??? Patient is on clonazepam as well as citalopram 6. GERD ??? On PPI 7. Restless leg syndrome ??? Patient is on ropinirole???continue 8. BPH with lower urinary obstructive symptoms - Patient treated with tamsulosin and finasteride 9. DVT prophylaxis ??? Lovenox Medications at Discharge Home Medications multivitamin (Multiple Vitamins tablet) 1 ea PO DAILY vitamin 11/11/16 finasteride 5 mg tablet 5 mg PO DAILY urine flow 05/02/24 lovastatin 40 mg tablet 40 mg PO QHS blood pressure 05/02/24 omeprazole 20 mg capsule,delayed release 20 mg PO DAILY acid reflux 05/02/24 tamsulosin 0.4 mg capsule 0.4 mg PO DAILY urine flow 05/02/24 lisinopril 40 mg tablet 40 mg PO DAILY blood pressure 05/10/24 trazodone 50 mg tablet See Rx Instructions PO QHS #180 tabs 12/15/24 clonazepam 1 mg tablet 1 mg PO BID depression/anxiety 04/06/25 hydroxyzine HCl 10 mg tablet 10 mg PO TID PRN itching #90 tabs 04/06/25 atenolol 100 mg tablet 100 mg PO DAILY blood pressure 04/20/25 citalopram 40 mg tablet 40 mg PO DAILY depression 04/20/25 ropinirole 1 mg tablet 1 mg PO DAILY restless legs 04/20/25 spironolactone 50 mg tablet 50 mg PO DAILY blood pressure (water pill) 04/20/25 Hospital Course Summary of Care Provided Minutes Spent on Discharge: 38 Physical Exam Narrative GENERAL: cooperative HEENT: Atraumatic; normocephalic EYES; Anicteric, Normal Conjunctiva NECK; supple, normal thyroid, RESPIRATORY: Diminished to auscultation CARDIOVASCULAR: Regular S1 S2, GI: soft, normoactive bowel sounds, : No Renal angle tenderness; EXTREMITIES: No edema, no clubbing, MUSCULOSKELETAL: no muscle wasting NEURO: Awake; no lateralizing signs. SKIN: No Rash PSYCH; Flat affect HEENT normocephalic, head/scalp atraumatic, hearing grossly normal bilaterally, nasal mucous membranes and turbinates normal and moist oral mucous membranes Eyes PERRL Neck full ROM Chest inspection of chest normal Resp normal respiratory effort, normal air movement, no use of accessory muscles and clear to auscultation bilaterally Cardio regular rate, regular rhythm, no murmurs and peripheral pulses 2+ throughout GI normal to inspection, nondistended, normoactive bowel sounds, soft to palpation, non-tender and non- distended Back/Spine normal ROM Extremity normal to inspection, full ROM and no pedal edema Skin no rashes or lesions noted Psych mental status grossly normal Weight / BMI Weight Weight: 88.536 kg Body Mass Index (BMI) 28.8 ABG / Lab / Microbiology Data 04/21/25 04:40 04/21/25 04:40 Laboratory: Laboratory Results - last 24 hr 04/20/25 12:48: Urine Opiates Screen NEGATIVE, U Buprenorphine Qual NEGATIVE, Ur Oxycodone Screen NEGATIVE, Urine Methadone Screen NEGATIVE, Urine Fentanyl Screen NEGATIVE, Ur Barbiturates Screen NEGATIVE, Ur Phencyclidine Scrn NEGATIVE, Ur Amphetamines Screen NEGATIVE, U Benzodiazepines Scrn PRESUMPTIVE POSITIVE, Urine Cocaine Screen NEGATIVE, U Cannabinoids Screen PRESUMPTIVE POSITIVE 04/20/25 13:10: WBC 7.9, RBC 4.59 L, Hgb 14.4, Hct 41.2, MCV 89.8, MCH 31.4, MCHC 35.0, RDW Std Deviation 43.5, RDW Coeff of Rosa 13.3, Plt Count 176, MPV 9.3, Immature Gran % (Auto) 0.100, Neut % (Auto) 57.8, Lymph % (Auto) 33.2, Page % (Aut (more content not included)... [facility] 05-18-2024 Note Inpatient Psychiatry Discharge Summary Patient Name: Loree Francis MR #: [id number] : 1955 Admit Date: 7241121 Discharge Date/Time: 05/18/2024 12:18 PM Clinical Summary Reason for Hospitalization: Loree Francis is a 68 y.o. adult was brought to [facility] by spouse as the patient is acting bizarre. Patient was seen by prescreener from the counseling center of [facility] in the emergency department. 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 Patient stated that since then he has been missing friends from work, feeling increasingly lonely and had been inattentive. Patient has not been sleeping well lately, is increasingly hyperverbal, more than usual energetic, hyperactive and getting increasingly anxious, angry, irritable. Patient stated that, his garage is a mess, tools everywhere and did not want his adult children to help cleaning up the mess. He is losing motivation, interest in engaging in activities around the house, organizing items in the household. Patient is living with 65-year-old for the past 35 years, has been increasingly concerned about patient's mood fluctuation and has been self-medicating with alcohol. Patient has history of previous psychiatric hospitalization at [facility] in September 2021. He is currently seeing counselor at [facility] and is receiving antidepressant medication Celexa. Considering deteriorating emotional state, impaired functioning level, is at risk, hospitalized for further evaluation and treatment. Discharge Diagnoses and Associated Hospital Course: Mood disorder Obstructive sleep apnea, Pediotic limb movement disorder During early course of hospitalization, patient was hyperactive, hypertalkative, euphoric, pressured speech, was somewhat intrusive and needed frequent verbal directions from staff. He was seen in individual supportive therapy, was encouraged to participate in group, activities therapy. He was in compliance with prescribed medication, no adverse effect noted. Patient responded to gradually increased dose of Latuda slowly. He was encouraged to ventilate his feelings and to learn different coping skills since half-way from [employer] after 26 years. No suicidal or homicidal plan, intent, thoughts. No racing thoughts or grandiose delusions noted. No delusions or auditory or visual hallucinations observed. No new Assessment & Plan notes have been filed under this hospital service since the last note was generated. Service: Behavioral Medicine Consults placed Procedures Inpatient consult to Hospitalist Allergies Sulfa (sulfonamide antibiotics) Procedures performed No orders of the defined types were placed in this encounter. Other tests No orders of the defined types were placed in this encounter. Studies pending at discharge None Laboratory Results: No results found for: CHOL, HDL, LDLCALC, TRIG No results found for: HGBA1C Lab Results Component Value Date TSH 1.22 05/12/2024 Review of Systems: Constitutional:No fever, no weight loss Eyes:No diplopia ENT:No sinus drainage CV:No chest pain. No ankle swelling Resp:No dyspnea. No wheezing GI:No abdominal pain.No abdominal distention :No dysuria Neuro:No headache Integumentary:No skin rash MuscSkel:No arthralgias Endo:No polyuria Heme/lymphatic:No apparent lymphadenopathy Mental Status Evaluation: General Appearance & Behavior: age appropiate and cooperative Grooming & Hygiene: street clothes Psychomotor Activity: no psychomotor abnormalities or muscle atrophy noted Gait & Station stable gait Speech: soft spoken Flow of Thought: linear and goal directed Thought Associations: Intact Content of Thought: No evidence of SI/HI Mood: much better Affect: mood congruent Insight: limited Judgment: limited Orientation: alert and oriented to person, place, time, and circumstances Memory: intact recent and remote Attention: intact Concentration: intact Language: intact Fund of Knowledge: estimated average intelligence Discharge Information PRINCIPAL DIAGNOSIS at Discharge: Major depression with psychotic features (HCC) Discharge Medications: Medication List START taking these medications lurasidone 60 mg Tab Commonly known as: LATUDA Take 1 (one) tablet (60 mg total) by mouth daily with dinner . CHANGE how you take these medications citalopram 20 MG tablet Commonly known as: CELEXA Take 1 (one) tablet (20 mg total) by mouth daily Start: 05/19/24. What changed: medication strength how much to take CONTINUE taking these medications atenoloL 100 MG tablet Commonly known as: TENORMIN clonazePAM 1 MG tablet Commonly known as: KLONOPIN finasteride 5 mg tablet Commonly known as: PROSCAR lisinopriL 20 MG tablet Commonly known as: P (more content not included)... [facility] 05-17-2024 Note Psychiatry Progress Note Patient Name: Loree Francis Admit Date: 7241121 MR #: [id number] : 1955 Perpetual Assessment Loree Francis is a 68 y.o. adult was seen individually, case discussed with nursing staff, medical records were reviewed. Patient remained preoccupied with his thoughts about his upcoming trips and its impact, given his emotional state. Patient stated that, since half-way has more conflict, argument with his regarding his interest in household activities and not being able to accomplish in timely fashion. He remains somewhat hyperactive, hypertalkative, intrusive at times with peers. We will continue to monitor behavior closely. Diagnosis & Plan/Recommendations Supportive therapy Pharmacological treatment Group therapy, activities therapy PRINCIPAL DIAGNOSIS: Major depression with psychotic features (HCC) No new Assessment & Plan notes have been filed under this hospital service since the last note was generated. Service: Behavioral Medicine Comorbid issues impacting my care plan include obstructive sleep apnea, pediatric limb movement disorder. Following for Interval History: Review of Systems: Constitutional:No fever, no weight loss Eyes:No diplopia ENT:No sinus drainage CV:No chest pain. No ankle swelling Resp:No dyspnea. No wheezing GI:No abdominal pain.No abdominal distention :No dysuria Neuro:No headache Integumentary:No skin rash MuscSkel:No arthralgias Endo:No polyuria Heme/lymphatic:No apparent lymphadenopathy Physical Examination: Vital Signs: BP (!) 149/91 Pulse 66 Temp 98.3 degrees F (36.8 degrees C) (Oral) Resp 16 Ht 5' 9 Wt 90.7 kg (200 lb) SpO2 95% BMI 29.53 kg/m Mental Status Evaluation: General Appearance & Behavior: age appropiate and cooperative Grooming & Hygiene: street clothes Psychomotor Activity: psychomotor agitation Gait & Station stable gait Speech: hyperverbal, loud, pressured, and rambling Flow of Thought: flight of ideas Thought Associations: Intact Content of Thought: delusions Mood: anxious Affect: irritable, labile, and hypomanic Insight: limited Judgment: limited Orientation: alert and oriented to person, place, time, and circumstances Memory: intact recent and remote Attention: intact Concentration: reduced Language: intact Fund of Knowledge: estimated average intelligence Laboratory and Additional Data Reviewed: Laboratory 05/17/24 11:54 AM Medications 05/17/24 11:54 AM Transcriptions 05/17/24 11:54 AM Treatment options and alternatives reviewed with patient. Risks, benefits, side effects of all psychiatric medications discussed with patient and informed consent obtained. All questions were answered. Terrence Renee MD 05/17/2024 11:46 AM AUTHENTICATED BY TERRENCE RENEE, ON 05/17/2024 11:54:18 [facility] 05-16-2024 Note Psychiatry Progress Note Patient Name: Loree Francis Admit Date: 7241121 MR #: [id number] : 1955 Perpetual Assessment Loree Francis is a 68 y.o. adult was seen individually, case discussed with nursing staff, medical records were reviewed. Patient stated that, was talking to peers about deep in elisa. He was hyperactive, hypertalkative with pressured speech, remained somewhat euphoric. He was reportedly intrusive at times. He remained preoccupied with the thoughts about his tobacco addiction-chewing tobacco. Continue to monitor behavior closely. Diagnosis & Plan/Recommendations Supportive therapy Pharmacological treatment Group therapy, activities therapy PRINCIPAL DIAGNOSIS: Major depression with psychotic features (HCC) No new Assessment & Plan notes have been filed under this hospital service since the last note was generated. Service: Behavioral Medicine Comorbid issues impacting my care plan include obstructive sleep apnea, Periodic limb movement disorder. . Following for Interval History: Review of Systems: Constitutional:No fever, no weight loss Eyes:No diplopia ENT:No sinus drainage CV:No chest pain. No ankle swelling Resp:No dyspnea. No wheezing GI:No abdominal pain.No abdominal distention :No dysuria Neuro:No headache Integumentary:No skin rash MuscSkel:No arthralgias Endo:No polyuria Heme/lymphatic:No apparent lymphadenopathy Physical Examination: Vital Signs: BP (!) 144/81 Pulse 73 Temp 98.3 degrees F (36.8 degrees C) (Oral) Resp 14 Ht 5' 9 Wt 90.7 kg (200 lb) SpO2 93% BMI 29.53 kg/m Mental Status Evaluation: General Appearance & Behavior: age appropiate and cooperative Grooming & Hygiene: street clothes Psychomotor Activity: psychomotor agitation Gait & Station stable gait Speech: hyperverbal, loud, pressured, and rambling Flow of Thought: concrete Thought Associations: Intact Content of Thought: Grandiose delusions Mood: anxious Affect: irritable, labile, and hypomanic Insight: poor Judgment: poor Orientation: alert and oriented to person, place, time, and circumstances Memory: intact recent and remote Attention: adequate Concentration: intact Language: intact Fund of Knowledge: estimated average intelligence Laboratory and Additional Data Reviewed: Laboratory 05/16/24 12:29 PM Medications 05/16/24 12:29 PM Transcriptions 05/16/24 12:29 PM Treatment options and alternatives reviewed with patient. Risks, benefits, side effects of all psychiatric medications discussed with patient and informed consent obtained. All questions were answered. Terrence Renee MD 05/16/2024 12:19 PM AUTHENTICATED BY TERRENCE RENEE, ON 05/16/2024 12:29:44 [facility] 05-15-2024 Note Psychiatry Progress Note Patient Name: Loree Francis Admit Date: 7241121 MR #: [id number] : 1955 Perpetual Assessment Loree Francis is a 68 y.o. adult was seen individually, case discussed with nursing staff, medical records were reviewed. As reported by nursing staff, patient was hyperactive, hypertalkative, intrusive, argumentative with peers, needed frequent verbal intervention from the staff. Patient stated that since half-way from [employer], has difficulty getting involved in any meaningful activities, was increasingly irritable, arguing with and was escalating easily. Psychomotor activities appeared in somewhat agitated range. We will continue to monitor behavior closely. Will increase mood stabilizers dose of Latuda to 60 mg and will monitor medication compliance. Diagnosis & Plan/Recommendations Supportive therapy Pharmacological treatment Group therapy, activities therapy PRINCIPAL DIAGNOSIS: Major depression with psychotic features (HCC) No new Assessment & Plan notes have been filed under this hospital service since the last note was generated. Service: Behavioral Medicine Comorbid issues impacting my care plan include obstructive sleep apnea, pediatric limb movement disorder . Following for Interval History: Review of Systems: Constitutional:No fever, no weight loss Eyes:No diplopia ENT:No sinus drainage CV:No chest pain. No ankle swelling Resp:No dyspnea. No wheezing GI:No abdominal pain.No abdominal distention :No dysuria Neuro:No headache Integumentary:No skin rash MuscSkel:No arthralgias Endo:No polyuria Heme/lymphatic:No apparent lymphadenopathy Physical Examination: Vital Signs: BP (!) 144/81 Pulse 73 Temp 98.3 degrees F (36.8 degrees C) (Oral) Resp 14 Ht 5' 9 Wt 90.7 kg (200 lb) SpO2 93% BMI 29.53 kg/m Mental Status Evaluation: General Appearance & Behavior: age appropiate and cooperative Grooming & Hygiene: street clothes Psychomotor Activity: psychomotor agitation Gait & Station stable gait Speech: hyperverbal, loud, pressured, and rambling Flow of Thought: concrete Thought Associations: Intact Content of Thought: Grandiose delusions Mood: anxious Affect: irritable, labile, and hypomanic Insight: poor Judgment: poor Orientation: alert and oriented to person, place, time, and circumstances Memory: intact recent and remote Attention: adequate Concentration: reduced Language: intact Fund of Knowledge: estimated average intelligence Laboratory and Additional Data Reviewed: Laboratory 05/15/24 12:46 PM Medications 05/15/24 12:46 PM Transcriptions 05/15/24 12:46 PM Treatment options and alternatives reviewed with patient. Risks, benefits, side effects of all psychiatric medications discussed with patient and informed consent obtained. All questions were answered. Terrence Renee MD 05/15/2024 12:35 PM AUTHENTICATED BY TERRENCE RENEE, ON 05/15/2024 12:46:53 [facility] 05-14-2024 Note Psychiatry Progress Note Patient Name: Loree Francis Admit Date: 7241121 MR #: [id number] : 1955 Perpetual Assessment Loree Francis is a 68 y.o. adult was seen individually, case discussed with nursing staff, medical records were reviewed. Patient stated that I am man of elisa, was rambling about his interaction, conflict at work place prior to the half-way. Patient stated that, I frustrated my ., and she needed a break. Patient is planning to stay with sister in [place] for a week following the discharge from the hospital. Patient remained hyperactive, hyperverbal with pressured speech, has euphoric mood. We will continue to monitor behavior closely. Diagnosis & Plan/Recommendations Supportive therapy Pharmacological treatment Group therapy, activities therapy PRINCIPAL DIAGNOSIS: Major depression with psychotic features (HCC) No new Assessment & Plan notes have been filed under this hospital service since the last note was generated. Service: Behavioral Medicine Comorbid issues impacting my care plan include obstructive sleep apnea, Pediotic limbe movement disorder. Following for Interval History: Review of Systems: Constitutional:No fever, no weight loss Eyes:No diplopia ENT:No sinus drainage CV:No chest pain. No ankle swelling Resp:No dyspnea. No wheezing GI:No abdominal pain.No abdominal distention :No dysuria Neuro:No headache Integumentary:No skin rash MuscSkel:No arthralgias Endo:No polyuria Heme/lymphatic:No apparent lymphadenopathy Physical Examination: Vital Signs: BP (!) 147/69 Pulse 65 Temp 98 degrees F (36.7 degrees C) Resp 18 Ht 5' 9 Wt 90.7 kg (200 lb) SpO2 96% BMI 29.53 kg/m Mental Status Evaluation: General Appearance & Behavior: age appropiate and cooperative Grooming & Hygiene: street clothes Psychomotor Activity: psychomotor agitation Gait & Station stable gait Speech: loud and pressured Flow of Thought: flight of ideas Thought Associations: Intact Content of Thought: somatically preoccupied Mood: stressed out Affect: irritable, labile, and hypomanic Insight: poor Judgment: poor Orientation: alert and oriented to person, place, time, and circumstances Memory: intact recent and remote Attention: adequate Concentration: reduced Language: intact Fund of Knowledge: estimated average intelligence Laboratory and Additional Data Reviewed: Laboratory 05/14/24 11:07 AM Medications 05/14/24 11:07 AM Transcriptions 05/14/24 11:07 AM Treatment options and alternatives reviewed with patient. Risks, benefits, side effects of all psychiatric medications discussed with patient and informed consent obtained. All questions were answered. Terrence Renee MD 05/14/2024 10:46 AM AUTHENTICATED BY TERRENCE RENEE, ON 05/14/2024 11:07:49 [facility] 05-13-2024 Note Psychiatry Progress Note Patient Name: Loree Francis Admit Date: 7241121 MR #: [id number] : 1955 Perpetual Assessment Loree Francis is a 68 y.o. adult was seen individually, case discussed with nursing staff, medical records were reviewed. Patient stated that he is working on triggers and that would help him to calm down. Patient stated that his OCD has significant impact on his racing thoughts and had not been able to complete the task at home since half-way 3 years ago. He remained somewhat hyperactive, hypertalkative with pressured speech. Will continue to monitor behavior closely. Will monitor medication compliance. Diagnosis & Plan/Recommendations Supportive therapy Pharmacological treatment Group therapy, activities therapy PRINCIPAL DIAGNOSIS: Major depression with psychotic features (HCC) No new Assessment & Plan notes have been filed under this hospital service since the last note was generated. Service: Behavioral Medicine Comorbid issues impacting my care plan include obstructive sleep apnea, periodic limb movement disorder. . Following for Interval History: Review of Systems: Constitutional:No fever, no weight loss Eyes:No diplopia ENT:No sinus drainage CV:No chest pain. No ankle swelling Resp:No dyspnea. No wheezing GI:No abdominal pain.No abdominal distention :No dysuria Neuro:No headache Integumentary:No skin rash MuscSkel:No arthralgias Endo:No polyuria Heme/lymphatic:No apparent lymphadenopathy Physical Examination: Vital Signs: BP 121/83 Pulse 61 Temp 98 degrees F (36.7 degrees C) Resp 16 Ht 5' 9 Wt 90.7 kg (200 lb) SpO2 94% BMI 29.53 kg/m Mental Status Evaluation: General Appearance & Behavior: cooperative and minimally engaged Grooming & Hygiene: street clothes Psychomotor Activity: psychomotor agitation Gait & Station stable gait Speech: hyperverbal, loud, and pressured Flow of Thought: flight of ideas Thought Associations: Intact Content of Thought: somatically preoccupied Mood: stressed out Affect: irritable, labile, and hypomanic Insight: poor Judgment: poor Orientation: alert and oriented to person, place, time, and circumstances Memory: intact recent and remote Attention: adequate Concentration: intact Language: intact Fund of Knowledge: estimated average intelligence Laboratory and Additional Data Reviewed: Laboratory 05/13/24 10:55 AM Medications 05/13/24 10:55 AM Transcriptions 05/13/24 10:55 AM Treatment options and alternatives reviewed with patient. Risks, benefits, side effects of all psychiatric medications discussed with patient and informed consent obtained. All questions were answered. Terrence Renee MD 05/13/2024 10:49 AM AUTHENTICATED BY TERRENCE RENEE, ON 05/13/2024 10:55:49 [facility] 05-12-2024 Note Psychiatry History a nd Physical Patient Name: Loree Francis MR #: [id number] : 1955 Admit Date: 7241121 Primary Care Provider: Rakel Licea MD Assessment Loree Francis is a 68 y.o. adult presenting with increased bizarre behaviors, irritability, disturbed sleep pattern, racing thoughts, mood fluctuation. Diagnosis & Plan/Recommendations Mood disorder Obstructive sleep apnea ,Periodic limb movement disorders. Plan: Physical examination/laboratory test Every 15 minutes check for unpredictable behavior PRN medication for agitation Collateral history from family/providers Review of prior medical records banking services officer assessment/care coordination Recommendations: Patient is prescribed Latuda 40 mg, Celexa 20 mg. Patient is explained in detail of role of prescribed medication, known indication, contraindication, adverse affect, alternatives to treatment. PRINCIPAL DIAGNOSIS: Major depression with psychotic features (HCC) No new Assessment & Plan notes have been filed under this hospital service since the last note was generated. Service: Behavioral Medicine Comorbid issues impacting my care plan include obstructive sleep apnea., Periodic limb movement disorder Chief Complaint: I am not sleeping well, has mood fluctuation. History of Present Illness: Loree Francis is a 68 y.o. adult was brought to [facility] by spouse as the patient is acting bizarre. Patient was seen by prescreener from the counseling center of [facility] in the emergency department. 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 Patient stated that since then he has been missing friends from work, feeling increasingly lonely and had been inattentive. Patient has not been sleeping well lately, is increasingly hyperverbal, more than usual energetic, hyperactive and getting increasingly anxious, angry, irritable. Patient stated that, his garage is a mess, tools everywhere and did not want his adult children to help cleaning up the mess. He is losing motivation, interest in engaging in activities around the house, organizing items in the household. Patient is living with 65-year-old for the past 35 years, has been increasingly concerned about patient's mood fluctuation and has been self-medicating with alcohol. Patient has history of previous psychiatric hospitalization at [facility] in [place] in September 2021. He is currently seeing counselor at [facility] and is receiving antidepressant medication Celexa. Considering deteriorating emotional state, impaired functioning level, is at risk, hospitalized for further evaluation and treatment. Past Psychiatric History Past diagnoses: Depression, OCD Past medications: Celexa Past hospitalizations: [facility] in September 2021 Past suicide attempts: Denied Past self injurious behavior: None Outpatient linkage: [facility]. The patient otherwise denies any previous psychiatric problems or diagnoses, inpatient or outpatient mental health care, suicide attempts, use of psychotropic medications, or any self injurious behavior. Family Psychiatric History Denied The patient otherwise denies any family history of mental illness or treatment, psychiatric hospitalizations, suicide attempts, or substance problems. Social History Patient has 2 brothers, 2 sisters. Living situation: Living with 65-year-old for the past 35 years. 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 Employment: Retired from [employer] as field artillery senior sergeant after 26 years and in 2020 Education: 11th grade. Sexual orientation: Heterosexual Marital Status: Children: 4 sons Legal History: Denied Trauma History: None History: None Jehovah'S Witness: Not known Access to firearms: Denied. Family counseled on removing firearms from the home. Substance use History Nicotine: None Alcohol: Patient drinks alcohol Illicit substances: None Rehab: None Patient is a Never Tobacco User Tobacco cessation medication not indicated Social History Socioeconomic History Marital status: Tobacco Use Smoking status: Never Smokeless tobacco: Current Vaping Use Vaping status: Never Used Substance and Sexual Activity Alcohol use: Yes Alcohol/week: 2.0 standard drinks of alcohol Types: 2 Shots of liquor per week Comment: 2 shots a day Drug use: Yes Types: Marijuana Sexual activity: Yes Partners: Female Social History Social History Narrative Not on file Medical History: I have reviewed the patient's other history as below: Past Medical History: Diagnosis Date GERD (gastroesophageal reflux disease) Hypertension Migraine Restless leg Sleep apnea Past Surgical History: Procedure Laterality Date (more content not included)... [facility] 05-12-2024 Note HMS CONSULTATION NOT E Patient Name: Loree Francis : 1955 MR #: [id number] Admit Date: [id number] Physicians: Rakel Licea MD (Family); No ref. provider found (Referring) Loree Francis is a 68 y.o. adult patient of Rakel Licea MD with history of Major depressive disorder, presented with major depressive disorder from [facility]. Major depressive disorder Psychosis Management as per primary team Admission labs unremarkable. UA with small amount of blood No UDS or ECG Uncontrolled Hypertension Hyperlipidemia BP 204/87 on admission Home meds atenolol, lisinopril, atorvastatin PO hydralazine PRN GERD Continue protonix MOM PRN Restless leg syndrome Continue ropinirole Sleep apnea CPAP use at night. Compliant. BPH History of TURP Finasteride, tamsulosin Medication Reconciliation: Unverified Code Status: Full Code - Unverified Thank you for the consult. Lroee Francis is stable in her comorbidities at this time. I will sign off with above recommendations. Please reach out for questions or concerns. Quality Measures DVT Prophylaxis: ambulation Rodriges Catheter: absent Disposition Discharge Location: as per primary team Estimated Discharge Date: as per primary team Outpatient Testing: as per primary team Chief Complaint HMS consulted by Terrence Renee MD for medical management History of Present Illness Loree Francis is a 68 y.o. adult patient of Rakel Licea MD with history of Major depressive disorder, presented with major depressive disorder from [facility]. He is very chatty and kind. He reports having back pain after sleeping as he knows he moves around a lot at night. He also expressed that he has a bunion. No pain or concerns with the bunion except that he asks to wear slippers while here. He states he is working with his urologist on how to not be nervous about urinating. When he does get nervous, he is not able to pee. He reports taking his medications as directed at home. He states his helps him remember. No health concerns at this time. Past Medical History Past Medical History: Diagnosis Date GERD (gastroesophageal reflux disease) Hypertension Migraine Restless leg Sleep apnea Past Surgical History Past Surgical History: Procedure Laterality Date TRANSURETHRAL RESECTION OF PROSTATE Family History Family History Problem Relation Age of Onset Heart disease Mother Stroke Father Diabetes Maternal Grandmother Heart disease Maternal Grandmother Social History Social History Tobacco Use Smoking Status Never Smokeless Tobacco Current Social History Substance and Sexual Activity Alcohol Use Yes Alcohol/week: 2.0 standard drinks of alcohol Types: 2 Shots of liquor per week Comment: 2 shots a day Social History Substance and Sexual Activity Drug Use Yes Types: Marijuana Allergy Information I have reviewed the patient's allergies. Sulfa (sulfonamide antibiotics) Home Medications Home medications were reviewed. Review Of Systems All relevant systems have been reviewed and are negative except as noted in HPI or below Physical Examination BP 130/72 (BP Location: Left arm, Patient Position: Sitting) Pulse 63 Temp 98.3 degrees F (36.8 degrees C) (Oral) Resp 16 Ht 5' 9 Wt 90.7 kg (200 lb) SpO2 93% BMI 29.53 kg/m General Appearance: alert, well appearing, and in no acute distress HEENT: Head- normocephalic; Eyes- PERRLA, EOMI; Ears- external auditory canals clear, hearing intact; Nose- no nasal discharge; Throat- oropharynx normal Cardiovascular: regular rate and rhythm; normal S1, S2; no murmurs, rubs, clicks or gallops; no peripheral edema Respiratory: lungs clear to auscultation; without wheezes, rales or rhonchi Abdomen: soft, non-tender, non-distended; positive bowel sounds Neurological: alert, oriented x 3, normal speech; no focal findings or movement disorder noted Cranial Nerves: II: visual villarreal full. III, IV, : extraocular range intact. V: sensation intact. VII: facial symmetric with 5/5 strength. VIII: hearing intact to voice and finger rub. IX, X: palate elevates symmetrically. XI: shrugs shoulders 5/5 strength bilaterally. XII: tongue protrudes in midline. Sensation -grossly symmetrical. Motor strength 5/5 all over. DTR 2+ in the UE and LE bilaterally. Musculoskeletal: no significant deformity or tenderness to palpation; bunion locate on the lateral aspect of the great toe joint. Skin: normal coloration, texture and turgor; no lesions or eruptions Psych: normal mood and affect Laboratory and Additional Data Reviewed Laboratory 05/12/24 3:23 PM Radiology 05/12/24 3:23 PM Cardiology 05/12/24 3:23 PM Medications 05/12/24 3:23 PM AUTHENTICATED BY LAURA LOZANO 05/13/2024 11:50:21 [facility] Evaluation + Plan note No data available for this section [facility] Evaluation note No assessment inform ation available [facility] Work Phone: Evaluation note Diagnosis Onset Date Accelerated hypertension acu te Brain TIA acute Transient amnesia acute [facility] Work Phone: Evaluation note* Diagnosis Onset Date Resolution Status Accelerated hypertension res olved Brain TIA resolved Transient amnesia resolved [facility] Work Phone: Hospital Discharge instructions Additional Instructions Implant Used?: [facility] Work Phone: Hospital Discharge instructions No data available for this section [facility] Progress note No data available for this section [facility] Summary Purpose Family History No Family History Records Found Relationship Condition Age at Onset Recorded Date/T padmaja Unknown Family History?Heart Disease Unknown July 10, 2019 3:23pm Family History?No pe rtinent history Unknown October 12, 2018 10:01am Family History?Stroke Unknown 2018 3:23pm Relationship Condition Age at Onset Recorded Date/T padmaja Not Specified Diabetes mellitus Unknown Cardiac disease Unknown Cerebrovascular accident (CVA) Unknown Advance Directives No Advanced Directives Records Found Advance Directive Response Recorded Date/ Time Advance Directives Yes September 10:01am Living Will No October 03 3:25pm Power of Adolescent Specialist No October 03, 2021 3:25pm Advance Directive Response Recorded Date/ Time Name of Medical Power of Adolescent Specialist MANUEL FRANCIS April 26, 2022 11:08pm Advance Directives Yes September 10:01am Living Will Yes April 26, 2022 11:08pm Power of Adolescent Specialist Yes April 26 11:08pm Advance Directive Response Recorded Date/ Time Name of Medical Power of Adolescent Specialist MANUEL FRANCIS April 26, 2022 11:08pm Name of Medical Power of Adolescent Specialist May 10, 2022 10:00pm Advance Directives Yes September 10:01am Living Will Yes May 10, 2022 10:00pm Power of Adolescent Specialist Yes May 10 10:00pm Advance Directive Response Recorded Date/ Time Name of Medical Power of Adolescent Specialist MANUEL FRANCIS April 26, 2022 11:08pm Name of Medical Power of Adolescent Specialist May 10, 2022 11:29pm Advance Directives Yes September 10:01am Living Will Yes May 10, 2022 11:29pm Power of Adolescent Specialist Yes May 10 11:29pm Advance Directive Response Recorded Date/ Time Name of Medical Power of Adolescent Specialist MANUEL FRANCIS April 26, 2022 11:08pm Name of Medical Power of Adolescent Specialist May 10, 2022 11:29pm Advance Directives Yes September 10:01am Living Will No May 21, 2022 8:50am Power of Adolescent Specialist No May 21 8:50am Advance Directive Response Recorded Date/ Time Name of Medical Power of Adolescent Specialist MANUEL FRANCIS April 26, 2022 11:08pm Name of Medical Power of Adolescent Specialist May 10, 2022 11:29pm Name of Medical Power of Adolescent Specialist MALDONADO FRANCIS , May 24, 2022 2:18pm Advance Directives Yes September 10:01am Living Will Yes May 24, 2022 2:18pm Power of Adolescent Specialist Yes May 24 2:18pm Advance Directive Response Recorded Date/ Time Name of Medical Power of Adolescent Specialist May 10, 2022 10:29pm Name of Medical Power of Adolescent Specialist MALDONADO FRANCIS , May 24, 2022 1:18pm Name of Medical Power of Adolescent Specialist Maldonado Francis August 28, 2022 12:21pm Advance Directives Yes September 9:01am Living Will Yes August 28, 022 12:21pm Power of Adolescent Specialist Yes August 28, 2022 12:21pm Advance Directive Response Recorded Date/ Time Advance Directives Yes September 10:01am Living Will Yes August 28, 022 1:21pm Power of Adolescent Specialist Yes August 28, 2022 1:21pm Advance Directive Response Recorded Date/ Time Advance Directives Yes September 9:01am Living Will Yes August 28, 022 12:21pm Power of Adolescent Specialist Yes August 28, 2022 12:21pm Chief Complaint and Reason for Visit Chief Complaint SEE ORDER CEREBRAL ANEURYSM LEFT Chief Complaint SEE ORDER CEREBRAL ANEURYSM LEFT HYPERTENSION Chief Complaint SEE ORDER CEREBRAL ANEURYSM LEFT HYPERTENSION TRANSIENT ANTEROGRADE AMNESIA Reason for Visit Accelerated hyperten kenneth Brain TIA Transient amnesia Chief Complaint SEE ORDER CEREBRAL ANEURYSM LEFT HYPERTENSION TRANSIENT ANTEROGRADE AMNESIA TRANSIENT ANTEROGRADE AMNESIA TRANSIENT ANTEROGRADE AMNESIA Reason for Visit Accelerated hyperten kenneth Brain TIA Transient amnesia Chief Complaint SEE ORDER CEREBRAL ANEURYSM LEFT HYPERTENSION TRANSIENT ANTEROGRADE AMNESIA TRANSIENT ANTEROGRADE AMNESIA TRANSIENT ANTEROGRADE AMNESIA CP CP HYPERTENSION Reason for Visit Accelerated hyperten kenneth Brain TIA Transient amnesia Chief Complaint SEE ORDER CEREBRAL ANEURYSM LEFT HYPERTENSION TRANSIENT ANTEROGRADE AMNESIA TRANSIENT ANTEROGRADE AMNESIA TRANSIENT ANTEROGRADE AMNESIA CP CP HYPERTENSION HTN, cp, JOHNSON Reason for Visit Accelerated hyperten kenneth Brain TIA Transient amnesia Chief Complaint TRANSIENT ANTEROGRAD E AMNESIA TRANSIENT ANTEROGRADE AMNESIA TRANSIENT ANTEROGRADE AMNESIA CP CP HYPERTENSION HTN, cp, JOHNSNO CYSTO, TURP, OLYMPUS Reason for Visit Accelerated hyperten kenneth Brain TIA Transient amnesia Chief Complaint EORDER Additional Source Comments (unrecognized sect ion and content) No Status Records FoundNo Status Records FoundNo Status Records FoundNo Status Records FoundNo Status Records FoundNo Status Records FoundNo Status Records FoundNo Status Records Found INFORMATION SOURCE (unrecogn ized section and content) DATE CREATED AUTHOR 04/05/2018 [facility] DATE CREATED AUTHOR AUTHOR'S ORGANIZ ATION 06/14/2019 [facility] DATE CREATED AUTHOR AUTHOR'S ORGANIZ ATION 08/03/2019 [facility] DATE CREATED AUTHOR AUTHOR'S ORGANIZ ATION 08/14/2019 [facility] DATE CREATED AUTHOR AUTHOR'S ORGANIZ ATION 10/08/2021 [facility] DATE CREATED AUTHOR AUTHOR'S ORGANIZ ATION 01/22/2024 [facility] DATE CREATED AUTHOR [facility] DATE CREATED AUTHOR AUTHOR'S ORGANIZ ATION 06/09/2025 [facility] Goals (unrecognized section and content) Goals may be documented in a n alternate sectionGoals may be documented in an alternate sectionGoals may be documented in an alternate sectionGoals may be documented in an alternate sectionGoals may be documented in an alternate sectionGoals may be documented in an alternate section No data available for this section Care Teams (unrecognized sec tion and content) Team Status: Active Member Role Status Dates Dr. Ayleen Burger MD Family Provider Active Gilmar Morse DO Primary Care Provider Active Team Status: Inactive Member Role Status Dates Gilmar Morse DO Primary Care Provi shara, Attending Provider, Referring Provider Active Team Status: Inactive Member Role Status Dates Gilmar Morse DO Primary Care Provider Active Dr. Jerald Hardwick MD Attending Provider, Referring Pr vida Active FOR RECORDS PERTAINING TO PATIENTS WHO ARE OR HAVE BEEN ENROLLED IN A CHEMICAL DEPENDENCY/SUBSTANCEABUSE PROGRAM, SOME INFORMATION MAY BE OMITTED. This clinical summary was aggregated from multiple sources. Caution should be exercised in using it in the provision of clinical care. This summary normalizes information from multiple sources, and as a consequence, information in this document may materially change the coding, format and clinical context of patient data. In addition, data may be omitted in some cases. CLINICAL DECISIONS SHOULD BE BASED ON THE PRIMARY CLINICAL RECORDS. [employer] provides no warranty or guarantee of the accuracy or completeness of information in this document.
== END | disposition home or self-care (01) ==
LOC: LAB 14:27
PROVIDERS: PCP Family Medicine; Referring Provider Urology; Visit Provider Urology
DX: Z12.5 Encounter for screening for malignant neoplasm of prostate (principal)
CPT/HCPCS: 36415; 84153; G0103